=== PATIENT | female | born 1965 | race Caucasian/White ===

== ENCOUNTER 2018-08-11 14:09 | Outpatient (CLI) | payer BC, SELFPAY ==
--- NOTE | 2018-08-11 14:07 | DI.RAD_ITS ---
SYMPTOMS/DIAGNOSIS: LT SHOULDER PAIN LEFT SHOULDER: Four views were obtained. There are mild hypertrophic degenerative changes of the glenohumeral and acromioclavicular joint. There is lucency of the inferior glenoid which may represent degenerative cyst formation. Other etiologies including neoplastic disease not absolutely excluded on the basis of these films. I would note that rib films of 09/01/17 showed similar findings in the glenoid as visualized and the findings appear fairly stable, making neoplasm or infection unlikely.
== END 2018-08-11 14:29 ==
PROVIDERS: PCP Nurse Practitioner Family; Visit Provider Physician Assistant
DX: M25.512 Pain in left shoulder (principal); M19.012 Primary osteoarthritis, left shoulder
CPT/HCPCS: 73030

== ENCOUNTER 2018-10-17 10:57 | Emergency (ER) | payer BC, SELFPAY ==
[2018-10-17 11:10] VITALS: BP 144/73; PULSE 103; RESP 16; TEMP 37; O2SAT 97
--- NOTE | 2018-10-17 11:10 | W.ED.GENAD ---
Discharge Plan Disposition Patient Disposition: HOME Condition: Stable Discharge Details Chief Complaint: RashLesion Clinical Impression: History of shingles Primary Care Provider: Trudy Olmedo ED Provider: Eliot Thomason Home Meds and New Rx's Prescriptions: New valacyclovir 1 gram tablet 1,000 mg PO TID 7 Days Qty: 21 RF: 0 Continued Novolog Flexpen U-100 Insulin 100 unit/mL insulin pen 10 unit SC TID RF: 0 Ozempic 1 mg/0.75 mL (2 mg/1.5 mL) pen injector 1 mg SC QWEEK RF: 0 Tresiba FlexTouch U-200 200 unit/mL (3 mL) insulin pen 128 unit SC DAILY RF: 0 gabapentin 300 MG capsule 2 tab PO HS RF: 0 metformin 500 MG tablet extended release 24 hr 4 tab PO HS RF: 0 ibuprofen 200 MG capsule 200 mg PO RF: 0 No Action venlafaxine 75 MG tablet 2 tab PO DAILY RF: 0 zolpidem [Ambien] 5 MG tablet 1 tab PO HS RF: 0 Discharge Instructions Additional Instructions: Take valacyclovir as prescribed. Follow-up with Trudy Olmedo if not improved in 7 days time. Return to the emergency department for any acute concern Medical Decision Making 53-year-old female presents from home complaining of concern for achy left arm rash over days time. Similar to previous episodes of shingles. She is otherwise been well. Given her previous episodes of shingles, I do feels reasonable to treat with a course of valacyclovir. Discussed this option with her and she stable for outpatient management HPI General Mode of arrival: ambulatory. Date/Time Provider Initiated Documentation: 10/17/18 11:06. Limitations to Documentation: no limitations. Information obtained by: patient. History of Present Illness 53 year old F presents to the emergency department with the chief complaint of Left arm rash, feels like previous shingles, described as mild, Quality is described as aching, and is localized to the left and upper extremity. Patient reports no radiation. Patient started experiencing this day(s) and it has been constant. No relieving factors improve symptom(s), No exacerbating factors reported . Patient notes no other symptoms.. Patient did receive the following treatments prior to arrival, none Related Data Home Medications Medication Instructions Recorded Confirmed gabapentin 2 tab PO HS 02/19/14 09/29/18 venlafaxine 2 tab PO DAILY 02/19/14 09/29/18 zolpidem [Ambien] 1 tab PO HS 02/19/14 09/29/18 metformin 4 tab PO HS 07/18/15 09/29/18 ibuprofen 200 mg PO 03/07/17 09/29/18 insulin aspart U- 100 100 unit/mL 10 unit SC TID 08/11/18 09/29/18 subcutaneous pen insulin degludec (U-200) 200 128 unit SC DAILY ml 08/11/18 09/29/18 unit/mL (3 mL) subcutaneous pen semaglutide 1 mg/0.75 mL (2 mg/1.5 1 mg SC QWEEK 08/11/18 09/29/18 mL) subcutaneous pen injector valacyclovir 1,000 mg PO TID 7 Days #21 tab 10/17/18 Previous Rx's Medication Instructions Recorded valacyclovir 1,000 mg PO TID 7 Days #21 tab 10/17/18 Allergies Allergy/AdvReac Type Severity Reaction Status Date / Time Penicillins Allergy Intermediate Swelling/Ed Unverified 09/29/18 15:03 jeanette exenatide [From Byetta] AdvReac Mild Nausea Unverified 09/29/18 15:03 Review of Systems Review of Systems 6 systems reviewed and otherwise - COUNTS INCLUDE 234 BEDS AT THE [facility] Social History Smoking/Tobacco Use Status: Never Exam Narrative Exam Narrative: GEN: awake, alert, oriented 3. Pleasant, well groomed, interactive. HEAD: Normocephalic, atraumatic ENT: Mucous membranes moist, oropharynx unremarkable, External ear exam unremarkable EYES: PERRL, EOMI NECK: Full ROM, no SEAN, no menigismus CHEST/RESP: Nontender, clear to auscultation bilateral, no wheeze/rhonchi/rales CARDIOVASCULAR: RRR, no murmur, rub victor manuel. 2+ Rad pulse bilateral ABDOMEN: Soft, nontender, no mass. +Bowel sounds EXT: Full ROM, no edema, discrete punctate erythematous rash left arm Neuro: Grossly normal neurologic exam, conversant, interactive. Psych: Speech fluent, thoughts congruent, affect normal
== END 2018-10-17 11:18 | disposition home or self-care (01) ==
PROVIDERS: Emergency Provider Emergency Medicine; PCP Nurse Practitioner Family
DX: B02.9 Zoster without complications (principal)
CPT/HCPCS: 99283

== ENCOUNTER 2018-12-16 00:34 | Outpatient (CLI) | payer BC, SELFPAY ==
--- NOTE | 2018-12-16 06:40 | DI.RAD_ITS ---
SYMPTOM/DIAGNOSIS: LT SHOULDER INJECTION, TENDINITIS LT ROTATOR CUFF, M75.82, OTHER SHOULDER LESION, LT LEFT SHOULDER INJECTION: Fluoroscopy Time: 3 seconds A frontal image demonstrates needle positioning and injection into the left shoulder joint by Dr. Lujan. Please see the procedure report for further information.
[2018-12-16] MEDS: Bupivacaine 0.5% Pres-Free 10 ML VIAL 5 ML IJ (09:06)
[2018-12-16] MEDS: methylPREDNISolone ACETATE 80 MG/ML VIAL IM (09:07)
[2018-12-16] MEDS: Omnipaque 300 MG/ML 10 ML BTL IJ (09:08)
--- NOTE | 2018-12-16 09:50 | W.PROCNOTE ---
Date of service: 12/16/18 Time of Service: 09:50 Procedure Note Date of procedure: 12/16/18 Procedure: Left Shoulder Injection Surgeon/Proceduralist/Physician: Lamin Lujan Procedure Diagnosis: Left partial rotator cuff tear Procedure Indications: Marquis has had persistent pain of the LEFT shoulder. Noninvasive measures have been tried. To serve as both diagnostic and therapeutic, an injection under fluoroscopy was recommended. I had discussed the risks of the procedure and the patient elected to proceed. Procedure Description: Marquis was greeted in the flouroscopy room. The correct side was identified and the consent was reviewed with the patient and signed. The patient was then placed in the supine position on the fluoroscopy table. The LEFT shoulder was then prepped with Chloraprep. The anterior injection starting point was identiifed by bony landmarks and fluoroscopy. The skin and soft tissue in the tract of the injection was anesthetized with 1% Lidocaine. A spinal needle was then inserted deep into the shoulder joint at the level of the recess between the glenoid and superior humeral head. A small amount of Omnipaque solution was injected to confirm intraarticular placement. Once confirmed, the shoulder was injected with 4cc of 0.5% Bupivicaine and 80mg of Depo-Medrol. A bandaid was placed on the injection site. The patient tolerated the procedure well and noted improvement in pre-injection pain.
== END 2018-12-16 00:54 ==
PROVIDERS: PCP Nurse Practitioner Family; Visit Provider Student in an Organized Health Care Education/Training Program
DX: M25.512 Pain in left shoulder (principal); M75.82 Other shoulder lesions, left shoulder
CPT/HCPCS: 20610; 77002; J1040

== ENCOUNTER 2019-02-11 00:32 | Outpatient (CLI) | payer BC, SELFPAY ==
--- NOTE | 2019-02-11 11:00 | DI.US_ITS ---
SYMPTOMS/DIAGNOSIS: LUMP ON CHEST NEAR XIPHOID X 3 WEEKS, PAINFUL TO THE TOUCH, HAS PROGRESSIVELY INCREASED IN SIZE, R22.9 ULTRASOUND OF THE CHEST: The area of the palpable abnormality beneath the xiphoid was scanned. No mass or cyst is identified. There is a question of a fatty prominence, which could represent a small lipoma. The measurements are approximately 1.4 x 0.8 x 1 cm. IMPRESSION: Question of a small lipoma beneath the xiphoid.
== END 2019-02-11 00:52 ==
PROVIDERS: PCP Nurse Practitioner Family; Visit Provider Nurse Practitioner Family
DX: R22.2 Localized swelling, mass and lump, trunk (principal); D17.1 Benign lipomatous neoplasm of skin and subcutaneous tissue of trunk
CPT/HCPCS: 76604

== ENCOUNTER 2019-02-26 12:33 | Emergency (ER) | payer BC, SELFPAY ==
[2019-02-26 12:38] VITALS: BP 137/68; PULSE 107; RESP 18; TEMP 37.2; O2SAT 96
--- NOTE | 2019-02-26 13:09 | ED.GENADUL_ITS ---
Discharge Plan Disposition Patient Disposition: HOME Condition: Stable Discharge Details Chief Complaint: RespSymp Clinical Impression: Conjunctivitis, Acute streptococcal pharyngitis, Cough Primary Care Provider: Martina So ED Provider: Masha Melendez Home Meds and New Rx's Prescriptions: New azithromycin [Zithromax] 500 mg tablet 500 mg PO DAILY 5 Days Qty: 5 RF: 0 Continued Novolog Flexpen U-100 Insulin 100 unit/mL insulin pen 10 unit SC TID RF: 0 Ozempic 1 mg/0.75 mL (2 mg/1.5 mL) pen injector 1 mg SC QWEEK RF: 0 Tresiba FlexTouch U-200 200 unit/mL (3 mL) insulin pen 100 unit SC DAILY RF: 0 venlafaxine 75 MG tablet 2 tab PO DAILY RF: 0 zolpidem [Ambien] 5 MG tablet 1 tab PO HS RF: 0 gabapentin 300 MG capsule 2 tab PO HS RF: 0 metformin 500 MG tablet extended release 24 hr 4 tab PO HS RF: 0 Discharge Instructions Instructions: Pharyngitis (ED), Acute Cough (ED), Conjunctivitis (ED) Additional Instructions: Alternate Tylenol and Motrin as needed directed for pain. Take the antibiotics until finished. Apply the erythromycin ointment with 1/2 inch ribbon to the left eye 4 times daily for the next 4 days. Follow-up with your primary care doctor next week for reevaluation. Return to the emergency department if you develop any worsening or new co ncerning symptoms. Discharge Data Discharge Date/Time-TO BE ENTERED AT DEPARTURE: 02/26/19 15:31 Discharge Physician: Masha Melendez Medical Decision Making 53-year-old female with a history of diabetes type 2 who presents with cough, sore throat for the past 9 days and left eye irritation and redness for the past 2 days. Afebrile. Patient appears nontoxic. Left eye injection and tearing consistent with conjunctivitis, symptoms much milder in the right eye. Glucose after arrival 117. Lungs clear to auscultation. Normal oropharynx. No lymphadenopathy, submandibular swelling. Abdomen soft nontender. Chest x-ray negative. Rapid strep positive. Patient given tube of erythromycin ointment to apply in the left eye 4 times daily. Also instructed to use the same on right eye if needed. Prescription for Zithromax given for strep pharyngitis. Patient instructed to drink plenty of fluids, get plenty of rest, and instructed that her symptoms are contagious. She is instructed to follow-up with primary care doctor for reevaluation and to return here if worse. Pt returned later to the ED for a dose of the Zithromax PO as she went to the pharmacy and it was closed. Medical Records Medical records reviewed: Yes I reviewed the patient's medical records. Imaging Data Radiologic Study: Radiologist's impression: XR Chest, 2 Views EXAM DATE/TIME: 02/26/2019 1:09 PM CLINICAL HISTORY: 53 years old, female; Signs and symptoms; Cough TECHNIQUE: Imaging protocol: XR of the chest, 2 views. COMPARISON: CR LEFT RIBS PA CXR ONLY-3VIEWS 09/01/2017 9:26 AM FINDINGS: Lungs: No significant consolidation. Pleural space: No pleural effusion. No pneumothorax. Heart/Mediastinum: No significant cardiomegaly. Bones/joints: Unremarkable for age. IMPRESSION: No acute findings. Lab Data Lab results reviewed: Yes I reviewed the patient's lab results. Rapid strep positive. HPI General Mode of arrival: ambulatory . Date/Time Provider Initiated Documentation: 02/26/19 12:57 . Limitations to Documentation: no limitations . Information obtained by: patient . HPI Narrative: Patient is a 53-year-old female who presents to the ED with complaint of cough and sore throat for the past 9 days. She states her sore throat is bothering her the most but occasionally has a cough with yellow mucus. She states she has been eating and drinking less than normal but otherwise denies any fever, shortness of breath, chest pain. She states her main complaint is what she thinks is pinkeye in her left eye. She states she had a recent contact with someone diagnosed with pinkeye. 2 days ago she started with left eye pain, discharge and crusting which is now developing in her right eye. She denies any blurry vision, headache or neck pain. Related Data Home Medications Medication Instructions Recorded Confirmed gabapentin 2 tab PO HS 02/19/14 02/26/19 venlafaxine 2 tab PO DAILY 02/19/14 02/26/19 zolpidem [Ambien] 1 tab PO HS 02/19/14 02/26/19 metformin 4 tab PO HS 07/18/15 02/26/19 insulin aspart U- 100 100 unit/mL 10 unit SC TID 08/11/18 02/26/19 subcutaneous pen insulin degludec (U-200) 200 100 unit SC DAILY ml 08/11/18 02/26/19 unit/mL (3 mL) subcutaneous pen semaglutide 1 mg/dose (2 mg/1.5 1 mg SC QWEEK 08/11/18 02/26/19 mL) subcutaneous pen injector azithromycin [Zithromax] 500 mg PO DAILY 5 Days #5 tab 02/26/19 Previous Rx's Medication Instructions Recorded azithromycin [Zithromax] 500 mg PO DAILY 5 Days #5 tab 02/26/19 Allergies Allergy/AdvReac Type Severity Reaction Status Date / Time Penicillins Allergy Intermediate Swelling/Ed Unverified 02/26/19 12:42 jeanette exenatide [From Byetta] AdvReac Mild Nausea Unverified 02/26/19 12:42 General Stated Complaint: RespSymp ANDREWS: 4 Review of Systems Review of Systems All systems reviewed & are unremarkable except as noted in HPI and below Constitutional Reports as per HPI, Denies chills and Denies fever(s) Eyes Denies blurry vision, Reports eye discharge and Reports irritation ENT Denies dizziness, Reports sore throat and Denies throat swelling Cardiovascular Denies chest pain and Denies dyspnea Respiratory Reports cough and Denies dyspnea Gastrointestinal Denies abdominal pain, Denies diarrhea and Denies vomiting Genitourinary Denies hematuria and Denies dysuria Musculoskeletal Denies back pain and Denies numbness Integumentary/Breasts Denies lesions and Denies rash Neurologic Denies dizziness, Denies focal weakness and Denies numbness Allergic/Immunologic Denies throat swelling [facility] Medical History Type 2 diabetes mellitus (Acute) Surgical History H/O laparoscopy (Chronic) Social History Smoking/Tobacco Use Status: Never Alcohol Intake: never Drug use: Never Substance use type: does not use Do you feel safe at home: Yes Do you feel safe in your relationship?: Yes Exam Const General: cooperative and healthy appearing Orientation: alert and awake HENMA Head: normal to inspection Ears: hearing grossly normal bilaterally, external ears normal and TM's normal bilaterally General nose exam: external nose normal Face and sinus: normal facial exam Mouth: oral mucosae normal Teeth and gingiva: dentition normal Throat: posterior oropharynx normal, tonsils normal, uvula midline and no peritonsillar masses Eyes General: appearance normal, both eyes and all related structures Eyelids: eyelids normal Conjunctivae: conjunctival abnormality bilaterally conjunctival injection (Left worse than right) and discharge purulent (Left) Pupils: PERRL EOM: EOM intact bilaterally Neck Neck: normal visual inspection Lymphatic: no lymphadenopathy noted Chest Chest: normal inspection of the chest Resp Effort & Inspection: normal respiratory effort and able to speak in complete sentences Auscultation: clear to auscultation bilaterally Cardio Rate: regular rate Rhythm: regular rhythm GI Inspection: normal to inspection Palpation: soft, not firm, no guarding, no hepatosplenomegaly, no masses and nontender Auscultation: normal bowel sounds Skin General skin exam: no rashes or lesions noted Neuro General: alert and awake Cognition: normal cognition Speech: speech normal Gait: normal gait Motor: muscle tone normal throughout Sensory Exam: no sensory deficits noted Extrem General: normal to inspection, full ROM and normal capillary refill Psych Appearance: grossly normal Mental Status: mental status grossly normal Speech and Movement: speech and movement normal Affect: normal affect Thought Process: normal Course Vital Signs Temperature 99.0 F 02/26/19 12:38 Pulse 107 H 02/26/19 12:38 Respiratory Rate 18 02/26/19 12:38 Blood Pressure 137/68 02/26/19 12:38 Pulse Oximetry 96 02/26/19 12:38 Temperature 99.0 F 02/26/19 12:38 Temperature Source Skin 02/26/19 12:38 Pulse 107 H 02/26/19 12:38 Respiratory Rate 18 02/26/19 12:38 Respiratory Effort Non-Labored 02/26/19 12:46 Respiratory Depth Normal 02/26/19 12:46 Blood Pressure 137/68 02/26/19 12:38 Blood Pressure Position Sitting 02/26/19 12:38 Pulse Oximetry 96 02/26/19 12:38 Oxygen Delivery Method Room Air 02/26/19 12:38 Oxygen Flow Rate 0 02/26/19 12:38 Pain Level 4 02/26/19 12:38 Comment 02/26/19 12:38
--- NOTE | 2019-02-26 13:30 | DI.RAD_ITS ---
SYMPTOM/DIAGNOSIS: COUGH,DIABETES PA AND LATERAL CHEST: Comparison is made with 09/01/17. The heart is normal in size. The lungs are clear. The mediastinal structures and pleura appear intact. CONCLUSION: Normal chest.
--- NOTE | 2019-02-26 13:57 | DI.VRAD_ITS ---
EXAM: XR Chest, 2 Views EXAM DATE/TIME: 02/26/2019 1:09 PM CLINICAL HISTORY: 53 years old, female; Signs and symptoms; Cough TECHNIQUE: Imaging protocol: XR of the chest, 2 views. COMPARISON: CR LEFT RIBS PA CXR ONLY-3VIEWS 09/01/2017 9:26 AM FINDINGS: Lungs: No significant consolidation. Pleural space: No pleural effusion. No pneumothorax. Heart/Mediastinum: No significant cardiomegaly. Bones/joints: Unremarkable for age. IMPRESSION: No acute findings. Dictated and Authenticated by: Misha Schaefer MD. Ordering:ZHENG Flanagan MD
[2019-02-26] MEDS: Erythromycin Ophth Oint 3.5 GM TUBE OU (14:41)
--- NOTE | 2019-02-26 18:11 | NUR.NOTE ---
Nursing Note: Pt contacted ED regarding Pharmacy closed @ 1800 and was unable to fill prescription today for Azithromycin 500mg PO QD. Dr. Melendez made aware and order received to give pt one dose for tonight, fill script tomorrow and continue as ordered.
[2019-02-26] MEDS: Azithromycin 250 MG TAB 500 MG PO (18:21)
== END 2019-02-26 15:31 | disposition home or self-care (01) ==
PROVIDERS: Emergency Provider Physician Assistant; PCP Nurse Practitioner Family
DX: H10.9 Unspecified conjunctivitis (principal); J02.0 Streptococcal pharyngitis; R05 Cough; E11.9 Type 2 diabetes mellitus without complications; Z79.4 Long term (current) use of insulin
CPT/HCPCS: 36416; 82962; 87880; 99283; 71046

== ENCOUNTER 2019-04-06 00:17 | Outpatient (CLI) | payer BC, SELFPAY ==
--- NOTE | 2019-04-06 11:55 | DI.MAMMO_ITS ---
SYMPTOM/DIAGNOSIS: SCREENING MAMMO Z12.31 MAMMOGRAMS: Mammograms were interpreted according to the usual protocol including computer analysis with CAD system, tomosynthesis and C view imaging. The breast tissue is of moderate radiodensity. There is no evidence of a mass. There are no suspicious calcifications. There has been no significant interval change when compared with prior images. SUMMARY: No evidence of malignancy, Category 1, yearly screening mammography is recommended. Breast density category B. SA ASSESSMENT OF FINDINGS: Negative. Category 1. Patient will receive a letter notifying them of these results. BI-RADS category B. There are scattered areas of fibroglandular density.
== END 2019-04-06 00:37 ==
PROVIDERS: PCP Nurse Practitioner Family; Visit Provider Family Medicine
DX: Z12.31 Encounter for screening mammogram for malignant neoplasm of breast (principal)
CPT/HCPCS: 77063; 77067

== ENCOUNTER 2019-07-06 18:33 | Outpatient (REF) | payer BC, SELFPAY ==
[2019-07-06 22:23] LABS: HCT 40.4 % (36.0-46.0); HGB 13.3 g/dL (12.0-15.5); Mean Corp. HGB Concentration 32.9 g/dL (32.0-36.0); Mean Corpuscular Hemoglobin 28.4 pg (27.0-33.0); Mean Corpuscular Volume 86.1 fL (80-95); Mean Platelet Volume 10.3 fL (8.0-11.0); Platelet Count 316 x1000/uL (130-400); RBC 4.69 m/cumm (4.00-5.20); RBC Distribution Width 12.8 % (11.7-14.6); White Blood Cell Count 12.99 k/cumm (4.4-10.8)
[2019-07-08 09:01] LABS: Cyclic Citrullinated Peptide <2.5 U/mL (<5.0)
[2019-07-08 10:53] LABS: Rheumatoid Factor 13 IU/mL (<12.5)
[2019-07-08 11:01] LABS: Lyme Ab w Rflx to Lyme Confirm Negative
[2019-07-08 16:58] LABS: ANA Interpretation Positive (NEGAT); ANA Titer Pattern SEE COMMENTS
[2019-07-08 20:53] LABS: Anaplasma phagocytophilum Negative (Negative); B. miyamotoi PCR Negative (Negative); Babesia divergens/MO-1 Negative (Negative); Babesia duncani Negative (Negative); Babesia microti Negative (Negative); Ehrlichia chaffeensis Negative (Negative); Ehrlichia ewingii/canis Negative (Negative); Ehrlichia muris eauclairensis Negative (Negative)
== END 2019-07-06 18:53 ==
LOC: NCHCN 18:33
PROVIDERS: PCP Nurse Practitioner Family; Visit Provider Nurse Practitioner Family
DX: R53.83 Other fatigue (principal); R53.81 Other malaise
CPT/HCPCS: 85027; 86200; 87798; 84443; 86038; 86431; 86618

== ENCOUNTER 2019-07-26 00:56 | Outpatient (CLI) | payer BC, SELFPAY ==
--- NOTE | 2019-07-26 08:30 | ETT_ITS ---
APPROVED REPORT Exam: Exercise Treadmill Patient Location: Out-Patient Room/Bed: Stress Nurse: Karen Bahena RN BMI: 36.39 Baseline Rhythm: Sinus Rhythm Indications: Testing today for further risk stratification. Patient states she is adopted and does no t know her family history. Medical History Medical History: Anxiety, PTSD, sleep apnea, head injury. Allergies: Penicillin, Byetta. Cardiac Risk Factors: HTN, Diabetes (insulin) Pretest Chest Pain Characteristics: No chest pain Exercise History: Physically active Lung Sounds: Clear to auscultation Heart Sounds: Regular Stress Test Details Test: Exercise stress testing was performed using a Harsha protocol. Rest Stress HR Max Heart Rate (APMHR): 167 bpm Resting HR Supine: 88 bpm Target HR (85% APMHR): 141 bpm Resting HR Standin bpm Max HR Achieved: 152 bpm % of APMHR: 91 Recovery HR: 98 bpm HR response to stress: Normal HR response to stress BP Resting BP Supine: 126/78 mmHg Resting BP Standin/78 mmHg Max BP: 180/62 mmHg Recovery BP: 120/72 mmHg BP response to stress: Normal blood pressure response to stress. ECG Resting ECG: Sinus Rhythm ST Change: none Stress ECG: Sinus Tachycardia ST Change: none Recovery Arrhythmia: None, APC, VPC, APC, None, Clinical Reason for Termination: Leg fatigue Exercise duration: 7 min15 sec Exercise capacity: 8.99 METs Functional Capacity: Average Capacity Stress ECG Conclusion 1. Patient exercised for 7 minutes and 15 seconds (9 METS) which is average exercise tolerance for he r age 2. Patient reached heart rate threshold which suggest this is a maximal test. 3. There is no evidence of ischemia on the ECG portion of this exam. 4. The Darnell Score (7) estimates an annual cardiovascular mortality of 0% and a five year survival of 95%. Using the Darnell Score there is a low probability of any angiographic coronary disease. Protocol Used: Harsha Protocol Stress Test Summary STAGE Time (mins) Speed (mph) Grade (%) HR BP SYMPTOMS METS Supine 88 126/78 Standing 92 130/78 1 3 1.7 10 120 138/80 4.6 2 6 2.5 12 140 146/82 7 1 min recovery 122 180/62 3 min recovery 105 160/70 6 min recovery 102 140/74 9 min recovery 98 120/72
== END 2019-07-26 01:16 ==
PROVIDERS: PCP Nurse Practitioner Family; Visit Provider Nurse Practitioner Family
DX: R07.9 Chest pain, unspecified (principal); I10 Essential (primary) hypertension; E11.9 Type 2 diabetes mellitus without complications; Z79.4 Long term (current) use of insulin; F41.9 Anxiety disorder, unspecified; F43.10 Post-traumatic stress disorder, unspecified
CPT/HCPCS: 93017

== ENCOUNTER 2019-09-19 13:30 | Outpatient (CLI) | payer BC, SELFPAY ==
[2019-09-19 15:25] LABS: Vitamin B12 413 pg/mL (193-986)
[2019-09-20 15:24] LABS: Albumin 61.6 % (55.8-66.1); Total Protein 7.3 g/dL (6.3-8.2)
== END 2019-09-19 13:50 ==
PROVIDERS: PCP Nurse Practitioner Family; Visit Provider Nurse Practitioner Adult Health
DX: G62.9 Polyneuropathy, unspecified (principal)
CPT/HCPCS: 36415; 82607; 84165

== ENCOUNTER 2019-12-20 11:55 | Outpatient (CLI) | payer BC, SELFPAY ==
--- NOTE | 2019-12-20 11:46 | DI.RAD_ITS ---
EXAM: XR SHOULDER LT COMPLETE 2+V CLINICAL HISTORY: Follow up. TECHNIQUE: 2D digital imaging was performed. COMPARISON: XR shoulder LT complete 2+V from 08/11/2018 MR upper joint LT wo from 12/04/2018 FINDINGS: BONES: No acute fracture is present. No bony destructive lesion is seen. There are degenerative fina nges at the AC joint. Subchondral cysts are seen in the inferior glenoid. The humeral appears chadd lly positioned. JOINTS: No dislocation present. SOFT TISSUE: Normal. IMPRESSION: Stable degenerative changes. DATA REPOSITORY: RADIATION DOSE DELIVERED:
== END 2019-12-20 12:15 ==
PROVIDERS: PCP Nurse Practitioner Family; Visit Provider Student in an Organized Health Care Education/Training Program
DX: M75.52 Bursitis of left shoulder (principal); M19.012 Primary osteoarthritis, left shoulder
CPT/HCPCS: 73030

== ENCOUNTER 2020-02-20 07:54 | Outpatient (CLI) | payer BC, SELFPAY ==
[2020-02-21 18:24] LABS: COVID-19 RT-PCR UVMMC Result Negative (Negative)
== END 2020-02-20 08:14 ==
PROVIDERS: PCP Nurse Practitioner Family; Visit Provider Student in an Organized Health Care Education/Training Program
DX: Z11.59 Encounter for screening for other viral diseases (principal); Z01.818 Encounter for other preprocedural examination
CPT/HCPCS: U0003

== ENCOUNTER 2020-02-23 06:17 | Day surgery (SDC) | payer BC, SELFPAY ==
[2020-02-23] VITALS (13 sets, daily range): BP systolic 64–130; BP diastolic 27–68; PULSE 71–82; RESP 13–20; TEMP 36.5–36.9; O2SAT 93–97
[2020-02-23] MEDS: DEXTROSE 5%-0.45% SALINE 1,000 ML 100 ML IV (06:57)
[2020-02-23] MEDS: Lactated Ringers 1,000 ML 30 ML IV (07:15)
[2020-02-23] MEDS: CLINDAMYCIN 900 MG/50 ML BAG 50 MG IVPB (07:49)
[2020-02-23] MEDS: EPINEPHrine 30 MG/30 ML VIAL (09:51)
--- NOTE | 2020-02-23 10:23 | W.PM.DSUDISC ---
Discharge Plan Disposition Patient Disposition: HOME Condition: Stable Discharge Details Reason For Visit: Left shoulder surgery Attending Provider: Kosta Little Primary Care Provider: Martina So Home Meds and New Rx's Prescriptions: New naproxen 250 mg tablet 250 - 500 mg PO BID PRN (Reason: Moderate pain or swelling) Qty: 60 RF: 0 aspirin 81 mg tablet,delayed release (DR/EC) 81 mg PO DAILY 14 Days Qty: 14 RF: 0 ondansetron 4 mg tablet,disintegrating 4 mg PO Q6H PRN (Reason: nausea or vomiting) Qty: 5 RF: 0 oxycodone 5 mg tablet 5 - 10 mg PO Q4H PRN (Reason: moderate to severe pain) Qty: 12 RF: 0 Continued melatonin 10 mg tablet 10 mg PO HS PRNRF: 0 gabapentin 100 mg capsule 300 mg PO DAILY RF: 0 lisinopril 2.5 mg tablet 2.5 mg PO DAILY RF: 0 Ozempic 1 mg/0.75 mL (2 mg/1.5 mL) pen injector 1 mg SC QWEEK RF: 0 Tresiba FlexTouch U-200 200 unit/mL (3 mL) insulin pen 36 - 40 unit SC HS RF: 0 zolpidem [Ambien] 5 mg tablet 10 mg PO HS RF: 0 Discharge Instructions Additional Instructions: Surgery: Shoulder arthroscopy with debridement, decompression, capsular release, and biceps tenodesis Activity: You should gradually increase range of motion motion and use of your shoulder. Please perform daily stretching exercises. You may use your shoulder for all regular activities. Avoid heavy lifting, reaching overhead, and lifting away from body for approximately 6 to 8 weeks. You may use the sling whenever you are out of the house for a few weeks. You may have to adjust the abduction pillow or remove it for comfort. At home it is best to remove the sling and rest the arm on a pillow at your side or support the operative side with your other hand. You may allow the arm to dangle at your side. A physical therapy prescription will be provided separately today as well as a handout demonstrating range of motion exercises. Prescriptions: Aspirin 81 mg take 1 daily to prevent a blood clot for 2 weeks Naproxen 250 mg take 1-2 every 12 hours with a meal as needed for moderate pain Oxycodone 5 mg take 1-2 every 4-6 hours as needed for severe pain Ondansetron (Zofran) 4 mg take 1 orally dissolving tablet every 6 hours as needed for nausea or vomiting You may use [id number] Tylenol (acetaminophen) as needed for mild pain. These pain medications may be taken all at once or in different combinations as needed. Also, recommend Colace (docusate) as a stool softener as surgery and pain medicine cause constipation. Dressings: Leave dressing in place for 2-3 days. May then remove and leave open to air or cover incisions with Band-Aids. May shower after 5 days. Follow-up: 10-[address] Little Patient to remain home for 2 weeks to recover from surgery. 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 Please call the office during business hours with any questions or concerns. Let us know right away if you develop any redness, drainage, fevers, chest pain, or trouble breathing. Do not drink alcohol or drive for at least 24 hours after anesthesia. Referrals: Kosta Little MD [ [facility] STAFF PHYSICIAN] - Discharge Orders Discharge Orders: Discharge Order (Routine); Ordered 02/23/20 Ordered By: Kosta Little DS: Diagnosis Discharge Diagnosis (1) Bursitis of left shoulder: Status: Acute (2) Impingement syndrome of left shoulder: Status: Acute (3) Left rotator cuff tear: Status: Acute (4) Tendinitis of long head of biceps brachii of left shoulder: Status: Acute (5) Adhesive capsulitis of left shoulder: Status: Acute
--- NOTE | 2020-02-23 10:35 | W.PM.OP ---
Date of service: 02/23/20 Time of Service: 07:25 Operative Note Operative Note DATE OF PROCEDURE: 02/23/20 PRE-OP DIAGNOSIS: Left: 1. Rotator cuff tear 2. LHB tendinopathy 3. Bursitis 4. Impingement POST-OP DIAGNOSIS: same PROCEDURE: Left: 1. Shoulder manipulation under anesthesia, CPT #31672. After an exam under anesthesia confirmed loss of external rotation and forward flexion, this involved stabilizing the scapula and gently and steadily manipulating the arm in both forward flexion and external rotation using a short lever arm to apply pressure and obtaining appropriate release restoring equal and symmetrical range of motion. 2. Open biceps tenodesis, CPT# 13697. This involved reattaching the long head of the biceps tendon to the proximal humerus in the sub-pectoral area of the bicipital groove at the correct tension. 3. Extensive debridement, CPT# 46467. This involved using arthroscopic hand instruments, power instruments, and radiofrequency instruments to release to release the long head of the biceps tendon anchor and debride areas of labral tearing, synovitis, and chondromalacia about the biceps groove within the glenohumeral joint anteriorly, superiorly and posteriorly as well as perform an anterior MGHL capsular release and debridement articular sided supraspinatus tear. 4. Subacromial decompression with partial acromioplasty, CPT# 74162. This involved using arthroscopic power instruments and a radiofrequency wand to complete a bursectomy and remove bone spurs on the undersurface of the acromion. The dental chairside assistant was medically required in order to help assist in techniques above, which require positioning the arm, holding the arthroscope, and manipulating 2 to 4 instruments and sutures at the same time. This cannot be done without the help of an experienced dental chairside assistant. SURGEON: Kosta Little STEAM SHOVEL OILER: Ella Best ANESTHESIA: GETA, regional and local PATHOLOGY: none sent Patient was transported to: PACU Patient's condition: stable Implants: Arthrex: Unicortical Proximal Biceps Tenodesis Button Indications: The patient was diagnosed with the above conditions and appropriately indicated for surgical intervention. Please see complete medical record for details. Findings: Exam under anesthesia: Mild loss of terminal forward flexion 45 degrees compared with 160. Moderate loss of terminal external rotation limited to 45 degrees compared with 60+ degrees. Full internal rotation. Restored full symmetrical range of motion after gentle progressive manipulation under anesthesia increase in both forward flexion's and external rotation 260 and 60 degrees equal with the other side. Glenohumeral joint: Significant synovitis anteriorly and superiorly. Moderate synovitis posteriorly. Significant injection inflammation about the biceps tendon intra-articularly with a superior labral tear. Moderate grade 2 3 chondromalacia about the bicipital groove. Intact subscapularis tendon. Decreased axillary recess space. Moderate area central glenoid chondromalacia approximately 10 x 10 mm thinning and softening. Partial-thickness most anterior leading edge supraspinatus articular sided tear with only a few millimeters of footprint exposed estimated less than 20% of footprint. Intact central and posterior supraspinatus. Intact infraspinatus. Subacromial space: Moderate bursitis. Mild anterior acromial hook bone spur under the CA ligament. Moderately injected/hemorrhagic but largely intact bursal rotator cuff. Procedure Description: The patient was taken to the operating room and transferred to the operating room table. General anesthesia was induced. While under anesthesia, bilateral shoulders were examined. The patient was positioned in the beachchair position. All bony prominences were well-padded. Preoperative antibiotics were administered. The shoulder was prepped and draped in the usual sterile fashion. The correct patient, procedure, and side of the procedure were all verified prior to incision. Starting through the posterior portal a standard complete diagnostic arthroscopy was performed of the glenohumeral joint including inspection of the long head of the biceps, anterior and superior labrum, subscapularis tendon, supraspinatus and infraspinatus tendons, and axillary recess. The glenoid and humeral head cartilage as well as the posterior labrum were inspected from an anterior viewing portal. Significant findings and interventions noted above. The biceps tendon was released from the superior labrum using arthroscopic scissors. Starting through the posterior portal, the arthroscope was directed into the subacromial space. A lateral 50 yard line lateral portal was created. A combination of power instruments and a radiofrequency ablator were used to debride bursitis anteriorly, posteriorly, and laterally as well as expose and smooth bone spurring on the undersurface of the acromion. The coracoacromial ligament was partially released. The bursectomy was completed viewing laterally and working from posteriorly and the rotator cuff was thoroughly inspected with findings noted above. The shoulder was drained of arthroscopic fluid. Arthroscopy portals were covered with a lap. 10 cc of 0.5% bupivacaine with epinephrine was infiltrated about a 2 to 3 cm longitudinal incision at the inferior margin of the pectoralis major localized over the long head of the biceps tendon. Blunt and sharp dissection were used to expose the tendon in the bicipital groove. The tendon was brought out of the wound and kept off the skin on top of a blue towel. The correct location for sub-pectoral fixation was localized, prepped with a rasp, and then drilled with a 3.2 mm drill pin in a unicortical fashion. Using a fiber loop suture the tendon was prepped from the musculotendinous junction a few centimeters proximal. The excess tendon was amputated. The free suture ends were then passed through the unicortical button implant. The drill pin was removed and the implant was placed into the humeral intramedullary canal. The button was flipped and the sutures were tensioned bringing the tendon down to bone. Tension and fixation were then tested and found to be appropriate. The sutures were brought about either side of the tendon and the free ends were tied compressing tendon to the humerus. The wound was copiously irrigated with normal saline. Subcutaneous tissue was closed using 3-0 Monocryl in a buried interrupted fashion. Skin was closed using 3-0 Monocryl in a buried subcuticular running fashion. Skin glue was applied over the incision. Mastisol was applied about the incision. The incision was covered with Telfa, gauze, and covered with a Tegaderm dressing. All portal sites were copiously irrigated. These incisions were closed using 3-0 Monocryl in a buried fashion, covered with Mastisol, Steri-Strips, Xeroform, dry gauze, and ABDs. The dressings were covered and secured with Medipore tape. The operative extremity was placed into a sling for immobilization. The patient awoke from anesthesia without complication and was transferred to the recovery room in a stable condition.
[2020-02-23] MEDS: HYDROmorphone 2 MG/ML VIAL IVP (11:00)
== END 2020-02-23 14:15 | disposition home or self-care (01) ==
PROVIDERS: PCP Nurse Practitioner Family; Visit Provider Student in an Organized Health Care Education/Training Program
PROC: (CPT 29805; principal; 2020-02-23 07:30)
PROC: (CPT 23430; 2020-02-23 07:30)
DX: M75.112 Incomplete rotator cuff tear or rupture of left shoulder, not specified as traumatic (principal); M75.52 Bursitis of left shoulder; M75.42 Impingement syndrome of left shoulder; M75.22 Bicipital tendinitis, left shoulder; M75.02 Adhesive capsulitis of left shoulder; G89.18 Other acute postprocedural pain; M65.812 Other synovitis and tenosynovitis, left shoulder; M94.212 Chondromalacia, left shoulder
CPT/HCPCS: 23430; 23700; 29823; 29826; 76942; L3670; J1100; J1885; J2001; J2405; J2704

== ENCOUNTER 2020-08-15 15:08 | Outpatient (REF) | payer BC, SELFPAY ==
--- NOTE | 2020-08-15 09:30 | PAPFT_PTH ---
PATIENT: Marquis Figueroa LOC: [facility] U#:[id number] AGE/SX: 54/F ROOM: RE08/15/[address]: Martina So : 1965 BED: DIS: 08/15/2020 SPEC #: [id number] RECD: 08/20/20 12:59 STATUS: HILARIO REQ #: [id number] CATE: 08/15/20 09:[address]: Martina So DEPT: [facility] Cytology RECD BY: Jessica Quinonez Tissues: 1 - CX/ENDOCX FOR PAP SMEARS Procedures: PAP THIN PREP/UVM Screening HPV DNA PROBE Comments: [id number] (CHLAMYDIA/GC)
[2020-08-21 15:09] LABS: Chlamydia Result Negative (Negative); GC Result Negative (Negative)
== END 2020-08-15 15:28 ==
LOC: NCHCN 15:08
PROVIDERS: PCP Nurse Practitioner Family; Visit Provider Nurse Practitioner Family
DX: Z11.3 Encounter for screening for infections with a predominantly sexual mode of transmission (principal); Z12.4 Encounter for screening for malignant neoplasm of cervix; Z11.51 Encounter for screening for human papillomavirus (HPV)
CPT/HCPCS: 87491; 87591; 88142; 87624

== ENCOUNTER 2021-03-20 15:07 | Outpatient (REF) | payer BC, SELFPAY ==
[2021-03-20 22:09] LABS: ALT 28 U/L (14-59); AST 14 U/L (15-37); Anion Gap 10.5 mmol/L (3-11); BUN 17 mg/dL (7-18); CO2 27.5 mmol/L (21.0-32.0); CREATININE 0.7 mg/dL (0.55-1.02); Calcium 9.4 mg/dL (8.5-10.1); Calculated LDL 101 mg/dL (<100); Chloride 105 mmol/L (98-107); Cholesterol 195 mg/dL (<200); Glucose 180 mg/dL (74-106); HDL Cholesterol 32 mg/dL (40-60); Potassium 4.5 mmol/L (3.5-5.1); Sodium 143 mmol/L (136-145); Triglyceride 313 mg/dL (<150)
== END 2021-03-20 15:08 | disposition home or self-care (01) ==
LOC: NCHCN 15:07
PROVIDERS: PCP Nurse Practitioner Family; Visit Provider Nurse Practitioner Family
DX: E11.9 Type 2 diabetes mellitus without complications (principal); I10 Essential (primary) hypertension
CPT/HCPCS: 80048; 80061; 84450; 84460

== ENCOUNTER 2021-07-30 09:22 | Outpatient (CLI) | payer BC, SELFPAY ==
--- NOTE | 2021-07-30 09:15 | DI.RAD_ITS ---
Exam(s) XR HAND LT COMPLETE EXAM: XR HAND LT COMPLETE CLINICAL HISTORY: left thumb pain. TECHNIQUE: 2D digital imaging was performed of the left hand. Three views were obtained. AP, later al and oblique views were obtained. COMPARISON: No exams were available for comparison FINDINGS: BONES: No acute fracture is present. No bony destructive lesion is seen. JOINTS: No dislocation present. Mild periarticular spurring is seen at the 1st CMC joint and the inte rphalangeal joint of the thumb. SOFT TISSUE: Normal. IMPRESSION: Mild degenerative changes of the thumb. DATA REPOSITORY: RADIATION DOSE DELIVERED:
== END 2021-07-30 09:23 | disposition home or self-care (01) ==
LOC: DIORS 09:22
PROVIDERS: PCP Nurse Practitioner Family; Referring Provider Nurse Practitioner Family; Visit Provider Student in an Organized Health Care Education/Training Program
DX: M79.645 Pain in left finger(s) (principal); M18.12 Unilateral primary osteoarthritis of first carpometacarpal joint, left hand
CPT/HCPCS: 73130

== ENCOUNTER 2021-08-14 01:51 | Outpatient (CLI) | payer BC, SELFPAY ==
--- NOTE | 2021-08-14 13:00 | DI.MAMMO_ITS ---
Exam(s) MAMMO SCREENING EXAM: MAMMO SCREENING CLINICAL HISTORY: SCREENING MAMMO Z12.31 TECHNIQUE: Mammograms were interpreted according to the usual protocol including computer analysis w .[employer] CAD system, tomosynthesis and C-view imaging. COMPARISON: FINDINGS: The breasts are of moderate density with fairly symmetrical distribution of fibroglandular tissue. N o dominant mass or clumped microcalcification is identified in either breast. The current examinatio n is compared with previous examinations including March 2019 and there has been no gross interval fina nge in appearance in comparison with the previous studies. IMPRESSION: No specific evidence of malignancy at this time. Routine screening examinations are suggested at yea rly intervals in this age group according to the ACS ACR guidelines. BI-RADS Category 1 - Negative Breast Density - Category B - Scattered areas of fibroglandular density
== END 2021-08-14 02:11 ==
PROVIDERS: PCP Nurse Practitioner Family; Visit Provider Nurse Practitioner Family
DX: Z12.31 Encounter for screening mammogram for malignant neoplasm of breast (principal)
CPT/HCPCS: 77063; 77067

== ENCOUNTER 2022-02-14 15:05 | Emergency (ER) | payer OTHER, SELFPAY ==
[2022-02-14 15:15] VITALS: BP 115/90; PULSE 85; RESP 17; TEMP 36.9; O2SAT 97
--- NOTE | 2022-02-14 15:59 | ED.GENADUL_ITS ---
Discharge Plan Disposition Patient Disposition: HOME Condition: Stable Discharge Details Clinical Impression: Achilles tendinitis, right leg Primary Care Provider: Martina So ED Provider: Sergio Lin Home Meds and New Rx's Prescriptions: Continued gabapentin 100 mg capsule 300 mg PO DAILY Humalog U-100 Insulin 100 unit/mL cartridge 1 sliding sc SC USEASDIRECTD lisinopril 2.5 mg tablet 2.5 mg PO DAILY vitamin B complex [B Complex-Vitamin B12] Tablet 1 tab PO DAILY Ozempic 1 mg/0.75 mL (2 mg/1.5 mL) pen injector 1 mg SC QWEEK Tresiba FlexTouch U-200 200 unit/mL (3 mL) insulin pen 36 - 40 unit SC HS venlafaxine [Effexor XR] 37.5 mg capsule,extended release 24hr 37.5 mg PO DAILY acetaminophen [Tylenol] 325 mg tablet 325 mg PO ONCE PRN atorvastatin 40 mg tablet 40 mg PO DAILY fyrnxme-lurk-qjyef-oreg-capryl 100 mg-150 mg- 50 mg-150 mg capsule PO melatonin 3 mg capsule 3 mg PO HS PRN zolpidem [Ambien] 5 mg tablet 10 mg PO HS Discharge Instructions Instructions: Tendinitis (ED) Additional Instructions: Wear shoe walking boot and use crutches as needed, advance activity as tolerated. [id number] Tylenol and/or Motrin as directed for discomfort. Cool and/or warm compresses every 2 hours for 20 minutes. Please watch for new or worsening symptoms and return to the ER for any concerns. Lastly, if symptoms are not improving with conservative measures contact your primary care provider on Thursday for outpatient reevaluation Discharge Data Discharge Date/Time-TO BE ENTERED AT DEPARTURE: 02/14/22 16:29 Medical Decision Making 56-year-old female presents complaining of right heel pain that began yesterday after line dancing. She denies any overt injury. Denies numbness, tingling, weakness or any other symptoms. On evaluation is not actually her calcaneus but rather her Achilles-insertion thereof. Neuro, vascular, tendon intact. Achilles is intact. 5/5 dorsi and plantar flexion of the foot. I see no clear indication for imaging as there does not appear to be any bony abnormality. Devon l place into a short walking boot, give crutches with teaching, and recommend conservative measures. Standard discharge and return precautions were provided. Patient understands, is agreeable to this plan, and has no additional questions or concerns upon discharge. This documentation was generated using [employer] system, please disregard any oddities of phrase or misspellings. Medical Records Medical records reviewed: Yes I reviewed the patient's medical records. HPI General Mode of arrival: ambulatory . Date/Time Provider Initiated Documentation: 02/14/22 15:20 . Limitations to Documentation: no limitations . Information obtained by: patient . History of Present Illness 56 year old F presents to the emergency department with the chief complaint of Right Achilles pain, described as moderate, with intensity rated at 5. Quality is described as aching, and is localized to the right and lower extremity. Patient reports no radiation. Patient started experiencing this day(s) (1) and it has been constant. Immobilization improves symptom(s), Movement worsens symptoms . Patient notes no other symptoms.. Patient did receive the following treatments prior to arrival, none Related Data Home Medications Medication Instructions Recorded Confirmed insulin degludec 200 unit/mL (3 36 - 40 unit subcut HS 08/11/18 02/14/22 mL) subcutaneous pen (Tresiba FlexTouch U-200 insulin) semaglutide 1 mg/dose (2 mg/1.5 1 mg subcut QWEEK 08/11/18 02/14/22 mL) subcutaneous pen injector (Ozempic) zolpidem 5 mg tablet (Ambien) 10 mg PO HS 08/25/19 02/14/22 gabapentin 100 mg capsule 300 mg PO DAILY 01/31/20 02/14/22 insulin lispro 100 unit/mL 1 sliding sc subcut USEASDIRECTD 04/25/20 02/14/22 subcutaneous cartridge (Humalog U-100 Insulin) acetaminophen 325 mg tablet 325 mg PO ONCE PRN 01/07/21 02/14/22 (Tylenol) venlafaxine 37.5 mg 37.5 mg PO DAILY 01/07/21 02/14/22 capsule,extended release 24 hr (Effexor XR) lisinopril 2.5 mg tablet 2.5 mg PO DAILY 04/22/21 02/14/22 vitamin B complex (B 1 tab PO DAILY 04/22/21 02/14/22 Complex-Vitamin B12 tablet) atorvastatin 40 mg tablet 40 mg PO DAILY 10/03/21 02/14/22 melatonin 3 mg capsule 3 mg PO HS PRN 10/03/21 02/14/22 tumeric 100 mg-enrique 150 mg-olive cap PO 10/03/21 10/28/21 50 mg-oreg 150 mg-caprylate capsule Allergies Allergy/AdvReac Type Severity Reaction Status Date / Time Penicillins Allergy Intermediate Swelling/Ed Verified 02/14/22 15:20 jeanette exenatide [From Byetta] AdvReac Mild Nausea Verified 02/14/22 15:20 General Stated Complaint: Orthopedic ANDREWS: 4 Review of Systems Constitutional Constitutional: Denies fever(s) and Denies weakness Cardiovascular Cardiovascular: Denies chest pain and Denies dyspnea Respiratory Respiratory: Denies dyspnea Musculoskeletal Musculoskeletal: Denies deformity, Denies arthralgias, Denies numbness, Reports stiffness and Denies tingling Integumentary/Breasts Skin/Breast: Denies erythema Neurologic Neurologic: Denies numbness, Denies tingling and Denies weakness PFSH All Active Problems Achilles tendinitis, right leg (Acute) No-show for appointment (Acute) Tendinitis of thumb (Acute) Digital mucinous cyst of finger of left hand (Acute) Trigger finger, left index finger (Acute) Word finding difficulty (Acute) Cellulitis of finger of right hand (Acute) Contusion (Acute) Memory loss (Acute) Diabetic peripheral neuropathy (Acute) Migraine headache without aura (Acute) PTSD (post-traumatic stress disorder) (Acute) Does not like things tightly around her neck. 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 S/P lumpectomy of breast left Synovial cyst of wrist Right Family History Other Adopted Social History Smoking/Tobacco Use Status: Never Smoking risk assessment performed?: Yes Alcohol Intake: current Alcohol Intake frequency: holidays/special occasions only Drug use: Never Substance use type: does not use Household members: spouse and children Housing: house Number of Children: 1 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 Exam Const General: cooperative, healthy appearing, comfortable and no acute distress Orientation: alert and awake HENMT Head: normal to inspection, normocephalic and atraumatic Eyes Conjunctivae: conjunctivae normal Neck Neck: normal visual inspection, trachea midline and supple Resp Effort & Inspection: normal respiratory effort and able to speak in complete sentences Cardio Rate: regular rate Rhythm: regular rhythm Skin General skin exam: no rashes or lesions noted Neuro General: patient alert, patient awake, moves all extremities and no focal motor deficits Cognition: normal cognition Speech: speech normal Gait: antalgic Sensory Exam: no sensory deficits noted Extrem General: normal to inspection, full ROM, capillary refill normal, no pedal edema and no calf tenderness Ankle/foot/toe images: 1. There is diffuse discomfort across the region of the Achilles insertion. The Achilles is intact. There is no calf discomfort, swelling, erythema, or warmth. Neuro, vascular, tendon intact. There is no bony point tenderness. Th ere is no ecchymosis. Normal capillary refill and dorsalis pedal pulse. Psych Appearance: grossly normal Mental Status: mental status grossly normal Course Vital Signs Vital signs: Vital Signs Temperature 36.9 C 02/14/22 15:15 Pulse 85 02/14/22 15:15 Respiratory Rate 17 02/14/22 15:15 Blood Pressure 115/90 02/14/22 15:15 Pulse Oximetry 97 02/14/22 15:15 Temperature 36.9 C 02/14/22 15:15 Temperature Source Oral 02/14/22 15:15 Pulse 85 02/14/22 15:15 Respiratory Rate 17 05/27/22 15:15 Respiratory Effort Non-Labored 02/14/22 15:18 Blood Pressure 115/90 02/14/22 15:15 Blood Pressure Position Sitting 02/14/22 15:15 Pulse Oximetry 97 02/14/22 15:15 Oxygen Delivery Method Room Air 02/14/22 15:15 Oxygen Flow Rate 0 02/14/22 15:15 Pain Level 8 02/14/22 15:18
== END 2022-02-14 16:29 | disposition home or self-care (01) ==
PROVIDERS: Emergency Provider Physician Assistant; PCP Nurse Practitioner Family
DX: M76.61 Achilles tendinitis, right leg (principal)
CPT/HCPCS: 29515; 99283

== ENCOUNTER 2022-05-15 10:12 | Day surgery (SDC) | payer BC, SELFPAY ==
--- NOTE | 2022-05-14 16:39 | NUR.NOTE ---
1630: Marquis called and spoke to this nurse. First she stated she had taken both pills and drank half the prep and nothing was happening. Nurse instructed pt. to finish prep and that is sometimes awhile for prep to work. She was instructed to reach out to stone fabricator surgeon if she was still concerned about prep. Marquis also reported her blood sugar was currently 125 and usually she is in the 140s. She reports headache and that she would not feel comfortable driving a car feeling like this. Nursing inquired about what pre op had told her about her sugars and doing the prep. Marquis states she was told to drink apple juice and eat honey and take half her lantus tonight. Gertrduis EstevezTYPE ROLLING MACHINE OPERATOR informed. Reiterated to Marquis the pre op instructions and that she was not to have juice or honey 3 hours prior to surgery. If she did not feel well or that she could handle the prep she should contact stone fabricator surgeon.Nursing Note:
--- NOTE | 2022-05-15 07:25 | W.PM.DSUDISC ---
Discharge Plan Disposition Patient Disposition: HOME Condition: Good Discharge Details Reason For Visit: Screening Colonocsopy Attending Provider: Michi Rocha Primary Care Provider: Martina So Home Meds and New Rx's Prescriptions: Continued gabapentin 100 mg capsule 300 mg PO HS Humalog U-100 Insulin 100 unit/mL cartridge 1 sliding sc SC USEASDIRECTD lisinopril 2.5 mg tablet 2.5 mg PO HS vitamin B complex [B Complex-Vitamin B12] Tablet 1 tab PO HS Ozempic 1 mg/0.75 mL (2 mg/1.5 mL) pen injector 1 mg SC QWEEK Tresiba FlexTouch U-200 200 unit/mL (3 mL) insulin pen 36 - 40 unit SC HS venlafaxine [Effexor XR] 37.5 mg capsule,extended release 24hr 37.5 mg PO DAILY acetaminophen [Tylenol] 325 mg tablet 325 mg PO ONCE PRN atorvastatin 40 mg tablet 40 mg PO HS rxtgwvx-huhz-ptiwb-oreg-capryl 100 mg-150 mg- 50 mg-150 mg capsule 1 cap PO HS melatonin 3 mg capsule 3 mg PO HS PRN zolpidem [Ambien] 5 mg tablet 10 mg PO HS Discontinued polyethylene glycol 3350 17 gram/dose powder 238 g PO ONCE Qty: 238 0RF Rx Instructions: take per colonoscopy instructions bisacodyl [Dulcolax (bisacodyl)] 5 mg tablet,delayed release (DR/EC) 5 mg PO ONCE Qty: 4 0RF Rx Instructions: take per colonoscopy instructions Discharge Instructions Instructions: Colonoscopy (DC), Colorectal Polyps (DC) Additional Instructions: 1. If tolerated, consume a soft, low fiber diet for 1-2 days. 2[address] Do not drive, drink alcohol, operate machinery, make critical decisions, or do activities that require coordination or balance for 24 hours. 3. Because air was put into your colon during the procedure, expelling air from your rectum (passing gas or farting) is normal. 4. You may not have a bowel movement for 1-3 days because of the colonoscopy prep. This is normal. 5. Go directly to the emergency room if you notice any of the following: Develop chills (warm to touch), or if you have a thermometer and your temperature is above 101 Difficulty breathing or difficultly swallowing Persistent vomiting Severe abdominal pain, other than gas cramps Severe chest pain Black, tarry stools Any bleeding ? exceeding one tablespoon 6. Call your physician if the site where your intravenous was started becomes red, swollen, painful, and warm to touch. 7. Your physician has reviewed your pre-procedure medications. Please continue to take those medications as previously ordered. You will be given specific information/education regarding any changes to your medications before leaving. Referrals: Martina So [Primary Care Provider] - Activity:: Activity as Tolerated Diet:: As Tolerated Discharge Orders Discharge Orders: Discharge Order (Routine); Ordered 05/15/22 Ordered By: Michi Rocha DS: Diagnosis Discharge Diagnosis (1) Polyp of cecum: Status: Acute Asessment and Plan: my office will contact you with biopsy results
--- NOTE | 2022-05-15 07:27 | COLE_ITS ---
Colonoscopy Report Date of procedure: 05/15/22 Pre-op diagnosis general: screening colonoscopy Post-op diagnosis procedure note: same Procedure: Colonoscopy Surgeon: Michi Rocha Anesthesia Type: General:No Airway Pathology: other (cecal polyps x2) Complications: None Disposition: same day Prep: Miralax/Dulcolax Procedure Start Time: 11:38 Procedure End Time: 12:36 Retraction Time: 28 Findings: poor prep, cecal polyps 1.5 cm and 0.75 cm snared Procedure Description: After the induction of monitored anesthetic care, and with the patient in left lateral decubitus position, I began by performing an external anorectal exam.? Perineum and skin were normal, as was the anal verge.? There was no evidence of external hemorrhoids.? Next, I performed a digital rectal exam.? I did not appreciate any abnormal findings.? Next, I advanced a colonoscope into the rectal vault.? I performed retroflexion.? I did not see signs of pathologic internal hemorrhoids.? Using insufflation, I then advanced the colonoscope beyond the rectal folds and into the sigmoid colon before advancing towards the cecum.? The quality of the prep was poor.? The scope was noted to be in the cecum by identification of the ileocecal valve and appendiceal orifice.? I then began withdrawing the colonoscope using repeated irrigation as necessary for full evaluation of the colonic mucosa. As soon as I retracted into the cecum, there was evidence of 2 cecal polyps. ?They appeared to be 1.5 cm and 0.75 cm and pedunculated in character. ?I was able to remove them with a cold snare and suction. ?I examined the site, and there was minimal bleeding. ?Once this was completed, I continued to withdraw the scope and examine the remainder of the colonic mucosa. The quality of the prep was quite poor, and required multiple washings of the mucosa for adequate visualization. once the scope was withdrawn to the level of the rectum, great care was taken to examine portions of the re ctal folds.? Finally, the scope was withdrawn and the patient was brought to the same-day surgery recovery unit as the anesthetic wore off. ?The findings and instructions were shared with the patient prior to discharge.
[2022-05-15 10:33] VITALS: BP 136/70; PULSE 80; RESP 18; TEMP 36.9; O2SAT 96
[2022-05-15] MEDS: Lactated Ringers 1,000 ML 80 ML IV (10:46)
--- NOTE | 2022-05-15 10:55 | W.ANESPRE ---
General Info Date of Service Date Performed: 05/15/22 Height: 5 ft 2 in Weight: 84.9 kg Body Mass Index (BMI): 34.2 Surgical Procedure: Operation Date: 05/15/22 12:05 Proposed Procedure Side Surgeon gia Rocha MD Meds Allergies and Home Medications Allergies Allergy/AdvReac Type Severity Reaction Status Date / Time Penicillins Allergy Intermediate Swelling/Ed Verified 05/15/22 10:29 jeanette exenatide [From Byetta] AdvReac Mild Nausea Verified 05/15/22 10:29 Home Medication Medication Instructions Recorded insulin degludec 200 unit/mL (3 36 - 40 unit subcut HS 08/11/18 mL) subcutaneous pen (Tresiba FlexTouch U-200 insulin) semaglutide 1 mg/dose (2 mg/1.5 1 mg subcut QWEEK 08/11/18 mL) subcutaneous pen injector (Ozempic) zolpidem 5 mg tablet (Ambien) 10 mg PO HS 08/25/19 gabapentin 100 mg capsule 300 mg PO HS 01/31/20 insulin lispro 100 unit/mL 1 sliding sc subcut USEASDIRECTD 04/25/20 subcutaneous cartridge (Humalog U-100 Insulin) acetaminophen 325 mg tablet 325 mg PO ONCE PRN 01/07/21 (Tylenol) venlafaxine 37.5 mg 37.5 mg PO DAILY 01/07/21 capsule,extended release 24 hr (Effexor XR) lisinopril 2.5 mg tablet 2.5 mg PO HS 04/22/21 vitamin B complex (B 1 tab PO HS 04/22/21 Complex-Vitamin B12 tablet) atorvastatin 40 mg tablet 40 mg PO HS 10/03/21 melatonin 3 mg capsule 3 mg PO HS PRN 10/03/21 tumeric 100 mg-enrique 150 mg-olive 1 cap PO HS 10/03/21 50 mg-oreg 150 mg-caprylate capsule Current Visit Medications: Current Medications Generic Name Dose Route Start Last Admin Trade Name Freq PRN Reason Stop Dose Admin Ringer's Solution 1,000 mls @ 80 mls/hr 05/15/22 06:00 05/15/22 10:46 IV 06/13/22 23:59 80 mls/hr INFUSION RODOLFO Administration IV Miscellaneous Supplies 1 each 05/15/22 06:00 Iv Access IV 06/13/22 23:59 DIRECTED RODOLFO Sodium Chloride 0 ml 05/15/22 06:00 Normal Saline Flush 10 Ml Syr IV 06/13/22 23:59 PRN PRN Sodium Chloride 0 ml 05/15/22 06:00 Normal Saline 10 Ml Vial IJ 06/13/22 23:59 DIRECTED PRN Sterile Water 0 ml 05/15/22 06:00 Water,Injection,Sterile 10 Ml Vial IJ 06/13/22 23:59 DIRECTED PRN PFSH Active Problems Active Problems: Problem Status Onset Code Mild cognitive impairment G31.84 Medical History Medical History Adhesive capsulitis of left shoulder (~11/2019) Bursitis of left shoulder (~06/2018) Cellulitis of finger of right hand Chronic low back pain Contusion Depression with anxiety Diabetic peripheral neuropathy Digital mucinous cyst of finger of left hand Impingement syndrome of left shoulder (~06/2018) Insomnia Left rotator cuff tear (~06/2018) Memory loss Migraine headache without aura No-show for appointment Obesity YUDY (obstructive sleep apnea) PONV (postoperative nausea and vomiting) PTSD (post-traumatic stress disorder) Does not like things tightly around her neck. 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 S/P lumpectomy of breast left Synovial cyst of wrist Right Tobacco Smoking/Tobacco Use Status: Never Alcohol Alcohol Intake: current Alcohol intake frequency: holidays/special occasions only Substance Use Substance use: Never Substance use type: does not use Vital Signs and Lab Results Vital Signs Most Recent Vital Signs in EMR: Most Recent Vital Signs Temp Pulse Resp BP Pulse Ox 36.9 C 80 18 136/70 96 05/15/22 10:33 05/15/22 10:33 05/15/22 10:33 05/15/22 10:33 05/15/22 10:33 Lab Results Blood Type / Crossmatch: No Data to Display Complete Blood Count: No Data to Display Complete Metabolic Panel: No Data to Display Liver Function Panel: No Data to Display Coagulation Panel: No Data to Display Cardiac Panel: No Data to Display Arterial Blood Gas: No Data to Display Venous Blood Gas: No Data to Display Pancreas Panel: No Data to Display Thyroid Panel: No Data to Display Infectious Disease: No Data to Display Blood Cultures: No Data to Display Toxicology Panel: No Data to Display Anesthesia Assessment and Plan Anesthesia History Personal History: PONV Family History: Family History Unknown Exercise Tolerance Exercise Tolerance: Metabolic Equivalents>4 Pertinent Negatives Pertinent Negatives: No Symptoms of GERD Cardiac & Pulmonary Exam Cardiac Exam: Normal S1/S2 Heart Sounds Pulmonary Exam: Clear Bilateral Breath Sounds Implantable Cardiac Device Does patient have a Pacemaker or an ICD?: No Airway Exam Known Difficult Airway: No Mallampati Class: 3 Mouth Opening: Normal (> 3cm) Thyromental Distance: Greater than 3 cm Neck Range of Motion: Full ROM Neck Circumference: Normal Teeth Condition: Normal Dentition ASA Classification ASA Score: ASA 3 Emergency Case?: No NPO Status NPO Status: NPO Clears >2 hours, Solids >8 hours Anesthesia Plan Resuscitation Status: Full Code Anesthesia Technique: General Anesthesia Airway Planned: Natural Airway Monitors Used: Standard Monitors
[2022-05-15 11:21] VITALS: BMI 34.2
--- NOTE | 2022-05-15 12:15 | BOWEL_PTH ---
PATIENT: Marquis Figueroa LOC: [facility] U#:[id number] AGE/SX: 56/F ROOM: RE05/15/[address]: Michi Rocha MD : 1965 BED: DIS: 05/15/2022 SPEC #: [id number] RECD: 05/15/22 13:06 STATUS: HILARIO REQ #: [id number] CATE: 05/15/22 12:[address]: Michi Rocha DEPT: Surgical Specimen RECD BY: Jessica Quinonez ENTERED: 05/15/22 13:06 SP TYPE: Bowel OTHR DR: Martina So Tissues: 1 - BIOPSY BOWEL Procedures: GROSS AND MICRO LEVEL 4 Comments: [id number]
[2022-05-15 12:47] VITALS: BP 125/66; PULSE 78; RESP 16; TEMP 36.1; O2SAT 94
--- NOTE | 2022-05-15 12:58 | W.ANESPOSTOP ---
Postoperative Evaluation Date, Time and Location Date Performed: 05/15/22 Time Performed: 12:58 Patient Location: Day Surgery Unit Vital Signs Most Recent Imported Vital Signs: Most Recent Vital Signs Temp Pulse Resp BP Pulse Ox 36.1 C L 78 16 125/66 94 05/15/22 12:47 05/15/22 12:47 05/15/22 12:47 05/15/22 12:47 05/15/22 12:47 Pain Score Most Recent Pain Score: Most Recent Pain Score Pain Level 0 05/15/22 12:47 Assessment Mental Status: Awake (Alert & Oriented to Patient Baseline) Airway and Respiratory Function: Patent airway with normal (patient baseline) respiratory exam Cardiovascular Function: Hemodynamically Stable Hydration Status: Adequately Hydrated Nausea & Vomiting: No Nausea or Vomiting Pain: Pt. Denies Any Pain Peripheral Nerve Block: Patient did not receive a nerve block
[2022-05-15 13:16] VITALS: BP 109/55; PULSE 75; RESP 18; TEMP 36.4; O2SAT 96
== END 2022-05-15 13:47 | disposition home or self-care (01) ==
PROVIDERS: PCP Nurse Practitioner Family; Visit Provider Surgery
PROC: 0DJD8ZZ Inspection of Lower Intestinal Tract, Via Natural or Artificial Opening Endoscopic (ICD-10-PCS; CPT 45378; principal; 2022-05-15 12:00)
DX: Z12.11 Encounter for screening for malignant neoplasm of colon (principal); K63.5 Polyp of colon; E11.9 Type 2 diabetes mellitus without complications; Z79.4 Long term (current) use of insulin
CPT/HCPCS: 45385; 88305; J2704

== ENCOUNTER 2022-10-24 16:48 | Outpatient (REF) | payer BC, SELFPAY ==
[2022-10-24 14:26] LABS: HCT 42.3 % (36.0-46.0); HGB 13.8 g/dL (11.2-15.7); MCH 28.2 pg (27.0-33.0); MCHC 32.6 % (32.0-36.0); MCV 87 fL (80-95); MPV 10.2 fL (8.0-11.0); Platelet Count 266 10^3/uL (130-400); RBC 4.89 10^6/uL (3.93-5.22); RDW 12.1 % (11.7-14.6); RDW-SD 38.7 fL; WBC 8.59 10^3/uL (4.4-10.8)
[2022-10-24 14:58] LABS: ALT 28 U/L (14-59); AST 18 U/L (15-37); Albumin 4.1 g/dL (3.4-5.0); Alkaline Phosphatase 82 U/L (46-116); Anion Gap 5.3 mmol/L (3-11); BUN 16 mg/dL (7-18); Bilirubin, Total 0.4 mg/dL (0.2-1.0); CO2 31.7 mmol/L (21.0-32.0); CREATININE 0.7 mg/dL (0.55-1.02); Calcium 9.7 mg/dL (8.5-10.1); Chloride 105 mmol/L (98-107); Estimated GFR 100.81 (mL/min/1.73m2); Glucose 243 mg/dL (74-106); Potassium 4.7 mmol/L (3.5-5.1); Sodium 142 mmol/L (136-145); Vitamin B12 409 pg/mL (193-986)
[2022-10-24 15:04] LABS: Vitamin D 25 Total 14.6 ng/mL (30-100)
== END 2022-10-24 16:49 | disposition home or self-care (01) ==
LOC: NCHCN 16:48
PROVIDERS: PCP Nurse Practitioner Family; Visit Provider Nurse Practitioner Family
DX: E11.9 Type 2 diabetes mellitus without complications (principal); E53.8 Deficiency of other specified B group vitamins; E55.9 Vitamin D deficiency, unspecified
CPT/HCPCS: 80053; 82306; 85027; 82607

== ENCOUNTER 2024-03-15 15:14 | Outpatient (REF) | payer BC, SELFPAY | END 2024-03-15 15:15 | disposition home or self-care (01) | LOC: NCHCN 15:14 | PROVIDERS: PCP Nurse Practitioner Family; Visit Provider Nurse Practitioner Family | DX: N76.0 Acute vaginitis (principal); B37.31 Acute candidiasis of vulva and vagina; L29.3 Anogenital pruritus, unspecified | CPT/HCPCS: 87480; 87510; 87660 ==

== ENCOUNTER 2024-06-10 18:01 | Emergency (ER) | payer BC, SELFPAY ==
[2024-06-10 18:05] VITALS: BP 156/86; PULSE 92; RESP 18; TEMP 36.3; O2SAT 98
--- NOTE | 2024-06-10 18:15 | DI.RAD_ITS ---
Exam(s) XR RIBS LT W PA LAT CHEST EXAM: XR RIBS LT W PA LAT CHEST CLINICAL HISTORY: left sided chest pain s/p fall off couch. TECHNIQUE: 2D digital imaging was performed. COMPARISON: CR LEFT RIBS PA CXR ONLY-3VIEWS from 09/01/2017 CR XR shoulder LT complete 2+V from 08/11/2018 MR upper joint LT wo from 12/04/2018 CR XR CHEST 2V PA LATERAL from 02/26/2019 FINDINGS: Total= five views Left ribs-three views: There are no left rib fractures evident. Subsegmental platelike atelectasis i s noted in left lung base. No lung contusion or pneumothorax evident. IMPRESSION: No acute left rib fractures identified. Platelike atelectasis in the lateral left lung base. Incidentally noted is evidence of previous surgery in left shoulder including biceps tenodesis site i n the proximal diaphysis of the left humerus. Also incidentally noted is a small lucent bone lesion in the subglenoid scapula which measures approximately 8 x 7 mm and exhibits a thin peripherally scle rotic rim. Is difficult to determine if this finding was evident on prior chest x-rays due to differ ences in positioning of the arm-scapula. However, it does not appear to have been obviously present on left shoulder x-rays performed 08/11/2018. Although there has been prior surgery on this left andreas ulder, this finding in the scapula would be unlikely to have been surgically created. DATA REPOSITORY: RADIATION DOSE DELIVERED:
--- NOTE | 2024-06-10 18:17 | W.ED.GENAD ---
Discharge Plan Disposition Patient Disposition: Home Condition: Stable Discharge Details Clinical Impression: Contusion of rib Primary Care Provider: Martina So ED Provider: Miguel Ross Home Meds and New Rx's Prescriptions: Continued gabapentin 100 mg capsule 300 mg PO HS Humalog U-100 Insulin 100 unit/mL cartridge 1 sliding sc SC USEASDIRECTD lisinopril 2.5 mg tablet 2.5 mg PO HS insulin degludec [Tresiba FlexTouch U-200] 200 unit/mL (3 mL) insulin pen 36 - 40 unit SC HS Ozempic 1 mg/dose (2 mg/1.5 mL) pen injector 1.5 mg SC QWEEK venlafaxine [Effexor XR] 37.5 mg capsule,extended release 24hr 37.5 mg PO DAILY acetaminophen [Tylenol] 325 mg tablet 325 mg PO ONCE PRN acetylcysteine [NAC] 600 mg capsule 600 mg PO DAILY melatonin 3 mg capsule 3 mg PO HS PRN cyclobenzaprine 10 mg tablet 10 mg PO BID glucagon 1 mg recon soln 1 mg subcut Q20M PRN Rx Instructions: until target blood sugar attained zolpidem [Ambien] 5 mg tablet 10 mg PO HS Discharge Instructions Additional Instructions: Your x-ray did not show any broken bones Follow-up with your primary care provider scheduled on Thursday especially if you are not feeling better You can take 1000 mg of acetaminophen and 600 mg of ibuprofen every 6 hours as needed Return to the emergency department if you feel more ill or have severe worsening pain. HPI General Mode of arrival: ambulatory. Date/Time Provider Initiated Documentation: 06/10/24 18:03. Limitations to Documentation: no limitations. Information obtained by: patient. History of Present Illness 58 year old F presents to the emergency department with the chief complaint of left sided chest pain s/p fall off couch, described as moderate, Quality is described as stabbing and sharp, and is localized to the chest. Patient reports no radiation. Patient started experiencing this hour(s) (11) and it has been constant. No relieving factors improve symptom(s), Patient notes denies fever/chills. Related Data Home Medications ?Medication ?Instructions ?Recorded ?Confirmed insulin degludec 200 unit/mL (3 36 - 40 unit subcut HS 08/11/18 06/10/24 mL) subcutaneous pen (Tresiba FlexTouch U-200 insulin) zolpidem 5 mg tablet (Ambien) 10 mg PO HS 08/25/19 06/10/24 gabapentin 100 mg capsule 300 mg PO HS 01/31/20 06/10/24 insulin lispro 100 unit/mL 1 sliding sc subcut USEASDIRECTD 04/25/20 06/10/24 subcutaneous cartridge (Humalog U-100 Insulin) acetaminophen 325 mg tablet 325 mg PO ONCE PRN 01/07/21 06/10/24 (Tylenol) venlafaxine 37.5 mg 37.5 mg PO DAILY 01/07/21 06/10/24 capsule,extended release 24 hr (Effexor XR) lisinopril 2.5 mg tablet 2.5 mg PO HS 04/22/21 06/10/24 melatonin 3 mg capsule 3 mg PO HS PRN 10/03/21 06/10/24 cyclobenzaprine 10 mg tablet 10 mg PO BID 03/26/23 06/10/24 glucagon 1 mg solution for 1 mg subcut Q20M PRN 03/26/23 06/10/24 injection semaglutide 1 mg/dose (2 mg/1.5 1.5 mg subcut QWEEK 04/21/23 06/10/24 mL) subcutaneous pen injector (Ozempic) acetylcysteine 600 mg capsule (NAC) 600 mg PO DAILY 06/07/24 06/10/24 Allergies Allergy/AdvReac Type Severity Reaction Status Date / Time Penicillins Allergy Intermediate Swelling/Ed Verified 06/10/24 18:10 jeanette exenatide (From Byetta) AdvReac Mild Nausea Verified 06/10/24 18:10 General Stated Complaint: Fall/Non TraumaCriteria ANDREWS: 3 Review of Systems All systems reviewed & are unremarkable except as noted in HPI and below Constitutional Constitutional: Denies chills, Denies fever(s) and Denies weakness Cardiovascular Cardiovascular: Reports chest pain (s/p fall) Respiratory Respiratory: Denies cough Gastrointestinal Gastrointestinal: Denies abdominal pain, Denies nausea and Denies vomiting Integumentary/Breasts Skin/Breast: Denies rash Neurologic Neurologic: Denies weakness Exam Const General: no acute distress Orientation: alert HENNJ Head: normal to inspection Ears: external ears normal General nose exam: external nose normal Mouth: moist mucous membranes Eyes General: appearance normal, both eyes and all related structures Neck Neck: normal visual inspection Chest Chest: tenderness Resp Effort & Inspection: normal respiratory effort and able to speak in complete sentences Auscultation: clear to auscultation bilaterally Cardio Jugular venous pressure: no JVD Rate: regular rate Heart Sounds: no murmurs GI Palpation: soft and nontender Back/Spine/Pelvis Back: no CVA tenderness Thoracic/Lumbar Spine: No thoracic spinal tenderness and No lumbar spinal tenderness Skin General skin exam: no rashes or lesions noted Neuro General: patient alert and patient oriented x3 Extrem General: normal to inspection Psych Mental Status: mental status grossly normal Course Vital Signs Vital signs: Vital Signs Temperature 36.3 C L 06/10/24 18:05 Pulse 92 H 06/10/24 18:05 Respiratory Rate 18 06/10/24 18:05 Blood Pressure 156/86 H 06/10/24 18:05 Pulse Oximetry 98 06/10/24 18:05 Temperature 36.3 C L 06/10/24 18:05 Temperature Source Temporal Artery Scan 06/10/24 18:05 Pulse 92 H 06/10/24 18:05 Respiratory Rate 18 06/10/24 18:05 Blood Pressure 156/86 H 06/10/24 18:05 Blood Pressure Position Sitting 06/10/24 18:05 Pulse Oximetry 98 06/10/24 18:05 Oxygen Delivery Method Room Air 06/10/24 18:05 Oxygen Flow Rate 0 06/10/24 18:05 Medical Decision Making 58-year-old female comes in with left-sided chest pain after a fall. She says this morning around 7:00 she was on a couch and her feet got tangled in blankets and she fell landing on her left chest. Did not have loss of consciousness, she has had left-sided chest tenderness since that she came here for evaluation. She is alert and oriented x 4 and arrival speaking clearly. She is in no distress. Speaking in full sentences. She has tenderness in the left anterior fourth and fifth ribs in the mid clavicular line. Clear lung sounds, no C-spine tenderness and full range of motion of her neck. No signs of trauma to the head. She has no headache or vomiting. Soft nontender abdomen and she has no T or L-spine tenderness. I suspect rib contusion but will obtain x-rays to evaluate for fracture. X-ray shows no rib fracture, patient stable, suspect rib contusion, she is stable for discharge and will follow-up with her PCP if not improving next week and return precautions given Differential Diagnosis Differential Diagnosis: Contusion, fracture Quality:SDOH Health Related Social Needs: No Data to Display PFSH All Active Problems (Updated 06/10/24 @ 19:29 by Miguel Ross MD) Contusion of rib (Acute) Dupuytren's contracture of both hands (Acute) Dupuytren's contracture of left hand (Acute) Tubular adenoma of colon (Acute) Polyp of cecum (Acute) Mild cognitive impairment (Acute) Trigger finger, left index finger (Acute) Medical History PONV (postoperative nausea and vomiting) No-show for appointment Tendinitis of thumb Digital mucinous cyst of finger of left hand Word finding difficulty Adhesive capsulitis of left shoulder (~11/2019) Migraine headache without aura Depression with anxiety Obesity Chronic low back pain YUDY (obstructive sleep apnea) Insomnia PTSD (post-traumatic stress disorder) Does not like things tightly around her neck. 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
--- NOTE | 2024-06-10 19:38 | DI.VRAD_ITS ---
PROCEDURE INFORMATION: Exam: XR Left Ribs Exam date and time: 06/10/2024 6:49 PM Age: 58 years old Clinical indication: Left-sided; Other: Left sided chest pain S/P fall off couch TECHNIQUE: Imaging protocol: Radiologic exam of the left ribs. Views: 2 views. COMPARISON: CR LEFT RIBS PA CXR ONLY-3VIEWS 09/01/2017 9:26 AM FINDINGS: Bones/joints: Subcentimeter lucent lesion projects over the left scapula suggesting a benign enchondroma in the absence of clinically suspicious findings such as a known primary malignancy. No acute fracture with attention to the left-sided ribs. Soft tissues: Normal. IMPRESSION: 1. No acute fracture with attention to the left-sided ribs. 2. Subcentimeter lucent lesion projects over the left scapula suggesting a benign enchondroma in the absence of clinically suspicious findings such as a known primary malignancy. PROCEDURE INFORMATION: Exam: XR Chest Exam date and time: 06/10/2024 6:49 PM Age: 58 years old Clinical indication: Left-sided; Other: Left sided chest pain S/P fall off couch TECHNIQUE: Imaging protocol: Radiologic exam of the chest. Views: 2 views. COMPARISON: CR XR CHEST 2V PA LATERAL 02/26/2019 1:27 PM FINDINGS: Lungs: No consolidation. Pleural spaces: No pleural effusion. No pneumothorax. Heart/Mediastinum: No cardiomegaly. Bones/joints: No acute fracture. IMPRESSION: No acute cardiopulmonary pathology. Dictated and Authenticated by: Christina Dumont MD. Ordering:LYNNE Rivera MD
--- OUTSIDE RECORDS SUMMARY | 2024-06-10 20:05 | XMS_ITS | Referral Summary ---
Author Organization [facility] Address [address] [place] [address] Care Team Providers Care Babysitter Name Role Phone Martina So [employer]ITAL MARKETS SPECIALIST Primary Care Provider [phone] Allergies Active Allergy Reactions Criticality Noted Date Comments Penicillins 01/13/2023 Medications Medication Sig Dispensed Refills Start Date End Date Status semaglutide (OZEMPIC) 1 mg/dose (4 mg/3 mL) pen injector Inject 1.5 mg into the skin every 7 days. Active traMADol (ULTRAM) 50 mg tablet Take 50 mg by mouth every 6 hours as needed for Pain. Active cyclobenzaprine (FLEXERIL) 10 mg tablet Take 10 mg by mouth 3 times daily. Active meloxicam (MOBIC) 7.5 mg tablet Take 1 Tablet by mouth daily. 30 Tablet 01/13/2023 Active gabapentin (NEURONTIN) 300 mg capsule Take 1 Capsule by mouth 3 times daily. 90 Capsule 1 01/13/2023 Active Active Problems No known active problems Social History Tobacco Use Types Packs/Day Years Used Date Smoking Tobacco: Never Smokeless Tobacco: Never Tobacco Cessation:Counseling Given: Not Answered Sex and Gender Information Value Date Recorded Sex Assigned at Not on file Gender Identity Female 01/13/2023 12:16 EDT Sexual Orientation Not on file Plan of Treatment Upcoming Encounters Date Type Department Care Team (Late st Contact Info) Description 06/29/2024 13:45 EDT Office Visit [facility] Hand & Upper Extremity Program - [address] [place] [address] Alek Crespo MD [address] [place] [phone] Care Teams Babysitter Relationship Specialty Start Date End Date Martina So FNP [address] [place] [address] [address] [place] [phone] [facility] - General 07/25/19
--- OUTSIDE RECORDS SUMMARY | 2024-06-10 20:05 | XMS_ITS | Encounter Summary ---
Author Organization [facility] Address [address] [place] [address] Care Team Providers Care Vice President Industrial Relations Name Role Phone Martina So HEATHER Primary Care Provider [phone] Encounter Details Date Type Department Care Team (Late st Contact Info) Description 09/19/2019 Lab Requisition [facility] Pathology & Laboratory Medicine - [facility] [address] [place] [address] Unknown, Provider, Social History Tobacco Use Types Packs/Day Years Used Date Smoking Tobacco: Never Assessed Sex and Gender Information Value Date Recorded Sex Assigned at Not on file Gender Identity Female 01/13/2023 12:16 EDT Sexual Orientation Not on file documented as of this encounter Plan of Treatment Upcoming Encounters Date Type Department Care Team (Late st Contact Info) Description 06/29/2024 13:45 EDT Office Visit [facility] Hand & Upper Extremity Program - [address] [address] Alek Crespo MD [address] [place] [phone] documented as of this encounter Procedures Procedure Name Priority Date/Time Associated Diagnosis Comments SPEP, INCLUDES QUANTITATION OF MONOCLONAL SPIKE Routine 09/19/2019 13:38 EST documented in this encounter Results * SPEP, INCLUDES QUANTITATION OF MONOCLONAL SPIKE (09/19/2019 13:38 EST) Total Protein 7.3 6.3 - 8.2 g/dL 09/20/2019 15:20 [facility] Albumin % 61.6 55.8 - 66.1 % 09/20/2019 15:20 [facility] Alpha-1 % 3.7 2.9 - 4.9 % 09/20/2019 15:20 [facility] Alpha-2 % 9.7 7.1 - 11.8 % 09/20/2019 15:20 [facility] Beta % 12.6 8.4 - 13.1 % 09/20/2019 15:20 [facility] Gamma % 12.4 11.1 - 18.8 % 09/20/2019 15:20 [facility] SPEP Comment No apparent monoclonal protein seen on serum electrophoresis 09/20/2019 15:20 [facility] Comment:See scanned/suppleme ntary report. Blood VENOUS BLOOD / Unknown 09/19/2019 13:38 EST 09/19/2019 21:14 EST Provider Unknown CHEMISTRY & BLOOD GA S ORDERABLES Performing Organization Address City/State/[facility] Co de Phone Number [facility] [address] [place] [address] documented in this encounter Visit Diagnoses Not on filedocumented in this encounter Care Teams Vice President Industrial Relations Relationship Specialty Start Date End Date Martina So FNP [address] [place] [address] [place] [phone] PCP - General 07/25/19 documented as of this encounter
--- OUTSIDE RECORDS SUMMARY | 2024-06-10 20:05 | XMS_ITS | Clinical Summary ---
Author Organization [facility] Address [address] [place] [address] Care Team Providers Care Checkman Name Role Phone Martina So LUMBER SALES SUPERVISOR Primary Care Provider [phone] Allergies Active Allergy Reactions Criticality Noted Date [...] 12:16 EDT Sexual Orientation Not on file Obstetrics History Plan of Treatment Upcoming Encounters Date Type Department Care Team (Late st Contact Info) Description 06/29/2024 13:45 EDT Office Visit [facility] Hand & Upper Extremity Program - [address] [place] [address] Alek Crespo MD [address] [place] [phone] Health Maintenance Due Date Last Done Comments Hepatitis C Screen 1965 Hepatitis B Vaccine (1 of 3 - 19+ 3-dose series) 08/28 COVID-19 Vaccine (24 season) 2024 Care Teams Checkman Relationship Specialty Start Date End Date Martina So FNP [address] [phone] PCP - General 07/25/19
--- OUTSIDE RECORDS SUMMARY | 2024-06-10 20:05 | XMS_ITS | Encounter Summary ---
Author Organization [facility] Address [address] [place] [address] Care Team Providers Care Line Installer Trolley Name Role Phone Martina So HEATHER Primary Care Provider [phone] Reason for Visit * Reason Comments Medications Refill Encounter Details Date Type Department Care Team (Late st Contact Info) Description 03/11/[address] [facility] [place] [address] [place] [address] Burt Stout MD [address] [place] [address] [place] [address] Medications Refill Social History Tobacco Use Types Packs/Day Years Used Date Smoking Tobacco: Never Smokeless Tobacco: Never Sex and Gender Information Value Date Recorded Sex Assigned at Not on file Gender Identity Female 01/13/2023 12:16 EDT Sexual Orientation Not on file documented as of this encounter Miscellaneous Notes * Telephone Encounter - Lisa Kauffman RN - 03/12/2023 0822 EDT Patient has not called with symptom relief. documented in this encounter Plan of Treatment Upcoming Encounters Date Type Department Care Team (Late st Contact Info) Description 06/29/2024 13:[address] [facility] Hand & Upper Extremity Program - [address] [place], [place] [id number] Alek Crespo MD [address] [place] [phone] documented as of this encounter Visit Diagnoses Not on filedocumented in this encounter Care Teams Line Installer Trolley Relationship Specialty Start Date End Date Martina So FNP [address] [phone] PCP - General 07/25/19 documented as of this encounter
--- OUTSIDE RECORDS SUMMARY | 2024-06-10 20:05 | XMS_ITS | Encounter Summary ---
Author Organization [facility] Address [address] [place] [address] Care Team Providers Care Remote Sensing Technologist Name Role Phone Martina So HEATHER Primary Care Provider [phone] Reason for Visit * (Routine/Next Available) - Receiving Office to Obtain Authorization Specialty Diagnoses / Procedures Referred By Luis Felipe barry Referred To Contact Procedures MR OUTSIDE IMAGES CERVICAL SPINE Imaging, External Referral ID Status Reason Start Date Expiration Date Visits Requested Visits Authorized [id number] Receiving Office to Obtain Authorization 01/02/2023 1 1 Encounter Details Date Type Department Care Team (Latest Contact Info) Description 12/29/2022 - 12/29/2022 23:59 EDT Hospital Encounter [facility] Secondary Reads [place] Discharge Disposition: Home or Self Care Social History Tobacco Use Types Packs/Day Years Used Date Smoking Tobacco: Never Assessed Sex and Gender Information Value Date Recorded Sex Assigned at Not on file Gender Identity Female 01/13/2023 12:16 EDT Sexual Orientation Not on file documented as of this encounter Discharge Disposition Disposition Code Departure Means Destination Home or Self Care documented in this encounter Plan of Treatment Upcoming Encounters Date Type Department Care Team (Late st Contact Info) Description 06/29/2024 13:45 EDT Office Visit [facility] Hand & Upper Extremity Program - Ab[facility] [place] [address] Alek Crespo MD [address] [place] [phone] documented as of this encounter Procedures Procedure Name Priority Date/Time Associated Diagnosis Comments MR OUTSIDE IMAGES CERVICAL SPINE Routine 12/29/2022 9:35 EDT documented in this encounter Results * MR OUTSIDE IMAGES CERVICAL SPINE (12/29/2022 9:35 EDT) Narrative 01/02/2023 9:35 EDT This is a non-reportable exam. External Imaging IMG OTHER IMAGING OR DERABLES documented in this encounter Visit Diagnoses Not on filedocumented in this encounter Care Teams Remote Sensing Technologist Relationship Specialty Start Date End Date Martina So FNP [address] [place] [phone] PCP - General 07/25/19 documented as of this encounter
--- OUTSIDE RECORDS SUMMARY | 2024-06-10 20:05 | XMS_ITS | Encounter Summary ---
Author Organization [facility] Address [address] [place] [address] Care Team Providers Care Route Delivery Driver Name Role Phone Judah Martina CHIEF CLINICAL OFFICER Primary Care Provider [phone] Reason for Visit * Reason Onset Date Comments Provider Referred 04/19/2020 Provider Referred 04/24/2020 Encounter Details Date Type Department Care Team (Late st Contact Info) Description 04/19/2020 Telephone [facility] [place] [address] [place], [place] [phone] Unknown, Provider, Provider Referred; Provider Referred Social History Tobacco Use Types Packs/Day Years Used Date Smoking Tobacco: Never Assessed Sex and Gender Information Value Date Recorded Sex Assigned at Not on file Gender Identity Female 01/13/2023 12:16 EDT Sexual Orientation Not on file documented as of this encounter Miscellaneous Notes * Telephone Encounter - Misha Hunter - 04/24/2020 1428 EDT CINDY Gonzalez with Dr. Cavanaugh verfiied that this refrral was intended for Dr. Ann So at [facility]. Requested it be forwarded, will do Advised their office to check with Dr. So's office in a day or two to make sure it was in process . Referral closed. * Telephone Encounter - Misha Hunter - 04/19/2020 0946 EDT Referral is addressed to Dr. So RTC , asked refrrng office to confrm this, set up referral anyway. If intended for RTC please cancel. documented in this encounter Plan of Treatment Upcoming Encounters Date Type Department Care Team (Late st Contact Info) Description 06/29/2024 13:45 EDT Office Visit [facility] Ext[facility] - [address] [place] [address] Alek Crespo MD [address] [place] [address] documented as of this encounter Visit Diagnoses Not on filedocumented in this encounter Care Teams Route Delivery Driver Relationship Specialty Start Date End Date Martina So FNP [address] [facility] [address] [place] [phone] PCP - General 07/25/19 documented as of this encounter
--- OUTSIDE RECORDS SUMMARY | 2024-06-10 20:05 | XMS_ITS | Encounter Summary ---
Author Organization [facility] Address [address] [place] [address] Care Team Providers Care Spreader Box Operator Name Role Phone Martina So HEATHER Primary Care Provider [phone] Reason for Visit * (Routine/Next Available) - Receiving Office to Obtain Authorization Specialty Diagnoses / Procedures Referred By Luis Felipe barry Referred To Contact Procedures MR OUTSIDE IMAGES CERVICAL SPINE Imaging, External Referral ID Status Reason Start Date Expiration Date Visits Requested Visits Authorized [id number] Receiving Office to Obtain Authorization 01/02/2023 1 1 Encounter Details Date Type Department Care Team (Latest Contact Info) Description 12/12/2022 - 12/12/2022 23:59 EDT Hospital Encounter [facility] Secondary Reads [place] Discharge Disposition: Home or [...] Info) Description 06/29/2024 13:45 EDT Office Visit [facility] Hand & Upper Extremity Program - [facility] [place] [address] Alek Crespo MD [address] [place] [phone] documented as of this encounter Procedures Procedure Name Priority Date/Time Associated Diagnosis Comments MR OUTSIDE IMAGES CERVICAL SPINE Routine 12/12/2022 9:38 EDT documented in this encounter Results * MR OUTSIDE IMAGES CERVICAL SPINE (12/12/2022 9:38 EDT) Narrative 01/02/2023 9:38 EDT This is a non-reportable exam. External Imaging IMG OTHER IMAGING OR DERABLES documented in this encounter Visit Diagnoses Not on filedocumented in this encounter Care Teams Spreader Box Operator Relationship Specialty Start Date End Date Martina So FNP [address] [place] [phone] PCP - General 07/25/19 documented as of this encounter
--- OUTSIDE RECORDS SUMMARY | 2024-06-10 20:05 | XMS_ITS | Encounter Summary ---
Author Organization [facility] Address [address] [place] [address] Care Team Providers Care Armature Bander Name Role Phone Martina So HEATHER Primary Care Provider [phone] Encounter Details Date Type Department Care Team (Late st Contact Info) Description 02/20/[address] [facility] Pathology & Laboratory Medicine - [facility] [address] [place] [address] Outr Resulting Lab, Provider Social History Tobacco Use Types Packs/Day Years Used Date Smoking Tobacco: Never Assessed Sex and Gender Information Value Date Recorded Sex Assigned at Not on file Gender Identity Female 01/13/2023 12:16 EDT Sexual Orientation Not on file documented as of this encounter Plan of Treatment Upcoming Encounters Date Type Department Care Team (Late st Contact Info) Description 06/29/2024 13:[address] [facility] Hand & Upper Extremity Program - [address] [address] Alek Crespo MD [address] [place] [address] documented as of this encounter Procedures Procedure Name Priority Date/Time Associated Diagnosis Comments ZZCOVID-19 TEST [facility] PCR Today 02/20/2020 10:32 EDT COVID-19 TESTING Routine 02/20/2020 10:3 2 EDT documented in this encounter Results * COVID-19 TEST [facility] PCR (02/20/2020 10:32 EDT) Swab ENTIRE NASOPHARYNX / Unknown 02/20/2020 10:32 EDT 02/20/2020 15:39 EDT Provider Outr Resulting Lab MICROBIOLOGY - GENERAL ORDERABLES Performing Organization Address City/[facility] Co de Phone Number [facility] [address] [place] [address] * COVID-19 TESTING (02/20/2020 10:32 EDT) COVID-19 rt-PCR Result Negative Negative 02/21/2020 18:20 EDT [facility] Comment: Negative results do not preclude 2019-nCoV infection and should not be used as the sole basis for treatment or other patient management decisions. Negative results must be combined with clinical observations, patient history, and epidemiological information. This test was developed and its performance characteristics determined by [facility]. It has not been cleared or approved by the US Food and Drug Administration. FDA does not require this test to go through premarket FDA review. This test is used for clinical purposes. It should not be regarded as investigational or for research. This laboratory is certified under the Clinical Laboratory Improvement Amendments (CLIA) as qualified to perform high complexity clinical laboratory testing. This test is based on the CDC COVID-19 Emergency Use Authorization (EUA) assay, with minor modification as defined by the FDA Performed on the [employer] [address]. Performing Lab AB [address] [facility] 02/21/2020 18:20 EDT [facility] Swab ENTIRE NASOPHARYNX / Unknown 02/20/2020 10:32 EDT 02/20/2020 15:39 EDT Provider Outr Resulting Lab MICROBIOLOGY - GENERAL ORDERABLES Performing Organization Address City/[facility]/ZIP Co de Phone Number [facility] [address] [place] [address] documented in this encounter Visit Diagnoses Not on filedocumented in this encounter Care Teams Armature Bander Relationship Specialty Start Date End Date Martina So FNP [address] [place] [address] [address] [place] [phone] PCP - General 07/25/19 documented as of this encounter
--- OUTSIDE RECORDS SUMMARY | 2024-06-10 20:05 | XMS_ITS | Encounter Summary ---
Author Organization [facility] Address [address] [place] [address] Care Team Providers Care Faculty Criminal Justice Name Role Phone Unavailable Primary Care Provider Unavailabl e Encounter Details Date Type Department Care Team (Late st Contact Info) Description 11/11/2010 Results Only [facility] - [facility] ([facility] [place] [address] [place] [address] Jing Harrington, SWATI Social History Tobacco Use Types Packs/Day Years Used Date Smoking Tobacco: Never Assessed Sex and Gender Information Value Date Recorded Sex Assigned at Not on file Gender Identity Female 01/13/2023 12:16 EDT Sexual Orientation Not on file documented as of this encounter Plan of Treatment Upcoming Encounters Date Type Department Care Team (Late st Contact Info) Description 06/29/2024 13:45 EDT Office Visit [facility] Hand & Upper Extremity Program - [address] [address] Alek Crespo MD [address] [place] [phone] documented as of this encounter Procedures Procedure Name Priority Date/Time Associated Diagnosis Comments CYTOPATHOLOGY Routine 11/11/2010 0:00 EST documented in this encounter Results * CYTOPATHOLOGY (11/11/2010 0:00 EST) Pathology Report: CYTOPATHOLOGY REPORT ? Reports generated via electronic interface contain original data; ? however they are lacking the format of the original report. ? Caution should be taken when reading/interpreti ng unformatted reports. ? Name: ? MARQUIS SHELTON ? Accession #: ? [id number] ? : ? 1965 (Age: 45) ??F ?Collect Date: ? 11/11/2010 ? Location: ? [facility] ? Receive Date: ? 11/12/2010 ? Provider: JING M NERIS TOOL DRAWING CHECKER ? Copy to: COLT SIMMONS TOOL DRAWING CHECKER ? Final Report ? SPECIMEN ADEQUACY ? Satisfactory for Evaluation ? - transformation zone component present ? GENERAL CATEGORIZATION ? Other, see interpretation ? INTERPRETATION ? Endometrial cells present in a woman equal to or greater than age 40. ? Negative for Intraepithelial Lesion. ? EDUCATIONAL NOTES/RECOMMENDATI ONS ? Benign appearing endometrial cells on Pap tests are usually a normal ? finding in women with regular menstrual cycles, especially if the Pap test was ?? collected during the first half of the menstrual cycle. ? There is data showing that endometrial cells on Pap tests may be associated with endometrial/uterin e abnormalities in post menopausal women or in perimenopausal women with abnormal bleeding. ? There is limited data on the significance of benign endometrial cells in post ?? menopausal women on HRT. ??Clinical correlation is recommended. ? Note: ??The Pap test is not an accurate test for the screening of endometrial ? lesions and should not be used as a follow up in patients with clinical ? suspicion of endometrial pathology. ? Last Menstural Period: 11/02/10 ? Other: Additional clinical information: H/o vulvar condyloma 2006 ? Specimen/Source: ??Pap Test, Cervix/Endocervix, ThinPrep Imaging System with ? manual evaluation ? Document reviewed and electronically signed by: ? Maria E Hightower, CT(ASCP) ? Report ??Date: 11/14/2010 13:13 ? HPV with Pap Test ? Date Ordered: ? 11/14/2010 ? Status: ?? Signed Out ?Date Complete: ? 11/19/2010 ? By: ??System Interface ? Date Reported: ? 11/19/2010 ? Interpretation ? RESULT: Negative for HPV types 16, 18, 31, 33, 35, 39, 45, 51, 52, ? 56, 58, 59, and 68. ? Comments ? Document reviewed and electronically signed by: ? System Interface ? Report date: 11/19/2010 ? By the signature above, the attending physician certifies that he/she has ? personally conducted a gross and/or microscopic examination of the described ? specimens and rendered or confirmed the above diagnosis. ? End of Report ? NAZARIO GRANADO 11/11/2010 11/12/2010 Jing Harrington TOOL DRAWING CHECKER PATHOLOGY ORDERABLES Performing Organization Address City/State/[facility] Co de Phone Number [facility] [address] [place] [address] documented in this encounter Visit Diagnoses Not on filedocumented in this encounter
--- OUTSIDE RECORDS SUMMARY | 2024-06-10 20:05 | XMS_ITS | Continuity of Care Document ---
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 Primary Care Physician Address: [address] [address] Insurance Providers Guarantor name: [facility]AKATIE [facility] Information #: 1 [facility] Member Number: [id number] Policy Number: NA Health Plan Information #: 2 Payer: [facility] Member Number: [id number] Policy Number: NA
--- OUTSIDE RECORDS SUMMARY | 2024-06-10 20:05 | XMS_ITS | Encounter Summary ---
Author Organization [facility] Address [address] [place] [address] Care Team Providers Care Apprentice Painter Hand Name Role Phone Martina So Primary Care Provider [phone] Encounter Details Date Type Department Care Team (Latest Contact Info) Description 08/23/2020 Lab Requisition [facility] Pathology & Laboratory Medicine - [facility] [address] [place] [address] Martina So FNP 26 [facility] [address] [place] [address] Encounter for general adult medical examination without abnormal findings; Encounter for screening for malignant neoplasm of cervix; Encounter for gynecological examination (general) (routine) without abnormal findings Social History Tobacco Use Types Packs/Day Years Used Date Smoking Tobacco: Never Assessed Sex and Gender Information Value Date Recorded Sex Assigned at Not on file Gender Identity Female 01/13/2023 12:16 EDT Sexual Orientation Not on file documented as of this encounter Plan of Treatment Upcoming Encounters Date Type Department Care Team (Late st Contact Info) Description 06/29/2024 13:45 EDT Office Visit [facility] Hand & Upper Extremity Program - [address] [place] [address] Alek Crespo MD [address] [place] [phone] documented as of this encounter Procedures Procedure Name Priority Date/Time Associated Diagnosis Comments PAP TEST Today 08/15/2020 9:30 EST Encounter for general adult medical examination without abnormal findings Encounter for screening for malignant neoplasm of cervix Encounter for gynecological examination (general) (routine) without abnormal findings HPV DNA DETECTION WITH GENOTYPING, PCR Today 08/15/2020 9:30 EST Encounter for general adult medical examination without abnormal findings Encounter for screening for malignant neoplasm of cervix Encounter for gynecological examination (general) (routine) without abnormal findings documented in this encounter Results * HUMAN PAPILLOMAVIRUS (HPV) DETECTION-HIGH RISK TYPES (08/15/2020 9:30 EST) HPV other High Risk types, PCR Negative Negative 08/29/2020 15:02 [facility] Comment:No E6 or E7 mRNA is detected from HPV types 16,18,31,33,35,39,45,51,52,56,58,59,66, and 68 by hog confinement system manager mediated amplification. Papanicolaou smear specimen (specimen) CERVIX UTERI STRUCTURE / Unknown 08/15/2020 9:30 EST 2020 9:37 EST Martina So RESEARCH RECRUITER MICROBIOLOGY - GENER AL ORDERABLES Performing Organization Address City/State/[facility] Co de Phone Number [facility] [address] [place] [address] * PAP TEST (08/15/2020 9:30 EST) Specimens A. Cervix and/or Endocervix , ThinPrep Imaging System with Manual Evaluation 08/29/2020 15:02 [facility] Specimen Adequacy Satisfactory for Evaluation - transformation zone component present 08/29/2020 15:02 [facility] General Categorization Negative for intraepithelial lesion or malignancy 08/29/2020 15:02 [facility] Attestation . 08/29/2020 15:02 [facility] at 1502 Clinical History See below 08/29/20 15:02 [facility] HPV The result for the Human Papillomavirus (HPV) Detection-High Risk Types is Negative. No E6 or E7 mRNA is detected from HPV types 16,18,31,33,35,39 ,45,51,52,56,58,5 9,66, and 68 by hog confinement system manager mediated amplification.Teresa ting was performed on specimen [id number] and was resulted on 08/29/2020 1456 EST by GUSTAVO, LAB INSTRUMENT RESULTS IN 08/29/2020 15:02 EST [facility] Performing Lab [facility] 08/29/2020 15:02 EST [facility] Scanned Images 08/29/2020 15:02 EST [facility] Papanicolaou smear specimen (specimen) CERVIX UTERI STRUCTURE / Unknown 08/15/2020 9:30 EST 08/23/2020 10:46 EST Martina ROMERO PATHOLOGY ORDERABLES [facility] [address] [place] [address] documented in this encounter Visit Diagnoses Diagnosis Encounter for general adult medical examination without abnormal findings Unspecified general medical examination Encounter for screening for malignant neoplasm of cervix Screening for malignant neoplasm of the cervix Encounter for gynecological examination (general) (routine) without abnormal findings documented in this encounter Care Teams Apprentice Painter Hand Relationship Specialty Start Date End Date Martina So FNP 26 [facility] [address] [place] [address] PCP - General 07/25/19 documented as of this encounter
--- OUTSIDE RECORDS SUMMARY | 2024-06-10 20:05 | XMS_ITS | Encounter Summary ---
Author Organization [facility] Address [address] [place] [address] Care Team Providers Care Orthopedic Brace Maker Name Role Phone Martina So HEATHER Primary Care Provider [phone] Encounter Details Date Type Department Care Team (Latest Contact Info) Description 01/13/2023 12:15 EDT - 01/13/2023 23:59 EDT Hospital Encounter [address] [facility] [address] [place], [place] [phone] Neck pain Discharge Disposition: Home or Self Care Social History Tobacco Use Types Packs/Day Years Used Date Smoking Tobacco: Never Smokeless Tobacco: Never Sex and Gender Information Value Date Recorded Sex Assigned at Not on file Gender Identity Female 01/13/2023 12:16 EDT Sexual Orientation Not on file documented as of this encounter Medications at Time of Discharge Medication Sig Dispensed Refills Start Date End Date cyclobenzaprine (FLEXERIL) 10 mg tablet Take 10 mg by mouth 3 times daily. gabapentin (NEURONTIN) 300 mg capsule Take 1 Capsule by mouth 3 times daily. 90 Capsule 1 01/13/2023 meloxicam (MOBIC) 7.5 mg tablet Take 1 Tablet by mouth daily. 30 Tablet 01/13/2023 semaglutide (OZEMPIC) 1 mg/dose (4 mg/3 mL) pen injector Inject 1.5 mg into the skin every 7 days. traMADol (ULTRAM) 50 mg tablet Take 50 mg by mouth every 6 hours as needed for Pain. documented as of this encounter Discharge Disposition Disposition Code Departure Means Destination Home or Self Care documented in this encounter Plan of Treatment Upcoming Encounters Date Type Department Care Team (Late Contact Info) Description 06/29/2024 13:45 EDT Office Visit [facility] Hand & Upper Extremity Program - [address] [place] [address] Alek Crespo MD [address] [place] [address] documented as of this encounter Procedures Procedure Name Priority Date/Time Associated Diagnosis Comments XR CERVICAL SPINE 4-5 VIEWS Routine 01/13/2023 12:37 EDT Neck pain documented in this encounter Results * XR CERVICAL SPINE 4-5 VIEWS (01/13/2023 12:37 EDT) Anatomical Region Laterality Modality Left Computed Radiogr aphy 01/15/2023 7:25 EDT Impressions 01/15/2023 7:25 EDT Findings/Impression: Mild retrolisthesis of C5 on C6 with no significant change between flexion and extension. Normal alignment at all other levels. Vertebral body heights are normal. Mild disc height loss at C5-6. No severe facet arthropathy identified. Anterior osteophyte with chronic fragmentation at C5-6. Narrative 01/15/2023 7:25 EDT XR CERVICAL SPINE 4-5 VIEWS ??01/13/2023 12:15 PM Clinical History/Comments: neck pain. Technique: AP and lateral views of the cervical spine. Lateral flexion and extension views of the cervical spine. Comparison: Cervical spine MRI December 29, 2022. Procedure Note Miguel Pathak MD - 01/15/2023 XR CERVICAL SPINE 4-5 VIEWS 01/13/2023 12:15 PM Clinical History/Comments: neck pain. Technique: AP and lateral views of the cervical spine. Lateral flexion and extensionviews of the cervical spine. Comparison: Cervical spine MRI December 29, 2022. IMPRESSION Findings/Impression: Mild retrolisthesis of C5 on C6 with no significant change between flexionand extension. Normal alignment at all other levels. Vertebral bodyheights are normal. Mild disc height loss at C5-6. No severe facetarthropathy identified. Anterior osteophyte with chronic fragmentation atC5-6. Burt Stout MD IMG DIAGNOSTIC I MAGING ORDERABLES documented in this encounter Visit Diagnoses Diagnosis Neck pain Cervicalgia documented in this encounter Care Teams Orthopedic Brace Maker Relationship Specialty Start Date End Date Martina So FNP [address] [phone] PCP - General 07/25/19 documented as of this encounter
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
--- OUTSIDE RECORDS SUMMARY | 2024-06-10 20:05 | XMS_ITS | Encounter Summary ---
Author Organization [facility] Address [address] [place] [address] Care Team Providers Care Woodworking Shop Hand Name Role Phone Martina So HEATHER Primary Care Provider [phone] Encounter Details Date Type Department Care Team (Late st Contact Info) Description 05/15/2022 Lab Requisition [facility] Pathology & Laboratory Medicine - [facility] [address] [place] [address] Michi Rocha MD [address] [place] [address], [address] [place], [place] [id number] Polyp of colon Social History Tobacco Use Types Packs/Day Years Used Date Smoking Tobacco: Never Assessed Sex and Gender Information Value Date Recorded Sex Assigned at Not on file Gender Identity Female 01/13/2023 12:16 EDT Sexual Orientation Not on file documented as of this encounter Plan of Treatment Upcoming Encounters Date Type Department Care Team (Late st Contact Info) Description 06/29/2024 13:45 EDT Office Visit [facility] Hand & Upper Extremity Program - [address] [address] Alek Crespo MD [address] [place] [phone] documented as of this encounter Procedures Procedure Name Priority Date/Time Associated Diagnosis Comments SURGICAL PATHOLOGY Today 05/15/2022 12 :15 EDT Polyp of colon documented in this encounter Results * SURGICAL PATHOLOGY (05/15/2022 12:15 EDT) Note to Patient The following pathology results have been interpreted by your pathologist and may be available to you before your health provider has had the opportunity to review them. Please allow time for your provider to receive these results and explore management options, if applicable. 05/16/2022 16:07 T [facility] Final Diagnosis A. COLON, CECUM, POLYPS, BIOPSY: - Tubular adenomas. 05/16/2022 16:07 [facility] Attestation By the signature below, the attending physician certifies that they have 1) personally conducted a gross and/or microscopic examination of the described specimen(s), and/or personally interpreted the results of laboratory testing of the described specimen(s), and 2) personally rendered or confirmed the above diagnosis. 05/16/2022 16:07 [facility] at 1606 Clinical History Screening colonoscopy 05/16/2022 16:07 [facility] Gross Description A. Received in formalin labelled with proper patient identification (initials H, A) and cecal polyps are 5 vila tissues (0.4 x 0.1 x 0.1 cm to 0.1 x 0.1 x 0.1 cm). Entirely submitted in A1. DORA DARLING 05/16/2022 6:28 05/16/2022 16:07 T [facility] Performing Lab [facility] 05/16/2022 16:07 [facility] Scanned Images 05/16/2022 16:07 [facility] Tissue POLYP OF COLON / Unknown 05/15/2022 12:15 EDT 05/15/2022 17:59 EDT Michi Rocha MD PATHOLOGY ORDERABLES [facility] [address] [place] [address] documented in this encounter Visit Diagnoses Diagnosis Polyp of colon Benign neoplasm of colon documented in this encounter Care Teams Woodworking Shop Hand Relationship Specialty Start Date End Date Martina So FNP 26 [facility] [address] [place] [phone] PCP - General 07/25/19 documented as of this encounter
--- OUTSIDE RECORDS SUMMARY | 2024-06-10 20:05 | XMS_ITS | Encounter Summary ---
Author Organization [facility] Address [address] [place] [address] Care Team Providers Care Physician Assistant Name Role Phone Unknown, Provider Primary Care Provider [phone] Encounter Details Date Type Department Care Team (Late st Contact Info) Description 09/17/2015 Results Only [facility] [phone] Cj Alonzo, SWATI [address] [place] [phone] Social History Tobacco Use Types Packs/Day Years Used Date Smoking Tobacco: Never Assessed Sex and Gender Information Value Date Recorded Sex Assigned at Not on file Gender Identity Female 01/13/2023 12:16 EDT Sexual Orientation Not on file documented as of this encounter Plan of Treatment Upcoming Encounters Date Type Department Care Team (Late st Contact Info) Description 06/29/2024 13:45 EDT Office Visit [facility] Hand & Upper Extremity Program - [address] [address] Alek Crespo MD [address] [place] [phone] documented as of this encounter Procedures Procedure Name Priority Date/Time Associated Diagnosis Comments PAP TEST- RESULT ONLY Routine 09/17/2015 0:00 EST documented in this encounter Results * PAP TEST- RESULT ONLY (09/17/2015 0:00 EST) Pathology Report: CYTOPATHOLOGY REPORT Reports generated via electronic interface contain original data; however they are lacking the format of the original report. Caution should be taken when reading/interpreti ng unformatted reports. Name: ? MARQUIS SHELTON ? Accession #: ? [id number] ? : ? 1965 (Age: 50) ??F ?Collect Date: ? 09/17/2015 ? Location: ? [facility] ? Receive Date: ? 09/20/2015 ? Provider: CJ ALONZO NP Copy to: ? Final Report SPECIMEN ADEQUACY ? Satisfactory for Evaluation - transformation zone component present GENERAL CATEGORIZATION ? Negative for Intraepithelial Lesion or Malignancy INTERPRETATION ? Reactive cellular changes associated with inflammation present (includes repair). Last Menstrual Period: 2010 Hormonal/Contracep tive status: Intrauterine device Other: Additional clinical information: normal pap Oct 2010 Specimen/Source: ??Pap Test, Cervix/Endocervix, ThinPrep Imaging System with manual evaluation Document reviewed and electronically signed by: ? MAGDA MELGAR MD ? Report ??Date: 09/28/2015 15:56 HPV with Pap Test ? Date Ordered: ? 09/28/2015 ? Status: ?? Signed Out ?Date Complete: ? 10/02/2015 ? By: ??System Interface ? Date Reported: ? 10/02/2015 ? Interpretation RESULT: Negative for HPV. No E6 or E7 mRNA is detected from HPV types 16,18,31,33,35, 39,45,51,52,56,58, 59,66, and 68 by transcription typist mediated amplification. Comments Document reviewed and electronically signed by: ? System Interface ? Report date: 10/02/2015 By the signature above, the attending physician certifies that he/she has personally conducted a gross and/or microscopic examination of the described specimens and rendered or confirmed the above diagnosis. End of Report [facility] 09/17/2015 09/20/2015 Cj Alonzo NP PATHOLOGY ORDERABLES [facility] [address] [place] [address] documented in this encounter Visit Diagnoses Not on filedocumented in this encounter Care Teams Physician Assistant Relationship Specialty Start Date End Date Unknown, Provider, PCP - General 08/12/15 07/24/19 documented as of this encounter
--- OUTSIDE RECORDS SUMMARY | 2024-06-10 20:05 | XMS_ITS | Encounter Summary ---
Author Organization [facility] Address [address] [place] [address] Care Team Providers Care Gold Frame Assembler Name Role Phone Martina So HEATHER Primary Care Provider [phone] Encounter Details Date Type Department Care Team (Late st Contact Info) Description 08/20/2020 Lab Requisition [facility] Pathology & Laboratory Medicine - [facility] [address] [place] [address] Outr Resulting Lab, Provider Social History Tobacco [...] Info) Description 06/29/2024 13:45 EDT Office Visit [facility] Hand & Upper Extremity Program - [address] [address] Alek Crespo MD [address] [place] [phone] documented as of this encounter Procedures Procedure Name Priority Date/Time Associated Diagnosis Comments CHLAMYDIA/N. GONORRHOEAE AMPLIFIED NUCLEIC ACID, THINPREP Routine 08/15/2020 9:30 EST documented in this encounter Results * CHLAMYDIA/N. GONORRHOEAE AMPLIFIED RNA, THINPREP (08/15/2020 9:30 EST) Neisseria gonorrhoeae Result Negative Negative 08/21/2020 15:04 EST [facility] Chlamydia trachomatis Result Negative Negative 08/21/2020 15:04 EST [facility] Papanicolaou smear specimen (specimen) CERVIX UTERI STRUCTURE / Unknown 08/15/2020 9:30 EST 08/21/2020 9:25 EST Provider Outr Resulting Lab MICROBIOLOGY - GENERAL ORDERABLES [facility] [address] [place] [address] documented in this encounter Visit Diagnoses Not on filedocumented in this encounter Care Teams Gold Frame Assembler Relationship Specialty Start Date End Date Martina So FNP [address] [phone] PCP - General 07/25/19 documented as of this encounter
--- OUTSIDE RECORDS SUMMARY | 2024-06-10 20:05 | XMS_ITS | Encounter Summary ---
Author Organization [facility] Address [address] [place] [address] Care Team Providers Care Truck Rental Clerk Name Role Phone Martina So HEATHER Primary Care Provider [phone] Encounter Details Date Type Department Care Team (Late st Contact Info) Description 01/08/2023 Orders Only [facility] Spine Program [place] [address] Burt Stout MD [address] [facility] [place] [address] Neck pain (Primary Dx) Social History Tobacco Use Types Packs/Day Years Used Date Smoking Tobacco: Never Assessed Sex and Gender Information Value Date Recorded Sex Assigned at Not on file Gender Identity Female 01/13/2023 12:16 EDT Sexual Orientation Not on file documented as of this encounter Ordered Prescriptions Prescription Sig Dispensed Refills Start Date End Da te gabapentin (NEURONTIN) 300 mg capsule Take 1 Capsule by mouth 3 times daily. 90 Capsule 1 01/13/2023 meloxicam (MOBIC) 7.5 mg tablet Take 1 Tablet by mouth daily. 30 Tablet 01/13/2023 documented in this encounter Plan of Treatment Upcoming Encounters Date Type Department Care Team (Late st Contact Info) Description 06/29/2024 13:45 EDT Office Visit [facility] Hand & Upper Extremity Program [place] [address] [address] Alek Crespo MD [address] [place] [address] documented as of this encounter Results * XR CERVICAL SPINE [...] in this encounter Visit Diagnoses Diagnosis Neck pain- Primary Cervicalgia Neck pain Cervicalgia documented in this encounter Care Teams Truck Rental Clerk Relationship Specialty Start Date End Date Martina So FNP [address] [place] [address] [place] [address] [phone] PCP - General 07/25/19 documented as of this encounter
--- OUTSIDE RECORDS SUMMARY | 2024-06-10 20:06 | XMS_ITS | Encounter Summary ---
Author Organization [facility] [place] [address] Care Team Providers Care Dairy Farm Worker Name Role Phone Trudy Olmedo APRN Primary Care Provider [phone] Reason for Visit * Reason Onset Date Comments Medication Refill 05/10/2018 Encounter Details Date Type Department Care Team (Late st Contact Info) Description 05/10/2018 [place]ill [place] [address] [address] [facility] [place] [address] Social History Tobacco Use Types Packs/Day Years Used Date Smoking Tobacco: Never Smokeless Tobacco: Never Sex and Gender Information Value Date Recorded Sex Assigned at Not on file Gender Identity Not on file Sexual Orientation Not on file documented as of this encounter Plan of Treatment Not on file documented as of this encounter Visit Diagnoses Not on filedocumented in this encounter Care Teams Dairy Farm Worker Relationship Specialty Start Date End Date Trudy Olmedo APRN PCP - General Family Medicine 12/04/16 04/20/19 documented as of this encounter
--- OUTSIDE RECORDS SUMMARY | 2024-06-10 20:06 | XMS_ITS | Encounter Summary ---
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 psychologist. 49427: 1 hour (1 unit) 37680: 2 hours 8 minutes (2 units) 78492: 30 minutes (1 unit) 76629: 3 hours 32 minutes (7 units) Billing Code: Post-traumatic stress disorder, chronic [F43.12 (ICD-10-CM)], Depression, unspecifieddepression type [F32.A (ICD-10-CM)], Sleeping difficulty [G47.9 (ICD-10-CM)] documented in this encounter Plan of Treatment Not on file documented as of this encounter Visit Diagnoses Diagnosis Post-traumatic stress disorder, chronic Depression, unspecified depression type Sleeping difficulty Sleep disturbance, unspecified documented in this encounter Care Teams Haulpak Driver Relationship Specialty Start Date End Date Martina So APRN [address] [place] [address] PCP - General Family Medicine 08/26/19 documented as of this encounter
--- OUTSIDE RECORDS SUMMARY | 2024-06-10 20:06 | XMS_ITS | Encounter Summary ---
Author Organization Formerly [facility] [place] [address] Care Team Providers Care Management Developer Name Role Phone Janet Jimenez APRN Primary Care Provider [phone] Encounter Details Date Type Department Care Team (Late st Contact Info) Description 10/17/2015 Telephone [place] [phone] Katie Pride LPN Social History Tobacco Use Types Packs/Day Years Used Date Smoking Tobacco: Never Smokeless Tobacco: Never Sex and Gender Information Value Date Recorded Sex Assigned at Not on file Gender Identity Not on file Sexual Orientation Not on file documented as of this encounter Miscellaneous Notes * Telephone Encounter - Katie Pride LPN - 10/19/2015 3:58 PM EST Rocio Figueroa - 10/17/2015 9:26 AM >','<< Less Detail',event) href=javascript:;><< Less Detail ?? Fidencio Denton, DO ?? Sent: ThuOctober 19, 2015 ??1:16 PM ? To: Katie Pride LPN ? Message ? Correct Called patient at which time she was told that 5U increase in Levemir is twice daily. Patient agrees with plan of care. * Telephone Encounter - Katie Pride LPN - 10/19/2015 9:07 AM EST R/c to patient at which time message from Dr Detnon was read to patient who states that she did not take victoza this morning due to symptoms and will not take any more. Need to verify increase in Levemir dose Forward to Dr Denton to verify if increase in Levemir is 5U twice daily. * Telephone Encounter - Katie Pride LPN - 10/17/2015 1:24 PM EST Called patient. No answer. Message left on v/m for patient to r/c to nurse at which time following message from Dr Denton will be read to patient . Rocio Figueroa - 10/17/2015 9:26 AM >','<< Less Detail',event) href=javascript:;><< Less Detail ?? Fidencio Denton, DO ?? Sent: ThuOctober 17, 2015 ??9:42 AM ? To: Katie Pride LPN ? Message ? Let's plan to stop the victoza when she runs out of 0.6 mg dose. Please ask her to increase Levemir by 5 units. Her goal fasting BG should be ~140 (for now). ? * Telephone Encounter - Katie Pride LPN - 10/17/2015 9:27 AM EST R/c to patient Levemir increase to 42U twice daily on 10/04/15. FBG's still 170- 190. BG can go as high as 220 through out the day. Still having rotten eggs burps. I have to go back to lower dose of Victoza Also taking Metformin 1000 mg PM, glimepiride 4 mg AM, Victoza 1.[address] Denton for recommendation. documented in this encounter Plan of Treatment Not on file documented as of this encounter Visit Diagnoses Not on filedocumented in this encounter Care Teams Management Developer Relationship Specialty Start Date End Date Janet Jimenez APRN [phone] [place] [address] PCP - General 05/22/15 11/16/16 documented as of this encounter
--- OUTSIDE RECORDS SUMMARY | 2024-06-10 20:06 | XMS_ITS | Clinical Summary ---
Author Organization [facility] Address [facility] [place] [address] Care Team Providers Care Industrial Roofer Helper Name Role Phone Martina So APRN Primary Care Provider [phone] Allergies Active Allergy Reactions Criticality Noted Date Comments Beta-Adrenergic Agents 06/09/2023 Penicillins High 01/09/2015 Throat closes and rash Medications Medication Sig Dispensed Refills Start Date End Date Status venlafaxine (EFFEXOR-XR) 75 mg Capsule, Sust. Release 24 hr Take 75 mg by mouth 2 times daily. 1 12/18/2014 Active zolpidem (AMBIEN) 10 mg Tablet Take 10 mg by mouth nightly as needed. 0 01/06/2015 Active blood sugar diagnostic strips (ONETOUCH ULTRA TEST) Strip Use as instructed 100 each 4 05/07/2017 Active lancets (ONE TOUCH DELICA) 33 gauge Misc 1 Units by [facility].(Non-Drug; Combo Route) route 3 times daily. 100 each 3 05/07/2017 Active atorvastatin (LIPITOR) 80 mg Tablet Take 80 mg by mouth daily. 0 01/19/2018 Active gabapentin (NEURONTIN) 800 mg Tablet Take 800 mg by mouth 2 times daily. 0 11/12/2017 Active melatonin 5 mg Tablet Take 5 mg by mouth nightly. Active insulin needles, disposable, (BD ULTRA-FINE SHORT PEN NEEDLE) 31 gauge x 5/16 Needle 1 each by [facility].(Non-Drug; Combo Route) route 3 times daily. 300 each 3 05/11/2018 Active Dexcom G7 Sensor Device APPLY 1 DEVICE TO SKIN EVERY 10 DAYS 03/19/2023 Active Ozempic 0.25 mg or 0.5 mg (2 mg/3 mL) Pen Injector 1.5 mLs every 7 days. 05/20/2023 A ctive insulin lispro (HumaLOG) 100 unit/mL Insulin Pen Inject subcutaneously 3 times daily (before meals). Active aspirin EC 81 mg EC (DR) tablet Take 81 mg by mouth daily. Active Active Problems No known active problems Social History Tobacco Use Types Packs/Day Years Used Date Smoking Tobacco: Never Smokeless Tobacco: Never Tobacco Cessation:Counseling Given: Not Answered Sex and Gender Information Value Date Recorded Sex Assigned at Not on file Gender Identity Not on file Sexual Orientation Not on file Last Filed Vital Signs Vital Sign Reading Time Taken Comments Blood Pressure 142/76 05/06/2018 3:03 PM EDT Pulse 107 05/06/2018 3:03 PM EDT Temperature - - Respiratory Rate - - Oxygen Saturation - - Inhaled Oxygen Concentration - - Weight 84.6 kg (186 lb 8 oz) 06/09/2023 8:31 AM EDT Height 157.5 cm (5' 2) 06/09/2023 8:31 AM EDT Body Mass Index 34.11 06/09/2023 8:31 AM EDT Plan of Treatment Health Maintenance Due Date Last Done Comments CT Colonography 1965 Colonoscopy 1965 Colorectal Cancer Screening 1965 FIT DNA 1965 FIT 1965 Sigmoidoscopy (10 year) with FIT yearly 1965 Sigmoidoscopy 1965 HIV screen 1983 Hepatitis C Screening 1983 Hepatitis B vaccine (0-59 yrs) (1) 1984 Tdap adult 1984 Tetanus vaccine 1984 HPV test 1995 PAP Smear 1995 Breast Cancer Share Decision Needed 2005 Breast Cancer screening 2005 Zoster vaccine (1 of 2) 2015 Advance Directive 2020 Diabetes Screening (HgbA1C o r Glucose) 05/06/2021 05/06/2018, 05/06/2018, 01/28/2018, Additional history exists Covid-19 Vaccine (2022-2 4 season) 2024 Influenza (Flu) vaccine (1 o f 1 - Influenza standard series) 05/22/2024 Procedures Procedure Name Priority Date/Time Associated Diagnosis Comments HEMOGLOBIN A1C STAT 05/06/2018 4:14 PM EDT Uncontrolled diabetes mellitus type 2 without complications, unspecified whether alf insulin use from Last 3 Months or Most Recently Relevant to Health Maintenance Results * (ABNORMAL) Hemoglobin A1c (05/06/2018 4:14 PM EDT) Hemoglobin A1c 10.2(H) 4.3 - 5.6 % [facility] Comment: Reference Range: 4.3 - 5.6% 5.7 - 6.4% - Increased Risk of Developing Diabetes Mellitus >=6.5% - Consistent with diagnosis of Diabetes Mellitus In the absence of hyperglycemia (i.e. plasma glucose > 200 mg/dL) or classic symptoms of hyperglycemia a repeat measurement of HbA1c should be performed on a separate sample to confirm the diagnosis. Diagnosis and Classification of Diabetes Mellitus, Diabetes Care 2013; 36: Suppl. 1, S67-71 Estimated Average Glucose 246 mg/dL [facility] Comment: eAG equivalents for HbA1c percentages: HbA1c(%) ?eAG(mg/dL) 6.0 ?126 6.5 ?140 7.0 ?154 7.5 ?169 8.0 ?183 8.5 ?197 9.0 ?212 9.5 ?226 10.0 ? 240 Limitations: The eAG calculation has not been validated on women, individuals below 18 years old and above 70 years old, and individuals with hemoglobinopathies. Additional resources are available on the ADA website. Dinesh EPPS, Jeff J, Placido R, et al. ??Translating the A1C assay into estimated average glucose values. ??Diabetes Care 2008:31(8):4444-7527. Blood specimen (specimen) 05/06/2018 4:14 PM EDT 05/06/2018 4:22 PM EDT Narrative Resulting Agency Comment Spec In Lab Fidencio Denton DO CHEMISTRY ORDERABLES [facility] [place] [id number] from Last 3 Months or Most Recently Relevant to Health Maintenance Care Teams Industrial Roofer Helper Relationship Specialty Start Date End Date Martina So APRN [address] [place], [place] [address] PCP - General Family Medicine 08/26/19
--- OUTSIDE RECORDS SUMMARY | 2024-06-10 20:06 | XMS_ITS | Encounter Summary ---
Author Organization [facility] Address [facility] [place] [address] Care Team Providers Care Match Maker Name Role Phone Trudy Olmedo APRN Primary Care Provider [phone] Encounter Details Date Type Department Care Team (Latest Contact Info) Description 05/16/2018 12:22 PM EDT - 05/16/2018 11:59 PM EDT Hospital [place] [phone] Uncontrolled type 2 diabetes mellitus without complication, with long-term current use of insulin Discharge Disposition: Home Social History Tobacco Use Types Packs/Day Years Used Date Smoking Tobacco: Never Smokeless Tobacco: Never Sex and Gender Information Value Date Recorded Sex Assigned at Not on file Gender Identity Not on file Sexual Orientation Not on file documented as of this encounter Medications at Time of Discharge Medication Sig Dispensed Refills Start Date End Date insulin needles, disposable, (BD ULTRA-FINE SHORT PEN NEEDLE) 31 gauge x 5/16 Needle 1 each by [facility]Non-Drug; Combo Route) route 3 times daily. 300 each 3 05/11/2018 atorvastatin (LIPITOR) 80 mg Tablet Take 80 mg by mouth daily. 0 01/19/2018 gabapentin (NEURONTIN) 800 mg Tablet Take 800 mg by mouth 2 times daily. 0 11/12/2017 melatonin 5 mg Tablet Take 5 mg by mouth nightly. blood sugar diagnostic strips (ONETOUCH ULTRA TEST) Strip Use as instructed 100 each 4 05/07/2017 lancets (ONE TOUCH DELICA) 33 gauge Misc 1 Units by Misc.(Non-Drug; Combo Route) route 3 times daily. 100 each 3 05/07/2017 venlafaxine (EFFEXOR-XR) 75 mg Capsule, Sust. Release 24 hr Take 75 mg by mouth 2 times daily. 1 12/18/2014 zolpidem (AMBIEN) 10 mg Tablet Take 10 mg by mouth nightly as needed. 0 01/06/2015 pioglitazone (ACTOS) 15 mg Tablet Take 1 tablet by mouth daily. 90 tablet 05/06/2018 06/09/2023 metFORMIN (GLUCOPHAGE-XR) 500 mg Tablet Sustained Release 24 hr Take 4 tablets by mouth daily. 360 tablet 6 01/28/2018 01/28/2019 estradiol (ESTRACE) 0.01 % (0.1 mg/gram) Cream three times a week. 0 12/17/20172022 NOVOLOG FLEXPEN U-100 INSULIN Insulin Pen Inject 10-30 Units subcutaneously 3 times daily (before meals). 0 01/19/2018 06/09/2023 insulin detemir (LEVEMIR FLEXTOUCH) Insulin Pen Inject 47 Units subcutaneously 2 times daily. 90 mL 11/04/2017 06/09/2023 cephalexin (KEFLEX) 500 mg Capsule 04/28/2017 06/09/2023 naproxen (NAPROSYN) 500 mg Tablet Take 500 mg by mouth daily as needed. Max of 3 TAB in 24 hours 0 08/27/2015 06/09/2023 documented as of this encounter Plan of Treatment Not on file documented as of this encounter Procedures Procedure Name Priority Date/Time Associated Diagnosis Comments CORTISOL, SALIVA Routine 05/16/2018 11:2 8 PM EDT Uncontrolled type 2 diabetes mellitus without complication, with long-term current use of insulin documented in this encounter Results * Cortisol, saliva (05/16/2018 11:28 PM EDT) Mike Saliva (JANUARY) <50 ng/dL [facility] Comment: REFERENCE VALUE 7:00-9:00 am: 100-750 3:00-5:00 pm: <401 11:00 pm-Midnight: <100 ADDITIONAL INFORMATION This test was developed and its performance characteristics determined by [facility] in a manner consistent with CLIA requirements. This test has not been cleared or approved by the U.S. Food and Drug Administration. Test Performed by: [facility] [address] [place] [address] Specimen of unknown material (specimen) 05/16/2018 11:28 PM EDT 05/21/2018 3:12 PM EDT Fidencio Denton DO LAB SEND OUT ORDERAB LES Performing Organization Address City/State/[facility] Co de Phone Number [facility] [place] [address] documented in this encounter Visit Diagnoses Diagnosis Uncontrolled type 2 diabetes mellitus without complication, with long-term current use of insulin documented in this encounter Care Teams Match Maker Relationship Specialty Start Date End Date Trudy Olmedo APRN PCP - General Family Medicine 12/04/16 04/20/19 documented as of this encounter
--- OUTSIDE RECORDS SUMMARY | 2024-06-10 20:06 | XMS_ITS | Encounter Summary ---
Author Organization [facility] Address [address] [place] [address] Care Team Providers Care Gynecology Teacher Name Role Phone Unavailable Primary Care Provider Unavailabl e Encounter Details Date Type Department Care Team (Late st Contact Info) Description 03/16/2002 Results Only [facility] - [facility] [address] [place] [address] Kassidy Oliver MD [address] [place] [address] [place] [address] Social History Tobacco Use Types Packs/Day Years Used Date Smoking Tobacco: Never Assessed Sex and Gender Information Value Date Recorded Sex Assigned at Not on file Gender Identity Female 01/13/2023 12:16 EDT Sexual Orientation Not on file documented as of this encounter Plan of Treatment Upcoming Encounters Date Type Department Care Team (Late st Contact Info) Description 06/29/2024 13:45 EDT Office Visit [facility] Hand & Upper Extremity Program - [address] [address] Alek Crespo MD [address] [place] [address] documented as of this encounter Procedures Procedure Name Priority Date/Time Associated Diagnosis Comments CYTOPATHOLOGY Routine 03/16/2002 0:00 EDT documented in this encounter Results * CYTOPATHOLOGY (03/16/2002 0:00 EDT) Pathology Report: CYTOPATHOLOGY REPORT Reports generated via electronic interface contain original data; however they are lacking the format of the original report. Caution should be taken when reading/interpreti ng unformatted reports. Name: ? MARQUIS SHELTON ? Accession #: ? [id number] : ? 1965 (Age: 36) ??F ?Collect Date: ? 03/16/2002 Location: ? [facility] ? Receive Date: ? 03/17/2002 Provider: ?KASSIDY OLIVER MD Copy to: ? Specimen/Source: ?ThinPrep Pap Test, Cervix/Endocervix Last Menstrual Period: ? 02/07/02 Hormonal/Contracep tive Status: ? Control Pills ? SPECIMEN ADEQUACY ? Satisfactory for Evaluation - transformation zone component present GENERAL CATEGORIZATION ? Negative for Intraepithelial Lesion or Malignancy ? Document reviewed and electronically signed by: ? Ning Dennison, SCT(ASCP) ? Report Date: ??03/21/2002 16:07 End of Report [facility] 03/16/2002 03/17/2002 Kassidy Oliver MD PATHOLOGY ORDERABLES [facility] [address] [place] [address] documented in this encounter Visit Diagnoses Not on filedocumented in this encounter
--- OUTSIDE RECORDS SUMMARY | 2024-06-10 20:06 | XMS_ITS | Encounter Summary ---
Author Organization [facility] Address [address] [place] [address] Care Team Providers Care Bell Ringer Name Role Phone Unavailable Primary Care Provider Unavailabl e Encounter Details Date Type Department Care Team (Late st Contact Info) Description 01/15/2009 Orders Only [facility] Laboratory Services - [facility] ([facility]) [address] [place], [place] [address] Colt Smith NP [address] [facility] [address] [place] [id number] Social History Tobacco Use Types Packs/Day Years Used Date Smoking Tobacco: Never Assessed Sex and Gender Information Value Date Recorded Sex Assigned at Not on file Gender Identity Female 01/13/2023 12:16 EDT Sexual Orientation Not on file documented as of this encounter Plan of Treatment Upcoming Encounters Date Type Department Care Team (Late st Contact Info) Description 06/29/2024 13:45 EDT Office Visit [facility] Hand & Upper Extremity Program - [address] [address] Alek Crespo MD [address] [place] [address] documented as of this encounter Procedures Procedure Name Priority Date/Time Associated Diagnosis Comments CYTOPATHOLOGY Routine 01/15/2009 0:00 EDT documented in this encounter Results * CYTOPATHOLOGY (01/15/2009 0:00 EDT) Pathology Report: CYTOPATHOLOGY REPORT ? Reports generated via electronic interface contain original data; ? however they are lacking the format of the original report. ? Caution should be taken when reading/interpreti ng unformatted reports. ? Name: ? MARQUIS SHELTON ? Accession #: ? [id number] ? : ? 1965 (Age: 43) ??F ?Collect Date: ? 01/15/2009 ? Location: ? [facility] ? Receive Date: ? 01/17/2009 ? Provider: ?COLT IRIS BIOMASS PLANT TECHNICIAN ? Copy to: ? Specimen/Source: ?Pap Test, Cervix/Endocervix, ThinPrep Imaging System ? with manual evaluation ? Last Menstrual Period: ? 4/20/09 ? Other: ? HPVA - HPV testing requested if ASC-US on the current ThinPrep Pap test. ? SPECIMEN ADEQUACY ? Satisfactory for Evaluation ? - transformation zone component present ? GENERAL CATEGORIZATION ? Negative for Intraepithelial Lesion or Malignancy ? INTERPRETATION ? Endometrial cells present in a woman equal to or greater than age 40. ? Negative for Intraepithelial Lesion. ? Reactive cellular changes associated with inflammation present (includes ? repair). ? EDUCATIONAL NOTES/RECOMMENDATI ONS ? Benign appearing [...] clinical ? suspicion of endometrial pathology. ? Document reviewed and electronically signed by: ? Viv Brandon, PhD ? Report Date: ??01/19/2009 11:44 ? End of Report ? [facility] 01/15/2009 01/17/2009 Colt Smith BIOMASS PLANT TECHNICIAN PATHOLOGY ORDERABLES [facility] [address] [place] [address] documented in this encounter Visit Diagnoses Not on filedocumented in this encounter
--- OUTSIDE RECORDS SUMMARY | 2024-06-10 20:06 | XMS_ITS | Encounter Summary ---
Author Organization [facility] [place] [address] Care Team Providers Care Postal Carrier Name Role Phone Janet Jimenez APRN Primary Care Provider [phone]- [phone] Encounter Details Date Type Department Care Team (Late st Contact Info) Description 09/19/2015 [place] [phone] Katie Pride LPN Social History Tobacco Use Types Packs/Day Years Used Date Smoking Tobacco: Never Smokeless Tobacco: Never Sex and Gender Information Value Date Recorded Sex Assigned at Not on file Gender Identity Not on file Sexual Orientation Not on file documented as of this encounter Miscellaneous Notes * Telephone Encounter - Katie Pride LPN - 09/20/2015 8:16 AM EST Called patient at which time message from Dr Denton was read to patient who states Okay I will give it a college try Rocio Figueroa - 09/19/2015 1:17 PM >','<< Less Detail',event) href=javascript:;><< Less Detail Fidencio Denton DO Sent: ThuSeptember 19, 2015 3:42 PM To: Katie Pride LPN Message Best to give it a few more weeks if she can. If not she can decrease back to 0.6mg dose. * Telephone Encounter - Katie Pride LPN - 09/19/2015 1:17 PM EST R/c to patient. Medication changed after 09/05/15 appointment. Levemir decreased from 55U twice daily to 40U twice daily on 09/16/15. Glimepiride increased from 2 mg to 4 mg daily, Victoza increased from 0.6 to 1.2 mg. FBG's and BG before supper 140-146 . FBG's before dose changes were 104-110 . Have burps that are like rotten eggs which I had before when Victoza was at 1.[address] Denton documented in this encounter Plan of Treatment Not on file documented as of this encounter Visit Diagnoses Not on filedocumented in this encounter Care Teams Postal Carrier Relationship Specialty Start Date End Date Janet Jimenez APRN [phone] [place] [address] PCP - General 05/22/15 11/16/16 documented as of this encounter
--- OUTSIDE RECORDS SUMMARY | 2024-06-10 20:06 | XMS_ITS | Encounter Summary ---
Author Organization [facility] [place] [address] Care Team Providers Care Compressor Operator Adjuster Name Role Phone Janet Jimenez APRN Primary Care Provider [phone]- [phone] Encounter Details Date Type Department Care Team (Late st Contact Info) Description 10/04/2015 Telephone [place] [phone] Katie Pride LPN Social History Tobacco Use Types Packs/Day Years Used Date Smoking Tobacco: Never Smokeless Tobacco: Never Sex and Gender Information Value Date Recorded Sex Assigned at Not on file Gender Identity Not on file Sexual Orientation Not on file documented as of this encounter Miscellaneous Notes * Telephone Encounter - Katie Pride LPN - 10/04/2015 9:35 AM EST Called patient at which time following message was read to patient who agrees with plan of care. Rocio Figueroa - 10/04/2015 8:25 AM >','<< Less Detail',event) href=javascript:;><< Less Detail Fidencio Denton DO Sent: [place] October 04, 2015 9:00 AM To: Katie Pride LPN Message Increase Levemir to 42 units twice daily. * Telephone Encounter - Katie Pride LPN - 10/04/2015 8:25 AM EST Call from patient concerned that FBG's 140-150 up from 104-110. Yesterday FBG 257 I don't think I ate as healthy as usual the day before and I did have a little soda Taking Levemir 40 U twice daily decreased on 09/16/15 Metformin 1000 mg PM glimepiride 4 mg daily Victoza 1.2 mg daily Still Have burps that are like rotten eggs which I had before when Victoza was at 1.2 mg but patient states she wants to continue a little longer at 1.2 mg daily Forward to Dr Denton documented in this encounter Plan of Treatment Not on file documented as of this encounter Visit Diagnoses Not on filedocumented in this encounter Care Teams Compressor Operator Adjuster Relationship Specialty Start Date End Date Janet Jimenez APRN [phone] [place] [address] PCP - General 05/22/15 11/16/16 documented as of this encounter
--- OUTSIDE RECORDS SUMMARY | 2024-06-10 20:06 | XMS_ITS | Encounter Summary ---
Author Organization [facility] [place] [address] Care Team Providers Care Business Computers Teacher Name Role Phone Janet Jimenez APRN Primary Care Provider [phone] Reason for Visit * Reason Comments Diabetes Encounter Details Date Type Department Care Team (Late st Contact Info) Description 12/10/2015 3:30 PM EDT Office [place] [address] [facility] [place] [address] Diabetes mellitus type 2, uncontrolled Social History Tobacco Use Types Packs/Day Years Used Date Smoking Tobacco: Never Smokeless Tobacco: Never Sex and Gender Information Value Date Recorded Sex Assigned at Not on file Gender Identity Not on file Sexual Orientation Not on file documented as of this encounter Last Filed Vital Signs Vital Sign Reading Time Taken Comments Blood Pressure 144/91 12/10/2015 3:20 PM EDT Pulse 96 12/10/2015 3:20 PM EDT Temperature - - Respiratory Rate - - Oxygen Saturation - - Inhaled Oxygen Concentration - - Weight 94.6 kg (208 lb 9.6 oz) 12/10/2015 3:20 P M EDT Height 156.5 cm (5' 1.61) 12/10/2015 3:20 PM ED T Body Mass Index 38.63 12/10/2015 3:20 PM EDT documented in this encounter Progress Notes * Fidencio Denton DO - 12/10/2015 3:37 PM EDT REASON FOR FOLLOWUP: Diabetes SUBJECTIVE: Rocio is a 50 year old female here for follow up of type 2 diabetes. She is on [id number] twice daily,metformin 2000 mg in PM, glimepiride 4 mg AM. Off Victoza since ~ end september due to GI side effects. Thinks she tolerated the 0.6mg dose. She has been compliant with medications. Also has made positive changes to her diet. No refined sugar. Eating more fruits and veggies. She iswalking daily. Active at work. She is monitoring blood glucose 3 times per day. No lows. Fasting BG 200 range. BG range during theday (post-meal) 200-300. She denies visual changes, numbness, weakness, chest pain, headache, nocturia, cough. REVIEW OF SYSTEMS: A 10-system review negative except as mentioned above. PMH: GERD HTN Obesity Insomnia Medications: Levemir 47 units twice daily Metformin 2,000 mg XL once daily Glimepiride 4mg Family History: Unknown (adopted) Social Hx: No tobacco or alcohol BP 144/91 mmHg Pulse 96 Ht 156.5 cm (5' 1.61) Wt 94.62 kg (208 lb 9.6 oz) BMI 38.63 kg/m2 General: alert, fully oriented and in no acute distress. Discussion based visit Labs: A1C pending Impression: 50 year old female with newly diagnosed type 2 diabetes, with worsening of glycmeic control off of liraglutide. She is requiring high amounts of insulin and as a result is struggling with weight loss. We will plan to restart lowest dose of liraglutide and consider SGLT2 inhibitor if we cannot get to goal in 6 months. Recommendations: - Cont Lantus 47 units twice daily - Cont glimeperide 4mg daily - Restart liraglutide 0.6 mg daily Follow up in 3-5 months depending on fasting blood glucose Fidencio Denton DO, MS Staff Die Maker [employer] [facility] documented in this encounter Plan of Treatment Scheduled Orders Name Type Priority Associated Diagnoses Orde r Schedule Hemoglobin A1c Lab Routine Diabetes mellitus type 2, uncontrolled Expected: 12/10/2015 (Approximate), Expires: 12/10/2016 documented as of this encounter Visit Diagnoses Diagnosis Diabetes mellitus type 2, uncontrolled Type II or unspecified type diabetes mellitus without mention of complication, uncontrolled documented in this encounter Care Teams Business Computers Teacher Relationship Specialty Start Date End Date Janet Jimenez APRN [phone] [place] [address] PCP - General 05/22/15 11/16/16 documented as of this encounter
--- OUTSIDE RECORDS SUMMARY | 2024-06-10 20:06 | XMS_ITS | Encounter Summary ---
Author Organization [facility] [place] [address] Care Team Providers Care Web Editor Name Role Phone Martina So APRN Primary Care Provider [phone] Encounter Details Date Type Department Care Team (Late st Contact Info) Description 04/07/2023 Telephone Psychiatry [place] [phone] Yahaira Branch, PhD Social History Tobacco Use Types Packs/Day Years Used Date Smoking Tobacco: Never Smokeless Tobacco: Never Sex and Gender Information Value Date Recorded Sex Assigned at Not on file Gender Identity Not on file Sexual Orientation Not on file documented as of this encounter Miscellaneous Notes * Telephone Encounter - Yahaira Branch, PhD - 04/07/2023 7:39 AM EDT This fiction writer spoke with patient on the phone to reschedule feedback appointment for neuropsych evaluation. The feedback appointment has been rescheduled for 8:30AM on 04/09. documented in this encounter Plan of Treatment Not on file documented as of this encounter Visit Diagnoses Not on filedocumented in this encounter Care Teams Web Editor Relationship Specialty Start Date End Date Martina So APRN [address] [place] [address] PCP - General Family Medicine 08/26/19 documented as of this encounter
--- OUTSIDE RECORDS SUMMARY | 2024-06-10 20:06 | XMS_ITS | Encounter Summary ---
Author Organization [facility] [place] [address] Care Team Providers Care Fibre Optic Cable Splicer Name Role Phone Martina So APRN Primary Care Provider [phone] Reason for Visit * Reason Comments Establish Care NXR BILATERAL SOUTH D DUPUYTRENS LT HAND WORSE DISCUSS SURGICAL OPTIONS LUPE * Consultation (Routine) - Closed Specialty Diagnoses / Procedures Referred By Luis Fleipe t Referred To Contact Orthopaedics Diagnoses BIlateral Dupuytrens LT Hand Worse Than RIght Kosta Little MD [address] [place] [address] [facility] [address] [place] [address] Referral ID Status Reason Start Date Expiration Date V isits Requested Visits Authorized [id number] Closed Consult, Test & Treat PCP Updated and/or Approved 04/22/2023 04/21/2024 1 1 Encounter Details Date Type Department Care Team (Late st Contact Info) Description 06/09/2023 8:30 AM EDT Office [place] [address] Ulysses Orozco Jr., MD [facility] [place] [address] Dupuytren's disease Social History Tobacco Use Types Packs/Day Years Used Date Smoking Tobacco: Never Smokeless Tobacco: Never Tobacco Cessation:Counseling Given: Not Answered Sex and Gender Information Value Date Recorded Sex Assigned at Not on file Gender Identity Not on file Sexual Orientation Not on file documented as of this encounter Last Filed Vital Signs Vital Sign Reading Time Taken Comments Blood Pressure - - Pulse - - Temperature - - Respiratory Rate - - Oxygen Saturation - - Inhaled Oxygen Concentration - - Weight 84.6 kg (186 lb 8 oz) 06/09/2023 8:31 AM EDT Height 157.5 cm (5' 2) 06/09/2023 8:31 AM EDT Body Mass Index 34.11 06/09/2023 8:31 AM EDT documented in this encounter Progress Notes * Yuyr Martinez MD - 06/09/2023 8:30 AM EDT Marquis Ramey [place] 1965 [id number] 06/09/2023 HPI: Marquis is 57 y.o. 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 The onset of symptoms was approximately 2 years ago in the left hand, and roughly 6 months ago in the right. For the LEFT hand, she reports experiencing a nodule of the palmar aspect of the PIPJ of the index finger, anodule in the palm overlying the 3rd metacarpal head, and over the palmar aspect of the PIPJ of thering finger. For the RIGHT hand, she reports a nodule in the palm overlying the 3rd metacarpal head, and at the PIPJ of the ring finger. She states that her hands feel sore, and achy, as well as a feeling of stiffness. She denies any triggering events or episodes of locking of her digits. The pain is localized to the nodules and radiates no-where. The patient notes no neurosensory symptoms. She does have a longstanding history of numbness in the tips of the thumb and index fingers of the RIGHT hand following a strangulation event at work. Her pain is primarily with pressure on the nodules (when holding a steering wheel), and has sporadically awoken her at night. Overall, the LEFT hand is worse than the Right. She has a history of a bleed behind her left eye, and does not take NSAIDs as a result of this. Takes nothing in the way of medication. Specific treatment and/or therapy to date include: none. No related injury. She has a history of Diabetes previously poorly controlled (on insulin, believes last A1C was ~7.6), is a non-smoker, and takes ASA 81mg daily. No past medical history on file. No past surgical history on file. No family history on file. Social History Socioeconomic History Marital status: Spouse name: Not on file Number of children: Not on file Years of education: Not on file Highest education level: Not on file Occupational History Not on file Tobacco Use Smoking status: Never Smokeless tobacco: Never Vaping Use Vaping Use: Never used Substance and Sexual Activity Alcohol use: Not on file Drug use: Not on file Sexual activity: Not on file Other Topics Concern Not on file Social History Narrative Not on file Social Determinants of Health Financial Resource Strain: Not on file Food Insecurity: Not on file Transportation Needs: Not on file Physical Activity: Not on file Housing Stability: Not on file Review of Systems General: Negative Skin: Negative Eyes: Negative Cardiac: Negative Respiratory: Negative GI: Negative : Negative Musculoskeletal: Negative other than related to the chief complaint. Neurological: Negative Meds: Current Outpatient Medications on File Prior to Visit Medication Sig Dispense Refill Dexcom G7 Sensor Device APPLY 1 DEVICE TO SKIN EVERY 10 DAYS Ozempic 0.25 mg or 0.5 mg (2 mg/3 mL) Pen Injector 1.5 mLs every 7 days. insulin lispro (HumaLOG) 100 unit/mL Insulin Pen Inject subcutaneously 3 times daily (before meals). aspirin EC 81 mg EC (DR) tablet Take 81 mg by mouth daily. [DISCONTINUED] clonazePAM (KlonoPIN) 0.5 mg tablet TAKE 1 TO 2 TABLETS BY MOUTH PRIOR TO TEST atorvastatin (LIPITOR) 80 mg Tablet Take 80 mg by mouth daily. 0 gabapentin (NEURONTIN) 800 mg Tablet Take 800 mg by mouth 2 times daily. 0 melatonin 5 mg Tablet Take 5 mg by mouth nightly. [DISCONTINUED] insulin detemir (LEVEMIR FLEXTOUCH) Insulin Pen Inject 47 Units subcutaneously 2 times daily. (Patient taking differently: Inject 60 Units subcutaneously 2 times daily.) 90 mL 0 venlafaxine (EFFEXOR-XR) 75 mg Capsule, Sust. Release 24 hr Take 75 mg by mouth 2 times daily. 1 zolpidem (AMBIEN) 10 mg Tablet Take 10 mg by mouth nightly as needed. 0 [DISCONTINUED] cyclobenzaprine (Flexeril) 10 mg tablet Take 10 mg by mouth 2 times daily. [DISCONTINUED] meloxicam (Mobic) 7.5 mg tablet Take 7.5 mg by mouth daily. insulin needles, disposable, (BD ULTRA-FINE SHORT PEN NEEDLE) 31 gauge x 5/16 Needle 1 each by [facility]Non-Drug; Combo Route) route 3 times daily. 300 each 3 [DISCONTINUED] pioglitazone (ACTOS) 15 mg Tablet Take 1 tablet by mouth daily. 90 tablet 0 [DISCONTINUED] estradiol (ESTRACE) 0.01 % (0.1 mg/gram) Cream three times a week. 0 [DISCONTINUED] NOVOLOG FLEXPEN U-100 INSULIN Insulin Pen Inject 10-30 Units subcutaneously 3 times daily (before meals). 0 blood sugar diagnostic strips (ONETOUCH ULTRA TEST) Strip Use as instructed 100 each 4 lancets (ONE TOUCH DELICA) 33 gauge Misc 1 Units by [facility]Non-Drug; Combo Route) route 3 times daily. 100 each 3 [DISCONTINUED] cephalexin (KEFLEX) 500 mg Capsule [DISCONTINUED] naproxen (NAPROSYN) 500 mg Tablet Take 500 mg by mouth daily as needed. Max of 3 TABin 24 hours 0 No current facility-administered medications on file prior to visit. Physical Exam: Height 157.5 cm (5' 2), weight 84.6 kg (186 lb 8 oz). Patient is well-appearing, alert and oriented, accompanied by no-one. Breathing is non-labored at rest. Ambulates with normal gait. Uses no cane. Appearance noted and with no features characteristic of primary OA. Range of motion Cervical spine; flex/extension, rotation, and lateral bending are normal. Remainder upper limbs with normal ROM bilaterally. No thenar atrophy or softening noted bilaterally. No palmar crepitus or flexor tenosynovitis. No palpable triggering of all digits bilaterally. LEFT HAND: Palpable nodule at the level of the index PIPJ flexion crease. Palmar nodule present over the 3rd metacarpal head. No palpable pretendinous or spiral cord. Ring finger with palpable nodule over PIPJ flexion crease. Able to place hand flat on table. Nodules are tender to palpation. Moderate thumb-index web cord without contracture. RIGHT HAND: Palpable palmar nodule over the 3rd metacarpal head. Nodule over the flexion crease of the ring finger PIPJ. Able to place hand flat on table. Nodules are mildly tender to palpation. Moderate thumb-index web cord without contracture. Ulnocarpal abutment maneuvers produce no pain pain on the bilateral wrists. DRUJ stable bilaterally. Midcarpal laxity not evident on either side. Wrist flexion test negative bilaterally. Tinel's negative at bilateral wrist. Durkan's compression negative bilaterally Ulnar nerve at elbow. Motor strength 5/5 bilateral to manual resistance testing. Deep tendon reflexes 2+, symmetrical bilateral. Sensation normal in m/u/r distributions bilateral to light touch at rest. Other than noted nodules she had no skin lesions or stasis dermatitis. Imaging: No imaging Active Problem List: There is no problem list on file for this patient. Assessment: Marquis Figueroa is a 57 y.o. 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 Plan: The nature of the problem and the individual situation was discussed at length with the patient. Consistent with treatment of the primary diagnosis, we have recommended observation and no surgical intervention as it would carry a risk of flare reaction and exacerbation of her Dupuytren's disease. We did the discuss the possibility of benefit from collagenase injection and I will review this with Dr Aiken; if that approach has merit, will refer her to him for evaluation. F/U prn any progression or sxs. Yury Martinez MD Orthopaedic Surgery - PGY3 I have seen and examined the above named patient, reviewed and edited the contents of the note supplied by the resident or physician lawn mower mechanic with whom I saw the patient, and reviewed our findings and recommendations with the patient in person. Ulysses Orozco Jr, MD Department of Orthopaedics [facility] documented in this encounter Plan of Treatment Not on file documented as of this encounter Visit Diagnoses Diagnosis Dupuytren's disease Contracture of palmar fascia documented in this encounter Care Teams Fibre Optic Cable Splicer Relationship Specialty Start Date End Date Martina So APRN [address] [place] [address] PCP - General Family Medicine 08/26/19 documented as of this encounter
--- OUTSIDE RECORDS SUMMARY | 2024-06-10 20:06 | XMS_ITS | Encounter Summary ---
Author Organization [facility] [place] [address] Care Team Providers Care Coffee Urn Attendant Name Role Phone Janet Jimenez APRN Primary Care Provider [phone] Encounter Details Date Type Department Care Team (Late st Contact Info) Description 05/29/2015 Telephone [place] [address] Katie Pride LPN Social History Tobacco Use Types Packs/Day Years Used Date Smoking Tobacco: Never Smokeless Tobacco: Never Sex and Gender Information Value Date Recorded Sex Assigned at Not on file Gender Identity Not on file Sexual Orientation Not on file documented as of this encounter Miscellaneous Notes * Telephone Encounter - Katie Pride LPN - 05/29/2015 1:47 PM EDT R/c to patient at which time she was told per Dr Denton decrease Victoza to 0.6 mg once daily and callPCP SHAHEED regarding left sided chest heaviness. Patient agrees with plan of care. States she will call PCP as soon as she is off phone and will call back to let Dr Denton know how her bg's are on Victoza 0.6 mg daily * Telephone Encounter - Katie Pride LPN - 05/29/2015 1:33 PM EDT R/c to patient problem with the Victoza before. Increased to 1.2 mg on 05/24/14. Vomiting, gas, very soft stools and heavy feeling on left side over breast Heaviness is worse when lying on left side. All symptoms started on Thursday05/26/15 afternoon. When asked patient denies any associated s.o.b., pain radiating to left arm or up neck or to jaw. Per patient bg's are much better 104-134. BG this morning was 134 didn't take levemir last night nor this morning due to vomiting. Last victoza dose yesterday AM. Ate only toast @ 10:30 stomach bloating, no further n/v since 7AM. Heavy feeling in chest unchanged. Patient is asking if she could take victoza 0.6 mg twice daily since it is working documented in this encounter Plan of Treatment Not on file documented as of this encounter Visit Diagnoses Not on filedocumented in this encounter Care Teams Coffee Urn Attendant Relationship Specialty Start Date End Date Janet Jimenez, RESIDENTIAL PROPERTY CONSULTANT [id number] [place] [address] PCP - General 05/22/15 11/16/16 documented as of this encounter
--- OUTSIDE RECORDS SUMMARY | 2024-06-10 20:06 | XMS_ITS | Encounter Summary ---
[place] [address] Care Team Providers Care Credit Support Counselor Name Role Phone Janet Jimenez APRN Primary Care Provider [phone]- [phone] Encounter Details Date Type Department Care Team (Late st Contact Info) Description 10/20/2016 Telephone [place] [phone] Katie Pride LPN Social History Tobacco Use Types Packs/Day Years Used Date Smoking Tobacco: Never Smokeless Tobacco: Never Sex and Gender Information Value Date Recorded Sex Assigned at Not on file Gender Identity Not on file Sexual Orientation Not on file documented as of this encounter Miscellaneous Notes * Telephone Encounter - Katie Pride LPN - 10/21/2016 3:14 PM EST Images from the original note were not included. Rocio Figueroa?? Female, 51 y.o., 1965 Weight: 94.6 kg (208 lb 9.6 oz) Home: Work: PCP: Janet Jimenez APRN myD-H: Code Exp Next Appt: 12/04/2016 ?? Message Received: Today ? Fidencio Denton, Katie Ramirez LPN ? Caller: Unspecified (Yesterday, ??9:02 AM) ? We might need to consider restarting glimepiride, however I would like her to try 1.2mg of liraglutide again. ? Previous Messages Called patient at which time above message was read to her. Patient agrees with plan of care and agrees to call back to let Dr Denton if increased dose is working and being tolerated * Telephone Encounter - Katie Pride LPN - 10/21/2016 2:40 PM EST R/c to patient at which time message from Dr Denton was read to her. Patient states that she will increase dose to 1.2 tomorrow morning but wants to remind Dr Denton that twice before dose was increased from 0.6 to 1.2 but had to be decreased back to 0.6 mg due to really bad gas and bad egg taste in mouth. He doesn't want to go back on the little blue pills again (glimiperide 2 mg two tablets daily)? I don't understand. I am eating healthier. BG this AM [phone] later today * Telephone Encounter - Katie Pride LPN - 10/21/2016 8:33 AM EST Images from the original note were not included. Rocio Figueroa?? Female, 51 y.o., 1965 Weight: 94.6 kg (208 lb 9.6 oz) Home: Work: PCP: Janet Jimenez APRN myD-H: Code Exp Next Appt: 12/04/2016 ?? Message Received: Yesterday ? Fidencio Denton, DO Katie Pride LPN ? Caller: Unspecified (Yesterday, ??9:02 AM) ? She can increase liraglutide to 1.2mg/day. We can discuss at her appointment in November. ? Previous Messages Called patient. No answer. Message left on cell and home v/m for patient to r/c to nurse at which time above message will be read to her. * Telephone Encounter - Katie Pride LPN - 10/20/2016 9:02 AM EST Message on endo nurse line from patient Ha1c done at PCP was 10.8. They wanted me to call to have my meds adjusted . Called PCP per Radha results to be faxed. Received and were forward to Dr Denton Called patient who verifies takimg Levemir 47U twice daily Metformin XR 2000 mg daily Victoza 0.6 mg once daily Patient states I have lost 22# in close to a month. Have cut out carbs documented in this encounter Plan of Treatment Not on file documented as of this encounter Visit Diagnoses Not on filedocumented in this encounter Care Teams Credit Support Counselor Relationship Specialty Start Date End Date Janet Jimenez, TITUS [phone] [place] [address] PCP - General 05/22/15 11/16/16 documented as of this encounter
--- OUTSIDE RECORDS SUMMARY | 2024-06-10 20:06 | XMS_ITS | Encounter Summary ---
Author Organization [facility] [place] [address] Care Team Providers Care Veneer Grader Name Role Phone Janet Jimenez APRN Primary Care Provider [phone] Reason for Visit * Reason Comments Diabetes Encounter Details Date Type Department Care Team (Latest Contact Info) Description 09/12/2015 10:30 AM EST Office [place] [address] [facility] [place] [address] Diabetes mellitus type 2, uncomplicated Social History Tobacco Use Types Packs/Day Years Used Date Smoking Tobacco: Never Smokeless Tobacco: Never Sex and Gender Information Value Date Recorded Sex Assigned at Not on file Gender Identity Not on file Sexual Orientation Not on file documented as of this encounter Last Filed Vital Signs Vital Sign Reading Time Taken Comments Blood Pressure 148/90 09/12/2015 10:21 AM EST Pulse 98 09/12/2015 10:21 AM EST Temperature - - Respiratory Rate - - Oxygen Saturation - - Inhaled Oxygen Concentration - - Weight 93.8 kg (206 lb 12.8 oz) 015 10:21 AM EST Height 156.5 cm (5' 1.61) 09/12/2015 1 0:21 AM EST Body Mass Index 38.3 09/12/2015 10:21 AM EST documented in this encounter Patient Instructions * Patient Instructions* Fidencio Denton DO - 09/12/2015 10:59 AM EST 09/13 Decrease levemir to 50 units twice daily, increase glimepiride to 4mg, increase Victoza to 1.2 mg daily 09/14 Levemir 50 units twice daily 09/15 Levemir 45 units twice daily 09/16 Levemir 40 units twice daily documented in this encounter Progress Notes * Fidencio Denton DO - 09/12/2015 11:04 AM EST REASON FOR FOLLOWUP: Diabetes SUBJECTIVE: Rocio is a 50 year old female here for 7 month followup after a recent diagnosis of type 2 diabetes. She is on liraglutide (0.6) and metformin XL 1000 mg, and Levemir 55 units twice a day. She has been compliant with medications. Also has made positive changes to her diet. No refined sugar. Eating more fruits and veggies. She is walking and stretching nearly daily. Active at work. She is monitoring blood glucose 3-4 times per day. She is symptomatic with lows and feels shaky andhungry, with only one episode since our last visit. Fasting BG ~100. BG range during the day (post-meal) 100-200. Blood glucose running high in the morning since she ran out of metformin 5 days ago. She denies visual changes, numbness, weakness, chest pain, headache, nocturia, cough. REVIEW OF SYSTEMS: A 10-system review negative except as mentioned above. PMH: GERD HTN Obesity Insomnia Medications: Levemir 55 units twice daily Metformin 1,000 mg XL once daily Liraglutide 0.6 mg once daily Family History: Unknown (adopted) Social Hx: No tobacco or alcohol BP 148/90 mmHg Pulse 98 Ht 156.5 cm (5' 1.61) Wt 93.804 kg (206 lb 12.8 oz) BMI 38.30 kg/m2 General: alert, fully oriented and in no acute distress. HEENT: Atraumatic, PERRLA, oropharynx without erythema or exudate, thyroid without nodularity. Cardiac: RRR, no murmurs, rubs or gallop. Vascular: Dorsalis pedis 2+ bilaterally. No bruits auscultated. Lungs: CTA Abd: Soft, NT, ND. No masses appreciated. Ext: No edema or foot ulcers. Labs: A1C pending Impression: 49 year old female with newly diagnosed type 2 diabetes, with most recent A1C demonstrating excellent control (6.8%). She is requiring high amounts of insulin and as a result is struggling with weight loss. We will plan to increase her GLP1 dose and glimeperide. Recommendations: - Wean levemir from 55 to 40 units over the next week - Increase liraglutide to 1.2mg daily - increase glimeperide 4mg daily - Pt to call sooner for repeated BG values >300 or <60 Follow up in 4 months Fidencio Denton DO, MS Staff Rental Representative [facility] documented in this encounter Plan of Treatment Not on file documented as of this encounter Procedures Procedure Name Priority Date/Time Associated Diagnosis Comments HEMOGLOBIN A1C Routine 09/12/2015 11:28 AM EST Diabetes mellitus type 2, uncomplicated documented in this encounter Results * (ABNORMAL) Hemoglobin A1c (09/12/2015 11:28 AM EST) Hemoglobin A1c 8.2(H) 4.3 - 5.6 % [facility] Comment: Reference Range: 4.3 - 5.6% 5.7 - 6.4% - Increased Risk of Developing Diabetes Mellitus 6.5% - Consistent with diagnosis of Diabetes Mellitus In the absence of hyperglycemia (i.e. plasma glucose > 200 mg/dL) or classic symptoms of hyperglycemia a repeat measurement of HbA1c should be performed on a separate sample to confirm the diagnosis. Diagnosis and Classification of Diabetes Mellitus, Diabetes Care 2013; 36: Suppl. 1, S67-74 Estimated Average Glucose 189 mg/dL [facility] Comment: eAG equivalents for HbA1c percentages: HbA1c(%) ?eAG(mg/dL) 6.0 ?126 6.5 ?140 7.0 ?154 7.5 ?169 8.0 ?183 8.5 ?197 9.0 ?212 9.5 ?226 10.0 ? 240 Limitations: The eAG calculation has not been validated on women, individuals below 18 years old and above 70 years old, and individuals with hemoglobinopathies. Additional resources are available on the ADA website: http://Neocis.People Pattern/DHMCadacalc Dinesh EPPS, Jeff J, Placido R, et al. ??Translating the A1C assay into estimated average glucose values. ??Diabetes Care 2008:31(8):8096-6806. Blood specimen (specimen) 09/12/2015 11:28 AM EST 09/12/2015 11:48 AM EST Narrative Resulting Agency Comment Spec In Lab Fidencio Denton DO CHEMISTRY ORDERABLES Performing Organization Address City/State/[facility] Co ma Phone Number [facility] documented in this encounter Visit Diagnoses Diagnosis Diabetes mellitus type 2, uncomplicated Type II or unspecified type diabetes mellitus without mention of complication, not stated as uncontrolled documented in this encounter Care Teams Veneer Grader Relationship Specialty Start Date End Date Janet Jimenez APRN [phone] [place] [address] PCP - General 05/22/15 11/16/16 documented as of this encounter
--- OUTSIDE RECORDS SUMMARY | 2024-06-10 20:06 | XMS_ITS | Encounter Summary ---
[place] [address] Care Team Providers Care Leather Craftsman Name Role Phone Trudy Olmedo APRN Primary Care Provider [phone] Encounter Details Date Type Department Care Team (Late st Contact Info) Description 06/10/2017 Telephone [place] [phone] Katie Pride LPN Social History Tobacco Use Types Packs/Day Years Used Date Smoking Tobacco: Never Smokeless Tobacco: Never Sex and Gender Information Value Date Recorded Sex Assigned at Not on file Gender Identity Not on file Sexual Orientation Not on file documented as of this encounter Miscellaneous Notes * Telephone Encounter - Katie Pride LPN - 06/23/2017 10:32 AM EDT Images from the original note were not included. Rocio Figueroa?? Female, 51 y.o., 1965 Weight: 89.4 kg (197 lb) Home: PCP: Trudy Olmedo APRN myD-H: Pending Next Appt: None ?? Message Received: 4 days ago ? Fidencio Denton, DO Katie Pride LPN ? Caller: Unspecified (1 week ago) ? I would suggest cutting metformin in half as a trial. I would like her to stay at 1.2 for Victoza. ? Previous Messages Called patient at which time above message was read to her. Patient agrees with plan. * Telephone Encounter - Katie Pride LPN - 06/18/2017 8:55 AM EDT Call from patient at which time message from Dr Denton was read to her. FBG 198-209. If take Victoza 1.8 daily very gasy and nausea decreased to 1.2 with same symptoms. Also taking metformin XR 2000 mg in PM, Levemir 47u twice daily, Invokana 100 mg PM Losing weight down to 191.2. Per patient she is taking all once daily diabetic meds in PM. Patient is asking if she can decrease Victoza to 0.6 mg daily and if taking meds at other times of day may help with symptoms. Although patient does states that she has no GI symptoms when she does not take Victoza. * Telephone Encounter - Katie Pride LPN - 06/16/2017 8:09 AM EDT No response from patient. Called again. Message left on cell v/m for patient to r/c to nurse. * Telephone Encounter - Katie Pride LPN - 06/10/2017 3:04 PM EDT Images from the original note were not included. Rocio Figueroa Karoline?? Female, 51 y.o., 1965 Weight: 89.4 kg (197 lb) Home: PCP: Trudy Olmedo APRN myD-H: Pending Next Appt: None ?? Message Received: Today ? Fidencio Denton, DO Katie Pride LPN ? Can you check in with Rocio regarding blood sugar readings. Her c-peptide level did confirm type 2 diabetes (which we suspected). ? Called patient. Message left on cell v/m for patient to r/c to nurse. documented in this encounter Plan of Treatment Not on file documented as of this encounter Visit Diagnoses Not on filedocumented in this encounter Care Teams Leather Craftsman Relationship Specialty Start Date End Date Trudy Olmedo APRN PCP - General Family Medicine 12/04/16 04/20/19 documented as of this encounter
--- OUTSIDE RECORDS SUMMARY | 2024-06-10 20:06 | XMS_ITS | Encounter Summary ---
Author Organization [facility] [place] [address] Care Team Providers Care Director Intelligence Analysis Programs Name Role Phone Janet Jimenez APRN Primary Care Provider [phone]- [phone] Encounter Details Date Type Department Care Team (Late st Contact Info) Description 10/25/2015 Telephone [place] [phone] Katie Pride LPN Social History Tobacco Use Types Packs/Day Years Used Date Smoking Tobacco: Never Smokeless Tobacco: Never Sex and Gender Information Value Date Recorded Sex Assigned at Not on file Gender Identity Not on file Sexual Orientation Not on file documented as of this encounter Miscellaneous Notes * Telephone Encounter - Katie Pride LPN - 10/26/2015 10:56 AM EST Rocio Figueroa - 10/25/2015 12:04 PM >','<< Less Detail',event) href=[email or web address]:;><< Less Detail ?? Fidencio Denton, DO ?? Sent: ThuOctober 26, 2015 10:23 AM ? To: Katie Pride LPN ? Message ? Ask her if she could please increase her metformin to 2,000 mg Called patient at which time above message was read to her. Also per verbal from Dr Denton to increase to 1500 mg daily for one week If no GI symptoms then increase to 2000 mg daily Patient agrees with plan of care. * Telephone Encounter - Katie Pride LPN - 10/25/2015 12:05 PM EST R/c to patient I feel so much better since stopping the Victoza but my BG's are 226-276 all day long Taking Levemir 47U twice daily Metformin 1000 mg at night Glimepiride 4 mg AM Forward to Dr Denton documented in this encounter Plan of Treatment Not on file documented as of this encounter Visit Diagnoses Not on filedocumented in this encounter Care Teams Director Intelligence Analysis Programs Relationship Specialty Start Date End Date Janet Jimenez APRN [phone] [place] [address] PCP - General 05/22/15 11/16/16 documented as of this encounter
--- OUTSIDE RECORDS SUMMARY | 2024-06-10 20:06 | XMS_ITS | Encounter Summary ---
Author Organization [facility] [place] [address] Care Team Providers Care Privacy Compliance Manager Name Role Phone Janet Jimenez APRN Primary Care Provider [phone] Encounter Details Date Type Department Care Team (Late st Contact Info) Description 05/25/2015 Telephone [place] [address] Katie Pride LPN Social History Tobacco Use Types Packs/Day Years Used Date Smoking Tobacco: Never Smokeless Tobacco: Never Sex and Gender Information Value Date Recorded Sex Assigned at Not on file Gender Identity Not on file Sexual Orientation Not on file documented as of this encounter Miscellaneous Notes * Telephone Encounter - Katie Pride LPN - 05/25/2015 3:46 PM EDT R/c to patient who is concerned about elevated BG's and is asking if she be taking humalog to correct between meals. Levemir 55U twice daily, victoza 1.2 daily Taken off humalog put me on Amaryl 2 mg daily with humalog as needed. Started yesterday. Today FBG 229, 269 @ 9:30AM, 335 @ 10:15AM, 188 @ 12N ate lunch 3U humalog, 3:30 PM 209. Patient was told that she may not have been so high between meals had she taken humalog in AM when BG was 229 Patient was also read following from 05/22/15 office note Recommendations: - Increase liraglutide to 1.2mg daily - Start glimeperide 2mg daily - Replace meal associated Humalog with sliding scale (ISF 25- goal BG before meals is 120-1400 Patient will call back with bg readings next week and knows that there is d.o.c. 24/ should she need assistance over the weekend. * Telephone Encounter - Katie Pride LPN - 05/25/2015 12:45 PM EDT Message on endo nurse line from patient was started on a new medication and my numbers are runninghigh Called patient. Unable to reach her at her work. Left message on v/m for patient to r/c to nurse. documented in this encounter Plan of Treatment Not on file documented as of this encounter Visit Diagnoses Not on filedocumented in this encounter Care Teams Privacy Compliance Manager Relationship Specialty Start Date End Date Janet Jimenez APRN [phone] [place] [address] PCP - General 05/22/15 11/16/16 documented as of this encounter
--- OUTSIDE RECORDS SUMMARY | 2024-06-10 20:06 | XMS_ITS | Encounter Summary ---
Author Organization [facility] [place] [address] Care Team Providers Care Radio Board Operator Announcer Name Role Phone Trudy Olmedo APRN Primary Care Provider [phone] Reason for Visit * Reason Onset Date Comments Medication Refill 11/04/2017 Encounter Details Date Type Department Care Team (Late st Contact Info) Description 11/04/2017 [place] [address] [facility] [place] [address] Social History Tobacco Use Types Packs/Day Years [...] on filedocumented in this encounter Care Teams Radio Board Operator Announcer Relationship Specialty Start Date End Date Trudy Olmedo APRN PCP - General Family Medicine 12/04/16 04/20/19 documented as of this encounter
--- OUTSIDE RECORDS SUMMARY | 2024-06-10 20:06 | XMS_ITS | Encounter Summary ---
Author Organization [facility] [place] [address] Care Team Providers Care Carton Forming Machine Helper Name Role Phone Martina So APRN Primary Care Provider [phone] Encounter Details Date Type Department Care Team (Latest Contact Info) Description 06/09/2023 Travel Social History Tobacco Use Types Packs/Day Years [...] on filedocumented in this encounter Care Teams Carton Forming Machine Helper Relationship Specialty Start Date End Date Martina So APRN [address] [place], [place] [id number] PCP - General Family Medicine 08/26/19 documented as of this encounter
--- OUTSIDE RECORDS SUMMARY | 2024-06-10 20:06 | XMS_ITS | Encounter Summary ---
Author Organization [facility] Address [address] [place] [address] Care Team Providers Care Cardiology Nurse Practitioner Name Role Phone Unavailable Primary Care Provider Unavailabl e Encounter Details Date Type Department Care Team (Late st Contact Info) Description 07/04/2004 Results Only [facility] - Maple conversion [address] [place] [address] Kassidy Oliver MD [address] [place] [address] [place] [address] Social History Tobacco Use Types Packs/Day Years Used Date Smoking Tobacco: Never Assessed Sex and Gender Information Value Date Recorded Sex Assigned at Not on file Gender Identity Female 01/13/2023 12:16 EDT Sexual Orientation Not on file documented as of this encounter Plan of Treatment Upcoming Encounters Date Type Department Care Team (Late st Contact Info) Description 06/29/2024 13:45 EDT Office Visit [facility] Hand & Upper Extremity Program - [address] [place] [address] Alke Crespo MD [address] [place] [address] documented as of this encounter Procedures Procedure Name Priority Date/Time Associated Diagnosis Comments CYTOPATHOLOGY Routine 07/04/2004 0:00 EDT documented in this encounter Results * CYTOPATHOLOGY (07/04/2004 0:00 EDT) Pathology Report: CYTOPATHOLOGY REPORT Reports generated via electronic interface contain original data; however they are lacking the format of the original report. Caution should be taken when reading/interpreti ng unformatted reports. Name: ? MARQUIS SHELTON ? Accession #: ? [id number] : ? 1965 (Age: 38) ??F ?Collect Date: ? 07/04/2004 Location: ? [facility] ? Receive Date: ? 07/05/2004 Provider: ?KASSIDY OLIVER MD Copy to: ? Specimen/Source: ?ThinPrep Pap Test, Cervix/Endocervix Last Menstrual Period: ? 07/11/04 Other: ? HPVA - HPV testing requested if ASC-US on the current ThinPrep Pap test. ? SPECIMEN ADEQUACY ? Satisfactory for Evaluation - transformation zone component present GENERAL CATEGORIZATION ? Negative for Intraepithelial Lesion or Malignancy ? Document reviewed and electronically signed by: ? Ning Dennison, SCT(ASCP) ? Report Date: ??07/11/2004 11:26 End of Report [facility] 07/04/2004 07/05/2004 Kassidy Oliver MD PATHOLOGY ORDERABLES [facility] [address] [place] [address] documented in this encounter Visit Diagnoses Not on filedocumented in this encounter
--- OUTSIDE RECORDS SUMMARY | 2024-06-10 20:06 | XMS_ITS | Encounter Summary ---
Author Organization [facility] [place] [address] Care Team Providers Care Band Shover Name Role Phone Trudy Olmedo APRN Primary Care Provider [phone] Reason for Visit * Reason Onset Date Comments Medication Refill 09/24/2017 Encounter Details Date Type Department Care Team (Late st Contact Info) Description 09/24/2017 Refill [place] [address] [facility] [place] [address] Social History Tobacco Use Types Packs/Day Years [...] on filedocumented in this encounter Care Teams Band Shover Relationship Specialty Start Date End Date Trudy Olmedo APRN PCP - General Family Medicine 12/04/16 04/20/19 documented as of this encounter
--- OUTSIDE RECORDS SUMMARY | 2024-06-10 20:06 | XMS_ITS | Encounter Summary ---
Author Organization [facility] Address [address] [place] [address] Care Team Providers Care Director Of Clinical Services Name Role Phone Unavailable Primary Care Provider Unavailabl e Encounter Details Date Type Department Care Team (Late st Contact Info) Description 03/07/2002 Results Only [facility] - [address] conversion [address] [place] [address] Vince Carrera, DO [address] [facility] [address] [place] [address] Social History Tobacco Use Types Packs/Day Years Used Date Smoking Tobacco: Never Assessed Sex and Gender Information Value Date Recorded Sex Assigned at Not on file Gender Identity Female 01/13/2023 12:16 EDT Sexual Orientation Not on file documented as of this encounter Plan of Treatment Upcoming Encounters Date Type Department Care Team (Late st Contact Info) Description 06/29/2024 13:45 EDT Office Visit [facility] Hand & Upper Extremity Program - [place] [address] [address] [place], [place] [id number] Alek Crespo MD [address] [place] [phone] documented as of this encounter Procedures Procedure Name Priority Date/Time Associated Diagnosis Comments SURGICAL PATHOLOGY Routine 03/07/2002 0:00 EDT documented in this encounter Results * SURGICAL PATHOLOGY (03/07/2002 0:00 EDT) Pathology Report: SURGICAL PATHOLOGY REPORT Reports generated via electronic interface contain original data; however they are lacking the format of the original report. Caution should be taken when reading/interpreti ng unformatted reports. Name: ? MARQUIS SHELTON ? Accession #: ? [id number] ? : ? 1965 (Age: 36) ??F ? Collect Date: ? 03/07/2002 ? Location: ? [facility] ? Receive Date: ? 03/08/2002 ? Provider: VINCE CARRERA DO Copy to: SALTY CARTER MD ? Final Pathologic Diagnosis: ? Colon, sigmoid, biopsies: - ??Fragments of benign colonic mucosa with no specific pathologic features. Document reviewed and electronically signed by: SALTY CARROLL MD Report ??Date: 03/09/2002 20:35 By the signature above, the attending physician certifies that he/she has personally conducted a gross and/or microscopic examination of the described specimens and rendered or confirmed the above diagnosis. Specimen(s) Received: ? Bx sigmoid 08:30 Clinical History: ? Dx left lower quid pain, post-op normal colon Gross Description: ? Received in Hollande's fixative labelled Hamelin and sigmoid are three vila-pink, 0.2 x 0.2 x 0.2 cm soft tissue fragments. ??The specimen is entirely submitted in one cassette. ??(Elmer Avery/[facility] End of Report NAZ[facility]IO GRANADO 03/07/2002 03/08/2002 8:3 1 EDT Vince Carrera DO PATHOLOGY ORDER [facility] [address] [place] [address] documented in this encounter Visit Diagnoses Not on filedocumented in this encounter
--- OUTSIDE RECORDS SUMMARY | 2024-06-10 20:06 | XMS_ITS | Encounter Summary ---
Author Organization [facility] Address [address] [place] [address] Care Team Providers Care Diet Aide Name Role Phone Unavailable Primary Care Provider Unavailabl e Encounter Details Date Type Department Care Team (Late st Contact Info) Description 08/08/2005 Results Only [facility] - [address] conversion [address] [place] [address] Kassidy Oliver MD [address] [place] [address] [place] [address] Social History Tobacco Use Types Packs/Day Years Used Date Smoking Tobacco: Never Assessed Sex and Gender Information Value Date Recorded Sex Assigned at Not on file Gender Identity Female 01/13/2023 12:16 EDT Sexual Orientation Not on file documented as of this encounter Plan of Treatment Upcoming Encounters Date Type Department Care Team (Late st Contact Info) Description 06/29/2024 13:45 EDT Office Visit [facility] Hand & Upper Extremity Program - [address] [address] Alek Crespo MD [address] [place] [address] documented as of this encounter Procedures Procedure Name Priority Date/Time Associated Diagnosis Comments CYTOPATHOLOGY Routine 08/08/2005 0:00 EST documented in this encounter Results * CYTOPATHOLOGY (08/08/2005 0:00 EST) Pathology Report: CYTOPATHOLOGY REPORT Reports generated via electronic interface contain original data; however they are lacking the format of the original report. Caution should be taken when reading/interpreti ng unformatted reports. Name: ? MARQUIS SHELTON ? Accession #: ? [id number] : ? 1965 (Age: 39) ??F ?Collect Date: ? 08/08/2005 Location: ? [facility] ? Receive Date: ? 08/11/2005 Provider: ?KASSIDY OLIVER MD Copy to: ? Specimen/Source: ?ThinPrep Pap Test, Cervix/Endocervix, processed on [email or web address] ThinPrep Imaging System, with manual evaluation Last Menstrual Period: ? 06/27/05 Other: ? HPVA - HPV testing requested if ASC-US on the current ThinPrep Pap test. ? SPECIMEN ADEQUACY ? Satisfactory for Evaluation - transformation zone component present GENERAL CATEGORIZATION ? Negative for Intraepithelial Lesion or Malignancy ? Document reviewed and electronically signed by: ? KENDELL Porter(ASCP) ? Report Date: ??08/13/2005 13:46 End of Report NAZARIO GRANADO 08/08/2005 08/11/2005 Kassidy Oliver MD PATHOLOGY ORDERABLES [facility] GRANADO [address] [place] [address] documented in this encounter Visit Diagnoses Not on filedocumented in this encounter
--- OUTSIDE RECORDS SUMMARY | 2024-06-10 20:06 | XMS_ITS | Encounter Summary ---
Author Organization [facility] [place] [address] Care Team Providers Care Recreation Superintendent Name Role Phone Trudy Olmedo APRN Primary Care Provider [phone] Encounter Details Date Type Department Care Team (Late st Contact Info) Description 12/08/2016 [place] [phone] Katie Pride LPN Social History Tobacco Use Types Packs/Day Years Used Date Smoking Tobacco: Never Smokeless Tobacco: Never Sex and Gender Information Value Date Recorded Sex Assigned at Not on file Gender Identity Not on file Sexual Orientation Not on file documented as of this encounter Miscellaneous Notes * Telephone Encounter - Katie Pride LPN - 12/10/2016 8:26 AM EDT Call from patient at which time message from Dr Denton was read to her. Patient agrees with plan of care and states she increased Victoza day after her visit with Dr. Denton. Call transferred to high school library media specialist to schedule f/u. 05/07/17. * Telephone Encounter - Katie Pride LPN - 12/09/2016 1:44 PM EDT No response from patient. Called again. Message left on home v/m for patient to r/c to nurse. Called work number she has not worked her since last fall Called cell number v/m not set up * Telephone Encounter - Katie Pride LPN - 12/08/2016 4:25 PM EDT Rocio Figueroa - 12/04/16 << Less Detail ?? Fidencio Denton, DO ?? Sent: [facility] December 04, 2016 ??5:06 PM ?? To: Katie rPide LPN ?? Message ?? Please inform Rocio that her A1C is 9.1%. She should increase the Liraglutide to 1.8mg and cutout lactose from her diet as we discussed. I would like her to see her PCP in 2 months (as planned)and back to see me in 5 months (from today). ? ----- Message ----- ? From: Valentina Crews In seven Called patient. No answer. Message left on home v/m for patient to r/c to nurse at which time abovemessage will be read to her. documented in this encounter Plan of Treatment Not on file documented as of this encounter Visit Diagnoses Not on filedocumented in this encounter Care Teams Recreation Superintendent Relationship Specialty Start Date End Date Trudy Olmedo APRN PCP - General Family Medicine 12/04/16 04/20/19 documented as of this encounter
--- OUTSIDE RECORDS SUMMARY | 2024-06-10 20:06 | XMS_ITS | Encounter Summary ---
Author Organization [facility] [place] [address] Care Team Providers Care Wound Care Nurse Name Role Phone Trudy Olmedo APRN Primary Care Provider [phone] Reason for Visit * Reason Onset Date Comments Medication Refill 02/02/2017 Encounter Details Date Type Department Care Team (Late st Contact Info) Description 02/02/2017 [place] [address] [facility] [place] [address] Social History Tobacco Use Types Packs/Day Years [...] on filedocumented in this encounter Care Teams Wound Care Nurse Relationship Specialty Start Date End Date Trudy Olmedo APRN PCP - General Family Medicine 12/04/16 04/20/19 documented as of this encounter
--- OUTSIDE RECORDS SUMMARY | 2024-06-10 20:06 | XMS_ITS | Encounter Summary ---
Author Organization [facility] [place] [address] Care Team Providers Care Thread Checker Name Role Phone Trudy Olmedo APRN Primary Care Provider [phone] Encounter Details Date Type Department Care Team (Late st Contact Info) Description 05/07/2017 2:00 PM EDT Office [place] [phone] Fidencio Denton [facility] [place] [address] Type 2 diabetes mellitus without complication, without long-term current use of insulin Social History Tobacco Use Types Packs/Day Years Used Date Smoking Tobacco: Never Smokeless Tobacco: Never Sex and Gender Information Value Date Recorded Sex Assigned at Not on file Gender Identity Not on file Sexual Orientation Not on file documented as of this encounter Last Filed Vital Signs Vital Sign Reading Time Taken Comments Blood Pressure 136/87 05/07/2017 1:53 PM EDT Pulse 105 05/07/2017 1:53 PM EDT Temperature - - Respiratory Rate - - Oxygen Saturation - - Inhaled Oxygen Concentration - - Weight 89.4 kg (197 lb) 05/07/2017 1:53 PM EDT Height 154.9 cm (5' 1) 05/07/2017 1:53 PM EDT Body Mass Index 37.22 05/07/2017 1:53 PM EDT documented in this encounter Progress Notes * Fidencio Denton DO - 05/07/2017 2:00 PM EDT REASON FOR FOLLOWUP: Diabetes SUBJECTIVE: Rocio is a 51 year old female here for follow up of type 2 diabetes. She is on Esxvnj54V twice daily,metformin XR 2000 mg in PM, and Victoza 1.6mg. She tolerated the 1.2mg dose. Now on1.8mg for several months and again having times of foul smelling burps. She has been compliant with medications. Lost 12 lbs since our last visit- 40+ pounds in several years. Eating well. Not much exercise. Feet still hurt her. She is monitoring blood glucose at least 2 times per day. No lows. Fasting BG 200-300 range. No history of vaginal infections. 1 episode of yeast infection under breasts. She denies visual changes, numbness, weakness, chest pain, headache, nocturia, cough. REVIEW OF SYSTEMS: A 10-system review negative except as mentioned above. PMH: GERD HTN Obesity Insomnia Medications: Levemir 47 units twice daily Metformin 2,000 mg XL once daily Victoza 1.2mg/day Family History: Unknown (adopted) Social Hx: No tobacco or alcohol BP 136/87 Pulse 105 Ht 154.9 cm (5' 1) Wt 89.4 kg (197 lb) BMI 37.22 kg/m2 General: alert, fully oriented and in no acute distress. Cor: RRR Lungs: CTA No thyromegaly No significant leg swelling Labs: A1C 8.4 -> 9.1 ->10% Impression: 51 year old female with poorly controlled diabetes. Severe insulin resistance. We will maximize non-insulin regimen prior to increasing her insulin doses. Measure c-peptide today to determine pancreatic reserves 9may need meal insulin). We may also have to reconsider bariatric surgery. Recommendations: - Cont Levemir 47 units twice daily, and metformin - Cont liraglutide to 1.8 mg daily - Start SGLT-2 inhibitor (100mg of Invokana daily) Follow up in 2 months Fidencio Denton DO, MS Car Usherregional sales manager Department of Medicine Section of Endocrinology [facility] documented in this encounter Plan of Treatment Not on file documented as of this encounter Procedures Procedure Name Priority Date/Time Associated Diagnosis Comments C-PEPTIDE Routine 05/07/2017 2:58 PM EDT Type 2 diabetes mellitus without complication, without long-term current use of insulin HEMOGLOBIN A1C STAT 05/07/2017 2:58 PM EDT Type 2 diabetes mellitus without complication, without long-term current use of insulin COMPREHENSIVE METABOLIC PANEL Routine 05/07/2017 2:58 PM EDT Type 2 diabetes mellitus without complication, without long-term current use of insulin documented in this encounter Results * (ABNORMAL) Comprehensive metabolic panel (non-fasting) (05/07/2017 2:58 PM EDT) [facility] Glucose 274(H) 65 - 199 mg/dL [facility] Comment:Diabetes: >=200 mg/d L plus symptoms Blood Urea Nitrogen 14 8 - 18 mg/dL [facility] Creatinine 0.64(L) 0.70 - 1.20 mg/dL [facility] Comment: Please note that the pediatric reference intervals supplied above were not validated at [facility]. Results from pediatric patients should be interpreted in conjunction to the patient's age, height and muscle mass. Sodium 137 135 - 145 mmol/L [facility] Potassium 4.4 3.5 - 5.0 mmol/L [facility] Comment: Please note: ??Patients with WBC >100,000 may have falsely elevated Potassium levels. ??For accurate Potassium quantification in these patients send serum separator tube (gold top) for subsequent determinations. ??Contact the Clinical Chemistry Laboratory if there are any questions. Chloride 98 98 - 107 mmol/L [facility] Carbon Dioxide 26 22 - 31 mmol/L [facility] Anion Gap 13 5 - 15 mmol/L [facility] Calcium 9.8 8.5 - 10.5 mg/dL [facility] Protein, Total 7.2 6.1 - 8.0 gm/dL [facility] Albumin 4.1 3.2 - 5.2 gm/dL [facility] Aspartate Aminotransferase 28 0 - 30 unit/L [facility] Alanine Aminotransferase 45(H) 0 - 30 unit/L [facility] Alkaline Phosphatase 76 40 - 104 unit/L [facility] Bilirubin, Total 0.4 0.2 - 1.3 mg/dL [facility] Est Glomerular Filtration Rate >60 >=60 [facility] Comment: This estimated GFR (eGFR) value was calculated using the MDRD equation which has been validated on patients between the ages of 18 and 70. The MDRD should not be used to assess kidney function in patients < 18 years of age or in patients with extremes of body mass, or in patients with acute kidney failure. This value should be multiplied by 1.2 for patients. For further information please copy and paste the following links into your internet browser. [email or web address] Blood specimen (specimen) 05/07/2017 2:58 PM EDT 05/07/2017 3:05 PM EDT Narrative Resulting Agency Comment Spec In Lab Fidencio Denton DO CHEMISTRY ORDERABLES Performing Organization Address [facility] Co de Phone Number [facility] [place] [address] * C-peptide (05/07/2017 2:58 PM EDT) C-Peptide 4.7 0.8 - 5.2 ng/mL [facility] Comment: Please note: as of 01/21/2017, C-Peptide testing is being performed in the [facility] Chemistry Laboratory using a new test method with a new reference interval. Blood specimen (specimen) 05/07/2017 2:58 PM EDT 05/07/2017 3:05 PM EDT Narrative Resulting Agency Comment Spec In Lab Fidencio Denton DO CHEMISTRY ORDERABLES Performing Organization Address City/[facility]/ZIP Co de Phone Number [facility] [place] [address] * (ABNORMAL) Hemoglobin A1c (05/07/2017 2:58 PM EDT) Hemoglobin A1c 10.0(H) 4.3 - 5.6 % [facility] Comment: Reference Range: 4.3 - 5.6% 5.7 - 6.4% - Increased Risk of Developing Diabetes Mellitus >= 6.5% - Consistent with diagnosis of Diabetes Mellitus In the absence of hyperglycemia (i.e. plasma glucose > 200 mg/dL) or classic symptoms of hyperglycemia a repeat measurement of HbA1c should be performed on a separate sample to confirm the diagnosis. Diagnosis and Classification of Diabetes Mellitus, Diabetes Care 2013; 36: Suppl. 1, Q27-83 Estimated Average Glucose 240 mg/dL [facility] Comment: eAG equivalents for HbA1c percentages: [...] into estimated average glucose values. ??Diabetes Care 2008:31(8):8136-1994. Blood specimen (specimen) 05/07/2017 2:58 PM EDT 05/07/2017 3:05 PM EDT Narrative Resulting Agency Comment Spec In Lab Fidencio Denton DO CHEMISTRY ORDERABLES [facility] [place] [address] documented in this encounter Visit Diagnoses Diagnosis Type 2 diabetes mellitus without complication, without long-term current use of insulin documented in this encounter Care Teams Thread Checker Relationship Specialty Start Date End Date Trudy Olmedo APRN PCP - General Family Medicine 12/04/16 04/20/19 documented as of this encounter
--- OUTSIDE RECORDS SUMMARY | 2024-06-10 20:06 | XMS_ITS | Encounter Summary ---
Author Organization [facility] Address [address] [place] [address] Care Team Providers Care Technical Systems Architect Name Role Phone Unavailable Primary Care Provider Unavailabl e Encounter Details Date Type Department Care Team (Late st Contact Info) Description 07/05/2003 Results Only [facility] - [facility] [address] [place] [address] Kassidy Oliver MD [address] [place] [address] [place] [address] Social History Tobacco Use Types Packs/Day Years Used Date Smoking Tobacco: Never Assessed Sex and Gender Information Value Date Recorded Sex Assigned at Not on file Gender Identity Female 01/13/2023 12:16 EDT Sexual Orientation Not on file documented as of this encounter Plan of Treatment Upcoming Encounters Date Type Department Care Team (Late st Contact Info) Description 06/29/2024 13:45 EDT Office Visit [facility] Hand & Upper Extremity Program - [address] [address] Alek Crespo MD [address] [place] [address] documented as of this encounter Procedures Procedure Name Priority Date/Time Associated Diagnosis Comments CYTOPATHOLOGY Routine 07/05/2003 0:00 EDT documented in this encounter Results * CYTOPATHOLOGY (07/05/2003 0:00 EDT) Pathology Report: CYTOPATHOLOGY REPORT Reports generated via electronic interface contain original data; however they are lacking the format of the original report. Caution should be taken when reading/interpreti ng unformatted reports. Name: ? MARQUIS SHELTON ? Accession #: ? [id number] : ? 1965 (Age: 37) ??F ?Collect Date: ? 07/05/2003 Location: ? [facility] ? Receive Date: ? 07/06/2003 Provider: ?KASSIDY OLIVER MD Copy to: ? Specimen/Source: ?ThinPrep Pap Test, Cervix/Endocervix Last Menstrual Period: ? 06/27/03 ? SPECIMEN ADEQUACY ? Satisfactory for Evaluation - transformation zone component present GENERAL CATEGORIZATION ? Negative for Intraepithelial Lesion or Malignancy ? Document reviewed and electronically signed by: ? MADELINE Cochran(ASCP) ? Report Date: ??07/11/2003 11:06 End of Report NAZARIO GRANADO 07/05/2003 07/06/2003 Kassidy Oliver MD PATHOLOGY ORDERABLES NAZARIO GRANADO [address] [place] [address] documented in this encounter Visit Diagnoses Not on filedocumented in this encounter
--- OUTSIDE RECORDS SUMMARY | 2024-06-10 20:06 | XMS_ITS | Encounter Summary ---
Author Organization [facility] [place] [address] Care Team Providers Care Mail Carrier Name Role Phone Trudy Olmedo APRN Primary Care Provider [phone] Encounter Details Date Type Department Care Team (Late st Contact Info) Description 07/17/2017 [place] [address] Joanna Snow, RN Social History Tobacco Use Types Packs/Day Years Used Date Smoking Tobacco: Never Smokeless Tobacco: Never Sex and Gender Information Value Date Recorded Sex Assigned at Not on file Gender Identity Not on file Sexual Orientation Not on file documented as of this encounter Miscellaneous Notes * Telephone Encounter - Joanna Snow RN - 07/20/2017 10:30 AM EDT Images from the original note were not included. Rocio Figueroa?? Female, 51 y.o., 1965 Weight: 89.4 kg (197 lb) Home: PCP: Trudy Olmedo APRN myD-H: Code Exp Next Appt: None ?? Message Received: 3 days ago ? Fidencio Denton, DO Joanna Snow RN ? Caller: Unspecified (4 days ago, ??3:20 PM) ? Yes, and after 1 week she can increase metformin by 500mg. Placed call to Rocio message from Dr Denton given. She is currently fasting BG 127-144 which is downfrom the usual 250. Currently doing 1500mg of Metformin daily and 0.6mg of victoza. Rocio is going to continue with this regimen as she has already had a big drop in BG levels. Willcall back should she have any more trouble. * Telephone Encounter - Joanna Snow, RN - 07/17/2017 9:20 AM EDT Rocio calls in and left message that the new medication is making her stomach upset and is wondering if she can go back to the 0.6mg dose. Also wondering if the metformin could be increased instead. Placed call to Rocio and let her know ok to reduce dose if she felt better on the 0.6mg of victoza. Message forwarded to Dr Denton documented in this encounter Plan of Treatment Not on file documented as of this encounter Visit Diagnoses Not on filedocumented in this encounter Care Teams Mail Carrier Relationship Specialty Start Date End Date Trudy Olmedo APRN PCP - General Family Medicine 12/04/16 04/20/19 documented as of this encounter
--- OUTSIDE RECORDS SUMMARY | 2024-06-10 20:06 | XMS_ITS | Encounter Summary ---
Author Organization [facility] [place] [address] Care Team Providers Care Large Animal Veterinarian Name Role Phone Janet Jimenez APRN Primary Care Provider [phone] Reason for Visit * Reason Onset Date Comments Medication Refill 09/17/2016 Encounter Details Date Type Department Care Team (Late st Contact Info) Description 09/17/2016 Refill [place] [address] [facility] [place] [address] Social History Tobacco Use Types Packs/Day Years Used Date Smoking Tobacco: Never Smokeless Tobacco: Never Sex and Gender Information Value Date Recorded Sex Assigned at Not on file Gender Identity Not on file Sexual Orientation Not on file documented as of this encounter Miscellaneous Notes * Telephone Encounter - Katie Pride LPN - 09/17/2016 2:09 PM EST R/c to patient who is asking for Rx. Patient told of need to schedule f/u appointment. Call transferred to paralegal secretary. documented in this encounter Plan of Treatment Not on file documented as of this encounter Visit Diagnoses Not on filedocumented in this encounter Care Teams Large Animal Veterinarian Relationship Specialty Start Date End Date Janet Jimenez APRN [phone] [place] [address] PCP - General 05/22/15 11/16/16 documented as of this encounter
--- OUTSIDE RECORDS SUMMARY | 2024-06-10 20:06 | XMS_ITS | Encounter Summary ---
Author Organization [facility] Address [address] [place] [address] Care Team Providers Care Antique Finisher Name Role Phone Unavailable Primary Care Provider Unavailabl e Encounter Details Date Type Department Care Team (Late st Contact Info) Description 08/14/2006 Results Only [facility] - [facility] [address] [place] [address] Sabino Mike MD [address] [place], [place] [address] Social History Tobacco Use Types Packs/Day Years Used Date Smoking Tobacco: Never Assessed Sex and Gender Information Value Date Recorded Sex Assigned at Not on file Gender Identity Female 01/13/2023 12:16 EDT Sexual Orientation Not on file documented as of this encounter Plan of Treatment Upcoming Encounters Date Type Department Care Team (Late st Contact Info) Description 06/29/2024 13:45 EDT Office Visit [facility] Hand & Upper Extremity Program - [address] [place] [address] Alek Crespo MD [address] [place] [address] documented as of this encounter Procedures Procedure Name Priority Date/Time Associated Diagnosis Comments CYTOPATHOLOGY Routine 08/14/2006 0:00 EST documented in this encounter Results * CYTOPATHOLOGY (08/14/2006 0:00 EST) Pathology Report: CYTOPATHOLOGY REPORT Reports generated via electronic interface contain original data; however they are lacking the format of the original report. Caution should be taken when reading/interpreti ng unformatted reports. Name: ? MARQUIS SHELTON ? Accession #: ? [id number] : ? 1965 (Age: 40) ??F ?Collect Date: ? 08/14/2006 Location: ? [facility] ? Receive Date: ? 08/18/2006 Provider: ?SABINO MIKE MD Copy to: ? Specimen/Source: ?ThinPrep Pap Test, Cervix/Endocervix, processed on [employer] ThinPrep Imaging System, with manual evaluation Last Menstrual Period: ? 08/05/06 Other: ? HPVA - HPV testing requested if ASC-US on the current ThinPrep Pap test. ? SPECIMEN ADEQUACY ? Satisfactory for Evaluation - transformation zone component present GENERAL CATEGORIZATION ? Negative for Intraepithelial Lesion or Malignancy ? Document reviewed and electronically signed by: ? MADELINE Syed(ASCP) ? Report Date: ??08/24/2006 12:16 End of Report NAZARIO GRANADO 08/14/2006 08/18/2006 Sabino Mike MD PATHOLOGY ORDERABLES NAZARIO GRANADO [address] [place] [address] documented in this encounter Visit Diagnoses Not on filedocumented in this encounter
--- OUTSIDE RECORDS SUMMARY | 2024-06-10 20:06 | XMS_ITS | Encounter Summary ---
Author [facility] [place] [address] Care Team Providers Care Molder Labels Name Role Phone Judah Martina QURESHI Primary Care Provider [phone] Reason for Visit * Reason Comments Results Encounter Details Date Type Department Care Team (Latest Contact Info) Description 04/09/2023 8:30 AM EDT TH Visit (TeleHealth) Psychiatry [place] [phone] Yahaira Branch, PhD Post-traumatic stress disorder, chronic; Depression, unspecified depression type; Sleeping difficulty Social History Tobacco Use Types Packs/Day Years Used Date Smoking Tobacco: Never Smokeless Tobacco: Never Sex and Gender Information Value Date Recorded Sex Assigned at Not on file Gender Identity Not on file Sexual Orientation Not on file documented as of this encounter Progress Notes * Burt Walters, PhD - 04/09/2023 8:30 AM EDT CONFIDENTIAL NEUROPSYCHOLOGICAL EVALUATION FEEDBACK NOTE Patient Name: Marquis Figueroa A#: [id number] Date of : 1965 Age: 57 years Sex: Female Referred By: Nirali Joshi APRN Date of Evaluation: 11/27/2022 Date of Feedback: 04/09/2023 Ms. Figueroa gave permission for and was seen today via a telehealth (videoconference) visit to discuss her 11/27/2022 [facility] neuropsychological evaluation. During this visit, she was located at her home in [place]. A total of 50 minutes were spent providing an overview of our findings and recommendations. She requested and edit be made to her report and she was informed that it will be changed. She shared that she will be meeting with Dr. Joshi in April and will be reviewing paperwork for test-taking accom modations. She expressed understanding of the information provided. If you would like additional information, please do not hesitate to contact us at . The report is available in full in eD. Linda Ventura, Ph.D., ABPP Postdoctoral Fellow in Neuropsychology Board Certified in Clinical Neuropsychology Imagery Intelligencestructural biologist documented in this encounter Plan of Treatment Not on file documented as of this encounter Visit Diagnoses Diagnosis Post-traumatic stress disorder, chronic Depression, unspecified depression type Sleeping difficulty Sleep disturbance, unspecified documented in this encounter Care Teams Molder Labels Relationship Specialty Start Date End Date Martina So APRN [address] [place] [address] PCP - General Family Medicine 08/26/19 documented as of this encounter
--- OUTSIDE RECORDS SUMMARY | 2024-06-10 20:06 | XMS_ITS | Encounter Summary ---
Author Organization [facility] [place] [address] Care Team Providers Care Boat Rental Clerk Name Role Phone Martina So APRN Primary Care Provider [phone] Encounter Details Date Type Department Care Team (Late st Contact Info) Description 01/08/2023 Telephone Psychiatry and [place] [phone] Hazel Carrasquillo Social History Tobacco Use Types Packs/Day Years [...] on filedocumented in this encounter Care Teams Boat Rental Clerk Relationship Specialty Start Date End Date Martina So APRN [address] [place] [address] PCP - General Family Medicine 08/26/19 documented as of this encounter
--- OUTSIDE RECORDS SUMMARY | 2024-06-10 20:06 | XMS_ITS | Encounter Summary ---
Author Organization [facility] [place] [address] Care Team Providers Care English Instructor Name Role Phone Trudy Olmedo APRN Primary Care Provider [phone] Encounter Details Date Type Department Care Team (Late st Contact Info) Description 05/06/2018 3:00 PM EDT [place] [address] Fidencio Denton [facility] [place] [address] Uncontrolled diabetes mellitus type 2 without complications, unspecified whether detention insulin use Social History Tobacco Use Types Packs/Day Years [...] - Inhaled Oxygen Concentration - - Weight 91.7 kg (202 lb 3.2 oz) 05/06/2018 3:03 P M EDT Height 157.5 cm (5' 2) 05/06/2018 3:03 PM EDT Body Mass Index 36.98 05/06/2018 3:03 PM EDT documented in this encounter Progress Notes * Fidencio Denton DO - 05/06/2018 3:00 PM EDT REASON FOR FOLLOWUP: Diabetes SUBJECTIVE: Rocio is a 52 year old female here for follow up of type 2 diabetes. She is on Levemir 60U twice daily,metformin XR 2000 mg in PM and Novolog 10 units with each meal. She stopped Invokana due to cost. She also stopped Victoza because she developed GI symptoms at the highest dose 1.8 mg. She is tolerating metformin without difficulty. She is working with both a maintenance trainer in a rfp writer and is on a very low carb diet, her rfp writer has recommended maintaining a 30 g total daily carb intake. She is consuming more like 40-70 g ofcarb per day. She has no history of heart conditions or problems with significant lower extremity swelling. She denies visual changes, numbness, weakness, chest pain, headache, nocturia, cough. No localizingsigns of infection. PMH: GERD HTN Obesity Insomnia Medications: Levemir 60 units twice daily Metformin 2,000 mg XL once daily Novolog 10 u/meal Family History: Unknown (adopted) Social Hx: No tobacco or alcohol BP 142/76 Pulse (!) 107 Ht 157.5 cm (5' 2) Wt 91.7 kg (202 lb 3.2 oz) BMI 36.98 kg/m2 General: alert, fully oriented and in no acute distress. No leg swelling No ulceration on her feet or open sores. Central obesity. Labs: Liver enzymes have normalized A1c 10% Impression: 52 year old female with severe insulin resistance. We will repeat midnight salivary cortisol testing (for some reason it was not completed after our last visit she is unsure why). We will also start Actos, we discussed the increased risk of fluid retention and even more rarely bladder cancer risk. We discussed that the benefits of this medication outweigh the risks given her stagnant A1c. She is going to research financial assistance programs for the SGL T2 inhibitor drugs. Recommendations: - Cont Levemir 60 units twice daily, and metformin - Continue Victoza - Start Actos 15 mg - We will likely re-start Jardiance or Invokana Follow up in 3 months Fidencio Denton DO, [place] Floor Plan Adjustertool and die inspector Department of Medicine Section of Endocrinology [facility] documented in this encounter Plan of Treatment Scheduled Orders Name Type Priority Associated Diagnoses Orde r Schedule Hemoglobin A1c Lab Routine Uncontrolled diabetes mellitus type 2 without complications, unspecified whether intermediate teacher insulin use Expected: 05/06/2018 (Approximate), Expires: 05/07/2019 documented as of this encounter Procedures Procedure Name Priority Date/Time Associated Diagnosis Comments BETA HYDROXYBUTYRATE Routine 05/06/2018 4:14 PM EDT Uncontrolled diabetes mellitus type 2 without complications, unspecified whether intermediate teacher insulin use C-PEPTIDE Routine 05/06/2018 4:14 PM EDT Uncontrolled diabetes mellitus type 2 without complications, unspecified whether detention insulin use HEMOGLOBIN A1C STAT 05/06/2018 4:14 PM EDT Uncontrolled diabetes mellitus type 2 without complications, unspecified whether detention insulin use COMPREHENSIVE METABOLIC PANEL Routine 05/06/2018 4:14 PM EDT Uncontrolled diabetes mellitus type 2 without complications, unspecified whether detention insulin use documented in this encounter Results * C-peptide (05/06/2018 4:14 PM EDT) C-Peptide 3.1 0.8 - 5.2 ng/mL [facility] Blood specimen (specimen) 05/06/2018 4:14 PM EDT 05/06/2018 4:22 PM EDT Narrative Resulting Agency Comment Spec In Lab Fidencio Denton DO CHEMISTRY ORDERABLES [facility] [place] [address] * Beta Hydroxybutyrate (05/06/2018 4:14 PM EDT) Beta-hydroxybu turate 0.17 0.00 - 0.30 mmol/L [facility] Comment: Reference range: ??0.00-0.30 mmo1/L, based on an overnight fast. ??Children may be higher. Blood specimen (specimen) 05/06/2018 4:14 PM EDT 05/06/2018 4:22 PM EDT Narrative Resulting Agency Comment Spec In Lab Fidencio Denton DO CHEMISTRY ORDERABLES [facility] [place] [address] * (ABNORMAL) Comprehensive metabolic panel (non-fasting) (05/06/2018 4:14 PM EDT) Glucose 220(H) 65 - 199 mg/dL [facility] Comment:Diabetes: >=200 mg/d L plus symptoms Blood Urea Nitrogen 16 8 - 18 mg/dL [facility] Creatinine 0.61(L) 0.70 - 1.20 mg/dL [facility] Sodium 139 135 - 145 mmol/L [facility] Potassium 4.5 3.5 - 5.0 mmol/L [facility] Comment: Please note: ??Patients with WBC >100,000 may have falsely elevated Potassium levels. ??For accurate Potassium quantification in these patients send serum separator tube (gold top) for subsequent determinations. ??Contact the Clinical Chemistry Laboratory if there are any questions. Chloride 100 98 - 107 mmol/L [facility] Carbon Dioxide 29 22 - 31 mmol/L [facility] Anion Gap 10 5 - 15 mmol/L [facility] Calcium 10.0 8.5 - 10.5 mg/dL [facility] Protein, Total 7.1 6.1 - 8.0 gm/dL [facility] Albumin 4.3 3.2 - 5.2 gm/dL [facility] Aspartate Aminotransferase 18 0 - 30 unit/L [facility] Alanine Aminotransferase 34(H) 0 - 30 unit/L [facility] Alkaline Phosphatase 70 40 - 104 unit/L [facility] Bilirubin, Total 0.2 0.2 - 1.3 mg/dL [facility] Est Glomerular Filtration Rate 104 >=60 mL/min/1. 73 m?? [facility] Comment: The eGFR was calculated using the CKD-EPI equation. As with all creatinine based estimates of kidney function, eGFR values calculated with the CKD-EPI equation are not accurate in patients with acute kidney failure, extremes of body mass or the acutely ill. [email or web address] eGFR 121 >=60 mL/min/1. 73 m?? [facility] Comment: The eGFR was calculated using the CKD-EPI equation. As with all creatinine based estimates of kidney function, eGFR values calculated with the CKD-EPI equation are not accurate in patients with acute kidney failure, extremes of body mass or the acutely ill. [email or web address] Blood specimen (specimen) 05/06/2018 4:14 PM EDT 05/06/2018 4:22 PM EDT Narrative Resulting Agency Comment Spec In Lab Fidencio Denton DO CHEMISTRY ORDERABLES [facility] [place] [id number] * (ABNORMAL) Hemoglobin A1c (05/06/2018 4:14 PM EDT) Hemoglobin A1c 10.2(H) 4.3 - 5.6 % [facility] Comment: Reference Range: 4.3 - [...] Mellitus, Diabetes Care 2013; 36: Suppl. 1, U07-74 Estimated Average Glucose 246 mg/dL [facility] Comment: eAG equivalents for HbA1c [...] into estimated average glucose values. ??Diabetes Care 2008:31(8):7254-6308. Blood specimen (specimen) 05/06/2018 4:14 PM EDT 05/06/2018 4:22 PM EDT Narrative Resulting Agency Comment Spec In Lab Fidencio Denton DO CHEMISTRY ORDERABLES Performing Organization Address [facility]/State/[facility] Co de Phone Number [facility] [place] [address] documented in this encounter Visit Diagnoses Diagnosis Uncontrolled diabetes mellitus type 2 without complications, unspecified whether intermediate teacher insulin use documented in this encounter Care Teams English Instructor Relationship Specialty Start Date End Date Trudy Olmedo APRN PCP - General Family Medicine 12/04/16 04/20/19 documented as of this encounter
--- OUTSIDE RECORDS SUMMARY | 2024-06-10 20:06 | XMS_ITS | Encounter Summary ---
Author Organization [facility] [place] [address] Care Team Providers Care Property Field Adjuster Name Role Phone Trudy Olmedo APRN Primary Care Provider [phone] Encounter Details Date Type Department Care Team (Late st Contact Info) Description 08/03/2017 [place] [phone] Katie Pride LPN Social History Tobacco Use Types Packs/Day Years Used Date Smoking Tobacco: Never Smokeless Tobacco: Never Sex and Gender Information Value Date Recorded Sex Assigned at Not on file Gender Identity Not on file Sexual Orientation Not on file documented as of this encounter Miscellaneous Notes * Telephone Encounter - Katie Pride LPN - 08/03/2017 9:46 AM EST R/c to patient who reports she stopped Victoza stomach much better has Increased metformin to 2000 mg at HS and is taking Levemir 47 twice daily Has started mediterranean diet and FBG's are coming down. Lowest FBG today BG @ 2am 127 6AM 138. Lower then when on Victoza and when asked patient denies any GI symptoms from increased metformin dose. Patient was advised that increase in FBG from 2AM to 6AM is most likely due to the hormonal changesthat everyone has. documented in this encounter Plan of Treatment Not on file documented as of this encounter Visit Diagnoses Not on filedocumented in this encounter Care Teams Property Field Adjuster Relationship Specialty Start Date End Date Trudy Olmedo APRN PCP - General Family Medicine 12/04/16 04/20/19 documented as of this encounter
--- OUTSIDE RECORDS SUMMARY | 2024-06-10 20:06 | XMS_ITS | Encounter Summary ---
Author Organization [facility] Address [address] [place] [address] Care Team Providers Care Associate Spa Director Name Role Phone Unavailable Primary Care Provider Unavailabl e Encounter Details Date Type Department Care Team (Late st Contact Info) Description 03/21/2008 Before PRISM Converted Visit (Maple) [facility] - [facility] conversion [address], [place] [address] Lauro Odom MD [address] [place] [address] [place] [address] Social History Tobacco Use Types Packs/Day Years [...] 06/29/2024 13:45 EDT Office Visit [facility] Upper Extremity Program - [address] [place], [place] [id number] Alek Crespo MD [address] [place] [address] documented as of this encounter Procedures Procedure Name Priority Date/Time Associated Diagnosis Comments SURGICAL PATHOLOGY Routine 03/21/2008 0:00 EDT documented in this encounter Results * SURGICAL PATHOLOGY (03/21/2008 0:00 EDT) Pathology Report: SURGICAL PATHOLOGY REPORT ? Reports generated via electronic interface contain original data; ? however they are lacking the format of the original report. ? Caution should be taken when reading/interpreti ng unformatted reports. ? Name: ? MARQUIS SHELTON ? Accession #: ? [id number] ? : ? 1965 (Age: 42) ??F ? Collect Date: ? 03/21/2008 ? Location: ? [facility] ? Receive Date: ? 03/22/2008 ? Provider: LAURO N HUBERT MD ? Copy to: COLT SIMMONS WORKDAY CONSULTANT ? Final Pathologic Diagnosis: ? Skin of wrist, right, excision: ? 1. ?Dermatofibroma. ? - Lesion focally extends to edge of excision specimen. ? Document reviewed and electronically signed by: ? Harmony Cody, MD ? Report ??Date: 03/23/2008 15:20 ? By the signature above, the attending physician certifies that he/she has ? personally conducted a gross and/or microscopic examination of the described ? specimens and rendered or confirmed the above diagnosis. ? Specimen(s) Received: ? Fibroma right wrist ? Clinical History: ? Fibroma Rt wrist ? Gross Description: ? Received in formalin labelled Hamelin and fibroma right wrist is an ? unoriented 0.7 x 0.3 cm vila skin ellipse excised to a maximum depth of 0.2 cm. ?? The specimen is inked and trisected. The cut surfaces are homogeneous, ? vila-white. ??The specimen is entirely submitted as (A1) ??central section and (A2) tips, reverse en face. ??(Sun Back)/mms ? End of Report ? [facility] 03/21/2008 03/22/2008 8:5 7 EDT Lauro Odom MD PATHOLOGY ORDERABLES [facility] [address] [place] [address] documented in this encounter Visit Diagnoses Not on filedocumented in this encounter
--- OUTSIDE RECORDS SUMMARY | 2024-06-10 20:06 | XMS_ITS | Encounter Summary ---
Author Organization [facility] [place] [address] Care Team Providers Care Cell Room Supervisor Name Role Phone Janet Jimenez APRN Primary Care Provider [phone]- [phone] Reason for Visit * Reason Onset Date Comments Medication Refill 10/26/2015 Encounter Details Date Type Department Care Team (Late st Contact Info) Description 10/26/2015 Ref[place] [address] [address] [facility] [address] [place] [address] Social History Tobacco Use Types Packs/Day Years [...] on filedocumented in this encounter Care Teams Cell Room Supervisor Relationship Specialty Start Date End Date Janet Jimenez APRN [phone] [place] [address] PCP - General 05/22/15 11/16/16 documented as of this encounter
--- OUTSIDE RECORDS SUMMARY | 2024-06-10 20:06 | XMS_ITS | Encounter Summary ---
Author Organization [facility] [place] [address] Care Team Providers Care Emt/Paramedic Name Role Phone Janet Jimenez APRN Primary Care Provider [phone]- [phone] Reason for Visit * Reason Onset Date Comments Medication Refill 08/17/2015 Encounter Details Date Type Department Care Team (Late st Contact Info) Description 08/17/2015 Refill [place] [address] Fidencio Denton [facility] [place] [address] Social History Tobacco Use Types Packs/Day Years Used Date Smoking Tobacco: Never Smokeless Tobacco: Never Sex and Gender Information Value Date Recorded Sex Assigned at Not on file Gender Identity Not on file Sexual Orientation Not on file documented as of this encounter Miscellaneous Notes * Telephone Encounter - Katie Pride LPN - 08/17/2015 10:13 AM EST Katie Pride LPN at 05/29/2015 1:47 PM Status: Signed Expand All Collapse All R/c to patient at which time she was told per Dr Denton decrease Victoza to 0.6 mg once daily and callPCP SHAHEED regarding left sided chest heaviness. Patient agrees with plan of care. States she will call PCP as soon as she is off phone and will call back to let Dr Denton know how her bg's are on Victoza 0.6 mg daily Katie Pride LPN at 05/29/2015 1:33 PM Status: Signed Expand All Collapse All R/c to patient problem with the Victoza [...] on filedocumented in this encounter Care Teams Emt/Paramedic Relationship Specialty Start Date End Date Janet Jimenez APRN [phone] [place] [address] PCP - General 05/22/15 11/16/16 documented as of this encounter
--- OUTSIDE RECORDS SUMMARY | 2024-06-10 20:06 | XMS_ITS | Encounter Summary ---
Author Organization [facility] [place] [address] Care Team Providers Care Public Health Inspector Name Role Phone Trudy Olmedo APRN Primary Care Provider [phone] Reason for Visit * Reason Comments Diabetes Encounter Details Date Type Department Care Team (Late st Contact Info) Description 01/28/2018 3:00 PM EDT Office [place] [address] [facility] [address] Uncontrolled type 2 diabetes mellitus without complication, with long-term current use of insulin Social History [...] - Inhaled Oxygen Concentration - - Weight 90.9 kg (200 lb 6.4 oz) 01/28/2018 3:15 P M EDT Height 154.9 cm (5' 0.98) 01/28/2018 3:15 PM ED T Body Mass Index 37.89 01/28/2018 3:15 PM EDT documented in this encounter Patient Instructions * Patient Instructions* Fidencio Denton DO - 01/28/2018 3:00 PM EDT Alternatives to Invokana are Jardiance and Farxiga. Restart Victoza at 1.2mg per day. documented in this encounter Progress Notes * Fidencio Denton DO - 01/28/2018 3:00 PM EDT REASON FOR FOLLOWUP: Diabetes [...] at the highest dose 1.8 mg. She was seen by her primary care provider in the past 2 weeks and unfortunately her A1c was greater than 14%. Since that visit she has been keeping a food journal and has drastically altered her diet. She is working with a field trainer 3 days per week. Her blood sugars have finally dropped below 200, though she is only been recording her readings for the past 2 days. She denies visual changes, numbness, weakness, chest pain, headache, nocturia, cough. No localizingsigns of infection. She recently had a minor infection involving the toenail on the right foot. PMH: GERD HTN Obesity Insomnia Medications: Levemir 47 units twice daily Metformin 2,000 mg XL once daily Novolog 10 u/meal Family History: Unknown (adopted) Social Hx: No tobacco or alcohol Ht 154.9 cm (5' 0.98) General: alert, fully oriented and in no acute distress. No leg swelling No ulceration on her feet or open sores. Central obesity. Labs: A1C 8.4 -> 9.1 ->10-> >14%% Impression: 52 year old female with severe insulin resistance. In 2014 cortisol excess was excluded with 2 normal midnight salivary cortisol levels. However, given the severity of her insulin resistance I would like to repeat midnight salivary cortisol testing. Recommendations: - Cont Levemir 60 units twice daily, and metformin - Restart liraglutide 1.2 mg daily - Restart SGLT-2 inhibitor (she is working with her primary care provider to see if she qualifies for medication assistance, also informed her that there are other options for SGL T2 inhibitors enrique Gustafson) Follow up in 3 months Fidencio Denton DO, [employer] Upholstererbinder operator Department of Medicine Section of Endocrinology [facility] documented in this encounter Miscellaneous Notes * Addendum Note - Janelle Vasquez - 01/28/2018 4:56 PM EDTAddended by: JANELLE VASQUEZ on: 01/28/2018 04:56 PM Modules accepted: Orders documented in this encounter Plan of Treatment Not on file documented as of this encounter Procedures Procedure Name Priority Date/Time Associated Diagnosis Comments U ALBUMIN/CRE RATIO Routine 01/28/2018 5 :15 PM EDT Uncontrolled type 2 diabetes mellitus without complication, with long-term current use of insulin DHEA-SULFATE Routine 01/28/2018 5:09 PM EDT Uncontrolled type 2 diabetes mellitus without complication, with long-term current use of insulin TSH Routine 01/28/2018 5:09 PM EDT Uncontrolled type 2 diabetes mellitus without complication, with long-term current use of insulin COMPREHENSIVE METABOLIC PANEL Routine 01/28/2018 5:09 PM EDT Uncontrolled type 2 diabetes mellitus without complication, with long-term current use of insulin documented in this encounter Results * Cortisol, saliva (05/16/2018 11:28 PM EDT) Mike Saliva (JANUARY) <50 ng/dL [facility]ICKY COLLADO [facility] Comment: REFERENCE VALUE 7:00-9:00 am: 100-750 3:00-5:00 pm: <401 11:00 pm-Midnight: <100 ADDITIONAL INFORMATION This test was developed and its performance characteristics determined by [facility] in a manner consistent with CLIA requirements. This test has not been cleared or approved by the U.S. Food and Drug Administration. Test Performed by: [facility] - [facility] [address] [place] [address] Specimen of unknown material (specimen) 05/16/2018 11:28 PM EDT 05/21/2018 3:12 PM EDT Fidencio Denton DO LAB SEND OUT ORDERAB LES Performing Organization Address [facility] Co de Phone Number [facility] [place] [address] * U Albumin/Cre Ratio (01/28/2018 5:15 PM EDT) Albumin / Creatinin Ratio, Urine 22 0 - 29 mcg/mg Cr [facility] Comment: Reference Ranges: <30 mcg/mg: Normal 30-300 mcg/mg: Moderately increased albuminuria.* >300 mcg/mg: Severely increased albuminuria. * ACEI or ARB recommended if diabetic; suggested if BP>130/80 without diabetes ACEI or ARB strongly recommended if diabetic; recommended if BP>130/80 without diabetes Two of three specimens collected within a 3 to 6 month period should be abnormal before considering a patient to have albuminuria. Transient causes: exercise, fever, infection, CHF, marked hyperglycemia or hypertension. Persistent albuminuria indicates CKD and is an independent risk factor for ASCVD. ADA Standards of Medical Care in Diabetes-2016; KDIGO: Kidney International Supplements (2012) 2, 357? 362 Albumin, Urine 13.2 mg/L [facility] Creatinine, Urine 61 mg/dL [facility] Urine specimen (specimen) 01/28/2018 5:15 PM EDT 01/28/2018 5:31 PM EDT Narrative Resulting Agency Comment Spec In Lab Fidencio Denton DO URINE ORDERABLES Performing Organization Address City/[facility]/ZIP Co de Phone Number [facility] [place] [address] * TSH (01/28/2018 5:09 PM EDT) Thyroid Stimulating Hormone 1.12 0.27 - 4.20 mlU/ML [facility] Blood specimen (specimen) 01/28/2018 5:09 PM EDT 01/28/2018 5:16 PM EDT Narrative Resulting Agency Comment Spec In Lab Fidencio Denton DO CHEMISTRY ORDERABLES Performing Organization Address [facility] Co de Phone Number [facility] [place] [address] * DHEA-sulfate (01/28/2018 5:09 PM EDT) Dehydroepiandrosterone Sulfate 52.2 35.4 - 256.0 mcg/dL [facility] Blood specimen (specimen) 01/28/2018 5:09 PM EDT 01/28/2018 5:16 PM EDT Narrative Resulting Agency Comment Spec In Lab Fidencio Corrie MONTALVO CHEMISTRY ORDERABLES Performing Organization Address [facility] Co de Phone Number [facility] [place] [address] * (ABNORMAL) Comprehensive metabolic panel (non-fasting) (01/28/2018 5:09 PM EDT) Glucose 126 65 - 199 mg/dL [facility] Comment:Diabetes: >=200 mg/d L plus symptoms Blood Urea Nitrogen 18 8 - 18 mg/dL [facility] Creatinine 0.62(L) 0.70 - 1.20 mg/dL [facility] Sodium 138 135 - 145 mmol/L [facility] Potassium 3.9 3.5 - 5.0 mmol/L [facility] Comment: Please note: ??Patients with WBC >100,000 may have falsely elevated Potassium levels. ??For accurate Potassium quantification in these patients send serum separator tube (gold top) for subsequent determinations. ??Contact the Clinical Chemistry Laboratory if there are any questions. Chloride 97(L) 98 - 107 mmol/L [facility] Carbon Dioxide 29 22 - 31 mmol/L [facility] Anion Gap 12 5 - 15 mmol/L [facility] Calcium 9.9 8.5 - 10.5 mg/dL [facility] Protein, Total 8.0 6.1 - 8.0 gm/dL [facility] Albumin 4.7 3.2 - 5.2 gm/dL [facility] Aspartate Aminotransferase 28 0 - 30 unit/L [facility] Alanine Aminotransferase 47(H) 0 - 30 unit/L [facility] Alkaline Phosphatase 79 40 - 104 unit/L [facility] Bilirubin, Total 0.2 0.2 - 1.3 mg/dL [facility] Est Glomerular Filtration Rate >60 >=60 [facility] Comment: The reported eGFR should be multiplied by 1.2 for patients. The MDRD is not an appropriate measure of renal function for patients with body mass extremes or in patients with acute kidney failure. http://Lolly Wolly Doodle.Nanofactory Instruments/DHnkdep http://[employer]ano[employer]rapeutics/DHMCnkf Blood specimen (specimen) 01/28/2018 5:09 PM EDT 01/28/2018 5:16 PM EDT Narrative Resulting Agency Comment Spec In Lab Fidencio Denton DO CHEMISTRY ORDERABLES [facility] [place] [id number] documented in this encounter Visit Diagnoses Diagnosis Uncontrolled type 2 diabetes mellitus without complication, with long-term current use of insulin documented in this encounter Care Teams Public Health Inspector Relationship Specialty Start Date End Date Trudy Olmedo APRN PCP - General Family Medicine 12/04/16 04/20/19 documented as of this encounter
--- OUTSIDE RECORDS SUMMARY | 2024-06-10 20:06 | XMS_ITS | Encounter Summary ---
Author Organization [facility] [place] [address] Care Team Providers Care Silver Holloware Assembler Name Role Phone Janet Jimenez APRN Primary Care Provider [phone] Encounter Details Date Type Department Care Team (Late st Contact Info) Description 12/03/2015 Telephone [place] [phone] Katie Pride LPN Social History Tobacco Use Types Packs/Day Years Used Date Smoking Tobacco: Never Smokeless Tobacco: Never Sex and Gender Information Value Date Recorded Sex Assigned at Not on file Gender Identity Not on file Sexual Orientation Not on file documented as of this encounter Miscellaneous Notes * Telephone Encounter - Katie Pride LPN - 12/03/2015 2:40 PM EDT Called patient at which time she was read message from Dr Keen. Patient agrees with plan of care to go to lab one prior to appointment but states she has had to change appointment is seeing Dr Keen on 12/10/15 * Addendum Note - Fidencio Keen DO - 12/03/2015 11:17 AM EDTAddended by: FIDENCIO KEEN on: 12/03/2015 11:17 AM Modules accepted: Orders * Telephone Encounter - Fidencio Keen DO - 12/03/2015 11:16 AM EDT Must have A1C prior to appt- orders in. thanks * Telephone Encounter - Katie Pride LPN - 12/03/2015 10:54 AM EDT R/c to patient. BG's going up gradually 300-350 for last week and half. Taking Lantus 47U twice daily,metformin 2000 mg in PM, glimepiride 4 mg AM. Off Victoza since ~ september Walking and exercising every day.Really watching diet because I am trying to lose weight. Not thatI am going to do anything but I feel like I am nearly at end of my rope Patient denies any fever, s/s of UTI or URI, cp, s.o.b or abdominal pain. Does have a red area on wrist where fit bit rubbed on wrist not sore does not look infected Call transferred to biology lecturer. Scheduled to see Dr Keen 12/07/15. Forward to Dr Keen for lab orders. documented in this encounter Plan of Treatment Not on file documented as of this encounter Results * (ABNORMAL) Hemoglobin A1c (12/10/2015 3:08 PM EDT) Hemoglobin A1c 8.4(H) 4.3 - 5.6 % [facility] Comment: Reference Range: 4.3 [...] Mellitus, Diabetes Care 2013; 36: Suppl. 1, K16-81 Estimated Average Glucose 194 mg/dL [facility] Comment: eAG equivalents for HbA1c percentages: HbA1c(%) ?eAG(mg/dL) 6.0 ?126 6.5 ?140 7.0 ?154 7.5 ?169 8.0 ?183 8.5 ?197 9.0 ?212 9.5 ?226 10.0 ? 240 Limitations: The eAG calculation has not been validated on women, individuals below 18 years old and above 70 years old, and individuals with hemoglobinopathies. Additional resources are available on the ADA website: http://servtag.SkillWiz/DHMCadacalc Dinesh EPPS, Jeff J, Placido R, et al. ??Translating the A1C assay into estimated average glucose values. ??Diabetes Care 2008:31(8):7822-6796. Blood specimen (specimen) 12/10/2015 3:08 PM EDT 12/10/2015 6:21 PM EDT Narrative Resulting Agency Comment Spec In Lab Fidencio Keen DO CHEMISTRY ORDERABLES [facility] [place] [address] documented in this encounter Visit Diagnoses Diagnosis Diabetes mellitus type 2, uncontrolled Type II or unspecified type diabetes mellitus without mention of complication, uncontrolled documented in this encounter Care Teams Silver Holloware Assembler Relationship Specialty Start Date End Date Janet Jimenez APRN [phone] [place] [address] PCP - General 05/22/15 11/16/16 documented as of this encounter
--- OUTSIDE RECORDS SUMMARY | 2024-06-10 20:06 | XMS_ITS | Encounter Summary ---
Author Organization [facility] [place] [address] Care Team Providers Care Inhalation Therapy Teacher Name Role Phone Janet Jimenez APRN Primary Care Provider [phone] Encounter Details Date Type Department Care Team (Late st Contact Info) Description 12/12/2015 Telephone [place] [phone] Katie Pride LPN Social History Tobacco Use Types Packs/Day Years Used Date Smoking Tobacco: Never Smokeless Tobacco: Never Sex and Gender Information Value Date Recorded Sex Assigned at Not on file Gender Identity Not on file Sexual Orientation Not on file documented as of this encounter Miscellaneous Notes * Telephone Encounter - Katie Pride LPN - 12/12/2015 10:12 AM EDT Called patient @ which time following message was read to patient. I took the Victoza Thursday PM. My FBG was 350 on Thursday morning and was down to 217 on Thursday morning. Rocio Figueroa - 12/10/15 >','<< Less Detail',event) href=javascript:;><< Less Detail ?? Fidencio Denton, DO ?? Sent: ThuDecember 12, 2015 10:06 AM ?? To: Katie Pride LPN ?? Message ?? Please inform rocio that her A1C is up, but not terrible. Ideally we need this at about 7%. Ithas gone from 8.2 to 8.4%. Still want her to restart Victoza at 0.6 mg as we discussed at her visit. ?? ----- Message ----- documented in this encounter Plan of Treatment Not on file documented as of this encounter Visit Diagnoses Not on filedocumented in this encounter Care Teams Inhalation Therapy Teacher Relationship Specialty Start Date End Date Janet Jimenez, HEALTH TECH [phone] [place] [address] PCP - General 05/22/15 11/16/16 documented as of this encounter
--- OUTSIDE RECORDS SUMMARY | 2024-06-10 20:06 | XMS_ITS | Encounter Summary ---
Author Organization [facility] [place] [address] Care Team Providers Care Hostel Manager Name Role Phone Martina So APRN Primary Care Provider [phone] Encounter Details Date Type Department Care Team (Latest Contact Info) Description 11/27/2022 Travel Social History Tobacco Use Types Packs/Day [...] on filedocumented in this encounter Care Teams Hostel Manager Relationship Specialty Start Date End Date Martina So APRN [address] [place], [place] [address] PCP - General Family Medicine 08/26/19 documented as of this encounter
--- OUTSIDE RECORDS SUMMARY | 2024-06-10 20:06 | XMS_ITS | Encounter Summary ---
Author Organization [facility] [place] [address] Care Team Providers Care Airbrush Artist Photography Name Role Phone Trudy Olmedo APRN Primary Care Provider [phone] Encounter Details Date Type Department Care Team (Late st Contact Info) Description 01/19/2018 [place] [phone] Katie Pride LPN Social History Tobacco Use Types Packs/Day Years Used Date Smoking Tobacco: Never Smokeless Tobacco: Never Sex and Gender Information Value Date Recorded Sex Assigned at Not on file Gender Identity Not on file Sexual Orientation Not on file documented as of this encounter Miscellaneous Notes * Telephone Encounter - Katie Pride LPN - 01/19/2018 9:24 AM EDT R/c to RACE STEWARD. Patient seen today Ha1c >14% instrument could not read. Is taking Levemir 47 twice daily and Metformin but is not taking Invokana nor Victoza. Call transferred to Dr Denton documented in this encounter Plan of Treatment Not on file documented as of this encounter Visit Diagnoses Not on filedocumented in this encounter Care Teams Airbrush Artist Photography Relationship Specialty Start Date End Date Trudy Olmedo APRN PCP - General Family Medicine 12/04/16 04/20/19 documented as of this encounter
--- OUTSIDE RECORDS SUMMARY | 2024-06-10 20:06 | XMS_ITS | Encounter Summary ---
Author Organization [facility] [place] [address] Care Team Providers Care Strategic Sourcing Manager Name Role Phone Martina So APRN Primary Care Provider [phone] Encounter Details Date Type Department Care Team (Late st Contact Info) Description 04/02/2023 Telephone Psychiatry [place] [phone] Yahaira Branch, PhD Social History Tobacco Use Types Packs/Day Years Used Date Smoking Tobacco: Never Smokeless Tobacco: Never Sex and Gender Information Value Date Recorded Sex Assigned at Not on file Gender Identity Not on file Sexual Orientation Not on file documented as of this encounter Miscellaneous Notes * Telephone Encounter - Yahaira Branch, PhD - 04/02/2023 3:37 PM EDT This rewriter called patient to set up feedback for neuropsychological evaluation. Feedback scheduledfor 04/07 at 8:30AM. documented in this encounter Plan of Treatment Not on file documented as of this encounter Visit Diagnoses Not on filedocumented in this encounter Care Teams Strategic Sourcing Manager Relationship Specialty Start Date End Date Martina So APRN [address] [place] [address] PCP - General Family Medicine 08/26/19 documented as of this encounter
--- OUTSIDE RECORDS SUMMARY | 2024-06-10 20:06 | XMS_ITS | Encounter Summary ---
Author Organization [facility] Address [address] [place] [address] Care Team Providers Care In School Suspension Aide Name Role Phone Unavailable Primary Care Provider Unavailabl e Encounter Details Date Type Department Care Team (Late st Contact Info) Description 03/11/2001 Results Only [facility] [address] [place] [address] Jing Harrington, SWATI Social History Tobacco Use [...] Info) Description 06/29/2024 13:45 EDT Office Visit [facility] - [address] [address] Alek Crespo MD [address] [place] [phone] documented as of this encounter Procedures Procedure Name Priority Date/Time Associated Diagnosis Comments CYTOPATHOLOGY Routine 03/11/2001 0:00 EDT documented in this encounter Results * CYTOPATHOLOGY (03/11/2001 0:00 EDT) Pathology Report: CYTOPATHOLOGY REPORT Reports generated via electronic interface contain original data; however they are lacking the format of the original report. Caution should be taken when reading/interpreti ng unformatted reports. Name: ? MARQUIS SHELTON ? Accession #: ? [id number] : ? 1965 (Age: 35) ??F ?Collect Date: ? 03/11/2001 Location: ? [facility] ? Receive Date: ? 03/15/2001 Provider: ?JING HARRINGTON NP Copy to: ? Specimen/Source: ?ThinPrep Pap Test, Cervix/Endocervix Last Menstrual Period: ? 02/28/01 Hormonal/Contracep tive Status: ? Oral contraceptives Previous Gynecologic Pathology: ? Benign cellular changes: yeast condyloma perineum Other: ? Additional clinical information: wnl ? SPECIMEN ADEQUACY ? Satisfactory for evaluation. GENERAL CATEGORIZATION ? Benign Cellular Changes DESCRIPTIVE DIAGNOSIS ? Reactive cellular changes associated with inflammation present (includes repair). ? Document reviewed and electronically signed by: ? LIVE BENNETT MD [facility] ? Report Date: ??03/18/2001 17:25 End of Report [facility] 03/11/2001 03/15/2001 Jing Harrington NP PATHOLOGY ORDERABLES [facility] [address] [place] [address] documented in this encounter Visit Diagnoses Not on filedocumented in this encounter
--- OUTSIDE RECORDS SUMMARY | 2024-06-10 20:06 | XMS_ITS | Encounter Summary ---
Author Organization [facility] Address [address] [place] [address] Care Team Providers Care Environmental Quality Analyst Name Role Phone Unavailable Primary Care Provider Unavailabl e Encounter Details Date Type Department Care Team (Late st Contact Info) Description 05/20/2006 Results Only [facility] [address] [place] [address] Sabino Mike MD [address] [place], [place] [address] Social History Tobacco Use Types Packs/Day Years Used Date Smoking Tobacco: Never Assessed Sex and Gender Information Value Date Recorded Sex Assigned at Not on file Gender Identity Female 01/13/2023 12:16 EDT Sexual Orientation Not on file documented as of this encounter Plan of Treatment Upcoming Encounters Date Type Department Care Team (Late st Contact Info) Description 06/29/2024 13:45 EDT Office Visit [facility] Hand & Upper Extremity Program - [address] [place] [address] Alek Crespo MD [address] [place] [phone] documented as of this encounter Procedures Procedure Name Priority Date/Time Associated Diagnosis Comments SURGICAL PATHOLOGY Routine 05/20/2006 0:00 EDT documented in this encounter Results * SURGICAL PATHOLOGY (05/20/2006 0:00 EDT) Pathology Report: SURGICAL PATHOLOGY REPORT Reports generated via electronic interface contain original data; however they are lacking the format of the original report. Caution should be taken when reading/interpreti ng unformatted reports. Name: ? MARQUIS SHELTON ? Accession #: ? [id number] ? : ? 1965 (Age: 40) ??F ? Collect Date: ? 05/20/2006 ? Location: ? [facility] ? Receive Date: ? 05/20/2006 ? Provider: SABINO MIKE MD Copy to: INGRID CARTER MD ? Final Pathologic Diagnosis: ? Skin of vulva, left of clitoris, excisional biopsy: - Condyloma acuminatum, inflamed. Document reviewed and electronically signed by: Anu Rodriguez MD Report ??Date: 05/22/2006 17:20 By the signature above, the attending physician certifies that he/she has personally conducted a gross and/or microscopic examination of the described specimens and rendered or confirmed the above diagnosis. Specimen(s) Received: ? Vulval lesion Clinical History: ? Condyloma acuminata vulva Gross Description: ? Received in formalin labelled Hamelin and vulval lesion are three light vila to vila-brown, papillary and polypoid skin shave biopsies which vary in size from 0.5 x 0.5 x 0.2 cm up to 1.3 x 0.4 x 0.4 cm. ??The largest specimen is inked at the resection margin, bisected, and submitted entirely as (A1). ??The intermediate specimen is bisected and the smallest is submitted intact as (A2). (HARSH Crabtree-MADELINE)/lgk End of Report [facility] 05/20/2006 05/20/2006 9:4 2 EDT Sabino Mike MD PATHOLOGY ORDERABLES Performing Organization Address City/State/[facility] Co de Phone Number [facility] [address] [place] [address] documented in this encounter Visit Diagnoses Not on filedocumented in this encounter
--- OUTSIDE RECORDS SUMMARY | 2024-06-10 20:06 | XMS_ITS | Encounter Summary ---
Author Organization [facility] [place] [address] Care Team Providers Care Cabinet Mounter Name Role Phone Trudy Olmedo APRN Primary Care Provider [phone] Reason for Visit * Reason Onset Date Comments Medication Refill 04/27/2017 Encounter Details Date Type Department Care Team (Late st Contact Info) Description 04/27/2017 [place] [address] [facility] [place] [address] Social History Tobacco Use Types Packs/Day Years [...] on filedocumented in this encounter Care Teams Cabinet Mounter Relationship Specialty Start Date End Date Trudy Olmedo APRN PCP - General Family Medicine 12/04/16 04/20/19 documented as of this encounter
--- OUTSIDE RECORDS SUMMARY | 2024-06-10 20:06 | XMS_ITS | Encounter Summary ---
Author Organization [facility] [place] [address] Care Team Providers Care Coding Analyst Name Role Phone Janet Jimenez APRN Primary Care Provider [phone] Encounter Details Date Type Department Care Team (Latest Contact Info) Description 12/10/2015 3:00 PM EDT Laboratory [place] [phone] Diabetes mellitus type 2, uncontrolled Social History [...] Date/Time Associated Diagnosis Comments HEMOGLOBIN A1C Routine 12/10/2015 3:08 PM EDT Diabetes mellitus type 2, uncontrolled documented in this encounter Results * (ABNORMAL) Hemoglobin A1c (12/10/2015 3:08 PM EDT) Hemoglobin A1c 8.4(H) 4.3 - 5.6 % [facility] Comment: Reference Range: 4.3 - [...] 36: Suppl. 1, S67-74 Estimated Average Glucose 194 mg/dL [facility] Comment: eAG equivalents for HbA1c percentages: HbA1c(%) ?eAG(mg/dL) 6.0 ?126 6.5 ?140 7.0 ?154 7.5 ?169 8.0 ?183 8.5 ?197 9.0 ?212 9.5 ?226 10.0 ? 240 Limitations: The eAG calculation has not been validated on women, individuals below 18 years old and above 70 years old, and individuals with hemoglobinopathies. Additional resources are available on the ADA website: http://Big Stage.com/DHMCadacalc Dinesh EPPS, Jeff J, Placido R, et al. ??Translating the A1C assay into estimated average glucose values. ??Diabetes Care 2008:31(8):5420-5104. Blood specimen (specimen) 12/10/2015 3:08 PM EDT 12/10/2015 6:21 PM EDT Narrative Resulting Agency Comment Spec In Lab Fidencio Denton DO CHEMISTRY ORDERABLES [facility] [place] [address] documented in this encounter Visit Diagnoses Diagnosis Diabetes mellitus type 2, uncontrolled Type II or unspecified type diabetes mellitus without mention of complication, uncontrolled documented in this encounter Care Teams Coding Analyst Relationship Specialty Start Date End Date Janet Jimenez, POWER PRESS SUPERVISOR [phone] [place] [address] PCP - General 05/22/15 11/16/16 documented as of this encounter
--- OUTSIDE RECORDS SUMMARY | 2024-06-10 20:06 | XMS_ITS | Encounter Summary ---
Author Organization [facility] Address [address] [place] [address] Care Team Providers Care Mold Burner Name Role Phone Unavailable Primary Care Provider Unavailabl e Encounter Details Date Type Department Care Team (Late st Contact Info) Description 03/11/2000 Results Only [facility] [address] [place] [address] Jing Harrington, SWATI Social History Tobacco Use [...] Info) Description 06/29/2024 13:45 EDT Office Visit [facility] - [address] [address] Alek Crespo MD [address] [place] [phone] documented as of this encounter Procedures Procedure Name Priority Date/Time Associated Diagnosis Comments CYTOPATHOLOGY Routine 03/11/2000 0:00 EDT documented in this encounter Results * CYTOPATHOLOGY (03/11/2000 0:00 EDT) Pathology Report: CYTOPATHOLOGY REPORT Reports generated via electronic interface contain original data; however they are lacking the format of the original report. Caution should be taken when reading/interpreti ng unformatted reports. Name: ? MARQUIS SHELTON ? Accession #: ? [id number] : ? 1965 (Age: 34) ??F ?Collect Date: ? 03/11/2000 Location: ? [facility] ? Receive Date: ? 03/12/2000 Provider: ?JING HARRINGTON NP Copy to: ? Specimen/Source: ?ThinPrep Pap Test, Cervix/Endocervix Last Menstrual Period: ? 02/29/00 Hormonal/Contracep tive Status: ? Oral contraceptives Previous Gynecologic Pathology: ? Benign cellular changes: yeast, Other: ? Additional clinical information: (+) condyloma perineum ? SPECIMEN ADEQUACY ? Satisfactory for evaluation but limited by scant squamous epithelial component secondary to excessive blood. GENERAL CATEGORIZATION ? Within Normal Limits ? Document reviewed and electronically signed by: ? KENDELL Porter(ASCP) ? Report Date: ??03/13/2000 10:52 End of Report [facility] GRANADO 03/11/2000 03/12/2000 Jing Harrington NP PATHOLOGY ORDERABLES [facility]RANA[facility] [address] [place] [address] documented in this encounter Visit Diagnoses Not on filedocumented in this encounter
--- OUTSIDE RECORDS SUMMARY | 2024-06-10 20:06 | XMS_ITS | Encounter Summary ---
Author Organization [facility] Address [address] [place] [address] Care Team Providers Care Electronic Installer Name Role Phone Unavailable Primary Care Provider Unavailabl e Encounter Details Date Type Department Care Team (Late st Contact Info) Description 11/15/2007 Results Only [facility] [address] [place] [address] Colt Simmons, SWATI [address] [facility] [address] [place] [address] Social History Tobacco Use Types Packs/Day Years Used Date Smoking Tobacco: Never Assessed Sex and Gender Information Value Date Recorded Sex Assigned at Not on file Gender Identity Female 01/13/2023 12:16 EDT Sexual Orientation Not on file documented as of this encounter Plan of Treatment Upcoming Encounters Date Type Department Care Team (Late st Contact Info) Description 06/29/2024 13:45 EDT Office Visit [facility] - [address] [place] [address] Alek Crespo MD [address] [place] [address] documented as of this encounter Procedures Procedure Name Priority Date/Time Associated Diagnosis Comments CYTOPATHOLOGY Routine 11/15/2007 0:00 EST documented in this encounter Results * CYTOPATHOLOGY (11/15/2007 0:00 EST) Pathology Report: CYTOPATHOLOGY REPORT Reports generated via electronic interface contain original data; however they are lacking the format of the original report. Caution should be taken when reading/interpreti ng unformatted reports. Name: ? MARQUIS SHELTON ? Accession #: ? [id number] : ? 1965 (Age: 42) ??F ?Collect Date: ? 11/15/2007 Location: ? [facility] ? Receive Date: ? 11/17/2007 Provider: ?COLT SIMMONS NP Copy to: ? Specimen/Source: ?ThinPrep Pap Test, Cervix/Endocervix, processed on [employer] ThinPrep Imaging System, with manual evaluation Last Menstrual Period: ? 11-05-07 Other: ? HPVA - HPV testing requested if ASC-US on the current ThinPrep Pap test. ? SPECIMEN ADEQUACY ? Satisfactory for Evaluation - transformation zone component present GENERAL CATEGORIZATION ? Negative for Intraepithelial Lesion or Malignancy ? Document reviewed and electronically signed by: ? KENDELL Porter(ASCP) ? Report Date: ??11/18/2007 14:28 End of Report NAZARIO GRANADO 11/15/2007 11/17/2007 Colt Simmons NP PATHOLOGY ORDERABLES NAZARIO GRANADO [address] [place] [address] documented in this encounter Visit Diagnoses Not on filedocumented in this encounter
--- OUTSIDE RECORDS SUMMARY | 2024-06-10 20:06 | XMS_ITS | Encounter Summary ---
Author Organization [facility] [place] [address] Care Team Providers Care Flanger Name Role Phone Martina So APRN Primary Care Provider [phone] Encounter Details Date Type Department Care Team (Late st Contact Info) Description 03/03/2023 Telephone Psychiatry and [place] [phone] Hazel Carrasquillo Social History Tobacco Use Types [...] on filedocumented in this encounter Care Teams Flanger Relationship Specialty Start Date End Date Martina So APRN [address] [place] [address] PCP - General Family Medicine 08/26/19 documented as of this encounter
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
--- OUTSIDE RECORDS SUMMARY | 2024-06-10 20:06 | XMS_ITS | Encounter Summary ---
Author Organization [facility] [place] [address] Care Team Providers Care Boiler Shop Mechanic Name Role Phone Janet Jimenez APRN Primary Care Provider [phone] Reason for Visit * Reason Onset Date Comments Medication Refill 01/29/2016 Encounter Details Date Type Department Care Team (Late st Contact Info) Description 01/29/2016 Refill [place] [address] [facility] [place] [address] Social History Tobacco Use Types Packs/Day Years [...] on filedocumented in this encounter Care Teams Boiler Shop Mechanic Relationship Specialty Start Date End Date Janet Jimenez APRN [phone] [place] [address] PCP - General 05/22/15 11/16/16 documented as of this encounter
--- OUTSIDE RECORDS SUMMARY | 2024-06-10 20:06 | XMS_ITS | Encounter Summary ---
Author Organization [facility] [place] [address] Care Team Providers Care Client Services Vice President Name Role Phone Trudy Olmedo APRN Primary Care Provider [phone] Encounter Details Date Type Department Care Team (Late st Contact Info) Description 01/19/2018 Telephone [place] [address] Fidencio Denton DO [facility] [place] [address] Social History Tobacco Use Types Packs/Day Years Used Date Smoking Tobacco: Never Smokeless Tobacco: Never Sex and Gender Information Value Date Recorded Sex Assigned at Not on file Gender Identity Not on file Sexual Orientation Not on file documented as of this encounter Miscellaneous Notes * Telephone Encounter - Fidencio Denton DO - 01/19/2018 9:28 AM EDT Spoke with Trudy Chan's PCP who states A1C is now 14%. Patient is not taking with liraglutide and Invokana, possibly due to cost (Trudy is going to see if patient qualifies for assistance). Trudy will increase Levemir to 60units BID and see patient back with glucose log in 2 weeks. She will also have pt scheduled with me within the next 4-6 weeks. documented in this encounter Plan of Treatment Not on file documented as of this encounter Visit Diagnoses Not on filedocumented in this encounter Care Teams Client Services Vice President Relationship Specialty Start Date End Date Trudy Olmedo APRN PCP - General Family Medicine 12/04/16 04/20/19 documented as of this encounter
--- OUTSIDE RECORDS SUMMARY | 2024-06-10 20:06 | XMS_ITS | Encounter Summary ---
Author Organization [facility] [place] [address] Care Team Providers Care Car Packer Name Role Phone Janet Jimenez APRN Primary Care Provider [phone]- [phone] Encounter Details Date Type Department Care Team (Late st Contact Info) Description 09/18/2015 Telephone [place] [address] Fidencio Denton DO [facility] [place] [address] Social History Tobacco Use Types Packs/Day Years Used Date Smoking Tobacco: Never Smokeless Tobacco: Never Sex and Gender Information Value Date Recorded Sex Assigned at Not on file Gender Identity Not on file Sexual Orientation Not on file documented as of this encounter Miscellaneous Notes * Telephone Encounter - Fidencio Denton DO - 09/18/2015 1:26 PM EST Mailbox full (voicemail). Will send letter today. documented in this encounter Plan of Treatment Not on file documented as of this encounter Visit Diagnoses Not on filedocumented in this encounter Care Teams Car Packer Relationship Specialty Start Date End Date Janet Jimenez APRN [phone] [place] [address] PCP - General 05/22/15 11/16/16 documented as of this encounter
--- OUTSIDE RECORDS SUMMARY | 2024-06-10 20:06 | XMS_ITS | Encounter Summary ---
Author Organization [facility] [place] [address] Care Team Providers Care Burner Shaft Name Role Phone Janet Jimenez APRN Primary Care Provider [phone] Encounter Details Date Type Department Care Team (Late st Contact Info) Description 11/01/2015 Tele[place] [phone] Katie Pride LPN Social History Tobacco Use Types Packs/Day Years Used Date Smoking Tobacco: Never Smokeless Tobacco: Never Sex and Gender Information Value Date Recorded Sex Assigned at Not on file Gender Identity Not on file Sexual Orientation Not on file documented as of this encounter Miscellaneous Notes * Telephone Encounter - Katie Pride LPN - 11/01/2015 10:30 AM EST Call from patient I forgot to take my insulin yesterday morning just took it last night and my BG this morning was 206 the lowest it has been. BG on Thursday AM was 276 Per patient she is taking Metformin 1500 mg daily with no GI symptoms and will probably increase nt1505 mg this PM. documented in this encounter Plan of Treatment Not on file documented as of this encounter Visit Diagnoses Not on filedocumented in this encounter Care Teams Burner Shaft Relationship Specialty Start Date End Date Janet Jimenez FLEET OPERATIONS MANAGER [phone] [place] [address] PCP - General 05/22/15 11/16/16 documented as of this encounter
--- OUTSIDE RECORDS SUMMARY | 2024-06-10 20:07 | XMS_ITS | Encounter Summary ---
Author Organization [facility] [address] Care Team Providers Care Windshield Repair Technician Name Role Phone Afsaneh Simmons MD Primary Care Provider [phone] Encounter Details Date Type Department Care Team (Late st Contact Info) Description 02/06/2015 Telephone [place] [phone] Katie Pride LPN Social History Tobacco Use Types Packs/Day Years Used Date Smoking Tobacco: Never Sex and Gender Information Value Date Recorded Sex Assigned at Not on file Gender Identity Not on file Sexual Orientation Not on file documented as of this encounter Miscellaneous Notes * Telephone Encounter - Katie Pride LPN - 02/07/2015 11:37 AM EDT Called patient at which time message from Dr Denton was read to her. Patient agrees with plan of care. Rocio Figueroa - 02/06/2015 4:15 PM >','<< Less Detail',event) href=javascript:;><< Less Detail Fidencio Denton DO Sent: ThuFebruary 06, 2015 8:45 PM To: Katie Pride LPN Message I would reduce levemir to 55 units twice daily. I would hang in a little longer with victoza (if she can). She should adjust to it after 2 weeks. BG is much improved. * Telephone Encounter - Katie Pride LPN - 02/06/2015 4:15 PM EDT R/c to patient for last week waking up between 1-2 am with bs of 60-118. I feel shaky. A lot of burping, sick to stomach. If I drink oj I feel a lot better.Still feel bloated and stomach feels very hard. Appointment with PCP on 02/08/15 BG's AM 120 noon 150's, supper 120-130 Metformin 1000 mg xr AM Victoza 0.6 daily Levemir 60U twice daily humalog 35 U three times documented in this encounter Plan of Treatment Not on file documented as of this encounter Visit Diagnoses Not on filedocumented in this encounter Care Teams Windshield Repair Technician Relationship Specialty Start Date End Date Afsaneh Simmons MD [address] [place] [address] PCP - General 08/13/10 05/21/15 documented as of this encounter
--- OUTSIDE RECORDS SUMMARY | 2024-06-10 20:07 | XMS_ITS | Encounter Summary ---
Author Organization [facility] [place] [address] Care Team Providers Care Elementary Teacher Name Role Phone Afsaneh Simmons MD Primary Care Provider [phone] Encounter Details Date Type Department Care Team (Late st Contact Info) Description 01/22/2015 Tele[place] [address] Katie Pride LPN Social History Tobacco Use Types Packs/Day Years Used Date Smoking Tobacco: Never Sex and Gender Information Value Date Recorded Sex Assigned at Not on file Gender Identity Not on file Sexual Orientation Not on file documented as of this encounter Miscellaneous Notes * Addendum Note - Fidencio Keen - 01/23/2015 10:14 AM EDTAddended by: FIDENCIO KEEN on: 01/23/2015 10:14 AM Modules accepted: Orders * Telephone Encounter - Fidencio Keen - 01/23/2015 10:12 AM EDT BG still running high. We will start liraglutide. I discussed the risks and warning of c-cell hyperplasia in rats (which could increase risk of thyroid malignancy) and also increased risk of pancreatitis. She understands the potential risks and understands the risks of hyperglycemia likely outweigh possible adverse reactions. She will call Katie in 2 weeks with updated BG values. She will increasefrom 0.6 to 1.2mg in 1 week. She is aware of possible nausea and that this should be temporary. * Telephone Encounter - Katie Pride LPN - 01/22/2015 1:35 PM EDT Patient calls Doing everything. I'm eating correctly, exercising, bg's still not good. Feel bloated, stomach feels hard Metformin 1000 mg daily.Humalog 35U three times daily, Levemir 60U twice daily 01/22/15 6:30 230 12n 230 01/21/15 6:30PM 254, 12N 229, 8:30AM 203 01/20/12 6 AM 230, 12N 258, 6PM [address] Keen * Telephone Encounter - Fidencio Keen - 01/22/2015 9:46 AM EDT Left message for pt to call back and discuss BG readings with my nurse. If BG consistently >200 we will start victoza. Her cortisol levels are normal. * Telephone Encounter - Katie Pride LPN - 01/22/2015 8:53 AM EDT R/c to patient. No answer message left on v/m for patient to r/c to nurse. documented in this encounter Plan of Treatment Not on file documented as of this encounter Visit Diagnoses Not on filedocumented in this encounter Care Teams Elementary Teacher Relationship Specialty Start Date End Date Afsaneh Simmons MD [address] [place] [address] PCP - General 08/13/10 05/21/15 documented as of this encounter
--- OUTSIDE RECORDS SUMMARY | 2024-06-10 20:07 | XMS_ITS | Encounter Summary ---
Author Organization [facility] [place] [address] Care Team Providers Care Video Surveillance Technician Name Role Phone Afsaneh Simmons MD Primary Care Provider [phone] Reason for Visit * Reason Onset Date Comments Medication Refill 01/22/2015 Encounter Details Date Type Department Care Team (Late st Contact Info) Description 01/22/2015 Refill [place] [address] Fidencio Denton, [facility] [place] [address] Social History Tobacco Use Types Packs/Day Years Used Date Smoking Tobacco: Never Sex and Gender Information Value Date Recorded Sex Assigned at Not on file Gender Identity Not on file Sexual Orientation Not on file documented as of this encounter Plan of Treatment Not on file documented as of this encounter Visit Diagnoses Not on filedocumented in this encounter Care Teams Video Surveillance Technician Relationship Specialty Start Date End Date Afsaneh Simmons MD [facility] [address] [place], [place] [id number] PCP - General 08/13/10 05/21/15 documented as of this encounter
--- OUTSIDE RECORDS SUMMARY | 2024-06-10 20:07 | XMS_ITS | Encounter Summary ---
Author Organization [facility] [place] [address] Care Team Providers Care Credit Control Assistant Name Role Phone Afsaneh Simmons MD Primary Care Provider [phone] Encounter Details Date Type Department Care Team (Late st Contact Info) Description 01/29/2015 Telephone [place] [phone] Katie Pride LPN Social History Tobacco Use Types Packs/Day Years Used Date Smoking Tobacco: Never Sex and Gender Information Value Date Recorded Sex Assigned at Not on file Gender Identity Not on file Sexual Orientation Not on file documented as of this encounter Miscellaneous Notes * Telephone Encounter - Katie Pride LPN - 01/30/2015 11:26 AM EDT Called patient at which time message from Dr Denton was read to her. F/u appointment due in April butunable to schedule at this time as Dr Denton's new schedule is not available as of yet. Patient knows to call should she have concerns with BG's before that time. Rocio Figueroa - 01/29/2015 3:43 PM >','<< Less Detail',event) href=javascript:;><< Less Detail Fidencio Denton DO Sent: ThuJanuary 30, 2015 10:11 AM To: Katie Pride LPN Message Advise her not to increase the dose for the time being. We will wait until our next appointment andthen decide. Ask her to continue logging BG and bring to next appt. * Telephone Encounter - Katie Pride LPN - 01/30/2015 8:48 AM EDT Patient calls started on Victoza 0.6 mg~ 1 week ago. Patient states Blood sugars much better sincestarting Victoza. BG's80-150 Per patient BG 150 this AM did not take my humalog last night because I didn't eat. I have been feeling sick to my stomach around 4PM When asked patient states that nausea around 4PM is not since start of Victoza. Patient asking if she is to increase victoza dose. Taking Levemir 60U twice daily Humalog 35U with meals Metformin 1000 mg daily victoza 0.6 mg daily * Telephone Encounter - Katie Pride LPN - 01/30/2015 8:25 AM EDT R/c to patient. No answer message left on cell v/m for patient to r/c to nurse. * Telephone Encounter - Katie Pride LPN - 01/29/2015 3:43 PM EDT R/c to patient. No answer. Message left on v/m for patient to r/c to nurse. documented in this encounter Plan of Treatment Not on file documented as of this encounter Visit Diagnoses Not on filedocumented in this encounter Care Teams Credit Control Assistant Relationship Specialty Start Date End Date Afsaneh Simmons MD [address] [place] [address] PCP - General 08/13/10 05/21/15 documented as of this encounter
--- OUTSIDE RECORDS SUMMARY | 2024-06-10 20:07 | XMS_ITS | Encounter Summary ---
Author Organization [facility] [place] [address] Care Team Providers Care Home Management Supervisor Name Role Phone Janet Jimenez APRN Primary Care Provider [phone] Reason for Visit * Reason Comments Diabetes Encounter Details Date Type Department Care Team (Late st Contact Info) Description 05/22/2015 4:30 PM EDT Office [place] [phone] [facility] [place] [address] Diabetes mellitus out of control Discharge Disposition: Home Social History Tobacco Use Types Packs/Day Years Used Date Smoking Tobacco: Never Smokeless Tobacco: Never Sex and Gender Information Value Date Recorded Sex Assigned at Not on file Gender Identity Not on file Sexual Orientation Not on file documented as of this encounter Last Filed Vital Signs Vital Sign Reading Time Taken Comments Blood Pressure 149/89 05/22/2015 4:28 PM EDT Pulse 106 05/22/2015 4:28 PM EDT Temperature - - Respiratory Rate - - Oxygen Saturation - - Inhaled Oxygen Concentration - - Weight 94.2 kg (207 lb 9.6 oz) 05/22/2015 4:28 P M EDT Height 156.5 cm (5' 1.61) 05/22/2015 4:28 PM ED T Body Mass Index 38.45 05/22/2015 4:28 PM EDT documented in this encounter Patient Instructions * Patient Instructions* Fidencio Denton DO - 05/22/2015 5:08 PM EDT - Increase liraglutide to 1.2mg per day - Decrease Levemir from 55 units to - Decrease Humalog documented in this encounter Progress Notes * Fidencio Denton DO - 05/22/2015 5:28 PM EDT REASON FOR FOLLOWUP: Diabetes. SUBJECTIVE: Rocio is a 49-year-old female here for four-month followup after a recent diagnosis of type 2 diabetes. At our last visit, we added low-dose liraglutide and metformin XL 1000 mg to her regimen of Humalog 30 units with each meal and Levemir 55 units twice a day. She has been compliant with these changes and reports an improvement in her A1c, which has decreased to between 7 and 8%. After starting liraglutide, she noticed some mild nausea and stomach upset, however, that seems to have lessened with time. She has been struggling with weight gain over the past several months. She reports gaining 10 pounds since starting insulin and this is despite exercising 45 minutes per day and making dietary changes. She has cut out all sugar beverages and dessert. She reports feeling very frustrated with the weight issue and this has caused some tension between her and her . 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 She is monitoring blood glucose somewhat erratically, testing between 2 and 5 times per day. She has had four episodes of hypoglycemia since her last visit with values ranging between 40 and 67. She is symptomatic with lows and feels shaky and hungry. She has been able to raise her blood sugar easily during the lows. She denies visual changes, numbness, weakness, chest pain, headache, nocturia. Blood glucose range before meals 80 to 280. REVIEW OF SYSTEMS: A 10-system review negative except as mentioned above. PMH: GERD HTN Obesity Insomnia Medications: Humalog 30 units with meals (TID) Levemir 55 units twice daily Metformin 1,000 mg XL once daily Liraglutide 0.6 mg once daily Family History: Unknown (adopted) Social Hx: No tobacco or alcohol BP 149/89 mmHg Pulse 106 Ht 156.5 cm (5' 1.61) Wt 94.167 kg (207 lb 9.6 oz) BMI 38.45 kg/m2 Discussion based visit Labs: A1C pending Impression: 49 year old female with newly diagnosed diabetes and marked insulin resistance. She is requiring high amounts of insulin and as a result has gained an additional 10lbs, which is understandably frustrating for her. We will plan to increase her GLP1 dose and start glimeperide. Our goal is to wean herfrom meal associated insulin. I encouraged Rocio to join a health club, as I find many patients benefit from resistance training (to augment metabolism). Recommendations: - Increase liraglutide to 1.2mg daily - Start glimeperide 2mg daily - Replace meal associated Humalog with sliding scale (ISF 25- goal BG before meals is 120-1400 - Pt will call my nurse in 2 weeks and report BG log - Pt to call sooner for repeated BG values >300 Follow up in 3 months 30 of the 40 minute visit was spent in counseling Fidencio Denton DO, MS [employer] [facility] documented in this encounter Plan of Treatment Not on file documented as of this encounter Procedures Procedure Name Priority Date/Time Associated Diagnosis Comments C-PEPTIDE Routine 05/22/2015 5:37 PM EDT Diabetes mellitus out of control HEMOGLOBIN A1C Routine 05/22/2015 5:37 PM EDT Diabetes mellitus out of control GLUCOSE Routine 05/22/2015 5:37 PM EDT Diabetes mellitus out of control documented in this encounter Results * Glucose, random (05/22/2015 5:37 PM EDT) Glucose 100 65 - 199 mg/dL [facility] Comment:Diabetes: >=200 mg/d L plus symptoms Blood specimen (specimen) 05/22/2015 5:37 PM EDT 05/22/2015 5:47 PM EDT Narrative Resulting Agency Comment Spec In Lab Fidencio Denton DO CHEMISTRY ORDERABLES Performing Organization Address City/[facility]/ZIP Co de Phone Number [facility] * C-peptide (05/22/2015 5:37 PM EDT) C-Peptide 1.4 1.1 - 4.4 ng/mL [facility] Comment: Test Performed by: [facility] [place] [address] Teaching Associate: Jessica Abdi, Ph.D. Blood specimen (specimen) 05/22/2015 5:37 PM EDT 05/23/2015 9:39 AM EDT Narrative Resulting Agency Comment Spec In Lab Fidencio Denton DO CHEMISTRY ORDERABLES Performing Organization Address [facility] Co de Phone Number [facility] * (ABNORMAL) Hemoglobin A1c (05/22/2015 5:37 PM EDT) Hemoglobin A1c 6.8(H) 4.3 - 5.6 % [facility] Comment: Reference Range: 4.3 - 5.6% 5.7 [...] 36: Suppl. 1, S67-74 Estimated Average Glucose 148 mg/dL [facility] Comment: eAG equivalents for HbA1c percentages: HbA1c(%) ?eAG(mg/dL) 6.0 ?126 6.5 ?140 7.0 ?154 7.5 ?169 8.0 ?183 8.5 ?197 9.0 ?212 9.5 ?226 10.0 ? 240 Limitations: The eAG calculation has not been validated on women, individuals below 18 years old and above 70 years old, and individuals with hemoglobinopathies. Additional resources are available on the ADA website: http://[employer].retickr/DHMCadacalc Dinesh EPPS, Jeff J, Placido R, et al. ??Translating the A1C assay into estimated average glucose values. ??Diabetes Care 2008:31(8):7051-2072. Blood specimen (specimen) 05/22/2015 5:37 PM EDT 05/22/2015 5:47 PM EDT Narrative Resulting Agency Comment Spec In Lab Fidencio Denton DO CHEMISTRY ORDERABLES Performing Organization Address City/State/[facility] Co de Phone Number [facility] documented in this encounter Visit Diagnoses Diagnosis Diabetes mellitus out of control Type II or unspecified type diabetes mellitus without mention of complication, uncontrolled documented in this encounter Care Teams Home Management Supervisor Relationship Specialty Start Date End Date Janet Jimenez APRN [phone] [place] [address] PCP - General 05/22/15 11/16/16 documented as of this encounter
--- OUTSIDE RECORDS SUMMARY | 2024-06-10 20:07 | XMS_ITS | Encounter Summary ---
Author Organization [facility] [place] [address] Care Team Providers Care Neurology Technician Name Role Phone Afsaneh Hale MD Primary Care Provider [phone] Encounter Details Date Type Department Care Team (Late st Contact Info) Description 01/09/2015 1:35 PM EDT Office [place] [address] Vito Bose MD [facility] [place] [address] Diabetes mellitus type 2, uncontrolled Discharge Disposition: Home Social History Tobacco Use Types Packs/Day Years Used Date Smoking Tobacco: Never Sex and Gender Information Value Date Recorded Sex Assigned at Not on file Gender Identity Not on file Sexual Orientation Not on file documented as of this encounter Last Filed Vital Signs Vital Sign Reading Time Taken Comments Blood Pressure 133/72 01/09/2015 12:59 PM EDT Pulse 116 01/09/2015 12:59 PM EDT Temperature - - Respiratory Rate - - Oxygen Saturation - - Inhaled Oxygen Concentration - - Weight 89.7 kg (197 lb 12.8 oz) 015 12:59 PM EDT Height 156.5 cm (5' 1.61) 01/09/2015 1 2:59 PM EDT Body Mass Index 36.63 01/09/2015 12:59 PM EDT documented in this encounter Progress Notes * Vito Bose MD - 01/16/2015 9:04 AM EDT I have seen and discussed patient with Dr. Denton and agree with his recommendations and plans. * Fidencio Denton - 01/09/2015 1:12 PM EDT Endocrinology Consult Patient Name: Rocio Figueroa Date of : 1965 PCP: AFSANEH HALE MD HISTORY OF PRESENT ILLNESS: Rocio Figueroa is a very pleasant 49 y.o. female who presents for management of hyperglycemia. She was diagnosed with rapid development of hyperglycemia (BG 400). She is adopted and therefore has no family history. Back in 2007 she was started on lifestyle modifications and metformin. Metformin caused a lot of GI side effects. She was briefly on Byetta and stopped due to nausea and bloating. She has been on levemir since Sep 2014 with current dose of 56 units twice per day. Meal insulin was added within past month (35 units with meals). She denies abd pain, jaundice, nausea, emesis or wt loss. She has struggled with her weight since shortly after graduating high school. She lost 50 lbs in the past year or two (watching diet). 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 Allergies Allergen Reactions ??? Penicillins Throat closes and rash No current outpatient prescriptions on file prior to visit. No current facility-administered medications on file prior to visit. History Social History ??? Marital Status: Spouse Name: N/A Number of Children: N/A ??? Years of Education: N/A Social History Main Topics ??? Smoking status: Never Smoker ??? Smokeless tobacco: None ??? Alcohol Use: None ??? Drug Use: None ??? Sexual Activity: None Other Topics Concern ??? None Social History Narrative ??? None Family History: Not available (pt adopted) PHYSICAL EXAM: BP 133/72 Pulse 116 Ht 156.5 cm (5' 1.61) Wt 89.721 kg (197 lb 12.8 oz) BMI 36.63 kg/m2 GENERAL: Well nourished, well hydrated, in no distress, oriented x 3 SKIN: normal in texture and temperature EYES: no thyroid eye signs, OBDULIO, cornea normal NECK: supple, no palpable nodule or goiter, no bruit, no tenderness, no lymphadenopathy, no acanthosis CVS: S1 S2 heard, rhythm regular RS: clear breath sounds bilateral ABD: soft, BS heard, no organomegaly EXTREMITIES: No clubbing, no edema, no cyanosis, normal nails. No tremor on out- stretched hands. Impression: Rocio is a 49 year old female with diabetes mellitus and severe insulin resistance. Her c-peptidelevel is measurable and she does not have ALIA 65 antibodies confirming type 2 diabetes. She is obese with minimal physical activity and we spent time discussing importance of weight loss and daily exe rcise. We discussed bariatric surgery, which could be an option if she is unable to lose weight through diet and exercise alone. In addition, there are newer wt loss drugs on the market we could consider. We will plan to re-challenge with metformin (long acting formulation to minimize GI side effects). We will give her 2 weeks to on metformin and then likely introduce a GLP-1 agonist. Due to her level of insulin resistance we will exclude [place]'s syndrome. Recommendations: -Start metformin XL 500mg for 1 wk and then increase to 1,000mg daily - Increase Levemir to 60 units every 12 hours - Check midnight salivary cortisol - Pt to call in 2 weeks to review BG and we will likely start Victoza We have reviewed our plan outlined above with the patient, and patient verbalized understanding. All questions were answered and most of the time was spent on counseling. Thank you for this consult, please do not hesitate to contact me with any questions. Case discussed with Dr. Lidya Denton DO, MS Endocrinology fellow [facility] cc: AFSANEH HALE MD documented in this encounter Miscellaneous Notes * Addendum Note - Eunice Rojas - 01/17/2015 11:24 AM EDTAddended by: EUNICE ROJAS on: 01/17/2015 11:24 AM Modules accepted: Orders documented in this encounter Plan of Treatment Not on file documented as of this encounter Procedures Procedure Name Priority Date/Time Associated Diagnosis Comments CORTISOL, SALIVA Routine 01/16/2015 11:0 7 PM EDT Diabetes mellitus type 2, uncontrolled CORTISOL, SALIVA Routine 01/14/2015 11:0 0 PM EDT Diabetes mellitus type 2, uncontrolled GAD65 ANTIBODY ASSAY Routine 01/09/2015 2:25 PM EDT Diabetes mellitus type 2, uncontrolled C-PEPTIDE Routine 01/09/2015 2:25 PM EDT Diabetes mellitus type 2, uncontrolled TSH Routine 01/09/2015 2:25 PM EDT Diabetes mellitus type 2, uncontrolled documented in this encounter Results * Cortisol, saliva (01/16/2015 11:07 PM EDT) Mike Saliva (JANUARY) na CE RNER MILLENNIUM Mike Saliva Am (JANUARY) na CERNER MILLENNIUM Mike Saliva Pm (JANUARY) na CERNER MILLENNIUM Mike Saliva Midnight (JANUARY) <50 <100 ng/dL [facility] Comment: Test Performed by: [place] [address] Ordnance Technician: Jessica Abdi, Ph.D. Specimen of unknown material (specimen) 01/16/2015 11:07 PM EDT 01/17/2015 2:54 PM EDT Narrative Resulting Agency Comment Spec In Lab Vito Bose MD LAB SEND OUT ORDERAB LES CERNER MILLENNIUM * Cortisol, saliva (01/14/2015 11:00 PM EDT) Mike Saliva (JANUARY) na CE RNER MILLENNIUM Mike Saliva Am (JANUARY) na CERNER MILLENNIUM Mike Saliva Pm (JANUARY) na CERNER MILLENNIUM Mike Saliva Midnight (JANUARY) <50 <100 ng/dL [facility] Comment: Test Performed by: [place] [address] Ordnance Technician: Jessica Abdi, Ph.D. Specimen of unknown material (specimen) 01/14/2015 11:00 PM EDT 01/17/2015 2:54 PM EDT Narrative Resulting Agency Comment Spec In Lab Vito Bose MD LAB SEND OUT ORDERAB LES CERRUBEN CHINGIUM * GAD65 Antibody Assay (01/09/2015 2:25 PM EDT) Pathologist [facility] Gad65 Ab (JANUARY) 0.00 <=0.02 nmol/L [facility] Comment: Test Performed by: [place] [address] Ordnance Technician: Sabino Pablo II, M.D., Ph.D. Blood specimen (specimen) 01/09/2015 2:25 PM EDT 01/09/2015 3:40 PM EDT Narrative Resulting Agency Comment Spec In Lab Vito oBse MD LAB SEND OUT ORDERAB LES RUPERTO CHINGIUM * TSH (01/09/2015 2:25 PM EDT) Thyroid Stimulating Hormone 1.76 0.27 - 4.20 mcIU/mL [facility]ERN[facility]ENNI[facility] Blood specimen (specimen) 01/09/2015 2:25 PM EDT 01/09/2015 2:31 PM EDT Narrative Resulting Agency Comment Spec In Lab Vito Bose MD CHEMISTRY ORDERABLES RUPERTO CHINGIUM * C-peptide (01/09/2015 2:25 PM EDT) Pathologist [facility] C-Peptide 3.0 1.1 - 4.4 ng/mL RUPERTO [facility] Comment: Test Performed by: [facility] [address], [place] [address] Ordnance Technician: Jessica Abdi, Ph.D. Blood specimen (specimen) 01/09/2015 2:25 PM EDT 01/09/2015 3:38 PM EDT Narrative Resulting Agency Comment Spec In Lab Vito Bose MD CHEMISTRY ORDERABLES Performing Organization Address City/State/[facility] [[email or web address]] Co de Phone Number [facility] documented in this encounter Visit Diagnoses Diagnosis Diabetes mellitus type 2, uncontrolled Type II or unspecified type diabetes mellitus without mention of complication, uncontrolled documented in this encounter Care Teams Neurology Technician Relationship Specialty Start Date End Date Afsaneh Hale MD [address] [place] [address] PCP - General 08/13/10 05/21/15 documented as of this encounter
== END 2024-06-10 20:08 | disposition home or self-care (01) ==
LOC: ER 20:02
PROVIDERS: Emergency Provider Emergency Medicine; PCP Nurse Practitioner Family
DX: S20.212A Contusion of left front wall of thorax, initial encounter (principal); E11.40 Type 2 diabetes mellitus with diabetic neuropathy, unspecified; Z79.4 Long term (current) use of insulin; Z79.85 Long-term (current) use of injectable non-insulin antidiabetic drugs; W08.XXXA Fall from other furniture, initial encounter; Y93.89 Activity, other specified; Y92.018 Other place in single-family (private) house as the place of occurrence of the external cause
CPT/HCPCS: 99283; 71046; 71100

== ENCOUNTER 2024-08-09 01:55 | Outpatient (CLI) | payer BC, SELFPAY ==
--- NOTE | 2024-08-09 13:42 | DI.RAD_ITS ---
Exam(s) XR CHEST 2V PA LATERAL EXAM: XR CHEST 2V PA LATERAL CLINICAL HISTORY: F/u from x-ray on 06/10/24, R93.89, Abnl findings on DI of other TECHNIQUE: 2D digital imaging was performed. Two views. COMPARISON: CR LEFT SHOULDER 1 VIEW from 07/21/2012 CR XR shoulder LT complete 2+V from 08/11/2018 CR XR CHEST 2V PA LATERAL from 02/26/2019 CR XR SHOULDER LT COMPLETE 2+V from 12/20/2019 CR,XR XR RIBS LT W PA LAT CHEST from 06/10/2024 FINDINGS: HEART: Normal size. Aorta: Not dilated. PULMONARY VASCULATURE: Normal. MEDIASTINUM: Unremarkable. LUNGS: Clear. PLEURAL SPACE: No pleural effusion or pneumothorax. BONE:Previously noted small lucency in the left scapula is faintly visible. A degenerative subchondr al cyst is noted in the humeral head. SOFT TISSUES: Unremarkable. IMPRESSION: No acute pulmonary abnormality. The previously noted small lucency on the prior exam in the left scapula is faintly visible on today' s exam. Bone scan could be considered for further evaluation. DATA REPOSITORY: RADIATION DOSE DELIVERED:
== END 2024-08-09 02:15 ==
LOC: DI 01:55
PROVIDERS: PCP Nurse Practitioner Family; Visit Provider Nurse Practitioner Family
DX: R91.8 Other nonspecific abnormal finding of lung field (principal)
CPT/HCPCS: 71046

== ENCOUNTER 2024-08-23 21:57 | Outpatient (REF) | payer BC, SELFPAY ==
[2024-08-23 22:10] LABS: HCT 40.9 % (36.0-46.0); HGB 13.6 g/dL (11.2-15.7); MCH 28.9 pg (27.0-33.0); MCHC 33.3 % (32.0-36.0); MCV 87 fL (80-95); MPV 10.8 fL (8.0-11.0); Platelet Count 279 10^3/uL (130-400); RDW 11.9 % (11.7-14.6); RDW-SD 38.3 fL
[2024-08-23 22:25] LABS: ALT 25 U/L (14-59); AST 10 U/L (15-37); Alkaline Phosphatase 91 U/L (46-116); Anion Gap 8.2 mmol/L (3-11); BUN 20 mg/dL (7-18); Bilirubin, Total 0.33 mg/dL (0.2-1.0); CO2 29.8 mmol/L (21.0-32.0); CREATININE 0.7 mg/dL (0.55-1.02); Calcium 9.5 mg/dL (8.5-10.1); Calculated LDL 112 mg/dL (<100); Chloride 105 mmol/L (98-107); Cholesterol 199 mg/dL (<200); Estimated GFR 100.19 (mL/min/1.73m2); Glucose 129 mg/dL (74-106); HDL Cholesterol 44 mg/dL (40-60); Potassium 4.6 mmol/L (3.5-5.1); Sodium 143 mmol/L (136-145); Total Protein 7.2 g/dL (6.4-8.2); Triglyceride 215 mg/dL (<150)
== END 2024-08-23 21:58 | disposition home or self-care (01) ==
LOC: NCHCN 21:57
PROVIDERS: PCP Nurse Practitioner Family; Visit Provider Nurse Practitioner Family
DX: E11.9 Type 2 diabetes mellitus without complications (principal)
CPT/HCPCS: 80053; 80061; 85027

== ENCOUNTER 2024-10-03 13:29 | Emergency (ER) | payer BC, SELFPAY ==
[2024-10-03] VITALS (31 sets, daily range): BP systolic 140–162; BP diastolic 63–115; PULSE 88–99; RESP 12–27; TEMP 36.7–37.1; O2SAT 92–98
--- OUTSIDE RECORDS SUMMARY | 2024-10-03 13:34 | XMS_ITS | Encounter Summary ---
Author Organization [facility] Address [address] [place] [address] Care Team Providers Care Lock And Dam Equipment Repairer Name Role Phone Martina So Primary Care Provider [phone] Reason for Visit * Reason Comments Medications Refill Encounter Details Date Type Department Care Team (Late st Contact Info) Description 03/11/2023 Refill [facility] Spine Program - [address] [place] [address] Burt Stout MD [address] [facility] [place] [address] Medications Refill Social History Tobacco Use Types Packs/Day Years Used Date Smoking Tobacco: Never Smokeless Tobacco: Never Comments Unknown Sex and Gender Information Value Date Recorded Sex Assigned at Not on file Legal Sex Female 18:20 EST Gender Identity Female 01/13/2023 12:16 EDT Sexual Orientation Not on file documented as of this encounter Miscellaneous Notes * Telephone Encounter - Lisa Kauffman RN - 03/12/2023 0822 EDT Patient has not called with symptom relief. documented in this encounter Plan of Treatment Not on file documented as of this encounter Visit Diagnoses Not on filedocumented in this encounter Care Teams Lock And Dam Equipment Repairer Relationship Specialty Start Date End Date Martina So FNP [address] [address] PCP - General 07/25/19 documented as of this encounter
--- OUTSIDE RECORDS SUMMARY | 2024-10-03 13:34 | XMS_ITS | Encounter Summary ---
Author Organization [facility] Address [address] [place] [address] Care Team Providers Care Dairy Consultant Name Role Phone Martina So HEATHER Primary Care Provider [phone] Encounter Details Date Type Department Care Team (Late st Contact Info) Description 08/20/2020 Lab Requisition [facility] Pathology & Laboratory Medicine - [address] [address] Outr Resulting Lab, Provider Social History Tobacco Use Types Packs/Day Years Used Date Smoking Tobacco: Never Assessed Comments Unknown Sex and Gender Information Value [...] gonorrhoeae Result Negative Negative 08/21/2020 15:04 EST [facility] Chlamydia trachomatis Result Negative Negative 08/21/2020 15:04 EST [facility] Papanicolaou smear specimen (specimen) CERVIX UTERI STRUCTURE / Unknown 08/15/2020 9:30 EST 08/21/2020 9:25 EST us Provider Outr Resulting Lab MICROBIOLOGY - GENER AL ORDERABLES Final Result [facility] [address] [place] [address] documented in this encounter Visit Diagnoses Not on filedocumented in this encounter Care Teams Dairy Consultant Relationship Specialty Start Date End Date Martina So FNP [address] [facility] [address] [place] [phone] PCP - General 07/25/19 documented as of this encounter
--- OUTSIDE RECORDS SUMMARY | 2024-10-03 13:34 | XMS_ITS | Referral Summary ---
Author Organization [facility] Address [address] [place] [address] Care Team Providers Care Stitcher Set Up Operator Automatic Name Role Phone Martina So HEATHER Primary Care Provider [phone] Allergies Active Allergy Reactions Criticality Noted Date Comments Penicillins 01/13/2023 Medications semaglutide (OZEMPIC) 1 mg/dose (4 mg/3 mL) [...] 1 Tablet by mouth daily. 30 Tablet 3 Active Additional Information Patient not taking.Reported on 06/29/2024 gabapentin (NEURONTIN) 300 mg capsule Take 1 Capsule by mouth 3 times daily. 90 Capsule 1 3 Active zolpidem (AMBIEN) 10 mg tablet Take 1 Tablet by mouth daily. Daily Max: 10 mg Active insulin lispro protamine-insul in lispro (HUMALOG 75/25) 100 unit/mL (75-25) suspension Inject 300 Units into the skin as needed. Active insulin degludec (TRESIBA FLEXTOUCH U-200) 200 unit/mL (3 mL) 200 unit/ml (3ml) insulin pen Inject 38 Units into the skin daily. Active venlafaxine (EFFEXOR-XR) 150 mg XR capsule Take 1 Capsule by mouth daily. Active Active Problems Patient Care Coordination No te Formatting of this note migh t be different from the original. Patient has given permission for [facility] to verbally discuss the following information with BENITO FIGUEROA AND AMIRA ZIA (COUSIN) who has the following relationship to the patient: Spouse/Partner: Scheduling/Appt/Billing/Payment Information (does not include clinical information unless specifically indicated with separate option) Medical Information including symptoms, diagnosis, medications, test results and treatment plan (does not include Mental Health unless specifically indicated with separate option) Mental Health (Behavioral,Psychiatric,Chemical Dependency) health information, including my symptoms, diagnosis, medications and treatment plan Permission remains in effect until the patient elects to revoke it. No known active problems Social History Tobacco Use Types Packs/Day Years Used Date Smoking Tobacco: Never Smokeless Tobacco: Never Tobacco Cessation:Counseling Given: Not Answered Comments Unknown Sex and Gender Information Value Date Recorded Sex Assigned at Not on file Legal Sex Female 18:20 EST Gender Identity Female 01/13/2023 12:16 EDT Sexual Orientation Not on file Plan of Treatment Not on file Insurance [facility] Care Teams Stitcher Set Up Operator Automatic Relationship Specialty Start Date End Date Martina So FNP [address] [place] [address] [address] [place] [phone] PCP - General 07/25/19
--- OUTSIDE RECORDS SUMMARY | 2024-10-03 13:34 | XMS_ITS | Encounter Summary ---
Author Organization [facility] Address [address] [place] [address] Care Team Providers Care Utility Teller Name Role Phone Unknown, Provider Primary Care Provider Nayla calloway Encounter Details Date Type Department Care Team (Late st Contact Info) Description 09/17/2015 Results Only [facility] [phone] Cj Alonzo, SWATI [address] [place] [phone] Social History Tobacco Use Types Packs/Day Years [...] ? MARQUIS SHELTON ? Accession #: ? [id number] ? : ? 1965 (Age: 50) ??F [...] types 16,18,31,33,35, 39,45,51,52,56,58, 59,66, and 68 by rn social work mediated amplification. Comments Document reviewed and electronically signed by: ? System Interface ? Report date: 10/02/2015 By the signature above, the attending physician certifies that he/she has personally conducted a gross and/or microscopic examination of the described specimens and rendered or confirmed the above diagnosis. End of Report [facility] 09/17/2015 09/20/2015 us Cj Alonzo NP PATHOLOGY ORDERABLES Final Res ult [facility] [address] [place] [address] documented in this encounter Visit Diagnoses Not on filedocumented in this encounter Care Teams Utility Teller Relationship Specialty Start Date End Date Unknown, Provider, PCP - General 08/12/15 07/24/19 documented as of this encounter
--- OUTSIDE RECORDS SUMMARY | 2024-10-03 13:34 | XMS_ITS | Encounter Summary ---
Author Organization [facility] Address [address] [place] [address] Care Team Providers Care Test Engineering Intern Name Role Phone Unavailable Primary Care Provider Unavailabl e Encounter Details Date Type Department Care Team (Late st Contact Info) Description 08/08/2005 Results Only [facility] - Maple conversion [address] [place] [address] Kassidy Oliver MD [address] [place] [address] [place] [address] Social History Tobacco Use Types Packs/Day Years [...] ? MARQUIS SHELTON ? Accession #: ? [id number] : ? 1965 (Age: 39) ??F ?Collect Date: ? 08/08/2005 Location: ? [facility] ? Receive Date: ? 08/11/2005 Provider: ?KASSIDY OLIVER MD Copy to: ? Specimen/Source: ?ThinPrep Pap Test, Cervix/Endocervix, processed on [employer] ThinPrep Imaging System, with manual evaluation [...] Date: ??08/13/2005 13:46 End of Report [facility] 08/08/2005 08/11/2005 us Kassidy Oliver MD PATHOLOGY ORDERABLES Final Resu lt [facility] [address] [place] [address] documented in this encounter Visit Diagnoses Not on filedocumented in this encounter
--- OUTSIDE RECORDS SUMMARY | 2024-10-03 13:34 | XMS_ITS | Encounter Summary ---
Author Organization [facility] Address [address] [place] [address] Care Team Providers Care Directory Carrier Name Role Phone Martina So Primary Care Provider [phone] Encounter Details Date Type Department Care Team (Latest Contact Info) Description 08/23/2020 Lab Requisition [facility] Pathology & Laboratory Medicine - [facility] [address] [place] [address] Martina So FNP [address] [facility] [address] [place] [address] Encounter for general adult medical [...] Risk types, PCR Negative Negative 08/29/2020 15:02 [facility] Comment:No E6 or E7 mRNA is detected from HPV types 16,18,31,33,35,39,45,51,52,56,58,59,66, and 68 by foreman or supervisor and operator mediated amplification. Papanicolaou smear specimen (specimen) CERVIX UTERI STRUCTURE / Unknown 08/15/2020 9:30 EST 2020 9:37 EST Martina LIANGP MICROBIOLOGY - GENERAL ORDERABLE S Final Result [facility] [address] [place] [id number] * PAP TEST (08/15/2020 9:30 EST) Specimens A. Cervix and/or Endocervix , ThinPrep Imaging System with Manual Evaluation 08/29/2020 15:02 [facility] Specimen Adequacy Satisfactory for Evaluation - transformation zone component present 08/29/2020 15:02 [facility] General Categorization Negative for intraepithelial lesion or malignancy 08/29/2020 15:02 [facility] Attestation . 08/29/2020 15:02 [facility] at 1502 Clinical History See below 08/29/20 20 15:02 [facility] HPV The result for the Human Papillomavirus (HPV) Detection-High Risk Types is Negative. No E6 or E7 mRNA is detected from HPV types 16,18,31,33,35,39 ,45,51,52,56,58,5 9,66, and 68 by foreman or supervisor and operator mediated amplification.Teresa ting was performed on specimen [id number] and was resulted on 08/29/2020 1456 EST by GUSTAVO, LAB INSTRUMENT RESULTS IN 08/29/2020 15:02 EST [facility] Performing Lab [facility] 08/29/2020 15:02 EST [facility] Scanned Images 08/29/2020 15:02 EST [facility] Papanicolaou smear specimen (specimen) CERVIX UTERI STRUCTURE / Unknown 08/15/2020 9:30 EST 08/23/2020 10:46 EST Martina ROMERO PATHOLOGY ORDERABLES Final Resul t [facility] [address] [place] [address] documented in this encounter Visit Diagnoses Diagnosis Encounter for general adult medical examination without abnormal findings Unspecified general medical examination Encounter for screening for malignant neoplasm of cervix Screening for malignant neoplasm of the cervix Encounter for gynecological examination (general) (routine) without abnormal findings documented in this encounter Care Teams Directory Carrier Relationship Specialty Start Date End Date Martina So FNP [address] [place] [phone] PCP - General 07/25/19 documented as of this encounter
--- OUTSIDE RECORDS SUMMARY | 2024-10-03 13:34 | XMS_ITS | Encounter Summary ---
Author Organization [facility] Address [address] [place] [address] Care Team Providers Care Structural Designer Name Role Phone Martina So HEATHER Primary Care Provider [phone] Reason for Visit * (Routine/Next Available) - Receiving Office to Obtain Authorization Specialty Diagnoses / Procedures Referred By Luis Felipe barry Referred To Contact Procedures MR OUTSIDE IMAGES CERVICAL SPINE Imaging, External Referral ID Status Reason Start Date Expiration Date Visits Requested Visits Authorized [id number] Receiving Office to Obtain Authorization 01/02/2023 1 1 Encounter Details Date Type Department Care Team (Latest Contact Info) Description 12/12/2022 - 12/12/2022 23:[address] [facility] Secondary Reads [place] Discharge Disposition: Home or [...] 9:38 EDT This is a non-reportable exam. us External Imaging IMG OTHER IMAGING ORDERABLES Fi nal Result documented in this encounter Visit Diagnoses Not on filedocumented in this encounter Care Teams Structural Designer Relationship Specialty Start Date End Date Martina So FNP [address] [phone] PCP - General 07/25/19 documented as of this encounter
--- OUTSIDE RECORDS SUMMARY | 2024-10-03 13:34 | XMS_ITS | Encounter Summary ---
Author Organization [facility] Address [address] [place] [address] Care Team Providers Care Biomechanical Engineer Name Role Phone Unavailable Primary Care Provider Unavailabl e Encounter Details Date Type Department Care Team (Late st Contact Info) Description 05/20/2006 Results Only [facility] - Maple conversion [address] [place] [address] Sabino Mike MD [address] [place] [address] Social History Tobacco Use Types Packs/Day Years [...] ? MARQUIS SHELTON ? Accession #: ? [id number] ? : ? 1965 (Age: 40) ??F [...] smallest is submitted intact as (A2). (HARSH Tess[employer]-CT)/lgk End of Report [facility] 05/20/2006 05/20/2006 9:4 2 EDT us Sabino Mike MD PATHOLOGY ORDERABLES Final Resul t [facility] [address] [place] [address] documented in this encounter Visit Diagnoses Not on filedocumented in this encounter
--- OUTSIDE RECORDS SUMMARY | 2024-10-03 13:34 | XMS_ITS | Encounter Summary ---
Author Organization [facility] Address [address] [place] [address] Care Team Providers Care Welding Lead Burner Name Role Phone Martina So HEATHER Primary Care Provider [phone] Encounter Details Date Type Department Care Team (Latest Contact Info) Description 01/13/2023 12:15 EDT - 01/13/2023 23:59 EDT Hospital Encounter [address] [place], [place] [id number] Neck pain Discharge Disposition: Home or Self [...] this encounter Medications at Time of Discharge cyclobenzaprine (FLEXERIL) 10 mg tablet Take 10 [...] identified. Anterior osteophyte with chronic fragmentation atC5-6. us Burt Stout MD IMG DIAGNOSTIC IMAGING O RDERABLES Final Result documented in this encounter Visit Diagnoses Diagnosis Neck pain Cervicalgia documented in this encounter Care Teams Welding Lead Burner Relationship Specialty Start Date End Date Martina So FNP [address] [place] [address] [place] [phone] PCP - General 07/25/19 documented as of this encounter
--- OUTSIDE RECORDS SUMMARY | 2024-10-03 13:34 | XMS_ITS | Encounter Summary ---
Author Organization [facility] Address [address] [place] [address] Care Team Providers Care Dictaphone Transcriber Name Role Phone Martina So HEATHER Primary Care Provider [phone] Encounter Details Date Type Department Care Team (Late st Contact Info) Description 09/19/2019 Lab Requisition [facility] Pathology & Laboratory Medicine - [address] [address] Unknown, Provider, Social History Tobacco Use Types [...] 7.3 6.3 - 8.2 g/dL 09/20/2019 15:20 EST [facility] Albumin % 61.6 55.8 - 66.1 % 09/20/2019 15:20 EST [facility] Alpha-1 % 3.7 2.9 - 4.9 % 09/20/2019 15:20 EST [facility] Alpha-2 % 9.7 7.1 - 11.8 % 09/20/2019 15:20 EST [facility] Beta % 12.6 8.4 - 13.1 % 09/20/2019 15:20 EST [facility] Gamma % 12.4 11.1 - 18.8 % 09/20/2019 15:20 EST [facility] SPEP Comment No apparent monoclonal protein seen on serum electrophoresis 09/20/2019 15:20 EST [facility] Comment:See scanned/suppleme ntary report. Blood VENOUS BLOOD / Unknown 09/19/2019 13:38 EST 09/19/2019 21:14 EST us Provider Unknown MD CHEMISTRY & BLOOD GAS ORDERA BLES Final Result [facility] [address] [place] [address] documented in this encounter Visit Diagnoses Not on filedocumented in this encounter Care Teams Dictaphone Transcriber Relationship Specialty Start Date End Date Martina So FNP [address] [place] [address] [address] [place] [phone] PCP - General 07/25/19 documented as of this encounter
--- OUTSIDE RECORDS SUMMARY | 2024-10-03 13:34 | XMS_ITS | Encounter Summary ---
Author Organization [facility] Address [address] [place] [address] Care Team Providers Care Field Crop Farming Supervisor Name Role Phone Unavailable Primary Care Provider Unavailabl e Encounter Details Date Type Department Care Team (Late st Contact Info) Description 07/04/2004 Results Only [facility] - Maple conversion [address] [place] [address] Kassidy Oliver MD [address] [place] [address] [place] [address] Social History Tobacco Use Types Packs/Day Years [...] ? MARQUIS SHELTON ? Accession #: ? [id number] : ? 1965 (Age: 38) ??F ?Collect [...] End of Report [facility] 07/04/2004 07/05/2004 us Kassidy Oliver MD PATHOLOGY ORDERABLES Final Resu lt [facility] [address] [place] [address] documented in this encounter Visit Diagnoses Not on filedocumented in this encounter
--- OUTSIDE RECORDS SUMMARY | 2024-10-03 13:34 | XMS_ITS | Encounter Summary ---
Author Organization [facility] Address [address] [place] [address] Care Team Providers Care Service Inspector Name Role Phone Martina So HEATHER Primary Care Provider [phone] Encounter Details Date Type Department Care Team (Latest Contact Info) Description 06/29/2024 13:29 EDT - 06/29/2024 23:59 EDT Hospital Encounter [address] [place], [place] [phone] Right hand pain; Left hand pain Discharge Disposition: Home or Self Care [...] 3 times daily. 90 Capsule 1 01/13/2023 insulin degludec (TRESIBA FLEXTOUCH U-200) 200 unit/mL (3 mL) 200 unit/ml (3ml) insulin pen Inject 38 Units into the skin daily. insulin lispro protamine-insulin lispro (HUMALOG 75/25) 100 unit/mL (75-25) suspension Inject 300 Units into the skin as needed. meloxicam (MOBIC) 7.5 mg tablet Take 1 Tablet by mouth daily. 30 Tablet 01/13/2023 semaglutide (OZEMPIC) 1 mg/dose (4 mg/3 mL) pen injector Inject 1.5 mg into the skin every 7 days. traMADol (ULTRAM) 50 mg tablet Take 50 mg by mouth every 6 hours as needed for Pain. venlafaxine (EFFEXOR-XR) 150 mg XR capsule Take 1 Capsule by mouth daily. zolpidem (AMBIEN) 10 mg tablet Take 1 Tablet by mouth daily. Daily Max: 10 mg documented as of this encounter Discharge Disposition Disposition Code Departure Means Destination Home or Self Care documented in this encounter Plan of Treatment Not on file documented as of this encounter Procedures Procedure Name Priority Date/Time Associated Diagnosis Comments XR HAND RIGHT 3 OR MORE VIEWS Routine 06/29/2024 13:41 EDT Right hand pain Left hand pain XR HAND LEFT 3 OR MORE VIEWS Routine 06/29/2024 13:41 EDT Right hand pain Left hand pain documented in this encounter Results * XR HAND LEFT 3 OR MORE VIEWS (06/29/2024 13:41 EDT) Anatomical Region Laterality Modality Upper Extremities Left Computed Radio graphy 07/05/2024 5:47 EDT Impressions 07/05/2024 5:47 EDT FINDINGS / IMPRESSION: 3 views of the right hand and 3 views of the left hand show no evidence of fracture, subluxation, or dislocation on either side. There are however moderate scattered degenerative changes on both hands involving mainly several of the interphalangeal joints bilaterally as well as the 1st CMC joints, and to a lesser extent the MCP joints bilaterally. Mineralization is age appropriate, no discrete erosions seen on either side. Soft tissues are grossly unremarkable on both hands. No evidence of chondrocalcinosis on either side. [id number] Narrative 07/05/2024 5:47 EDT EXAM/TECHNIQUE: XR HAND LEFT 3 OR MORE VIEWS, XR HAND RIGHT 3 OR MORE VIEWS ??06/29/2024 1:31 PM HISTORY: Bilateral hand pain COMPARISON: None. Procedure Note Surjit Mix MD - 07/05/2024 EXAM/TECHNIQUE: XR HAND LEFT 3 OR MORE VIEWS, XR HAND RIGHT 3 OR MOREVIEWS 06/29/2024 1:31 PM HISTORY: Bilateral hand pain COMPARISON: None. IMPRESSION FINDINGS / IMPRESSION: 3 views of the right hand and 3 views of the left hand show no evidence offracture, subluxation, or dislocation on either side. There are howevermoderate scattered degenerative changes on both hands involving mainlyseveral of the interphalangeal joints bilaterally as well as the 1st CMCjoints, and to a lesser extent the MCP joints bilaterally. Mineralizationis age appropriate, no discrete erosions seen on either side. Soft tissuesare grossly unremarkable on both hands. No evidence of chondrocalcinosison either side. [id number] us Alek Crespo MD IMG DIAGNOSTIC IMAGING ORDERAB LES Final Result * XR HAND RIGHT 3 OR MORE VIEWS (06/29/2024 13:41 EDT) Anatomical Region Laterality Modality Upper Extremities Right Computed Radio graphy 07/05/2024 5:47 EDT Impressions 07/05/2024 5:47 EDT FINDINGS / IMPRESSION: 3 views of the right hand and 3 views of the left hand show no evidence of fracture, subluxation, or dislocation on either side. There are however moderate scattered degenerative changes on both hands involving mainly several of the interphalangeal joints bilaterally as well as the 1st CMC joints, and to a lesser extent the MCP joints bilaterally. Mineralization is age appropriate, no discrete erosions seen on either side. Soft tissues are grossly unremarkable on both hands. No evidence of chondrocalcinosis on either side. [id number] Narrative 07/05/2024 5:47 EDT EXAM/TECHNIQUE: XR HAND LEFT 3 OR MORE VIEWS, XR HAND RIGHT 3 OR MORE VIEWS ??06/29/2024 1:31 PM HISTORY: Bilateral hand pain COMPARISON: None. Resulting Agency Comment [id number] Procedure Note Surjit Mix MD - 07/05/2024 EXAM/TECHNIQUE: XR HAND LEFT 3 OR MORE VIEWS, XR HAND RIGHT 3 OR MOREVIEWS 06/29/2024 1:31 PM HISTORY: Bilateral hand pain COMPARISON: None. IMPRESSION FINDINGS / IMPRESSION: 3 views of the right hand and 3 views of the left hand show no evidence offracture, subluxation, or dislocation on either side. There are howevermoderate scattered degenerative changes on both hands involving mainlyseveral of the interphalangeal joints bilaterally as well as the 1st CMCjoints, and to a lesser extent the MCP joints bilaterally. Mineralizationis age appropriate, no discrete erosions seen on either side. Soft tissuesare grossly unremarkable on both hands. No evidence of chondrocalcinosison either side. [id number] us Alek Crespo MD IMG DIAGNOSTIC IMAGING ORDERAB LES Final Result documented in this encounter Visit Diagnoses Diagnosis Right hand pain Pain in limb Left hand pain Pain in limb documented in this encounter Care Teams Service Inspector Relationship Specialty Start Date End Date Martina So FNP [address] [place] [phone] PCP - General 07/25/19 documented as of this encounter
--- OUTSIDE RECORDS SUMMARY | 2024-10-03 13:34 | XMS_ITS | Encounter Summary ---
Author Organization [facility] Address [address] [place] [address] Care Team Providers Care Applications Instructor Name Role Phone Martina So HEATHER Primary Care Provider [phone] Encounter Details Date Type Department Care Team (Late st Contact Info) Description 05/15/2022 Lab Requisition [facility] Pathology & Laboratory Medicine - [facility] [address] [place] [address] Michi Rocha MD [address] [place] [address], [address] [place], [place] [id number] Polyp of colon Social History Tobacco Use [...] explore management options, if applicable. 05/16/2022 16:07 [facility] Final Diagnosis A. COLON, CECUM, POLYPS, BIOPSY: - Tubular adenomas. 05/16/2022 16:07 [facility] Attestation By the signature below, the attending physician certifies that they have 1) personally conducted a gross and/or microscopic examination of the described specimen(s), and/or personally interpreted the results of laboratory testing of the described specimen(s), and 2) personally rendered or confirmed the above diagnosis. 05/16/2022 16:07 [facility] at 1606 Clinical History Screening colonoscopy 05/16/2022 16:07 [facility] Gross Description A. Received in formalin labelled with proper patient identification (initials H, A) and cecal polyps are 5 vila tissues (0.4 x 0.1 x 0.1 cm to 0.1 x 0.1 x 0.1 cm). Entirely submitted in A1. DORA DARLING 05/16/2022 6:28 05/16/2022 16:07 [facility] Performing Lab [facility] 05/16/2022 16:07 [facility] Scanned Images 05/16/2022 16:07 [facility] Tissue POLYP OF COLON / Unknown 05/15/2022 12:15 EDT 05/15/2022 17:59 EDT us Michi Rocha MD PATHOLOGY ORDERABLES Final Resu lt [facility] [address] [place] [address] documented in this encounter Visit Diagnoses Diagnosis Polyp of colon Benign neoplasm of colon documented in this encounter Care Teams Applications Instructor Relationship Specialty Start Date End Date Martina So FNP [address] [place] [phone] PCP - General 07/25/19 documented as of this encounter
--- OUTSIDE RECORDS SUMMARY | 2024-10-03 13:34 | XMS_ITS | Encounter Summary ---
Author Organization [facility] Address [address] [place] [address] Care Team Providers Care Poultry Farmworker Name Role Phone Unavailable Primary Care Provider Unavailabl e Encounter Details Date Type Department Care Team (Late st Contact Info) Description 03/21/2008 Before PRISM Converted Visit (Maple) [facility] - Maple conversion [address] [place] [address] Lauro Gaspar MD [address] [place] [address] [place] [address] Social History Tobacco Use Types [...] ? MARQUIS SHELTON ? Accession #: ? [id number] ? : ? 1965 (Age: 42) ??F ? Collect Date: ? 03/21/2008 ? Location: ? [facility] ? Receive Date: ? 03/22/2008 ? Provider: LAURO GASPAR MD ? Copy to: GREGORY IRIS SPECIAL WARFARE BOAT OPERATOR ? Final Pathologic Diagnosis: ? Skin of wrist, right, excision: ? 1. ?Dermatofibroma. ? - Lesion focally extends to edge of excision specimen. ? Document reviewed and electronically signed by: ? Harmony Cody MD ? Report ??Date: 03/23/2008 15:20 ? [...] Back)/mms ? End of Report ? [facility] 03/21/2008 03/22/2008 8:5 7 EDT us Lauro Gaspar MD PATHOLOGY ORDERABLES Final R esult [facility] [address] [place] [address] documented in this encounter Visit Diagnoses Not on filedocumented in this encounter
--- OUTSIDE RECORDS SUMMARY | 2024-10-03 13:34 | XMS_ITS | Encounter Summary ---
Author Organization [facility] Address [address] [place] [address] Care Team Providers Care Builder Operator Name Role Phone Unavailable Primary Care Provider Unavailabl e Encounter Details Date Type Department Care Team (Late st Contact Info) Description 11/15/2007 Results Only [facility] - Maple conversion [address] [place] [address] Colt Simmons, CATEGORY DIRECTOR [address] [facility] [address] [place] [address] Social History Tobacco Use Types [...] ? MARQUIS SHELTON ? Accession #: ? [id number] : ? 1965 (Age: 42) ??F ?Collect Date: ? 11/15/2007 Location: ? [facility] ? Receive Date: ? 11/17/2007 Provider: ?COLT SIMMONS CATEGORY DIRECTOR Copy to: ? Specimen/Source: ?ThinPrep Pap Test, Cervix/Endocervix, processed on [facility] ThinPrep Imaging System, with manual evaluation Last [...] End of Report [facility] 11/15/2007 11/17/2007 us Colt Simmons NP PATHOLOGY ORDERABLES Final R esult [facility] [address] [place] [address] documented in this encounter Visit Diagnoses Not on filedocumented in this encounter
--- OUTSIDE RECORDS SUMMARY | 2024-10-03 13:34 | XMS_ITS | Encounter Summary ---
Author Organization [facility] Address [address] [place] [address] Care Team Providers Care Fire Protection Engineer Name Role Phone Martina So Primary Care Provider Reason for Visit * Reason Comments Pain * Referral (Routine) - Receiving Office to Obtain Authorization Specialty Diagnoses / Procedures Referred By Luis Felipe barry Referred To Contact Orthopedic Surgery Diagnoses Abnormal MRI Martina So FNP [address] [facility] [address] [place] [address] Phone: tel: fax: [facility] [place] [address] [address] [place] [address] Phone: tel: fax: Referral ID Status Reason Start Date Expiration Date Visits Requested Visits Authorized [id number] Receiving Office to Obtain Authorization 1 1 Encounter Details Date Type Department Care Team (Late st Contact Info) Description 01/13/2023 12:30 EDT Office Visit [facility] [place] [address] [address] [place] [address] Burt Stout MD [address] [place] [address] [place] [address] Neck pain (Primary Dx) Social [...] 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 NIDDM Subjective: 57-year-old [id number] notes she began developing neck pain after [...] may reflect changes made after this encounter. cyclobenzaprine (FLEXERIL) 10 mg tablet Take 10 mg by mouth 3 times daily. traMADol (ULTRAM) 50 mg tablet Take 50 mg by mouth every 6 hours as needed for Pain. semaglutide (OZEMPIC) 1 mg/dose (4 mg/3 mL) pen injector Inject 1.5 mg into the skin every 7 days. added in this encounter Care Teams Fire Protection Engineer Relationship Specialty Start Date End Date Martina So FNP [address] [place] [address] [place] [phone] PCP - General 07/25/19 documented as of this encounter
--- OUTSIDE RECORDS SUMMARY | 2024-10-03 13:34 | XMS_ITS | Encounter Summary ---
Author Organization [facility] Address [address] [place] [address] Care Team Providers Care Marine Insulator Name Role Phone Martina So PAVING FOREMAN Primary Care Provider [phone] Encounter Details Date Type Department Care Team (Late st Contact Info) Description 01/08/2023 Orders Only [facility] Spine Program - [address] [place], [place] [id number] Burt Stout MD [address] [facility] [place] [address] Neck pain (Primary Dx) Social History Tobacco Use Types Packs/Day Years Used Date Smoking Tobacco: Never Assessed Comments Unknown Sex and Gender Information Value Date Recorded Sex Assigned at Not on file Legal Sex Female 18:20 EST Gender Identity Female 01/13/2023 12:16 EDT Sexual Orientation Not on file documented as of this encounter Ordered Prescriptions Prescription Sig Dispense Quantity Refills Last Filled Start Date End Date gabapentin (NEURONTIN) 300 mg capsule Take 1 [...] Cervicalgia documented in this encounter Care Teams Marine Insulator Relationship Specialty Start Date End Date Martina So FNP [address] [place] [address] [address] [place] [phone] PCP - General 07/25/19 documented as of this encounter
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
--- OUTSIDE RECORDS SUMMARY | 2024-10-03 13:34 | XMS_ITS | Encounter Summary ---
Author Organization [facility] Address [address] [place] [address] Care Team Providers Care Nitrocellulose Maker Name Role Phone Martina So TIRE RECAPPING MACHINE OPERATOR Primary Care Provider [phone] Encounter Details Date Type Department Care Team (Late st Contact Info) Description 02/20/2020 Lab Requisition [facility] Pathology & Laboratory Medicine - [facility] [address] [place] [address] Outr Resulting Lab, Provider Social History Tobacco [...] Priority Date/Time Associated Diagnosis Comments ZZCOVID-19 TEST [facility] PCR Today 02/20/2020 10:32 EDT COVID-19 TESTING Routine 02/20/2020 10:3 2 EDT documented in this encounter Results * COVID-19 TEST [facility] PCR (02/20/2020 10:32 EDT) Swab ENTIRE NASOPHARYNX / Unknown 02/20/2020 10:32 EDT 02/20/2020 15:39 EDT us Provider Outr Resulting Lab MICROBIOLOGY - GENER AL ORDERABLES Final Result Performing Organization Address [facility] Co de Phone Number [facility] [address] [place] [address] * COVID-19 TESTING (02/20/2020 10:32 EDT) COVID-19 rt-PCR Result Negative Negative 02/21/2020 18:20 EDT [facility] Comment: Negative results do not preclude 2019-nCoV infection and should not be used as the sole basis for treatment or other patient management decisions. Negative results must be combined with clinical observations, patient history, and epidemiological information. This test was developed and its performance characteristics determined by [facility]. It has not been cleared or approved [...] by the FDA Performed on the [employer] [address] Fast. Performing Lab AB [address] [facility] 02/21/2020 18:20 EDT [facility] Swab ENTIRE NASOPHARYNX / Unknown 02/20/2020 10:32 EDT 02/20/2020 15:39 EDT us Provider Outr Resulting Lab MICROBIOLOGY - GENER AL ORDERABLES Final Result Performing Organization Address [facility] Co de Phone Number [facility] [address] [place] [address] documented in this encounter Visit Diagnoses Not on filedocumented in this encounter Care Teams Nitrocellulose Maker Relationship Specialty Start Date End Date Martina So FNP [address] [place] [address] [address] [place] [phone] PCP - General 07/25/19 documented as of this encounter
--- OUTSIDE RECORDS SUMMARY | 2024-10-03 13:34 | XMS_ITS | Encounter Summary ---
Author Organization [facility] Address [address] [place] [address] Care Team Providers Care Primary Care Sales Representative Name Role Phone Unavailable Primary Care Provider Unavailabl e Encounter Details Date Type Department Care Team (Late st Contact Info) Description 11/11/2010 Results Only [facility] Laboratory Services - [facility] ([facility] [address] [place], [place] [phone] Jing Harrington, SWATI Social History Tobacco Use [...] ? MARQUIS SHELTON ? Accession #: ? [id number] ? : ? 1965 (Age: 45) ??F ?Collect Date: ? 11/11/2010 ? Location: ? [facility] ? Receive Date: ? 11/12/2010 ? Provider: JING M LEN CRM DYNAMICS DEVELOPER ? Copy to: COLT SIMMONS CRM DYNAMICS DEVELOPER ? Final Report ? SPECIMEN ADEQUACY ? [...] of endometrial pathology. ? Last Menstural Period: 11/02/ ? Other: Additional clinical information: H/o vulvar condyloma 2006 ? Specimen/Source: ??Pap Test, Cervix/Endocervix, ThinPrep Imaging System with ? manual evaluation ? Document reviewed and electronically signed by: ? Maria E Hightower CT(ASCP) ? Report ??Date: 11/14/2010 13:13 ? [...] diagnosis. ? End of Report ? [facility] 11/11/2010 11/12/2010 us Jing M Len CRM DYNAMICS DEVELOPER PATHOLOGY ORDERABLES Final Re sult [facility] [address] [place] [address] documented in this encounter Visit Diagnoses Not on filedocumented in this encounter
--- OUTSIDE RECORDS SUMMARY | 2024-10-03 13:34 | XMS_ITS | Encounter Summary ---
Author Organization [facility] Address [address] [place] [address] Care Team Providers Care Cell Pourer Name Role Phone Martina So HEATHER Primary Care Provider [phone] Reason for Visit * (Routine/Next Available) - Receiving Office to Obtain Authorization Specialty Diagnoses / Procedures Referred By Luis Felipe barry Referred To Contact Procedures MR OUTSIDE IMAGES CERVICAL SPINE Imaging, External Referral ID Status Reason Start Date Expiration Date Visits Requested Visits Authorized [id number] Receiving Office to Obtain Authorization 01/02/2023 1 1 Encounter Details Date Type Department Care Team (Latest Contact Info) Description 12/29/2022 - 12/29/2022 23:59 EDT Hospital Encounter [facility] Secondary Reads [place] Discharge Disposition: Home [...] 9:35 EDT This is a non-reportable exam. us External Imaging IMG OTHER IMAGING ORDERABLES Fi nal Result documented in this encounter Visit Diagnoses Not on filedocumented in this encounter Care Teams Cell Pourer Relationship Specialty Start Date End Date Martina So FNP [address] [phone] PCP - General 07/25/19 documented as of this encounter
--- OUTSIDE RECORDS SUMMARY | 2024-10-03 13:34 | XMS_ITS | Encounter Summary ---
Author Organization [facility] Address [address] [place] [address] Care Team Providers Care Art Editor Name Role Phone Unavailable Primary Care Provider Unavailabl e Encounter Details Date Type Department Care Team (Late st Contact Info) Description 08/14/2006 Results Only [facility] - Maple conversion [address] [place] [address] Sabino Mike MD [address] [place] [address] Social History Tobacco Use Types Packs/Day Years [...] ? MARQUIS SHELTON ? Accession #: ? [id number] : ? 1965 (Age: 40) ??F ?Collect Date: ? 08/14/2006 Location: ? [facility] ? Receive Date: ? 08/18/2006 Provider: ?SABINO MIKE MD Copy to: ? Specimen/Source: ?ThinPrep Pap Test, Cervix/Endocervix, processed on [employer] ThinPrep Imaging System, with manual evaluation Last [...] End of Report [facility] 08/14/2006 08/18/2006 us Sabino Mike MD PATHOLOGY ORDERABLES Final Resul t [facility] [address] [place] [address] documented in this encounter Visit Diagnoses Not on filedocumented in this encounter
--- OUTSIDE RECORDS SUMMARY | 2024-10-03 13:34 | XMS_ITS | Encounter Summary ---
Author Organization [facility] Address [address] [place] [address] Care Team Providers Care Slab Tripper Name Role Phone Judah Martina BEAD WIRE TAPER Primary Care Provider [phone] Reason for Visit * Reason Onset Date Comments Provider Referred 04/19/2020 Provider Referred 04/24/2020 Encounter Details Date Type Department Care Team (Late st Contact Info) Description 04/19/2020 Telephone [facility] Ophthalmology - Main [place] [address] [place] [address] Unknown, Provider, Provider Referred; Provider Referred Social [...] was intended for Dr. Ann So at [facility]. Requested it be forwarded, will do Advised [...] on filedocumented in this encounter Care Teams Slab Tripper Relationship Specialty Start Date End Date Martina oS FNP [address] [place] [phone] PCP - General 07/25/19 documented as of this encounter
--- OUTSIDE RECORDS SUMMARY | 2024-10-03 13:34 | XMS_ITS | Clinical Summary ---
Author Organization [facility] Address [address] [place] [address] Care Team Providers Care Forensic Structural Engineer Name Role Phone Martina So HEATHER Primary Care Provider [phone] Allergies Active Allergy Reactions Criticality Noted Date [...] original. Patient has given permission for [facility] to verbally discuss the following information [...] on file Obstetrics History Plan of Treatment Health Maintenance Due Date Last Done Comments Hepatitis C Screen 1965 Hepatitis B Vaccine (1 of 3 - 19+ 3-dose series) 08/28 COVID-19 Vaccine (2023- season) 2024 Insurance [facility] Care Teams Forensic Structural Engineer Relationship Specialty Start Date End Date Martina So FNP [address] [facility] [address] [place] [phone] PCP - General 07/25/19
--- OUTSIDE RECORDS SUMMARY | 2024-10-03 13:34 | XMS_ITS | Encounter Summary ---
Author Organization [facility] Address [address] [place] [address] Care Team Providers Care Stock Order Lister Name Role Phone Unavailable Primary Care Provider Unavailabl e Encounter Details Date Type Department Care Team (Late st Contact Info) Description 01/15/2009 Orders Only [facility] Laboratory Services - [facility] ([facility]) [address] [place], [place] [phone] Colt Simmons, SWATI [address] [place] [address] Social History Tobacco Use Types [...] ? MARQUIS SHELTON ? Accession #: ? [id number] ? : ? 1965 (Age: 43) ??F ?Collect Date: ? 01/15/2009 ? Location: ? [facility] ? Receive Date: ? 01/17/2009 ? Provider: ?COLT SIMMONS NP ? Copy to: ? Specimen/Source: ?Pap Test, [...] reviewed and electronically signed by: ? Viv J. Brandon, MD PhD ? Report Date: ??01/19/2009 11:44 ? End of Report ? [facility] 01/15/2009 01/17/2009 us Colt Simmons NP PATHOLOGY ORDERABLES Final R esult [facility] [address] [place] [address] documented in this encounter Visit Diagnoses Not on filedocumented in this encounter
--- OUTSIDE RECORDS SUMMARY | 2024-10-03 13:35 | XMS_ITS | Encounter Summary ---
Author Organization [facility] [place] [address] Care Team Providers Care Cloth Covered Helmet Puller Name Role Phone Trudy Olmedo APRN Primary Care Provider [phone] Encounter Details Date Type Department Care Team (Late st Contact Info) Description 05/07/2017 2:00 PM EDT Office Visit [place] [phone] Fidencio Denton [facility] [place] [address] Type 2 diabetes mellitus without complication, without [...] of type 2 diabetes. She is on Dcgysi08B twice daily,metformin XR 2000 mg in PM, [...] in 2 months Fidencio Denton DO, MS Criminal Defense Lawyercorporate health consultant Department of Medicine Section of Endocrinology [facility] documented in this encounter Plan of [...] metabolic panel (non-fasting) (05/07/2017 2:58 PM EDT) [facility] Glucose 274(H) 65 - 199 mg/dL [facility] Comment:Diabetes: >=200 mg/d L plus symptoms Blood Urea Nitrogen 14 8 - 18 mg/dL [facility] Creatinine 0.64(L) 0.70 - 1.20 mg/dL [facility] Comment: Please note that the pediatric reference intervals supplied above were not validated at [facility]. Results from pediatric patients should be interpreted in conjunction to the patient's age, height and muscle mass. Sodium 137 135 - 145 mmol/L [facility] Potassium 4.4 3.5 - 5.0 mmol/L [facility] Comment: Please note: ??Patients with WBC >100,000 may have falsely elevated Potassium levels. ??For accurate Potassium quantification in these patients send serum separator tube (gold top) for subsequent determinations. ??Contact the Clinical Chemistry Laboratory if there are any questions. Chloride 98 98 - 107 mmol/L [facility] Carbon Dioxide 26 22 - 31 mmol/L [facility] Anion Gap 13 5 - 15 mmol/L [facility] Calcium 9.8 8.5 - 10.5 mg/dL [facility] Protein, Total 7.2 6.1 - 8.0 gm/dL [facility] Albumin 4.1 3.2 - 5.2 gm/dL [facility] Aspartate Aminotransferase 28 0 - 30 unit/L [facility] Alanine Aminotransferase 45(H) 0 - 30 unit/L [facility] Alkaline Phosphatase 76 40 - 104 unit/L [facility] Bilirubin, Total 0.4 0.2 - 1.3 mg/dL [facility] Est Glomerular Filtration Rate >60 >=60 [facility] Comment: This estimated GFR (eGFR) value [...] the following links into your internet browser. [email or web address]/[facility]kf Blood specimen (specimen) 05/07/2017 2:58 PM EDT 05/07/2017 3:05 PM EDT Narrative Resulting Agency Comment Spec In Lab Fidencio Denton DO CHEMISTRY ORDERABLES Performing Organization Address [facility] Co de Phone Number [facility] [place] [address] * C-peptide (05/07/2017 2:58 PM EDT) C-Peptide 4.7 0.8 - 5.2 ng/mL [facility] Comment: Please note: as of 01/21/2017, C-Peptide testing is being performed in the [facility] Chemistry Laboratory using a new test method with a new reference interval. Blood specimen (specimen) 05/07/2017 2:58 PM EDT 05/07/2017 3:05 PM EDT Narrative Resulting Agency Comment Spec In Lab Fidencio Denton DO CHEMISTRY ORDERABLES Performing Organization Address City/[facility]/ZIP Co de Phone Number [facility] [place] [address] * (ABNORMAL) Hemoglobin A1c (05/07/2017 2:58 PM EDT) Hemoglobin A1c 10.0(H) 4.3 - 5.6 % [facility] Comment: Reference Range: 4.3 [...] Mellitus, Diabetes Care 2013; 36: Suppl. 1, K97-01 Estimated Average Glucose 240 mg/dL [facility] Comment: eAG equivalents for [...] into estimated average glucose values. ??Diabetes Care 2008:31(8):5113-1235. Blood specimen (specimen) 05/07/2017 2:58 PM EDT 05/07/2017 3:05 PM EDT Narrative Resulting Agency Comment Spec In Lab Fidencio Denton DO CHEMISTRY ORDERABLES [facility] [place] [address] documented in this encounter Visit Diagnoses Diagnosis Type 2 diabetes mellitus without complication, without long-term current use of insulin documented in this encounter Care Teams Cloth Covered Helmet Puller Relationship Specialty Start Date End Date Trudy Olmedo APRN PCP - General Family Medicine 12/04/16 04/20/19 documented as of this encounter
--- OUTSIDE RECORDS SUMMARY | 2024-10-03 13:35 | XMS_ITS | Encounter Summary ---
Author Organization Formerly [facility] Address [facility] [place] [address] Care Team Providers Care Repairer Switchgear Name Role Phone Martina So APRN Primary Care Provider [phone] Reason for Visit * Reason Comments Cognitive Problems * Psychiatric (Routine) - Closed Specialty Diagnoses / Procedures Referred By Luis Felipe barry Referred To Contact Psychiatry Diagnoses Mild cognitive impairment of uncertain or unknown etiology Procedures PRO NEUROPSYCHOLOGICAL TEST EVAL PHYS/QHP 1ST HOUR PRO NEUROPSYCHOLOGICAL TEST EVAL PHYS/QHP EA ADDL HR TC PSYCL/NRPSYCL ACIDIZER WATER WELL 2+ TEST 1ST 30 MIN TC PSYCL/NRPSYCL ACIDIZER WATER WELL 2+ TEST EA ADDL 30 MIN PRO NEUROBEHAVIORAL STATUS EXAM PHYS/QHP 1ST HR Nirali Joshi, MACHINE MADE SHOE UNIT WORKER [address] [facility] [place] [address] Burt Walters, PhD [facility] [place] [address] Referral ID Status Reason Start Date Expiration Date V isits Requested Visits Authorized [id number] Closed Consult, Test & Treat [facility] PCP Updated and/or Approved 10/02/2022 08/29/2023 6 6 Encounter Details Date Type Department Care Team (Late st Contact Info) Description 11/27/2022 8:30 AM EST Office Visit Psychiatry [place] [address] Yahaira Branch, PhD Post-traumatic stress disorder, chronic; [...] AND BACKGROUND: This is Marquis Figueroa???s first [facility] neuropsychological evaluation. She was [...] medical records. According to medical records, Ms. Figueroa is followed by neurology at [facility]. She first noted memory problems after [...] well as worsening of her hearing; though rubble placer did not appear concerned. Her daughter agreed [...] Occupational History: Ms. Figueroa was born in [place], [place]. She was adopted when 6 months [...] and got a bachelors in human services [id number]. She shared that it took her 21 [...] exam for national licensing despite workingwith a gis consultant and joining study groups. 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 and lives with her [...] Lynette-Barroso Executive Function System (DKEFS, selected subtests); Mineral Sleepiness Scale (ESS); Insomnia Severity Index (LESTER); Grooved Pegboard; PTSD-5 Checklist (PCL-5); [place] Making Test (TMT); Oliver Adult Intelligence Scale, [...] 41/80 (89) Low Average 4-7-9-10-11 List B 01/04 (8) Average Short-Delay Free Recall 9 (9) Average Short-Delay Cued Recall 10 (8) Average Long Delay Free Recall 06/06 (8) Average Long Delay Cued Recall 10 (8) Average Recognition Hits 14/16 (7) Low Average False Positive Errors 4 (8) Average Discriminability 2.3 (7) Low Average Total Recall Intrusions 4 (10) Average Total Target Repetitions 2 (12) High Average Forced Choice Recognition Within Expectation Semantic Clustering -0.2 (7) Low Average Serial Clustering 0.5 (11) Average Learning Blanco 1.7 (12) High Average BVMT-R: Raw (Percentile) [...] exam for national licensing despite having a gis consultant and joining study groups, further supports the hypothesis that distress is a orourke factor interference in her ability to pass the national exam. She reported that her hearing and vision have worsened, with poor peripheral vision. If not alreadydone, referral to an public employment mediator is recommended. Similarly, if her hearing continues to be problematic, seeking a second opinion from a different rubble placer may be considered. If her hearing is [...] in Neuropsychology Board Certified in Clinical Neuropsychology Corporate Development Associateecology professor A postdoctoral fellow in neuropsychology was involved in test administration, interpretation, and report development. The interpretation and integration of pertinent clinical information found in this report was directed and verified by the supervising neuropsychologist/licensed clinical psychologist. 17388: 1 hour (1 unit) 52501: 2 hours 8 minutes (2 units) 38160: 30 minutes (1 unit) 36056: 3 hours 32 minutes (7 units) Billing Code: Post-traumatic stress disorder, chronic [F43.12 (ICD-10-CM)], Depression, unspecifieddepression type [F32.A (ICD-10-CM)], Sleeping difficulty [G47.9 (ICD-10-CM)] documented in this encounter Plan of Treatment Not on file documented as of this encounter Visit Diagnoses Diagnosis Post-traumatic stress disorder, chronic Depression, unspecified depression type Sleeping difficulty Sleep disturbance, unspecified documented in this encounter Care Teams Repairer Switchgear Relationship Specialty Start Date End Date Martina So APRN [address] [place] [address] PCP - General Family Medicine 08/26/19 documented as of this encounter
--- OUTSIDE RECORDS SUMMARY | 2024-10-03 13:35 | XMS_ITS | Encounter Summary ---
Author Organization [facility] [place] [address] Care Team Providers Care Tripe Cooker Name Role Phone Janet Jimenez APRN Primary Care Provider [phone] Reason for Visit * Reason Onset Date Comments Medication Refill 08/17/2015 Encounter Details Date Type Department Care Team (Late st Contact Info) Description 08/17/2015 Refill [place] [address] Fidencio Denton [facility] [place] [address] Social History Tobacco Use Types Packs/Day Years [...] on filedocumented in this encounter Care Teams Tripe Cooker Relationship Specialty Start Date End Date Janet Jimenez APRN PCP - General 05/22/15 11/16/16 documented as of this encounter
--- OUTSIDE RECORDS SUMMARY | 2024-10-03 13:35 | XMS_ITS | Encounter Summary ---
Author Organization [facility]ly [facility] Address [facility] [place] [address] Care Team Providers Care Operations Officer Trust Department Name Role Phone Trudy Olmedo APRN Primary Care Provider [phone] Encounter Details Date Type Department Care Team (Latest Contact Info) Description 05/16/2018 12:22 PM EDT - 05/16/2018 11:59 PM EDT Hospital [place] [phone] Uncontrolled type 2 diabetes mellitus without complication, [...] gauge x 5/16 Needle 1 each by [facility].(Non-Drug; Combo Route) route 3 times daily. 300 [...] PM EDT) Mike Saliva (JANUARY) <50 ng/dL [facility] Comment: REFERENCE VALUE 7:00-9:00 am: 100-750 3:00-5:00 pm: <401 11:00 pm-Midnight: <100 ADDITIONAL INFORMATION This test was developed and its performance characteristics determined by [facility] in a manner consistent with CLIA requirements. This test has not been cleared or approved by the U.S. Food and Drug Administration. Test Performed by: [facility] [address] [place] [address] Specimen of unknown material (specimen) 05/16/2018 11:28 PM EDT 05/21/2018 3:12 PM EDT Fidencio Denton DO LAB SEND OUT ORDERAB LES Performing Organization Address City/State/[facility] Co de Phone Number [facility] [place] [address] documented in this encounter Visit Diagnoses Diagnosis Uncontrolled type 2 diabetes mellitus without complication, with long-term current use of insulin documented in this encounter Care Teams Operations Officer Trust Department Relationship Specialty Start Date End Date Trudy Olmedo APRN PCP - General Family Medicine 12/04/16 04/20/19 documented as of this encounter
--- OUTSIDE RECORDS SUMMARY | 2024-10-03 13:35 | XMS_ITS | Encounter Summary ---
Author Organization [facility] [address] Care Team Providers Care Ice Puller Name Role Phone Janet Jimenez APRN Primary Care Provider [phone] Reason for Visit * Reason Onset Date Comments Medication Refill 01/29/2016 Encounter Details Date Type Department Care Team (Late st Contact Info) Description 01/29/2016 Refill [place] [address] [facility] [place] [address] Social History Tobacco Use Types Packs/Day Years [...] on filedocumented in this encounter Care Teams Ice Puller Relationship Specialty Start Date End Date Janet Jimenez APRN PCP - General 05/22/15 11/16/16 documented as of this encounter
--- OUTSIDE RECORDS SUMMARY | 2024-10-03 13:35 | XMS_ITS | Encounter Summary ---
Author Organization [facility]ly [facility] [place] [address] Care Team Providers Care Conference Coordinator Name Role Phone Trudy Olmedo APRN Primary Care Provider [phone] Reason for Visit * Reason Onset Date Comments Medication Refill 02/02/2017 Encounter Details Date Type Department Care Team (Late st Contact Info) Description 02/02/2017 Refill [place] [address] [facility] [address] [place] [address] Social History Tobacco Use Types Packs/Day Years [...] on filedocumented in this encounter Care Teams Conference Coordinator Relationship Specialty Start Date End Date Trudy Olmedo APRN PCP - General Family Medicine 12/04/16 04/20/19 documented as of this encounter
--- OUTSIDE RECORDS SUMMARY | 2024-10-03 13:35 | XMS_ITS | Encounter Summary ---
Author Organization [facility] [place] [address] Care Team Providers Care Yoker Machine Operator Name Role Phone Janet Jimenez APRN Primary Care Provider [phone]- [phone] Encounter Details Date Type Department Care Team (Late st Contact Info) Description 09/18/2015 Telephone [place] [address] Fidencio Denton DO [facility] [place] [address] Social History Tobacco Use Types Packs/Day Years [...] on filedocumented in this encounter Care Teams Yoker Machine Operator Relationship Specialty Start Date End Date Janet Jimenez APRN PCP - General 05/22/15 11/16/16 documented as of this encounter
--- OUTSIDE RECORDS SUMMARY | 2024-10-03 13:35 | XMS_ITS | Encounter Summary ---
Author Organization [facility] [place] [address] Care Team Providers Care Senior Sql Server Database Developer Name Role Phone Janet Jimenez APRN Primary Care Provider [phone]- [phone] Encounter Details Date Type Department Care Team (Late st Contact Info) Description 12/03/2015 Telephone [place] [phone] Katie Pride LPN Social History Tobacco Use [...] does not look infected Call transferred to company secretary. Scheduled to see Dr Keen 12/07/15. Forward to Dr Keen for lab orders. documented in this encounter Plan of Treatment Not on file documented as of this encounter Results * (ABNORMAL) Hemoglobin A1c (12/10/2015 3:08 PM EDT) Hemoglobin A1c 8.4(H) 4.3 - 5.6 % [facility] Comment: Reference Range: [...] Mellitus, Diabetes Care 2013; 36: Suppl. 1, G46-84 Estimated Average Glucose 194 mg/dL [facility] Comment: eAG equivalents for HbA1c percentages: HbA1c(%) ?eAG(mg/dL) 6.0 ?126 6.5 ?140 7.0 ?154 7.5 ?169 8.0 ?183 8.5 ?197 9.0 ?212 9.5 ?226 10.0 ? 240 Limitations: The eAG calculation has not been validated on women, individuals below 18 years old and above 70 years old, and individuals with hemoglobinopathies. Additional resources are available on the ADA website: [email or web address] Dinesh EPPS, Jeff J, Placido R, et al. ??Translating the A1C assay into estimated average glucose values. ??Diabetes Care 2008:31(8):0863-1971. Blood specimen (specimen) 12/10/2015 3:08 PM EDT 12/10/2015 6:21 PM EDT Narrative Resulting Agency Comment Spec In Lab Fidencio Keen DO CHEMISTRY ORDERABLES [facility] [place] [address] documented in this encounter Visit Diagnoses Diagnosis Diabetes mellitus type 2, uncontrolled Type II or unspecified type diabetes mellitus without mention of complication, uncontrolled documented in this encounter Care Teams Senior Sql Server Database Developer Relationship Specialty Start Date End Date Janet Jimenez APRN PCP - General 05/22/15 11/16/16 documented as of this encounter
--- OUTSIDE RECORDS SUMMARY | 2024-10-03 13:35 | XMS_ITS | Encounter Summary ---
Author Organization [facility] [place] [address] Care Team Providers Care Drawing Press Operator Name Role Phone Janet Jimenez APRN Primary Care Provider [phone]- [phone] Encounter Details Date Type Department Care Team (Late st Contact Info) Description 12/12/2015 Tele[place] [phone] Katie Pride LPN Social History Tobacco Use [...] on filedocumented in this encounter Care Teams Drawing Press Operator Relationship Specialty Start Date End Date Janet Jimenez, RECORDS SPECIALIST PCP - General 05/22/15 11/16/16 documented as of this encounter
--- OUTSIDE RECORDS SUMMARY | 2024-10-03 13:35 | XMS_ITS | Encounter Summary ---
Author Organization [facility] [place] [address] Care Team Providers Care Computer Security Specialist Name Role Phone Janet Jimenez APRN Primary Care Provider [phone]- [phone] Encounter Details Date Type Department Care Team (Late st Contact Info) Description 10/04/2015 Tele[place] [phone] Katie Pride LPN Social History Tobacco Use [...] on filedocumented in this encounter Care Teams Computer Security Specialist Relationship Specialty Start Date End Date Janet Jimenez APRN PCP - General 05/22/15 11/16/16 documented as of this encounter
--- OUTSIDE RECORDS SUMMARY | 2024-10-03 13:35 | XMS_ITS | Encounter Summary ---
Author Organization [facility] [place] [address] Care Team Providers Care Water Resources Program Director Name Role Phone Janet Jimenez APRN Primary Care Provider [phone] Encounter Details Date Type Department Care Team (Late st Contact Info) Description 10/17/2015 Telephone [place] [phone] Katie Pride LPN Social History Tobacco Use [...] Denton was read to patient who states that [...] on filedocumented in this encounter Care Teams Water Resources Program Director Relationship Specialty Start Date End Date Janet Jimenez APRN PCP - General 05/22/15 11/16/16 documented as of this encounter
--- OUTSIDE RECORDS SUMMARY | 2024-10-03 13:35 | XMS_ITS | Encounter Summary ---
Author Organization [facility] [place] [address] Care Team Providers Care Tomato Grader Name Role Phone Afsaneh Simmons MD Primary Care Provider [phone] Encounter Details Date Type Department Care Team (Late st Contact Info) Description 02/06/2015 Telephone [place] [phone] Katie Pride LPN Social History Tobacco Use [...] on filedocumented in this encounter Care Teams Tomato Grader Relationship Specialty Start Date End Date Afsaneh Simmons MD [address] [place] [address] PCP - General 08/13/10 05/21/15 documented as of this encounter
--- OUTSIDE RECORDS SUMMARY | 2024-10-03 13:35 | XMS_ITS | Encounter Summary ---
Author Organization [facility] [place] [address] Care Team Providers Care Ship Officer Name Role Phone Janet Jimenez APRN Primary Care Provider [phone] Reason for Visit * Reason Onset Date Comments Medication Refill 10/26/2015 Encounter Details Date Type Department Care Team (Late st Contact Info) Description 10/26/2015 [place] [address] [facility] [place] [address] Social History Tobacco Use Types Packs/Day Years [...] on filedocumented in this encounter Care Teams Ship Officer Relationship Specialty Start Date End Date Janet Jimenez APRN PCP - General 05/22/15 11/16/16 documented as of this encounter
--- OUTSIDE RECORDS SUMMARY | 2024-10-03 13:35 | XMS_ITS | Encounter Summary ---
Author Organization [facility] [place] [address] Care Team Providers Care Copy Director Name Role Phone Martina So APRN Primary Care Provider [phone] Encounter Details Date Type Department Care Team (Late st Contact Info) Description 01/08/2023 Telephone Psychiatry [place] [phone] Hazel Carrasquillo Social History Tobacco Use Types [...] on filedocumented in this encounter Care Teams Copy Director Relationship Specialty Start Date End Date Martina So APRN [address] [place] [address] PCP - General Family Medicine 08/26/19 documented as of this encounter
--- OUTSIDE RECORDS SUMMARY | 2024-10-03 13:35 | XMS_ITS | Encounter Summary ---
Author Organization [facility] [place] [address] Care Team Providers Care Supervisor Elementary Education Name Role Phone Janet Jimenez APRN Primary Care Provider [phone] Encounter Details Date Type Department Care Team (Late st Contact Info) Description 05/29/2015 Telephone [place] [phone] Katie Pride LPN Social History Tobacco Use [...] on filedocumented in this encounter Care Teams Supervisor Elementary Education Relationship Specialty Start Date End Date Janet Jimenez APRN PCP - General 05/22/15 11/16/16 documented as of this encounter
--- OUTSIDE RECORDS SUMMARY | 2024-10-03 13:35 | XMS_ITS | Encounter Summary ---
Author Organization [facility] [place] [address] Care Team Providers Care Bolt Maker Name Role Phone Trudy Olmedo APRN Primary Care Provider [phone] Reason for Visit * Reason Onset Date Comments Medication Refill 05/10/2018 Encounter Details Date Type Department Care Team (Late st Contact Info) Description 05/10/2018 [place] [address] [facility] [place] [address] Social History Tobacco Use Types Packs/Day Years [...] on filedocumented in this encounter Care Teams Bolt Maker Relationship Specialty Start Date End Date Trudy Olmedo APRN PCP - General Family Medicine 12/04/16 04/20/19 documented as of this encounter
--- OUTSIDE RECORDS SUMMARY | 2024-10-03 13:35 | XMS_ITS | Encounter Summary ---
Author Organization [facility] [place] [address] Care Team Providers Care Airplane Coverer Name Role Phone Trudy Olmedo APRN Primary Care Provider [phone] Reason for Visit * Reason Comments Diabetes Encounter Details Date Type Department Care Team (Late st Contact Info) Description 12/04/2016 3:00 PM EDT Office [place] [address] [facility] [place] [address] Type 2 diabetes mellitus without complication, unspecified skilled nursing insulin use status Social History Tobacco Use [...] of type 2 diabetes. She is on [id number] twice daily,metformin 2000 mg in PM, and [...] over the past 1 year. Wehave excluded [place]'s syndrome (2 normal midnight salivary cortisol measurements). [...] months depending on A1C Fidencio Denton DO, Social Science Teacherdrag out worker Department of Medicine Section of Endocrinology [facility] documented in this encounter Plan of Treatment Not on file documented as of this encounter Procedures Procedure Name Priority Date/Time Associated Diagnosis Comments HEMOGLOBIN A1C STAT 12/04/2016 3:59 PM EDT Type 2 diabetes mellitus without complication, unspecified exterminator helper insulin use status documented in this encounter Results * (ABNORMAL) Hemoglobin A1c (12/04/2016 3:59 PM EDT) Hemoglobin A1c 9.1(H) 4.3 - 5.6 % [facility] Comment: Reference Range: 4.3 [...] Mellitus, Diabetes Care 2013; 36: Suppl. 1, Q00-33 Estimated Average Glucose 214 mg/dL [facility] Comment: eAG equivalents for HbA1c percentages: HbA1c(%) ?eAG(mg/dL) 6.0 ?126 6.5 ?140 7.0 ?154 7.5 ?169 8.0 ?183 8.5 ?197 9.0 ?212 9.5 ?226 10.0 ? 240 Limitations: The eAG calculation has not been validated on women, individuals below 18 years old and above 70 years old, and individuals with hemoglobinopathies. Additional resources are available on the ADA website: http://IS Decisions.Jobs2Web/DHMCadacalc Dinesh EPPS, Jeff J, Placido R, et al. ??Translating the A1C assay into estimated average glucose values. ??Diabetes Care 2008:31(8):8844-4157. Blood specimen (specimen) 12/04/2016 3:59 PM EDT 12/04/2016 4:07 PM EDT Narrative Resulting Agency Comment Spec In Lab Fidencio Denton DO CHEMISTRY ORDERABLES Performing Organization Address City/State/[facility] Co de Phone Number [facility] [place] [address] documented in this encounter Visit Diagnoses Diagnosis Type 2 diabetes mellitus without complication, unspecified exterminator helper insulin use status documented in this encounter Care Teams Airplane Coverer Relationship Specialty Start Date End Date Trudy Olmedo APRN PCP - General Family Medicine 12/04/16 04/20/19 documented as of this encounter
--- OUTSIDE RECORDS SUMMARY | 2024-10-03 13:35 | XMS_ITS | Encounter Summary ---
Author Organization [place] [address] Care Team Providers Care Hotel Houseman Name Role Phone Janet Jimenez APRN Primary Care Provider [phone] Encounter Details Date Type Department Care Team (Late st Contact Info) Description 11/01/2015 Telephone [place] [phone] Katie Pride LPN Social History Tobacco Use [...] no GI symptoms and will probably increase [id number] mg this PM. documented in this encounter Plan of Treatment Not on file documented as of this encounter Visit Diagnoses Not on filedocumented in this encounter Care Teams Hotel Houseman Relationship Specialty Start Date End Date Janet Jimenez APRN PCP - General 05/22/15 11/16/16 documented as of this encounter
--- OUTSIDE RECORDS SUMMARY | 2024-10-03 13:35 | XMS_ITS | Clinical Summary ---
Author Organization [facility] Address [facility] [place] [address] Care Team Providers Care Hydrographical Technical Officer Name Role Phone Martina So APRN Primary Care Provider [phone] Allergies Active Allergy Reactions Criticality Noted Date [...] DELICA) 33 gauge Misc 1 Units by [facility].(Non-Drug; Combo Route) route 3 times daily. 100 [...] gauge x 5/16 Needle 1 each by [facility].(Non-Drug; Combo Route) route 3 times daily. 300 [...] Hepatitis B vaccine (0-59 yrs) (1) 1984 Tetanus/Diphtheria/Pertussis Vaccines (1 - Tdap) 1984 HPV test 1995 PAP Smear 1995 Breast Cancer Share Decision Needed 2005 Breast Cancer screening 2005 Zoster vaccine (1 of 2) 2015 Advance Directive 2020 Diabetes Screening (HgbA1C o r Glucose) 05/06/2021 05/06/2018, 05/06/2018, 01/28/2018, Additional history exists Covid-19 Vaccine (1 - 2024-2 5 season) 2024 Influenza (Flu) vaccine (1 o f 1 - Influenza standard series) 05/22/2024 Procedures Procedure Name Priority Date/Time Associated Diagnosis Comments HEMOGLOBIN A1C STAT 05/06/2018 4:14 PM EDT Uncontrolled diabetes mellitus type 2 without complications, unspecified whether penitentiary insulin use from Last 3 Months or Most Recently Relevant to Health Maintenance Results * (ABNORMAL) Hemoglobin A1c (05/06/2018 4:14 PM EDT) Hemoglobin A1c 10.2(H) 4.3 - 5.6 % [facility] 36: Suppl. 1, S67-74 Estimated Average Glucose 246 mg/dL [facility] Comment: [...] are available on the ADA website. Dinesh DM, Jeff J, Placido R, et al. ??Translating the A1C assay into estimated average glucose values. ??Diabetes Care 2008:31(8):5447-2186. Blood specimen (specimen) 05/06/2018 4:14 PM EDT 05/06/2018 4:22 PM EDT Narrative Resulting Agency Comment Spec In Lab Fidencio Denton DO CHEMISTRY ORDERABLES [facility] [place] [address] from Last 3 Months or Most Recently Relevant to Health Maintenance Care Teams Hydrographical Technical Officer Relationship Specialty Start Date End Date Martina So APRN [address] [place], [place] [address] PCP - General Family Medicine 08/26/19
--- OUTSIDE RECORDS SUMMARY | 2024-10-03 13:35 | XMS_ITS | Encounter Summary ---
Author Organization [facility] [place] [address] Care Team Providers Care Small Business Sales Representative Name Role Phone Janet Jimenez APRN Primary Care Provider [phone] Reason for Visit * Reason Comments Diabetes Encounter Details Date Type Department Care Team (Late st Contact Info) Description 05/22/2015 4:30 PM EDT Office [place] [address] [facility] [place] [address] Diabetes mellitus out of control Discharge Disposition: [...] in counseling Fidencio Denton DO, MS Staff Wire Harness Assembler [facility] documented in this encounter Plan of [...] EDT) Glucose 100 65 - 199 mg/dL [facility] Comment:Diabetes: >=200 mg/d L plus symptoms Blood specimen (specimen) 05/22/2015 5:37 PM EDT 05/22/2015 5:47 PM EDT Narrative Resulting Agency Comment Spec In Lab Fidencio Denton DO CHEMISTRY ORDERABLES Performing Organization Address City/[facility]/ZIP Co de Phone Number [facility] * C-peptide (05/22/2015 5:37 PM EDT) C-Peptide 1.4 1.1 - 4.4 ng/mL [facility] Comment: Test Performed by: [place] [address] Rotary Rock Drilling Machine Operator: Jessica Abdi, Ph.D. Blood specimen (specimen) 05/22/2015 5:37 PM EDT 05/23/2015 9:39 AM EDT Narrative Resulting Agency Comment Spec In Lab Fidencio eDnton DO CHEMISTRY ORDERABLES Performing Organization Address [facility] Co de Phone Number [facility] * (ABNORMAL) Hemoglobin A1c (05/22/2015 5:37 PM EDT) Pathologist [facility] Hemoglobin A1c 6.8(H) 4.3 - 5.6 % [facility] Comment: Reference Range: 4.3 - 5.6% 5.7 [...] 1, S67-74 Estimated Average Glucose 148 mg/dL [facility] Comment: eAG equivalents for HbA1c percentages: HbA1c(%) ?eAG(mg/dL) 6.0 ?126 6.5 ?140 7.0 ?154 7.5 ?169 8.0 ?183 8.5 ?197 9.0 ?212 9.5 ?226 10.0 ? 240 Limitations: The eAG calculation has not been validated on women, individuals below 18 years old and above 70 years old, and individuals with hemoglobinopathies. Additional resources are available on the ADA website: http://[employer].AmVac/DHMCadacalc Dinesh EPPS, Jeff J, Placido R, et al. ??Translating the A1C assay into estimated average glucose values. ??Diabetes Care 2008:31(8):2898-8368. Blood specimen (specimen) 05/22/2015 5:37 PM EDT 05/22/2015 5:47 PM EDT Narrative Resulting Agency Comment Spec In Lab Fidencio Denton DO CHEMISTRY ORDERABLES Performing Organization Address City/State/[facility] Co de Phone Number [facility] documented in this encounter Visit Diagnoses Diagnosis Diabetes mellitus out of control Type II or unspecified type diabetes mellitus without mention of complication, uncontrolled documented in this encounter Care Teams Small Business Sales Representative Relationship Specialty Start Date End Date Janet Jimenez APRN PCP - General 05/22/15 11/16/16 documented as of this encounter
--- OUTSIDE RECORDS SUMMARY | 2024-10-03 13:35 | XMS_ITS | Encounter Summary ---
Author Organization [facility] [place] [address] Care Team Providers Care Track Broom Operator Name Role Phone Janet Jimenez APRN Primary Care Provider [phone] Reason for Visit * Reason Comments Diabetes Encounter Details Date Type Department Care Team (Latest Contact Info) Description 09/12/2015 10:30 AM EST Office [place] [phone] [facility] [place] [address] Diabetes mellitus type 2, uncomplicated Social History [...] 4 months Fidencio Denton DO, MS Staff Technical Sales Support Specialist [facility] documented in this encounter Plan of Treatment Not on file documented as of this encounter Procedures Procedure Name Priority Date/Time Associated Diagnosis Comments HEMOGLOBIN A1C Routine 09/12/2015 11:28 AM EST Diabetes mellitus type 2, uncomplicated documented in this encounter Results * (ABNORMAL) Hemoglobin A1c (09/12/2015 11:28 AM EST) Hemoglobin A1c 8.2(H) 4.3 - 5.6 % [facility] Comment: Reference Range: 4.3 - 5.6% 5.7 [...] 1, S67-74 Estimated Average Glucose 189 mg/dL [facility] Comment: eAG equivalents for HbA1c percentages: HbA1c(%) ?eAG(mg/dL) 6.0 ?126 6.5 ?140 7.0 ?154 7.5 ?169 8.0 ?183 8.5 ?197 9.0 ?212 9.5 ?226 10.0 ? 240 Limitations: The eAG calculation has not been validated on women, individuals below 18 years old and above 70 years old, and individuals with hemoglobinopathies. Additional resources are available on the ADA website: http://[employer].SiBEAM/DHMCadacalc Dinesh EPPS, Jeff J, Placido R, et al. ??Translating the A1C assay into estimated average glucose values. ??Diabetes Care 2008:31(8):1316-1571. Blood specimen (specimen) 09/12/2015 11:28 AM EST 09/12/2015 11:48 AM EST Narrative Resulting Agency Comment Spec In Lab Fidencio Denton DO CHEMISTRY ORDERABLES Performing Organization Address City/State/[facility] Co pr Phone Number [facility] documented in this encounter Visit Diagnoses Diagnosis Diabetes mellitus type 2, uncomplicated Type II or unspecified type diabetes mellitus without mention of complication, not stated as uncontrolled documented in this encounter Care Teams Track Broom Operator Relationship Specialty Start Date End Date Janet Jimenez APRN PCP - General 05/22/15 11/16/16 documented as of this encounter
--- OUTSIDE RECORDS SUMMARY | 2024-10-03 13:35 | XMS_ITS | Encounter Summary ---
Author Organization [facility] [place] [address] Care Team Providers Care Tailing Hand Name Role Phone Trudy Olmedo APRN Primary Care Provider [phone] Reason for Visit * Reason Onset Date Comments Medication Refill 11/04/2017 Encounter Details Date Type Department Care Team (Late st Contact Info) Description 11/04/2017 Ref[place] [address] [facility] [place] [address] Social History Tobacco Use Types Packs/Day Years [...] on filedocumented in this encounter Care Teams Tailing Hand Relationship Specialty Start Date End Date Trudy Olmedo APRN PCP - General Family Medicine 12/04/16 04/20/19 documented as of this encounter
--- OUTSIDE RECORDS SUMMARY | 2024-10-03 13:35 | XMS_ITS | Encounter Summary ---
Author Organization [facility] [place] [address] Care Team Providers Care Bladder Changer Name Role Phone Janet Jimenez APRN Primary Care Provider [phone] Reason for Visit * Reason Onset Date Comments Medication Refill 09/17/2016 Encounter Details Date Type Department Care Team (Late st Contact Info) Description 09/17/2016 Refill [place] [address] [facility] [place] [address] Social History Tobacco Use Types Packs/Day Years [...] on filedocumented in this encounter Care Teams Bladder Changer Relationship Specialty Start Date End Date Janet Jimenez APRN PCP - General 05/22/15 11/16/16 documented as of this encounter
--- OUTSIDE RECORDS SUMMARY | 2024-10-03 13:35 | XMS_ITS | Encounter Summary ---
Author Organization [facility] [place] [address] Care Team Providers Care Agency Sales Management Assistant Name Role Phone Afsaneh Simmons MD Primary Care Provider [phone] Reason for Visit * Reason Onset Date Comments Medication Refill 01/22/2015 Encounter Details Date Type Department Care Team (Late st Contact Info) Description 01/22/2015 [place] [address] Fidencio Denton, [facility] DR [place]OCRIN[place] [address] Social History Tobacco Use Types Packs/Day Years Used Date Smoking Tobacco: Never Sex and Gender Information Value Date Recorded Sex Assigned at Not on file Gender Identity Not on file Sexual Orientation Not on file documented as of this encounter Plan of Treatment Not on file documented as of this encounter Visit Diagnoses Not on filedocumented in this encounter Care Teams Agency Sales Management Assistant Relationship Specialty Start Date End Date Afsaneh Simmons MD [facility] [address] [place], [place] [address] PCP - General 08/13/10 05/21/15 documented as of this encounter
--- OUTSIDE RECORDS SUMMARY | 2024-10-03 13:35 | XMS_ITS | Encounter Summary ---
Author Organization [facility] [place] [address] Care Team Providers Care Drawing In Hand Name Role Phone Trudy Olmedo APRN Primary Care Provider [phone] Reason for Visit * Reason Onset Date Comments Medication Refill 04/27/2017 Encounter Details Date Type Department Care Team (Late st Contact Info) Description 04/27/2017 [place] [address] [facility] [place] [address] Social History Tobacco Use Types Packs/Day Years [...] filedocumented in this encounter Care Teams Drawing In Hand Relationship Specialty Start Date End Date Trudy Olmedo APRN PCP - General Family Medicine 12/04/16 04/20/19 documented as of this encounter
--- OUTSIDE RECORDS SUMMARY | 2024-10-03 13:35 | XMS_ITS | Encounter Summary ---
Author Organization [facility] [place] [address] Care Team Providers Care Tape Cutter Name Role Phone Trudy Olmedo APRN Primary Care Provider [phone] Encounter Details Date Type Department Care Team (Late st Contact Info) Description 08/03/2017 [place] [address] Katie Pride LPN Social History Tobacco Use [...] on filedocumented in this encounter Care Teams Tape Cutter Relationship Specialty Start Date End Date Trudy Olmedo APRN PCP - General Family Medicine 12/04/16 04/20/19 documented as of this encounter
--- OUTSIDE RECORDS SUMMARY | 2024-10-03 13:35 | XMS_ITS | Encounter Summary ---
Author Organization [facility] [place] [address] Care Team Providers Care Supervisor Bakery Sanitation Name Role Phone Martina So APRN Primary Care Provider [phone] Encounter Details Date Type Department Care Team (Late st Contact Info) Description 04/02/2023 Telephone Psychiatry [place] [address] Yahaira Branch, PhD Social History Tobacco Use Types Packs/Day Years Used Date Smoking Tobacco: Never Smokeless Tobacco: Never Sex and Gender Information Value Date Recorded Sex Assigned at Not on file Gender Identity Not on file Sexual Orientation Not on file documented as of this encounter Miscellaneous Notes * Telephone Encounter - Yahaira Branch, PhD - 04/02/2023 3:37 PM EDT This procedure writer called patient to set up feedback for neuropsychological evaluation. Feedback scheduledfor 04/07 at 8:30AM. documented in this encounter Plan of Treatment Not on file documented as of this encounter Visit Diagnoses Not on filedocumented in this encounter Care Teams Supervisor Bakery Sanitation Relationship Specialty Start Date End Date Martina So APRN [address] [place], [place] [id number] PCP - General Family Medicine 08/26/19 documented as of this encounter
--- OUTSIDE RECORDS SUMMARY | 2024-10-03 13:35 | XMS_ITS | Encounter Summary ---
Author Organization [facility] [place] [address] Care Team Providers Care Wellness Ambassador Name Role Phone Janet Jimenez APRN Primary Care Provider [phone] Reason for Visit * Reason Comments Diabetes Encounter Details Date Type Department Care Team (Late st Contact Info) Description 12/10/2015 3:30 PM EDT Office [place] [address] [facility] [place] [address] Diabetes mellitus type 2, uncontrolled Social History [...] of type 2 diabetes. She is on [id number] twice daily,metformin 2000 mg in PM, glimepiride [...] blood glucose Fidencio Denton DO, MS Staff Vertical Punch Operator [facility] documented in this encounter Plan [...] uncontrolled documented in this encounter Care Teams Wellness Ambassador Relationship Specialty Start Date End Date Janet Jimenez APRN PCP - General 05/22/15 11/16/16 documented as of this encounter
--- OUTSIDE RECORDS SUMMARY | 2024-10-03 13:35 | XMS_ITS | Encounter Summary ---
Author Organization [facility] [place] [address] Care Team Providers Care Airline Pilot Flight Instructor Name Role Phone Judah Martina QURESHI Primary Care Provider [phone] Reason for Visit * Reason Comments Results Encounter Details Date Type Department Care Team (Latest Contact Info) Description 04/09/2023 8:30 AM EDT TH Visit (TeleHealth) Psychiatry [place] [phone] Yahaira Branch, PhD Post-traumatic stress disorder, chronic; [...] FEEDBACK NOTE Patient Name: Marquis Figueroa A#: [id number] Date of : 1965 Age: 57 years Sex: Female Referred By: Nirali Joshi APRN Date of Evaluation: 11/27/2022 Date of Feedback: 04/09/2023 Ms. Figueroa gave permission for and was seen today via a telehealth (videoconference) visit to discuss her 11/27/2022 [facility] neuropsychological evaluation. During this visit, she was located at her home in [place]. A total of 50 minutes were spent [...] in Neuropsychology Board Certified in Clinical Neuropsychology [facility] Dyer[facility] page documented in this encounter Plan of Treatment Not on file documented as of this encounter Visit Diagnoses Diagnosis Post-traumatic stress disorder, chronic Depression, unspecified depression type Sleeping difficulty Sleep disturbance, unspecified documented in this encounter Care Teams Airline Pilot Flight Instructor Relationship Specialty Start Date End Date Martina So APRN [address] [place] [address] PCP - General Family Medicine 08/26/19 documented as of this encounter
--- OUTSIDE RECORDS SUMMARY | 2024-10-03 13:35 | XMS_ITS | Encounter Summary ---
Author Organization [facility] [place] [address] Care Team Providers Care Sterilization Specialist Name Role Phone Martina So APRN Primary Care Provider [phone] Encounter Details Date Type Department Care Team [...] on filedocumented in this encounter Care Teams Sterilization Specialist Relationship Specialty Start Date End Date Martina So APRN [address] [place], [place] [address] PCP - General Family Medicine 08/26/19 documented as of this encounter
--- OUTSIDE RECORDS SUMMARY | 2024-10-03 13:35 | XMS_ITS | Encounter Summary ---
Author Organization [facility] [place] [address] Care Team Providers Care Carbon Cutter Name Role Phone Janet Jimenez APRN Primary Care Provider [phone] Encounter Details Date Type Department Care Team (Late st Contact Info) Description 05/25/2015 [place] [address] Katie Pride LPN Social History Tobacco Use [...] week and knows that there is d.o.c. 24/7 should she need assistance over the weekend. [...] on filedocumented in this encounter Care Teams Carbon Cutter Relationship Specialty Start Date End Date Janet Jimenez APRN PCP - General 05/22/15 11/16/16 documented as of this encounter
--- OUTSIDE RECORDS SUMMARY | 2024-10-03 13:35 | XMS_ITS | Encounter Summary ---
Author Organization [facility] [place] [address] Care Team Providers Care Coat Checker Name Role Phone Trudy Olmedo APRN Primary Care Provider [phone] Encounter Details Date Type Department Care Team (Late st Contact Info) Description 12/08/2016 Telephone [place] [address] Katie Pride LPN Social History Tobacco Use [...] visit with Dr. Denton. Call transferred to departmental secretary to schedule f/u. 05/07/17. * Telephone Encounter [...] Detail ?? Fidencio Denton, DO ?? Sent: [facility] December 04, 2016 ??5:06 PM ?? To: Katie Pride LPN ?? Message ?? Please inform Rocio [...] on filedocumented in this encounter Care Teams Coat Checker Relationship Specialty Start Date End Date Trudy Olmedo APRN PCP - General Family Medicine 12/04/16 04/20/19 documented as of this encounter
--- OUTSIDE RECORDS SUMMARY | 2024-10-03 13:35 | XMS_ITS | Encounter Summary ---
Author Organization [facility] Address [address] [place] [address] Care Team Providers Care Manager Internship Name Role Phone Unavailable Primary Care Provider Unavailabl e Encounter Details Date Type Department Care Team (Late st Contact Info) Description 03/16/2002 Results Only [facility] [address] [place] [address] Kassidy Oliver MD [address] [place] [address] [place] [address] Social History Tobacco Use Types Packs/Day Years [...] ? MARQUIS SHELTON ? Accession #: ? [id number] : ? 1965 (Age: 36) ??F ?Collect [...] End of Report [facility] 03/16/2002 03/17/2002 us Kassidy Oliver MD PATHOLOGY ORDERABLES Final Resu lt [facility] [address] [place] [address] documented in this encounter Visit Diagnoses Not on filedocumented in this encounter
--- OUTSIDE RECORDS SUMMARY | 2024-10-03 13:35 | XMS_ITS | Encounter Summary ---
Author Organization [facility] Address [address] [place] [address] Care Team Providers Care Restaurant Associate Name Role Phone Unavailable Primary Care Provider Unavailabl e Encounter Details Date Type Department Care Team (Late st Contact Info) Description 03/11/2001 Results Only [facility] - Maple conversion [address] [place] [address] Jing Harrington, SWATI Social History Tobacco Use [...] ? MARQUIS SHELTON ? Accession #: ? [id number] : ? 1965 (Age: 35) ??F ?Collect Date: ? 03/11/2001 Location: ? [facility] ? Receive Date: ? 03/15/2001 Provider: ?JING HARRINGTON INTRANET DEVELOPER Copy to: ? Specimen/Source: ?ThinPrep Pap Test, [...] electronically signed by: ? LIVE BENNETT MD [facility] ? Report Date: ??03/18/2001 17:25 End of Report [facility] 03/11/2001 03/15/2001 Jing Harrington INTRANET DEVELOPER PATHOLOGY ORDERABLES Final Re sult [facility] [address] [place] [address] documented in this encounter Visit Diagnoses Not on filedocumented in this encounter
--- OUTSIDE RECORDS SUMMARY | 2024-10-03 13:35 | XMS_ITS | Encounter Summary ---
Author Organization [facility] [place] [address] Care Team Providers Care Recreational Aide Name Role Phone Afsaneh Simmons MD Primary Care Provider [phone] Encounter Details Date Type Department Care Team (Late st Contact Info) Description 01/29/2015 Telephone [place] [phone] Katie Pride LPN Social History Tobacco Use [...] on filedocumented in this encounter Care Teams Recreational Aide Relationship Specialty Start Date End Date Afsaneh Simmons MD [address] [place] [address] PCP - General 08/13/10 05/21/15 documented as of this encounter
--- OUTSIDE RECORDS SUMMARY | 2024-10-03 13:35 | XMS_ITS | Encounter Summary ---
Author Organization Formerly [facility] [place] [address] Care Team Providers Care Cray Fishing Hand Name Role Phone Trudy Olmedo APRN Primary Care Provider [phone] Encounter Details Date Type Department Care Team (Late st Contact Info) Description 07/17/2017 Telephone [place] [address] Joanna Snow, RN Social History Tobacco Use [...] the original note were not included. Rocio Figureoa?? Female, 51 y.o., 1965 Weight: 89.4 kg [...] on filedocumented in this encounter Care Teams Cray Fishing Hand Relationship Specialty Start Date End Date Trudy Olmedo APRN PCP - General Family Medicine 12/04/16 04/20/19 documented as of this encounter
--- OUTSIDE RECORDS SUMMARY | 2024-10-03 13:35 | XMS_ITS | Encounter Summary ---
Author Organization [facility] [place] [address] Care Team Providers Care Remote Sensing Technologist Name Role Phone Martina So APRN Primary Care Provider [phone] Encounter Details Date Type Department Care Team (Late st Contact Info) Description 04/07/2023 Telephone Psychiatry [place] [phone] Yahaira Branch, PhD Social History Tobacco Use Types Packs/Day Years Used Date Smoking Tobacco: Never Smokeless Tobacco: Never Sex and Gender Information Value Date Recorded Sex Assigned at Not on file Gender Identity Not on file Sexual Orientation Not on file documented as of this encounter Miscellaneous Notes * Telephone Encounter - Yahaira Branch, PhD - 04/07/2023 7:39 AM EDT This manual writer spoke with patient on the phone [...] Date Martina So APRN [address] [place] [address] PCP - General Family Medicine 08/26/19 documented as of this encounter
--- OUTSIDE RECORDS SUMMARY | 2024-10-03 13:35 | XMS_ITS | Encounter Summary ---
Author Organization [facility] [place] [address] Care Team Providers Care Retail Manager Name Role Phone Janet Jimenez APRN Primary Care Provider [phone] Encounter Details Date Type Department Care Team (Late st Contact Info) Description 10/25/2015 Telephone [place] [phone] Katie Pride LPN Social History Tobacco Use [...] ThuOctober 26, 2015 10:23 AM ? To: Ktaie Pride LPN ? Message ? Ask her [...] on filedocumented in this encounter Care Teams Retail Manager Relationship Specialty Start Date End Date Janet Jimenez APRN PCP - General 05/22/15 11/16/16 documented as of this encounter
--- OUTSIDE RECORDS SUMMARY | 2024-10-03 13:35 | XMS_ITS | Encounter Summary ---
[place] [address] Care Team Providers Care Rn Liaison Name Role Phone Trudy Olmedo APRN Primary Care Provider [phone] Encounter Details Date Type Department Care Team (Late st Contact Info) Description 06/10/2017 Tele[place] [phone] Katie Pride LPN Social History Tobacco Use [...] on filedocumented in this encounter Care Teams Rn Liaison Relationship Specialty Start Date End Date Trudy Olmedo APRN PCP - General Family Medicine 12/04/16 04/20/19 documented as of this encounter
--- OUTSIDE RECORDS SUMMARY | 2024-10-03 13:35 | XMS_ITS | Encounter Summary ---
Author Organization [facility] [place] [address] Care Team Providers Care Band Head Saw Operator Name Role Phone Martina So APRN Primary Care Provider [phone] Encounter Details Date Type Department Care Team [...] filedocumented in this encounter Care Teams Band Head Saw Operator Relationship Specialty Start Date End Date Martina So APRN [address] [place], [place] [address] PCP - General Family Medicine 08/26/19 documented as of this encounter
--- OUTSIDE RECORDS SUMMARY | 2024-10-03 13:35 | XMS_ITS | Encounter Summary ---
Author Organization [facility] [place] [address] Care Team Providers Care Diabetes Educator Name Role Phone Martina So APRN Primary Care Provider [phone] Encounter Details Date Type Department Care Team (Late st Contact Info) Description 03/03/2023 Telephone Psychiatry [place] [phone] Hazel Carrasquillo Social History Tobacco Use Types [...] on filedocumented in this encounter Care Teams Diabetes Educator Relationship Specialty Start Date End Date Martina So APRN [address] [place] [address] PCP - General Family Medicine 08/26/19 documented as of this encounter
--- OUTSIDE RECORDS SUMMARY | 2024-10-03 13:35 | XMS_ITS | Encounter Summary ---
[place] [address] Care Team Providers Care Lead Database Developer Name Role Phone Janet Jimenez APRN Primary Care Provider [phone] Encounter Details Date Type Department Care Team (Late st Contact Info) Description 10/20/2016 Tele[place] [phone] Katie Pride LPN Social History Tobacco Use [...] on filedocumented in this encounter Care Teams Lead Database Developer Relationship Specialty Start Date End Date Janet Jimenez APRN PCP - General 05/22/15 11/16/16 documented as of this encounter
--- OUTSIDE RECORDS SUMMARY | 2024-10-03 13:35 | XMS_ITS | Encounter Summary ---
Author Organization [facility] [place] [address] Care Team Providers Care Tile Mechanic Helper Name Role Phone Janet Jimenez APRN Primary Care Provider [phone] Encounter Details Date Type Department Care Team (Latest Contact Info) Description 12/10/2015 3:00 PM EDT [place] [phone] Diabetes mellitus type 2, uncontrolled Social History [...] Hemoglobin A1c 8.4(H) 4.3 - 5.6 % [facility] Comment: Reference Range: [...] 1, S67-74 Estimated Average Glucose 194 mg/dL [facility] Comment: eAG equivalents for HbA1c percentages: HbA1c(%) ?eAG(mg/dL) 6.0 ?126 6.5 ?140 7.0 ?154 7.5 ?169 8.0 ?183 8.5 ?197 9.0 ?212 9.5 ?226 10.0 ? 240 Limitations: The eAG calculation has not been validated on women, individuals below 18 years old and above 70 years old, and individuals with hemoglobinopathies. Additional resources are available on the ADA website: http://Conservis.com/DHMCadacalc Dinesh EPPS, Jeff J, Placido R, et al. ??Translating the A1C assay into estimated average glucose values. ??Diabetes Care 2008:31(8):4177-0562. Blood specimen (specimen) 12/10/2015 3:08 PM EDT 12/10/2015 6:21 PM EDT Narrative Resulting Agency Comment Spec In Lab Fidencio Denton DO CHEMISTRY ORDERABLES [facility] [place] [address] documented in this encounter Visit Diagnoses Diagnosis Diabetes mellitus type 2, uncontrolled Type II or unspecified type diabetes mellitus without mention of complication, uncontrolled documented in this encounter Care Teams Tile Mechanic Helper Relationship Specialty Start Date End Date Janet Jimenez APRN PCP - General 05/22/15 11/16/16 documented as of this encounter
--- OUTSIDE RECORDS SUMMARY | 2024-10-03 13:35 | XMS_ITS | Encounter Summary ---
Author Organization [facility] [place] [address] Care Team Providers Care Import Specialist Name Role Phone Trudy Olmedo APRN Primary Care Provider [phone] Reason for Visit * Reason Comments Diabetes Encounter Details Date Type Department Care Team (Late st Contact Info) Description 01/28/2018 3:00 PM EDT Office [place] [address] [facility] [place] [address] Uncontrolled type 2 diabetes mellitus without complication, [...] her diet. She is working with a management trainer 3 days per week. Her blood [...] up in 3 months Fidencio Denton DO, Apparatus Repair Mechanicwebmaster Department of Medicine Section of Endocrinology [facility] documented in this encounter Miscellaneous Notes * [...] Mike Saliva (JANUARY) <50 ng/dL [facility] Comment: REFERENCE VALUE 7:00-9:00 am: 100-750 3:00-5:00 pm: <401 11:00 pm-Midnight: <100 ADDITIONAL INFORMATION This test was developed and its performance characteristics determined by [facility] in a manner consistent with CLIA requirements. This test has not been cleared or approved by the U.S. Food and Drug Administration. Test Performed by: [facility] - [facility] [address] [place] [address] Specimen of unknown material (specimen) 05/16/2018 11:28 PM EDT 05/21/2018 3:12 PM EDT Fidencio Denton DO LAB SEND OUT ORDERAB LES Performing Organization Address [facility] Co de Phone Number [facility] [place] [address] * U Albumin/Cre Ratio (01/28/2018 5:15 PM EDT) Albumin / Creatinin Ratio, Urine 22 0 - 29 mcg/mg Cr [facility] Comment: Reference Ranges: <30 mcg/mg: [...] 2, 357? 362 Albumin, Urine 13.2 mg/L [facility] Creatinine, Urine 61 mg/dL [facility] Urine specimen (specimen) 01/28/2018 5:15 PM EDT 01/28/2018 5:31 PM EDT Narrative Resulting Agency Comment Spec In Lab Fidencio Denton DO URINE ORDERABLES Performing Organization Address City/[facility]/ZIP Co de Phone Number [facility] [place] [address] * TSH (01/28/2018 5:09 PM EDT) Thyroid Stimulating Hormone 1.12 0.27 - 4.20 mlU/ML [facility] Blood specimen (specimen) 01/28/2018 5:09 PM EDT 01/28/2018 5:16 PM EDT Narrative Resulting Agency Comment Spec In Lab Fidencio Denton DO CHEMISTRY ORDERABLES Performing Organization Address [facility] Co de Phone Number [facility] [place] [address] * DHEA-sulfate (01/28/2018 5:09 PM EDT) Dehydroepiandrosterone Sulfate 52.2 35.4 - 256.0 mcg/dL [facility] Blood specimen (specimen) 01/28/2018 5:09 PM EDT 01/28/2018 5:16 PM EDT Narrative Resulting Agency Comment Spec In Lab Fidencio Corrie MONTALVO CHEMISTRY ORDERABLES Performing Organization Address [facility] Co de Phone Number [facility] [place] [address] * (ABNORMAL) Comprehensive metabolic panel (non-fasting) (01/28/2018 5:09 PM EDT) Glucose 126 65 - 199 mg/dL [facility] Comment:Diabetes: >=200 mg/d L plus symptoms Blood Urea Nitrogen 18 8 - 18 mg/dL [facility] Creatinine 0.62(L) 0.70 - 1.20 mg/dL [facility] Sodium 138 135 - 145 mmol/L [facility] Potassium 3.9 3.5 - 5.0 mmol/L [facility] Comment: Please note: ??Patients with WBC >100,000 may have falsely elevated Potassium levels. ??For accurate Potassium quantification in these patients send serum separator tube (gold top) for subsequent determinations. ??Contact the Clinical Chemistry Laboratory if there are any questions. Chloride 97(L) 98 - 107 mmol/L [facility] Carbon Dioxide 29 22 - 31 mmol/L [facility] Anion Gap 12 5 - 15 mmol/L [facility] Calcium 9.9 8.5 - 10.5 mg/dL [facility] Protein, Total 8.0 6.1 - 8.0 gm/dL [facility] Albumin 4.7 3.2 - 5.2 gm/dL [facility] Aspartate Aminotransferase 28 0 - 30 unit/L [facility] Alanine Aminotransferase 47(H) 0 - 30 unit/L [facility] Alkaline Phosphatase 79 40 - 104 unit/L [facility] Bilirubin, Total 0.2 0.2 - 1.3 mg/dL [facility] Est Glomerular Filtration Rate >60 >=60 [facility] Comment: The reported eGFR should be multiplied by 1.2 for patients. The MDRD is not an appropriate measure of renal function for patients with body mass extremes or in patients with acute kidney failure. http://MoneyMail.Astley Clarke/DHnkdep http://Yardsale/DHMCnkf Blood specimen (specimen) 01/28/2018 5:09 PM EDT 01/28/2018 5:16 PM EDT Narrative Resulting Agency Comment Spec In Lab Fidencio Denton DO CHEMISTRY ORDERABLES [facility] [place] [id number] documented in this encounter Visit Diagnoses Diagnosis Uncontrolled type 2 diabetes mellitus without complication, with long-term current use of insulin documented in this encounter Care Teams Import Specialist Relationship Specialty Start Date End Date Trudy Olmedo APRN PCP - General Family Medicine 12/04/16 04/20/19 documented as of this encounter
--- OUTSIDE RECORDS SUMMARY | 2024-10-03 13:35 | XMS_ITS | Encounter Summary ---
Author Organization [facility] Address [facility] [place] [address] Care Team Providers Care Windmill Technician Name Role Phone Martina So APRN Primary Care Provider [phone] Reason for Visit * Reason Comments Establish Care NXR BILATERAL SOUTH D DUPUYTRENS LT HAND WORSE DISCUSS SURGICAL OPTIONS LUPE * Consultation (Routine) - Closed Specialty Diagnoses / Procedures Referred By Luis Felipe t Referred To Contact Orthopaedics Diagnoses BIlateral Dupuytrens LT Hand Worse Than RIght Kosta Little MD [address] [place] [address] [facility] [address] [place] [address] Referral ID Status Reason Start Date Expiration Date V isits Requested Visits Authorized [id number] Closed Consult, Test & Treat PCP Updated and/or Approved 04/22/2023 04/21/2024 1 1 Encounter Details Date Type Department Care Team (Late st Contact Info) Description 06/09/2023 8:30 AM EDT Office Visit [place] [address] Ulysses Orozco Jr., MD [facility] [place] [address] Dupuytren's disease Social History Tobacco [...] documented in this encounter Progress Notes * Yury Martinez MD - 06/09/2023 8:30 AM EDT Marquis Ramey [place] 1965 [id number] 06/09/2023 HPI: Marquis is 57 y.o. Right [...] gauge x 5/16 Needle 1 each by [facility]Non-Drug; Combo Route) route 3 [...] DELICA) 33 gauge Misc 1 Units by [facility].(Non-Drug; Combo Route) route 3 [...] note supplied by the resident or physician tub puller with whom I saw the patient, and reviewed our findings and recommendations with the patient in person. Ulysses Orozco Jr, MD Department of Orthopaedics [facility] documented in this encounter Plan of Treatment Not on file documented as of this encounter Visit Diagnoses Diagnosis Dupuytren's disease Contracture of palmar fascia documented in this encounter Care Teams Windmill Technician Relationship Specialty Start Date End Date Martina So APRN [address] [place] [address] PCP - General Family Medicine 08/26/19 documented as of this encounter
--- OUTSIDE RECORDS SUMMARY | 2024-10-03 13:35 | XMS_ITS | Encounter Summary ---
Author Organization [facility] [place] [address] Care Team Providers Care Dimmer Board Operator Name Role Phone Trudy Olmedo APRN Primary Care Provider [phone] Reason for Visit * Reason Onset Date Comments Medication Refill 09/24/2017 Encounter Details Date Type Department Care Team (Late st Contact Info) Description 09/24/2017 Refill [place] [address] [facility] [place] [address] Social History Tobacco Use Types Packs/Day Years [...] on filedocumented in this encounter Care Teams Dimmer Board Operator Relationship Specialty Start Date End Date Trudy Olmedo APRN PCP - General Family Medicine 12/04/16 04/20/19 documented as of this encounter
--- OUTSIDE RECORDS SUMMARY | 2024-10-03 13:35 | XMS_ITS | Encounter Summary ---
Author Organization [facility] [place] [address] Care Team Providers Care Slide Attendant Name Role Phone Trudy Olmedo APRN Primary Care Provider [phone] Encounter Details Date Type Department Care Team (Late st Contact Info) Description 01/19/2018 Tele[place] [phone] Katie Pride LPN Social History Tobacco Use Types Packs/Day Years Used Date Smoking Tobacco: Never Smokeless Tobacco: Never Sex and Gender Information Value Date Recorded Sex Assigned at Not on file Gender Identity Not on file Sexual Orientation Not on file documented as of this encounter Miscellaneous Notes * Telephone Encounter - Katie Pride LPN - 01/19/2018 9:24 AM EDT R/c to RACEBOOK WRITER. Patient seen today Ha1c >14% instrument could not read. Is taking Levemir 47 twice daily and Metformin but is not taking Invokana nor Victoza. Call transferred to Dr Denton documented in this encounter Plan of Treatment Not on file documented as of this encounter Visit Diagnoses Not on filedocumented in this encounter Care Teams Slide Attendant Relationship Specialty Start Date End Date Trudy Olmedo APRN PCP - General Family Medicine 12/04/16 04/20/19 documented as of this encounter
--- OUTSIDE RECORDS SUMMARY | 2024-10-03 13:35 | XMS_ITS | Encounter Summary ---
Author Organization [facility] [place] [address] Care Team Providers Care Retail District Manager Name Role Phone Trudy Olmedo APRN Primary Care Provider [phone] Encounter Details Date Type Department Care Team (Late st Contact Info) Description 05/06/2018 3:00 PM EDT Office [place] [address] [facility] [place] [address] Uncontrolled diabetes mellitus type 2 without complications, unspecified whether long-term insulin use Social History Tobacco Use Types [...] difficulty. She is working with both a sports teacher in a content producer and is on a very low carb diet, her content producer has recommended maintaining a 30 g total [...] in 3 months Fidencio Denton DO, MS Eye Dropper Assemblerveneer jointer operator Department of Medicine Section of Endocrinology [facility] documented in this encounter Plan of Treatment Scheduled Orders Name Type Priority Associated Diagnoses Orde r Schedule Hemoglobin A1c Lab Routine Uncontrolled diabetes mellitus type 2 without complications, unspecified whether terminal worker insulin use Expected: 05/06/2018 (Approximate), Expires: 05/07/2019 documented as of this encounter Procedures Procedure Name Priority Date/Time Associated Diagnosis Comments BETA HYDROXYBUTYRATE Routine 05/06/2018 4:14 PM EDT Uncontrolled diabetes mellitus type 2 without complications, unspecified whether long-term insulin use C-PEPTIDE Routine 05/06/2018 4:14 PM EDT Uncontrolled diabetes mellitus type 2 without complications, unspecified whether long-term insulin use HEMOGLOBIN A1C STAT 05/06/2018 4:14 PM EDT Uncontrolled diabetes mellitus type 2 without complications, unspecified whether terminal worker insulin use COMPREHENSIVE METABOLIC PANEL Routine 05/06/2018 4:14 PM EDT Uncontrolled diabetes mellitus type 2 without complications, unspecified whether long-term insulin use documented in this encounter Results * C-peptide (05/06/2018 4:14 PM EDT) C-Peptide 3.1 0.8 - 5.2 ng/mL [facility] Blood specimen (specimen) 05/06/2018 4:14 PM EDT 05/06/2018 4:22 PM EDT Narrative Resulting Agency Comment Spec In Lab Fidencio Denton DO CHEMISTRY ORDERABLES [facility] [place] [address] * Beta Hydroxybutyrate (05/06/2018 4:14 PM EDT) Beta-hydroxybu turate 0.17 0.00 - 0.30 mmol/L [facility] Comment: Reference range: ??0.00-0.30 mmo1/L, based on an overnight fast. ??Children may be higher. Blood specimen (specimen) 05/06/2018 4:14 PM EDT 05/06/2018 4:22 PM EDT Narrative Resulting Agency Comment Spec In Lab Fidencio Denton DO CHEMISTRY ORDERABLES [facility] [place] [place] [address] * (ABNORMAL) Comprehensive metabolic panel (non-fasting) (05/06/2018 4:14 PM EDT) Glucose 220(H) 65 - 199 mg/dL [facility] Comment:Diabetes: >=200 mg/d L plus symptoms Blood Urea Nitrogen 16 8 - 18 mg/dL [facility] Creatinine 0.61(L) 0.70 - 1.20 mg/dL [facility] Sodium 139 135 - 145 mmol/L [facility] Potassium 4.5 3.5 - 5.0 mmol/L [facility] Comment: Please note: ??Patients with WBC >100,000 may have falsely elevated Potassium levels. ??For accurate Potassium quantification in these patients send serum separator tube (gold top) for subsequent determinations. ??Contact the Clinical Chemistry Laboratory if there are any questions. Chloride 100 98 - 107 mmol/L [facility] Carbon Dioxide 29 22 - 31 mmol/L [facility] Anion Gap 10 5 - 15 mmol/L [facility] Calcium 10.0 8.5 - 10.5 mg/dL [facility] Protein, Total 7.1 6.1 - 8.0 gm/dL [facility] Albumin 4.3 3.2 - 5.2 gm/dL [facility] Aspartate Aminotransferase 18 0 - 30 unit/L [facility] Alanine Aminotransferase 34(H) 0 - 30 unit/L [facility] Alkaline Phosphatase 70 40 - 104 unit/L [facility] Bilirubin, Total 0.2 0.2 - 1.3 mg/dL [facility] Est Glomerular Filtration Rate 104 >=60 mL/min/1. 73 m?? [facility] Comment: The eGFR was calculated using the CKD-EPI equation. As with all creatinine based estimates of kidney function, eGFR values calculated with the CKD-EPI equation are not accurate in patients with acute kidney failure, extremes of body mass or the acutely ill. http://Floobits/[facility] [place]nk[place] eGFR 121 >=60 mL/min/1. 73 m?? [facility] Comment: The eGFR was calculated using the CKD-EPI equation. As with all creatinine based estimates of kidney function, eGFR values calculated with the CKD-EPI equation are not accurate in patients with acute kidney failure, extremes of body mass or the acutely ill. http://Floobits/[facility] [place]nk[place] Blood specimen (specimen) 05/06/2018 4:14 PM EDT 05/06/2018 4:22 PM EDT Narrative Resulting Agency Comment Spec In Lab Fidencio Denton DO CHEMISTRY ORDERABLES [facility] [place] [id number] * (ABNORMAL) Hemoglobin A1c (05/06/2018 4:14 PM EDT) Hemoglobin A1c 10.2(H) 4.3 - 5.6 % [facility] Comment: Reference Range: 4.3 - [...] Mellitus, Diabetes Care 2013; 36: Suppl. 1, J87-74 Estimated Average Glucose 246 mg/dL [facility] Comment: eAG equivalents for HbA1c [...] into estimated average glucose values. ??Diabetes Care 2008:31(8):7090-2233. Blood specimen (specimen) 05/06/2018 4:14 PM EDT 05/06/2018 4:22 PM EDT Narrative Resulting Agency Comment Spec In Lab Fidencio Denton DO CHEMISTRY ORDERABLES Performing Organization Address [facility]/State/[facility] Co de Phone Number [facility] [place] [place] [address] documented in this encounter Visit Diagnoses Diagnosis Uncontrolled diabetes mellitus type 2 without complications, unspecified whether long-term insulin use documented in this encounter Care Teams Retail District Manager Relationship Specialty Start Date End Date Trudy Olmedo APRN PCP - General Family Medicine 12/04/16 04/20/19 documented as of this encounter
--- OUTSIDE RECORDS SUMMARY | 2024-10-03 13:35 | XMS_ITS | Encounter Summary ---
Author Organization [facility] Address [address] [place] [address] Care Team Providers Care Television Installer Helper Name Role Phone Unavailable Primary Care Provider Unavailabl e Encounter Details Date Type Department Care Team (Late st Contact Info) Description 07/05/2003 Results Only [facility] - Maple conversion [address] [place] [address] Kassidy Oliver MD [address] [place] [address] [place] [address] Social History Tobacco Use Types Packs/Day Years [...] ? MARQUIS SHELTON ? Accession #: ? [id number] : ? 1965 (Age: 37) ??F ?Collect [...] Document reviewed and electronically signed by: ? Romeo Sharpe, CT(ASCP) ? Report Date: ??07/11/2003 11:06 End of Report [facility] 07/05/2003 07/06/2003 us Kassidy Oliver MD PATHOLOGY ORDERABLES Final Resu lt [facility] [address] [place] [address] documented in this encounter Visit Diagnoses Not on filedocumented in this encounter
--- OUTSIDE RECORDS SUMMARY | 2024-10-03 13:35 | XMS_ITS | Encounter Summary ---
Author Organization [facility] [place] [address] Care Team Providers Care Bankruptcy Manager Name Role Phone Janet Jimenez APRN Primary Care Provider [phone] Encounter Details Date Type Department Care Team (Late st Contact Info) Description 09/19/2015 Tele[place] [phone] Katie Pride LPN Social History Tobacco Use [...] on filedocumented in this encounter Care Teams Bankruptcy Manager Relationship Specialty Start Date End Date Janet Jimenez APRN PCP - General 05/22/15 11/16/16 documented as of this encounter
--- OUTSIDE RECORDS SUMMARY | 2024-10-03 13:35 | XMS_ITS | Encounter Summary ---
Author Organization [facility] Address [address] [place] [address] Care Team Providers Care Elementary Assistant Principal Name Role Phone Unavailable Primary Care Provider Unavailabl e Encounter Details Date Type Department Care Team (Late st Contact Info) Description 03/11/2000 Results Only [facility] - Maple conversion [address] [place] [address] Jing Harrington, SWATI Social History Tobacco Use [...] ? MARQUIS SHELTON ? Accession #: ? [id number] : ? 1965 (Age: 34) ??F ?Collect Date: ? 03/11/2000 Location: ? [facility] ? Receive Date: ? 03/12/2000 Provider: ?JING HARRINGTON APPAREL PATTERN MAKER Copy to: ? Specimen/Source: ?ThinPrep Pap Test, [...] End of Report [facility] 03/11/2000 03/12/2000 us Jing Harrington NP PATHOLOGY ORDERABLES Final Re sult [facility] [address] [place] [address] documented in this encounter Visit Diagnoses Not on filedocumented in this encounter
--- OUTSIDE RECORDS SUMMARY | 2024-10-03 13:35 | XMS_ITS | Encounter Summary ---
Author Organization [facility] [place] [address] Care Team Providers Care Closing Machine Operator Name Role Phone Trudy Olmedo APRN Primary Care Provider [phone] Encounter Details Date Type Department Care Team (Late st Contact Info) Description 01/19/2018 Telephone [place] [address] Fidencio Denton DO [facility] [place] [address] Social History Tobacco Use Types Packs/Day Years [...] on filedocumented in this encounter Care Teams Closing Machine Operator Relationship Specialty Start Date End Date Trudy Olmedo APRN PCP - General Family Medicine 12/04/16 04/20/19 documented as of this encounter
--- OUTSIDE RECORDS SUMMARY | 2024-10-03 13:35 | XMS_ITS | Encounter Summary ---
Author Organization [facility] Address [address] [place] [address] Care Team Providers Care Dry Kiln Burner Name Role Phone Unavailable Primary Care Provider Unavailabl e Encounter Details Date Type Department Care Team (Late st Contact Info) Description 03/07/2002 Results Only [facility] - Maple conversion [address] [place] [address] Vince Carrera, DO [address] [address] [place] [address] Social History Tobacco Use Types Packs/Day Years [...] ? MARQUIS SHELTON ? Accession #: ? [id number] ? : ? 1965 (Age: 36) ??F [...] is entirely submitted in one cassette. ??(Elmer Bustillo)/[facility] End of Report [facility] 03/07/2002 03/08/2002 8:3 1 EDT us Vince Carrera DO PATHOLOGY ORDERABLES Fi nal Result [facility] [address] [place] [address] documented in this encounter Visit Diagnoses Not on filedocumented in this encounter
--- OUTSIDE RECORDS SUMMARY | 2024-10-03 13:36 | XMS_ITS | Encounter Summary ---
Author Organization [facility] [address] Care Team Providers Care Director Of Pediatric Rehabilitation Name Role Phone Afsaneh Hale MD Primary Care Provider [phone] Encounter Details Date Type Department Care Team (Late st Contact Info) Description 01/09/2015 1:35 PM EDT Office [place] [address] Vito Bose MD [facility] [place] [address] Diabetes mellitus type 2, uncontrolled Discharge Disposition: [...] level of insulin resistance we will exclude North Pole's syndrome. Recommendations: -Start metformin XL 500mg for [...] Dr. Lidya Denton DO, MS Endocrinology fellow [facility] cc: AFSANEH HALE MD documented in this [...] ng/dL [facility] Comment: Test Performed by: [place] [address] General Internal Medicine Doctor: Jessica Abdi, Ph.D. Specimen of unknown material [...] ng/dL [facility] Comment: Test Performed by: [place] [address] General Internal Medicine Doctor: Jessica Abdi, Ph.D. Specimen of unknown material (specimen) 01/14/2015 11:00 PM EDT 01/17/2015 2:54 PM EDT Narrative Resulting Agency Comment Spec In Lab Vito Bose MD LAB SEND OUT ORDERAB LES [facility]EN [facility] * GAD65 Antibody Assay (01/09/2015 2:25 PM EDT) Pathologist [facility] Gad65 Ab (JANUARY) 0.00 <=0.02 nmol/L [facility] Comment: Test Performed by: [place] [address] General Internal Medicine Doctor: Sabino Pablo II, M.D., Ph.D. Blood specimen (specimen) 01/09/2015 2:25 PM EDT 01/09/2015 3:40 PM EDT Narrative Resulting Agency Comment Spec In Lab Vito Bose MD LAB SEND OUT ORDERAB LES [facility] * TSH (01/09/2015 2:25 PM EDT) Thyroid Stimulating Hormone 1.76 0.27 - 4.20 mcIU/mL [facility] Blood specimen (specimen) 01/09/2015 2:25 PM EDT 01/09/2015 2:31 PM EDT Narrative Resulting Agency Comment Spec In Lab Vito Bose MD CHEMISTRY ORDERABLES [facility] * C-peptide (01/09/2015 2:25 PM EDT) Pathologist [facility] C-Peptide 3.0 1.1 - 4.4 ng/mL [facility] Comment: Test Performed by: [facility] [address], [place] [address] General Internal Medicine Doctor: Jessica Abdi, Ph.D. Blood specimen (specimen) 01/09/2015 2:25 PM EDT 01/09/2015 3:38 PM EDT Narrative Resulting Agency Comment Spec In Lab Vito Bose MD CHEMISTRY ORDERABLES Performing Organization Address City/State/[facility] Co de Phone Number [facility] documented in this encounter Visit Diagnoses Diagnosis Diabetes mellitus type 2, uncontrolled Type II or unspecified type diabetes mellitus without mention of complication, uncontrolled documented in this encounter Care Teams Director Of Pediatric Rehabilitation Relationship Specialty Start Date End Date Afsaneh Hale MD [address] [place] [address] PCP - General 08/13/10 05/21/15 documented as of this encounter
--- OUTSIDE RECORDS SUMMARY | 2024-10-03 13:36 | XMS_ITS | Encounter Summary ---
Author Organization [facility] [place] [address] Care Team Providers Care Patient Access Registrar Name Role Phone Afsaneh Simmons MD Primary Care Provider [phone] Encounter Details Date Type Department Care Team (Late st Contact Info) Description 01/22/2015 Telephone [place] [address] Katie Pride LPN Social History Tobacco Use [...] on filedocumented in this encounter Care Teams Patient Access Registrar Relationship Specialty Start Date End Date Afsaneh Simmons MD [address] [place] [address] PCP - General 08/13/10 05/21/15 documented as of this encounter
--- NOTE | 2024-10-03 14:27 | ED.GENADUL_ITS ---
Discharge Plan Disposition Patient Disposition: Home Condition: Good Discharge Details Clinical Impression: Hematemesis Primary Care Provider: Martina So ED Provider: Maria E Lopez Home Meds and New Rx's Prescriptions: New ondansetron 4 mg tablet,disintegrating 4 mg PO Q8H PRNQty: 14 0RF omeprazole 40 mg capsule,delayed release(DR/EC) 40 mg PO DAILY Qty: 30 0RF Continued gabapentin 100 mg capsule 300 mg PO HS Humalog U-100 Insulin 100 unit/mL cartridge 1 sliding sc SC USEASDIRECTD insulin degludec [Tresiba FlexTouch U-200] 200 unit/mL (3 mL) insulin pen 36 - 40 unit SC HS acetaminophen [Tylenol] 325 mg tablet 325 mg PO ONCE PRN glucagon 1 mg recon soln 1 mg subcut Q20M PRN Rx Instructions: until target blood sugar attained zolpidem [Ambien] 5 mg tablet 10 mg PO HS venlafaxine 150 mg capsule,extended release 24hr 150 mg PO DAILY Patient Comments: TAKE ONE CAPSULE BY MOUTH DAILY Ozempic 2 mg/dose (8 mg/3 mL) pen injector 2 mg SUBCUT .weekly Discharge Instructions Instructions: GI bleed Additional Instructions: Avoid NSAIDs such as ibuprofen and naproxen. Take ondansetron up to every 8 hours as needed for nausea or vomiting. Start taking omeprazole once a day for stomach acid. Call your primary care doctor in the morning to schedule an appointment for within 72 hours to followup on your visit here. A referral has been sent for endoscopy. Return to the emergency department for new or worsening symptoms including fever, abdominal pain or chest pain, increasing amounts of blood in your vomit, inability to keep down fluids, lightheadedness, or if you have any other concerns. Referrals: Martina So [Primary Care Provider] - [facility] Mode of arrival: ambulatory . Date/Time Provider Initiated Documentation: 10/03/24 13:50 . Limitations to Documentation: no limitations . Information obtained by: patient . HPI Narrative: 59yo F with hx DM presenting for vomiting. Yesterday began vomiting, about 6 times yesterday evening. Initially non-bloody, non-bilious. Vomiting continued today. This afternoon she began to notice bright red blood in her vomit, particularly towards to end of episodes of emesis. No coffee-ground emesis. No diarrehea, melena, or bloody stool. No lightheadedness or syncope. No chest pain or shortness of breath. No abdominal pain including no epigastric pain. Blood sugar has been higher than usual the last few days (200-300). Otherwise in her usual state of health with no fevers, chills, rash, or other concerns. Related Data Home Medications ?Medication ?Instructions ?Recorded ?Confirmed insulin degludec 200 unit/mL (3 36 - 40 unit subcut HS 08/11/18 10/03/24 mL) subcutaneous pen (Tresiba FlexTouch U-200 insulin) zolpidem 5 mg tablet (Ambien) 10 mg PO HS 08/25/19 10/03/24 gabapentin 100 mg capsule 300 mg PO HS 01/31/20 10/03/24 insulin lispro 100 unit/mL 1 sliding sc subcut USEASDIRECTD 04/25/20 10/03/24 subcutaneous cartridge (Humalog U-100 Insulin) acetaminophen 325 mg tablet 325 mg PO ONCE PRN 01/07/21 10/03/24 (Tylenol) glucagon 1 mg solution for 1 mg subcut Q20M PRN 03/26/23 10/03/24 injection omeprazole 40 mg capsule,delayed 40 mg PO DAILY #30 caps 10/03/24 release ondansetron 4 mg disintegrating 4 mg PO Q8H PRN #14 tabs 10/03/24 tablet semaglutide 2 mg/dose (8 mg/3 mL) 2 mg subcut .weekly 10/03/24 10/03/24 subcutaneous pen injector (Ozempic) venlafaxine 150 mg 150 mg PO DAILY 10/03/24 10/03/24 capsule,extended release 24 hr Previous Rx's ?Medication ?Instructions ?Recorded omeprazole 40 mg capsule,delayed 40 mg PO DAILY #30 caps 10/03/24 release ondansetron 4 mg disintegrating 4 mg PO Q8H PRN #14 tabs 10/03/24 tablet Allergies Allergy/AdvReac Type Severity Reaction Status Date / Time Penicillins Allergy Intermediate Swelling/Ed Verified 10/03/24 14:01 jeanette exenatide (From Byetta) AdvReac Mild Nausea Verified 10/03/24 14:01 General Stated Complaint: GenMedical ANDREWS: 3 Review of Systems Narrative: see HPI Exam Narrative Exam Narrative: General: Alert, well appearing, well nourished, in no acute distress. Head: Normocephalic, atraumatic Neck: Trachea midline, ?Neck supple. ENT: ?MMM.? No oropharygeal lesions or exudate. Cardiac: ?RRR, no murmurs appreciated Resp: No respiratory distress. CTAB. Abd: ?Soft, non-distended, nontender : ?No suprapubic tenderness. No CVA tenderness. Extremities: ?No deformities.? No peripheral edema. Neurologic: GCS 15. ? Moves all extremities freely against gravity Course Vital Signs Vital signs: Vital Signs Temperature 36.7 C 10/03/24 13:55 Pulse 91 H 10/03/24 13:55 Respiratory Rate 14 10/03/24 13:55 Blood Pressure 145/84 H 10/03/24 13:55 Pulse Oximetry 98 10/03/24 13:55 Temperature 36.7 C 10/03/24 13:55 Temperature Source Oral 10/03/24 13:55 Pulse 91 H 10/03/24 13:55 Respiratory Rate 14 10/03/24 13:55 Blood Pressure 145/84 H 10/03/24 13:55 Blood Pressure Position Sitting 10/03/24 13:55 Pulse Oximetry 98 10/03/24 13:55 Oxygen Delivery Method Room Air 10/03/24 13:55 Oxygen Flow Rate 0 10/03/24 13:55 Pain Level 0 10/03/24 13:55 Medical Decision Making 59yo F with hx DM presenting for vomiting. Yesterday began vomiting, was initially non-bloody, non-bilious; this afternoon began to see some streaks of blood in her vomit towards the end of each episode (seemed to get more bloody over time). No pain including no chest pain or epigastric pain. No hx of liver disease. Vital signs reassruing on arrival. Well appearing with non-tender abdomen. Not concerning for perforated ulcer, variceal bleed, obstruction. ? bleeding ulcer, pepe-guo tear. Will give protonix and zofran while awaiting results of workup. Labs reviewed as below, CBC reassuring with no anemia, CMP with no actionable abnormalities, lipase normal (unlikely pancreatitis), VBG with no acidosis (not DKA), coags normal. UA not infected On reassessment pt remains well appearing wtih reassuring vital signs. Able to tolerate PO without difficulty after zofran. [place] Bleeding score 0, appropriate for outpatient workup and management. Will refer for endoscopy and have patient followup closely with PCP. Discharged home with short course of zofran and prescribe omprezaole.. Discharge instructions and strict return precautions were reviewed with patient who verbalized understanding. All questions were answered and she is in full agreement with the plan. Lab Data Lab results reviewed: Yes I reviewed the patient's lab results. Labs: Laboratory Tests Range/Units 10/03/24 10/03/24 14:42 14:55 WBC (4.4-10.8) 10^3/uL 10.95 H RBC (3.93-5.22) 10^6/uL 4.98 Hgb (11.2-15.7) g/dL 14.4 Hct (36.0-46.0) % 43.2 MCV (80-95) fL 87 MCH (27.0-33.0) pg 28.9 MCHC (32.0-36.0) % 33.3 RDW (11.7-14.6) % 12.5 Plt Count (130-400) 10^3/uL 253 MPV (8.0-11.0) fL 9.1 Immature Gran % % 0.5 Neutrophils % % 73.6 Lymphocytes % % 19.6 Monocytes % % 5.0 Eosinophils % % 0.8 Basophils % % 0.5 Nucleated RBC % (0.0-0.3) % 0.0 Absolute Neutrophils (1.2-6.7) 10^3/uL 8.06 H Absolute Lymphocytes (1.2-3.4) 10^3/uL 2.15 Absolute Monocytes (0.1-0.8) 10^3/uL 0.55 Absolute Eosinophils (0.0-0.7) 10^3/uL 0.09 Absolute Basophils (0.0-0.2) 10^3/uL 0.05 PT (9.1-11.1) sec 9.8 INR (0.9-1.1) 1.0 APTT (20.6-30.2) sec 23.1 VBG pH (7.31-7.41) 7.44 H VBG pCO2 (41-51) mmHg 45 VBG pO2 mmHg 44 VBG HCO3 (23-28) mmol/L 31 H VBG Total CO2 (24-29) mmol/L 27 VBG O2 Saturation % 83 VBG Base Excess (-2-3) mmol/L 6 H Sodium (136-145) mmol/L 142 Potassium (3.5-5.1) mmol/L 4.0 Chloride (98-107) mmol/L 103 Carbon Dioxide (21.0-32.0) mmol/L 32.2 H Anion Gap (3-11) mmol/L 6.8 BUN (7-18) mg/dL 13 Creatinine (0.55-1.02) mg/dL 0.7 Est GFR (CKD-EPI 2020) (mL/min/1.73m2) 99.57 Glucose (74-106) mg/dL 167 H Calcium (8.5-10.1) mg/dL 9.4 Total Bilirubin (0.2-1.0) mg/dL 0.42 AST (15-37) U/L 13 L ALT (14-59) U/L 28 Alkaline Phosphatase (46-116) U/L 105 Total Protein (6.4-8.2) g/dL 7.2 Albumin (3.4-5.0) g/dL 3.5 Lipase (<78) U/L 73 Urine Color (Yellow) Yellow Urine Clarity (Clear) Sl Cloudy Urine pH (5-8) 8.5 H Ur Specific [place] (1.005-1.025) 1.015 Urine Protein (Neg-Trace) mg/dL 30 H Urine Ketones (Negative) mg/dL 15 H Urine Blood (Negative) Negative Urine Nitrite (Negative) Negative Urine Bilirubin (Negative) Negative Urine Urobilinogen (Up to 0.2) mg/dL 0.2 Ur Leukocyte Esterase (Negative) Negative Urine RBC (0-2) HPF Negative Urine WBC (0-5) HPF Negative Ur Epithelial Cells (Negative) HPF Many Urine Crystals (Negative) HPF Negative Urine Bacteria (Negative) HPF Moderate Urine Casts (Negative) LPF Negative Urine Mucus (Negative) Heavy Urine Other (Negative) Negative Ur Culture Indicated? No/Sq. Contamination Urine Glucose (Negative) mg/dL Negative Quality:SDOH Health Related Social Needs: No Data to Display PFSH All Active Problems (Updated 10/03/24 @ 16:37 by Maria E Lopez MD) Hematemesis (Acute) Dupuytren's contracture of both hands (Acute) Dupuytren's contracture of left hand (Acute) Tubular adenoma of colon (Acute) Polyp of cecum (Acute) Mild cognitive impairment (Acute) Trigger finger, left index finger (Acute) Medical History PONV (postoperative nausea and vomiting) No-show for appointment Tendinitis of thumb Digital mucinous cyst of finger of left hand Word finding difficulty Adhesive capsulitis of left shoulder (~11/2019) Migraine headache without aura Depression with anxiety Obesity Chronic low back pain YUDY (obstructive sleep apnea) Insomnia PTSD (post-traumatic stress disorder) Does not like things tightly around her neck. Diabetic peripheral neuropathy Memory loss Tendinitis of long head of biceps brachii of left shoulder (~06/2018) Left rotator cuff tear (~06/2018) Impingement syndrome of left shoulder (~06/2018) Bursitis of left shoulder (~06/2018) Type 2 diabetes mellitus Tendinitis of left rotator cuff Injection under fluoroscopy: 12/16/2018 Subacromial injection: 08/11/2018 Contusion Cellulitis of finger of right hand Surgical History History of colonoscopy (~04/2022) History of arthroscopy of left shoulder Synovial cyst of wrist Right S/P exploratory laparotomy [employer] S/P lumpectomy of breast left H/O laparoscopy x4 Family History Other Adopted Social History Smoking/Tobacco Use Status: Never Smoking risk assessment performed?: Yes Alcohol Intake: current Alcohol Intake frequency: holidays/special occasions only Drug use: Never Substance use type: does not use Household members: spouse and children Housing: house Number of Children: 1 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
[2024-10-03 14:50] LABS: BE (Venous) 6 mmol/L (-2-3); HCO3 (Venous) 31 mmol/L (23-28); O2 Sat (Venous) 83 %; TCO2 (Venous) 27 mmol/L (24-29); pCO2 (Venous) 45 mmHg (41-51); pH (Venous) 7.44 (7.31-7.41); pO2 (Venous) 44 mmHg
[2024-10-03 14:51] LABS: Abs Immature Grans 0.05 10^3/uL (0.0-0.06); Absolute Eosinophil Count 0.09 10^3/uL (0.0-0.7); Absolute Lymphocyte Count 2.15 10^3/uL (1.2-3.4); Absolute Monocyte Count 0.55 10^3/uL (0.1-0.8); Basophils % 0.5 %; Eosinophils % 0.8 %; HCT 43.2 % (36.0-46.0); HGB 14.4 g/dL (11.2-15.7); Immature Grans % 0.5 %; Lymphocytes % 19.6 %; MCH 28.9 pg (27.0-33.0); MCHC 33.3 % (32.0-36.0); MCV 87 fL (80-95); MPV 9.1 fL (8.0-11.0); Neutrophils % 73.6 %; Platelet Count 253 10^3/uL (130-400); RBC 4.98 10^6/uL (3.93-5.22); RDW 12.5 % (11.7-14.6); RDW-SD 39.7 fL; WBC 10.95 10^3/uL (4.4-10.8)
[2024-10-03 14:52] LABS: Absolute Basophil Count 0.05 10^3/uL (0.0-0.2); Absolute Neutrophil Count 8.06 10^3/uL (1.2-6.7)
[2024-10-03] MEDS: Ondansetron 4 MG/2 ML VIAL IVP (15:01)
[2024-10-03 15:11] LABS: ALT 28 U/L (14-59); AST 13 U/L (15-37); Albumin 3.5 g/dL (3.4-5.0); Alkaline Phosphatase 105 U/L (46-116); Anion Gap 6.8 mmol/L (3-11); BUN 13 mg/dL (7-18); Bilirubin, Total 0.42 mg/dL (0.2-1.0); CO2 32.2 mmol/L (21.0-32.0); CREATININE 0.7 mg/dL (0.55-1.02); Chloride 103 mmol/L (98-107); Estimated GFR 99.57 (mL/min/1.73m2); Glucose 167 mg/dL (74-106); Lipase 73 U/L (<78); Sodium 142 mmol/L (136-145); Total Protein 7.2 g/dL (6.4-8.2)
[2024-10-03 15:17] LABS: Calcium 9.4 mg/dL (8.5-10.1)
[2024-10-03] MEDS: PANTOPRAZOLE 80 MG in Normal Saline 100 ML 10 MG IV (15:28)
[2024-10-03 15:32] LABS: PTT Activated 23.1 sec (20.6-30.2); Prothrombin Time 9.8 sec (9.1-11.1)
[2024-10-03 16:57] LABS: Bilirubin Negative (Negative); Blood Negative (Negative); Clarity Sl Cloudy (Clear); Glucose Negative (Negative); Ketones 15 mg/dL (Negative); Leukocyte Esterase Negative (Negative); Nitrite Negative (Negative); Specific Gravity 1.015 (1.005-1.025); Urobilinogen 0.2 mg/dL (Up to 0.2); pH 8.5 (5-8)
[2024-10-03 17:01] LABS: Bacteria Moderate HPF (Negative); C & S Indicated? No/Sq. Contamination; Casts Negative LPF (Negative); Crystals Negative HPF (Negative); Epithelial Cells Many HPF (Negative); Mucus Heavy (Negative); Other Cells Negative (Negative); RBC Negative HPF (0-2); WBC Negative HPF (0-5)
== END 2024-10-03 17:51 | disposition home or self-care (01) ==
PROVIDERS: Emergency Provider Student in an Organized Health Care Education/Training Program; PCP Nurse Practitioner Family
DX: K92.0 Hematemesis; E11.9 Type 2 diabetes mellitus without complications; Z79.4 Long term (current) use of insulin; Z79.85 Long-term (current) use of injectable non-insulin antidiabetic drugs
CPT/HCPCS: 80053; 82805; 83690; 96374; 96375; 99284; 81003; 81015; 85025; 85610; 85730; 99283; J2405; J2470

== ENCOUNTER 2025-01-11 02:14 | Outpatient (CLI) | payer BC, SELFPAY ==
--- NOTE | 2025-01-11 | DI.MAMMO_ITS ---
Exam(s) MAMMO SCREENING EXAM: MAMMO SCREENING CLINICAL HISTORY: Mammo Screening Z12.39 TECHNIQUE: Bilateral full field digital CC and MLO mammographic images were obtained with 3D tomosyn thesis and utilizing computer aided detection (CAD). COMPARISON: Available for comparison. FINDINGS: Masses/Architectural Distortion: No suspicious masses or areas of architectural distortion are presen t. Microcalcifications: No suspicious pleomorphic-type are seen. Skin Thickening/Nipple Retraction: None. IMPRESSION: 1. No significant interval change with no specific features of malignancy noted. 2. Unless there is more urgent need, screening mammography is recommended, as per [place] guidelines. BI-RADS Category 1 - Negative Breast Density - Category B - Scattered areas of fibroglandular density Breast density category C or D implies that the patient has dense breast tissue. Dense breast tissue is very common and is not abnormal but dense breast tissue can make it harder to find cancer on a ma mmogram. Also, dense breast tissue may increase their breast cancer risk. This information about the result of the mammogram report was provided to the patient to raise their awareness. Use this report when you speak with the patient about their risks for breast cancer, which includes their family hist ory. At that time, you may recommend for more screening tests (Ultrasound or MRI) as they might be us eful based on their risk. A negative radiographic report should not delay biopsy if a dominant or clinically suspicious mass is present. Up to ten percent of cancers are not identified on mammography. A negative report may reinforce clinical impression. Adenosis and dense breasts may obscure an underlying neoplasm. False positive reports average 6 to 10%. Patient will receive a letter notifying them of these results.
== END 2025-01-11 02:34 ==
LOC: DI 02:14
PROVIDERS: PCP Nurse Practitioner Family; Visit Provider Nurse Practitioner Family
DX: Z12.31 Encounter for screening mammogram for malignant neoplasm of breast (principal); R92.323 Mammographic fibroglandular density, bilateral breasts
CPT/HCPCS: 77063; 77067

== ENCOUNTER 2025-05-22 11:13 | Emergency (ER) | payer BC, SELFPAY ==
[2025-05-22 11:33] VITALS: BP 132/73; PULSE 77; RESP 16; TEMP 36.6; O2SAT 98
[2025-05-22] MEDS: Fluorescein STRIPS 100/BOX 1 MG OP (12:24)
[2025-05-22] MEDS: Tetracaine 0.5% 4 ML BTL OP (12:24)
[2025-05-22] MEDS: Erythromycin Ophth Oint 3.5 GM TUBE OU (13:48)
[2025-05-22 14:04] VITALS: BP 132/75; PULSE 76; TEMP 36.6
--- NOTE | 2025-05-22 16:12 | W.ED.GENAD ---
Discharge Plan Disposition Patient Disposition: Home Condition: Stable Discharge Details Clinical Impression: Acute eye pain Primary Care Provider: Martina So ED Provider: Jessica Tabor Home Meds and New Rx's Prescriptions: Continued gabapentin 100 mg capsule 300 mg PO HS Humalog U-100 Insulin 100 unit/mL cartridge 1 sliding sc SC USEASDIRECTD insulin degludec [Tresiba FlexTouch U-200] 200 unit/mL (3 mL) insulin pen 36 - 40 unit SC HS acetaminophen [Tylenol] 325 mg tablet 325 mg PO ONCE PRN glucagon 1 mg recon soln 1 mg subcut Q20M PRN Rx Instructions: until target blood sugar attained zolpidem [Ambien] 5 mg tablet 10 mg PO HS Mounjaro 5 mg/0.5 mL pen injector 5 mg SUBCUT .Qweekly Patient Comments: INJECT 0.5ML (1 PEN) SUBCUTANEOUSLY EVERY WEEK atorvastatin 20 mg tablet 20 mg PO DAILY Patient Comments: TAKE ONE TABLET BY MOUTH EVERY DAY lisdexamfetamine 40 mg capsule 40 mg PO DAILY Patient Comments: TAKE ONE CAPSULE BY MOUTH EVERY DAY lisinopril 2.5 mg tablet 2.5 mg PO DAILY Patient Comments: TAKE ONE TABLET BY MOUTH EVERY DAY venlafaxine 150 mg capsule,extended release 24hr 150 mg PO DAILY Patient Comments: TAKE ONE CAPSULE BY MOUTH DAILY Ozempic 2 mg/dose (8 mg/3 mL) pen injector 2 mg SUBCUT .weekly ondansetron 4 mg tablet,disintegrating 4 mg PO Q8H PRNQty: 14 0RF omeprazole 40 mg capsule,delayed release(DR/EC) 40 mg PO DAILY Qty: 30 0RF Discharge Instructions Additional Instructions: Use erythromycin ointment [address] a small strip to each eye for lubrication you may also use lubricating eyedrops Your eye pressures were 29 in the right eye and 29 in your left eye, please have this rechecked at [facility] tomorrow Let them know we spoke with Dr. Maya yesterday and he ensured he would be reevaluated on Thursday in the office Should you develop vision change or any new or worsening complaints please be reassessed in the emergency department early Referrals: Martina So [Primary Care Provider, Medicine] Discharge Data Discharge Date/Time-TO BE ENTERED AT DEPARTURE: 05/22/25 14:02 HPI General Date/Time Provider Initiated Documentation: 05/22/25 12:00. HPI Narrative: This 59-year-old female presents with eye irritation bilaterally left worse than right for the past 2 days. States that she is status post injections for retinal artery disease performed in [place] approximately 1 month ago. She denies any distortion in vision or drainage from her eyes. She denies any known trauma. She denies any retro-orbital pain. Related Data Home Medications ?Medication ?Instructions ?Recorded ?Confirmed insulin degludec 200 unit/mL (3 36 - 40 unit subcut HS 08/11/18 05/22/25 mL) subcutaneous pen (Tresiba FlexTouch U-200 insulin) zolpidem 5 mg tablet (Ambien) 10 mg PO HS 08/25/19 05/22/25 gabapentin 100 mg capsule 300 mg PO HS 01/31/20 05/22/25 insulin lispro 100 unit/mL 1 sliding sc subcut USEASDIRECTD 04/25/20 05/22/25 subcutaneous cartridge (Humalog U-100 Insulin) acetaminophen 325 mg tablet 325 mg PO ONCE PRN 01/07/21 05/22/25 (Tylenol) glucagon 1 mg solution for 1 mg subcut Q20M PRN 03/26/23 05/22/25 injection omeprazole 40 mg capsule,delayed 40 mg PO DAILY #30 caps 10/03/24 05/22/25 release ondansetron 4 mg disintegrating 4 mg PO Q8H PRN #14 tabs 10/03/24 05/22/25 tablet semaglutide 2 mg/dose (8 mg/3 mL) 2 mg subcut .weekly 10/03/24 05/22/25 subcutaneous pen injector (Irvin) venlafaxine 150 mg 150 mg PO DAILY 10/03/24 05/22/25 capsule,extended release 24 hr atorvastatin 20 mg tablet 20 mg PO DAILY 05/22/25 05/22/25 lisdexamfetamine 40 mg capsule 40 mg PO DAILY 05/22/25 05/22/25 lisinopril 2.5 mg tablet 2.5 mg PO DAILY 05/22/25 05/22/25 tirzepatide 5 mg/0.5 mL 5 mg subcut .Qweekly 05/22/25 05/22/25 subcutaneous pen injector (Beata) Previous Rx's ?Medication ?Instructions ?Recorded omeprazole 40 mg capsule,delayed 40 mg PO DAILY #30 caps 10/03/24 release ondansetron 4 mg disintegrating 4 mg PO Q8H PRN #14 tabs 10/03/24 tablet Allergies Allergy/AdvReac Type Severity Reaction Status Date / Time Penicillins Allergy Intermediate Swelling/Ed Verified 05/22/25 11:42 jeanette exenatide (From [place]) AdvReac Mild Nausea Verified 05/22/25 11:42 General Stated Complaint: EyeProblem ANDREWS: 4 Exam Narrative Exam Narrative: Anisocoria noted-baseline per patient, pupils are reactive left slightly smaller than right globes are soft extraocular muscles are intact funduscopic exam was challenging in the emergency department slit-lamp exam does not show acute abnormality I do not see any uptake specifically no evidence of keratitis, pressures are 29 in the left eye 28.1 right eye. Course Vital Signs Vital signs: Vital Signs Temperature 36.6 C 05/22/25 11:33 Pulse 77 05/22/25 11:33 Respiratory Rate 16 05/22/25 11:33 Blood Pressure 132/73 05/22/25 11:33 Pulse Oximetry 98 05/22/25 11:33 Temperature 36.6 C 05/22/25 14:04 Temperature Source Oral 05/22/25 14:04 Pulse 76 05/22/25 14:04 Respiratory Rate 16 05/22/25 11:33 Blood Pressure 132/75 05/22/25 14:04 Blood Pressure Mean 94 05/22/25 14:04 Blood Pressure Position Sitting 05/22/25 11:33 Pulse Oximetry 98 05/22/25 11:33 Oxygen Delivery Method Room Air 05/22/25 11:33 Oxygen Flow Rate 0 05/22/25 11:33 Pain Level 7 05/22/25 11:33 Medical Decision Making 59-year-old female presenting with report of bilateral eye discomfort receives injections for retinal artery disease every other month. Mildly elevated pressures at 29 and 28's right eye. No uptake on slit-lamp exam. 20/70 visual acuity left 20/40 visual acuity right 20/30 bilaterally. Case discussed with Dr. Maya recommends reassessment tomorrow and will recheck pressures. Will initiate erythromycin ointment until patient is able to be reevaluated tomorrow PFSH All Active Problems (Updated 05/22/25 @ 13:42 by KEYUR Aguilar) Acute eye pain (Acute) Dupuytren's contracture of both hands (Acute) Dupuytren's contracture of left hand (Acute) Tubular adenoma of colon (Acute) Polyp of cecum (Acute) Mild cognitive impairment (Acute) Trigger finger, left index finger (Acute) Medical History PONV (postoperative nausea and vomiting) No-show for appointment Tendinitis of thumb Digital mucinous cyst of finger of left hand Word finding difficulty Adhesive capsulitis of left shoulder (~11/2019) Migraine headache without aura Depression with anxiety Obesity Chronic low back pain YUDY (obstructive sleep apnea) Insomnia PTSD (post-traumatic stress disorder) Does not like things tightly around her neck. Diabetic peripheral neuropathy Memory loss Tendinitis of long head of biceps brachii of left shoulder (~06/2018) Left rotator cuff tear (~06/2018) Impingement syndrome of left shoulder (~06/2018) Bursitis of left shoulder (~06/2018) Type 2 diabetes mellitus Tendinitis of left rotator cuff Injection under fluoroscopy: 12/16/2018 Subacromial injection: 08/11/2018 Contusion Cellulitis of finger of right hand Surgical History History of colonoscopy (~04/2022) History of arthroscopy of left shoulder Synovial cyst of wrist Right S/P exploratory laparotomy [employer] S/P lumpectomy of breast left H/O laparoscopy x4 Family History Other Adopted Social History Smoking/Tobacco Use Status: Never Smoking risk assessment performed?: Yes Alcohol Intake: current Alcohol Intake frequency: holidays/special occasions only Drug use: Never Substance use type: does not use Household members: spouse and children Housing: house Number of Children: 1 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 PAWSS Have you Been Recently Intoxicated or Drunk Within the Last 30 days?: No Have you Ever Experienced Previous Episodes of Alcohol Withdrawal?: No Have you ever Experienced Withdrawal Seizures?: No Have you ever Experienced Delirium Tremens(DT)s?: No Have you ever undergone Alcohol Rehabilitation Treatment (i.e, inpt ot outpatient treatment programs)?: No Have you ever Experienced Blackouts?: No Have you ever Combined Alcohol with other Downers within the last 90 days?: No Have you ever Combined Alcohol with any other Substance of Abuse during the last 90 days?: No Positive Blood Alcohol level on Presentation? [PCS.BAL]: No Evidence of Increased Autonomic Activity (i.e. HR>120, tremor, sweating, agitation, nausea)?: No Result: 0
== END 2025-05-22 14:02 | disposition home or self-care (01) ==
PROVIDERS: Emergency Provider Physician Assistant; PCP Nurse Practitioner Family
DX: H57.12 Ocular pain, left eye (principal)
CPT/HCPCS: 99283 ×2

== ENCOUNTER 2025-06-26 13:14 | Outpatient (REF) | payer BC, SELFPAY ==
--- NOTE | 2025-06-26 15:10 | PAPFT_PTH ---
PATIENT: Marquis Figueroa LOC: [facility] U#:[id number] AGE/SX: 59/F ROOM: RE06/26/[address]: Martina So : 1965 BED: DIS: 06/26/2025 SPEC #: [id number] RECD: 06/27/25 17:50 STATUS: HILARIO REIrma #: [id number] CATE: 06/26/25 15:[address]: Martina So DEPT: [facility] Cytology RECD BY: Jessica Quinonez Tissues: 1 - CX/ENDOCX FOR PAP SMEARS Procedures: PAP THIN PREP/UVM Screening HPV DNA PROBE Comments: [id number] (HPV 16 & 18/45)
== END 2025-06-26 13:15 | disposition home or self-care (01) ==
LOC: LBN 13:14
PROVIDERS: PCP Nurse Practitioner Family; Visit Provider Nurse Practitioner Family
DX: Z12.4 Encounter for screening for malignant neoplasm of cervix (principal)
CPT/HCPCS: 88142; 87624

== ENCOUNTER 2025-06-30 17:27 | Emergency (ER) | payer BC, SELFPAY ==
[2025-06-30 17:29] VITALS: BP 154/85; PULSE 92; RESP 16; TEMP 36.5; O2SAT 98
--- NOTE | 2025-06-30 17:30 | DI.RAD_ITS ---
Exam(s) XR CHEST 2V PA LATERAL EXAM: XR CHEST 2V PA LATERAL CLINICAL HISTORY: cough. TECHNIQUE: 2D digital imaging was performed. COMPARISON: CR XR CHEST 2V PA LATERAL from 08/09/2024 FINDINGS: 2 views: Heart size is normal. The mediastinum is not widened. Lungs are clear. No infiltrates nor pleural effusions. IMPRESSION: No acute pulmonary findings. DATA REPOSITORY: RADIATION DOSE DELIVERED:
[2025-06-30 17:31] VITALS: BP 154/85; PULSE 92; RESP 16; TEMP 36.5; O2SAT 98
--- NOTE | 2025-06-30 17:39 | W.ED.GENAD ---
Discharge Plan Disposition Patient Disposition: Home Condition: Stable Discharge Details Clinical Impression: URI (upper respiratory infection), Acute left otitis media Primary Care Provider: Martina So ED Provider: Miguel Ross Home Meds and New Rx's Prescriptions: New azithromycin 250 mg tablet 250 mg PO DAILY 4 Days Qty: 4 0RF Continued gabapentin 100 mg capsule 300 mg PO HS Humalog U-100 Insulin 100 unit/mL cartridge 1 sliding sc SC USEASDIRECTD insulin degludec [Tresiba FlexTouch U-200] 200 unit/mL (3 mL) insulin pen 36 - 40 unit SC HS acetaminophen [Tylenol] 325 mg tablet 325 mg PO ONCE PRN glucagon 1 mg recon soln 1 mg subcut Q20M PRN Rx Instructions: until target blood sugar attained zolpidem [Ambien] 5 mg tablet 10 mg PO HS Mounjaro 5 mg/0.5 mL pen injector 5 mg SUBCUT .Qweekly Patient Comments: INJECT 0.5ML (1 PEN) SUBCUTANEOUSLY EVERY WEEK atorvastatin 20 mg tablet 20 mg PO DAILY Patient Comments: TAKE ONE TABLET BY MOUTH EVERY DAY lisdexamfetamine 40 mg capsule 40 mg PO DAILY Patient Comments: TAKE ONE CAPSULE BY MOUTH EVERY DAY lisinopril 2.5 mg tablet 2.5 mg PO DAILY Patient Comments: TAKE ONE TABLET BY MOUTH EVERY DAY venlafaxine 150 mg capsule,extended release 24hr 150 mg PO DAILY Patient Comments: TAKE ONE CAPSULE BY MOUTH DAILY ondansetron 4 mg tablet,disintegrating 4 mg PO Q8H PRNQty: 14 0RF omeprazole 40 mg capsule,delayed release(DR/EC) 40 mg PO DAILY Qty: 30 0RF Discharge Instructions Additional Instructions: Your x-ray, Fluvid and strep test were negative. If not improving within a week follow-up with your primary care provider or express care. If you feel more ill or have new symptoms such as persistent vomiting return to the emergency department for reevaluation. HPI General Mode of arrival: ambulatory. Date/Time Provider Initiated Documentation: 06/30/25 17:28. Limitations to Documentation: no limitations. Information obtained by: patient. History of Present Illness 59 year old F presents to the emergency department with the chief complaint of cough, sore throat, described as moderate, Patient started experiencing this day(s) (2) and it has been constant. No relieving factors improve symptom(s), No exacerbating factors reported . Patient notes other (ear pain). Patient did receive the following treatments prior to arrival, none Related Data Home Medications ?Medication ?Instructions ?Recorded ?Confirmed insulin degludec 200 unit/mL (3 36 - 40 unit subcut HS 08/11/18 06/30/25 mL) subcutaneous pen (Tresiba FlexTouch U-200 insulin) zolpidem 5 mg tablet (Ambien) 10 mg PO HS 08/25/19 06/30/25 gabapentin 100 mg capsule 300 mg PO HS 01/31/20 06/30/25 insulin lispro 100 unit/mL 1 sliding sc subcut USEASDIRECTD 04/25/20 06/30/25 subcutaneous cartridge (Humalog U-100 Insulin) acetaminophen 325 mg tablet 325 mg PO ONCE PRN 01/07/21 06/30/25 (Tylenol) glucagon 1 mg solution for 1 mg subcut Q20M PRN 03/26/23 06/30/25 injection omeprazole 40 mg capsule,delayed 40 mg PO DAILY #30 caps 10/03/24 06/30/25 release ondansetron 4 mg disintegrating 4 mg PO Q8H PRN #14 tabs 10/03/24 06/30/25 tablet venlafaxine 150 mg 150 mg PO DAILY 10/03/24 06/30/25 capsule,extended release 24 hr atorvastatin 20 mg tablet 20 mg PO DAILY 05/22/25 06/30/25 lisdexamfetamine 40 mg capsule 40 mg PO DAILY 05/22/25 06/30/25 lisinopril 2.5 mg tablet 2.5 mg PO DAILY 05/22/25 06/30/25 tirzepatide 5 mg/0.5 mL 5 mg subcut .Qweekly 05/22/25 06/30/25 subcutaneous pen injector (Beata) azithromycin 250 mg tablet 250 mg PO DAILY 4 days #4 tabs 06/30/25 Previous Rx's ?Medication ?Instructions ?Recorded omeprazole 40 mg capsule,delayed 40 mg PO DAILY #30 caps 10/03/24 release ondansetron 4 mg disintegrating 4 mg PO Q8H PRN #14 tabs 10/03/24 tablet azithromycin 250 mg tablet 250 mg PO DAILY 4 days #4 tabs 06/30/25 Allergies Allergy/AdvReac Type Severity Reaction Status Date / Time Penicillins Allergy Intermediate Swelling/Ed Verified 05/22/25 11:42 jeanette exenatide (From [place]) AdvReac Mild Nausea Verified 05/22/25 11:42 General Stated Complaint: Sorethroat ANDREWS: 4 Review of Systems All systems reviewed & are unremarkable except as noted in HPI and below Constitutional Constitutional: Denies chills, Denies fever(s) and Denies weakness Cardiovascular Cardiovascular: Denies chest pain and Denies dyspnea Respiratory Respiratory: Reports cough and Denies dyspnea Gastrointestinal Gastrointestinal: Denies abdominal pain, Denies nausea and Denies vomiting Neurologic Neurologic: Denies weakness Exam Const General: no acute distress Orientation: alert HENMT Head: normal to inspection Ears: external ears normal, TM normal on the right, left TM abnormal, EAC's normal and mastoids normal General nose exam: external nose normal Mouth: moist mucous membranes Throat: uvula midline Eyes General: appearance normal, both eyes and all related structures Neck Neck: normal visual inspection Resp Effort & Inspection: normal respiratory effort and able to speak in complete sentences Auscultation: clear to auscultation bilaterally Cardio Rate: regular rate Skin General skin exam: no rashes or lesions noted Neuro General: patient alert and patient oriented x3 Extrem General: normal to inspection Psych Mental Status: mental status grossly normal Course Vital Signs Vital signs: Vital Signs Temperature 36.5 C 06/30/25 17:29 Pulse 92 H 06/30/25 17:29 Respiratory Rate 16 06/30/25 17:29 Blood Pressure 154/85 H 06/30/25 17:29 Pulse Oximetry 98 06/30/25 17:29 Temperature 36.5 C 06/30/25 17:31 Pulse 92 H 06/30/25 17:31 Respiratory Rate 16 06/30/25 17:31 Blood Pressure 154/85 H 06/30/25 17:31 Pulse Oximetry 98 06/30/25 17:31 Pain Level 6 06/30/25 17:31 Medical Decision Making 59-year-old female comes in with 2 days of productive cough and sore throat and ear pain left worse than the right. Denies any high fevers or recent travel. She is well-appearing speaking in full sentences, has no stridor or drooling. Posterior pharynx has mild erythema with a midline uvula, no submandibular swelling or pain over the hyoid or restricted neck movements. Her left TM is erythematous, right TM appears normal. Normal mastoid exam bilaterally. Lungs are clear. I suspect URI, will check a chest x-ray to evaluate for infiltrates and also a strep test and a Fluvid test and reassess. I will treat her for otitis media as well. Patient stable, strep, Fluvid negative and x-ray also negative. She has a penicillin allergy so we will start her on azithromycin for her otitis media. She will follow-up with express care or PCP if not improving and return precautions given Differential Diagnosis Differential Diagnosis: uri, otitis media, pneumonia PFSH All Active Problems (Updated 06/30/25 @ 19:03 by Miguel Ross MD) Acute left otitis media (Acute) URI (upper respiratory infection) (Acute) Dupuytren's contracture of both hands (Acute) Dupuytren's contracture of left hand (Acute) Tubular adenoma of colon (Acute) Polyp of cecum (Acute) Mild cognitive impairment (Acute) Trigger finger, left index finger (Acute) Medical History PONV (postoperative nausea and vomiting) No-show for appointment Tendinitis of thumb Digital mucinous cyst of finger of left hand Word finding difficulty Adhesive capsulitis of left shoulder (~11/2019) Migraine headache without aura Depression with anxiety Obesity Chronic low back pain YUDY (obstructive sleep apnea) Insomnia PTSD (post-traumatic stress disorder) Does not like things tightly around her neck. Diabetic peripheral neuropathy Memory loss Tendinitis of long head of biceps brachii of left shoulder (~06/2018) Left rotator cuff tear (~06/2018) Impingement syndrome of left shoulder (~06/2018) Bursitis of left shoulder (~06/2018) Type 2 diabetes mellitus Tendinitis of left rotator cuff Injection under fluoroscopy: 12/16/2018 Subacromial injection: 08/11/2018 Contusion Cellulitis of finger of right hand Surgical History History of colonoscopy (~04/2022) History of arthroscopy of left shoulder Synovial cyst of wrist Right S/P exploratory laparotomy AN[employer] S/P lumpectomy of breast left H/O laparoscopy x4 Family History Other Adopted Social History Smoking/Tobacco Use Status: Never Smoking risk assessment performed?: Yes Alcohol Intake: current Alcohol Intake frequency: holidays/special occasions only Drug use: Never Substance use type: does not use Household members: spouse and children Housing: house Number of Children: 1 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
[2025-06-30 18:31] LABS: COVID-19 PCR Negative (Negative); RSV PCR Negative (Negative)
[2025-06-30] MEDS: Azithromycin 250 MG TAB 500 MG PO (19:20)
== END 2025-06-30 19:38 | disposition home or self-care (01) ==
PROVIDERS: Emergency Provider Emergency Medicine; PCP Nurse Practitioner Family
DX: J06.9 Acute upper respiratory infection, unspecified (principal); H66.92 Otitis media, unspecified, left ear
CPT/HCPCS: 99283 ×2; 87880; 87637; 71046; 87081